=== PATIENT | female | born 1940 | race Caucasian/White ===

== ENCOUNTER 2020-05-25 09:04 | Outpatient (RCR) | payer OTHER, SELFPAY | END 2020-10-25 10:56 | disposition home or self-care (01) | LOC: HO.WCC 09:04 | PROVIDERS: PCP Internal Medicine; Visit Provider Surgery | DX: L97.825 Non-pressure chronic ulcer of other part of left lower leg with muscle involvement without evidence of necrosis (principal) | CPT/HCPCS: 10140; 11042; 11043; 11045; 11046; 97597; 99212; 99213 ==

== ENCOUNTER 2020-06-14 08:13 | Outpatient (REF) | payer OTHER, SELFPAY | END 2020-06-14 08:14 | disposition home or self-care (01) | LOC: HO.MDS 08:13 | PROVIDERS: PCP Internal Medicine; Visit Provider Psychiatry & Neurology Neurology | DX: G70.00 Myasthenia gravis without (acute) exacerbation (principal) | CPT/HCPCS: 96365; 96366; J1572 ==

== ENCOUNTER → 2020-07-04 10:02 | Outpatient (BNVA) | payer OTHER, SELFPAY | PROVIDERS: PCP Family Medicine; Referring Provider Family Medicine; Visit Provider Internal Medicine Gastroenterology | DX: Z76.89 Persons encountering health services in other specified circumstances (principal) ==

== ENCOUNTER 2020-07-12 08:04 | Outpatient (REF) | payer OTHER, SELFPAY | END 2020-07-12 08:05 | disposition home or self-care (01) | LOC: HO.MDS 08:04 | PROVIDERS: PCP Internal Medicine; Visit Provider Psychiatry & Neurology Neurology | DX: G70.00 Myasthenia gravis without (acute) exacerbation (principal) | CPT/HCPCS: 96365; 96366; J1572 ==

== ENCOUNTER 2020-08-10 08:07 | Outpatient (REF) | payer OTHER, SELFPAY | END 2020-08-10 08:08 | disposition home or self-care (01) | LOC: HO.MDS 08:07 | PROVIDERS: PCP Internal Medicine; Visit Provider Psychiatry & Neurology Neurology | DX: G70.00 Myasthenia gravis without (acute) exacerbation (principal) | CPT/HCPCS: 96365; 96366; J1572 ==

== ENCOUNTER 2020-09-06 08:53 | Outpatient (REF) | payer OTHER, SELFPAY | END 2020-09-06 08:54 | disposition home or self-care (01) | LOC: HO.MDS 08:53 | PROVIDERS: PCP Internal Medicine; Visit Provider Psychiatry & Neurology Neurology | DX: G70.00 Myasthenia gravis without (acute) exacerbation (principal) | CPT/HCPCS: 96365; 96366; J1572 ==

== ENCOUNTER 2020-10-04 08:02 | Outpatient (REF) | payer OTHER, SELFPAY | END 2020-10-04 08:03 | disposition home or self-care (01) | LOC: HO.MDS 08:02 | PROVIDERS: PCP Internal Medicine; Visit Provider Psychiatry & Neurology Neurology | DX: G70.00 Myasthenia gravis without (acute) exacerbation (principal) | CPT/HCPCS: 96365; 96366; J1572 ==

== ENCOUNTER 2020-11-01 08:03 | Outpatient (REF) | payer OTHER, SELFPAY | END 2020-11-01 08:04 | disposition home or self-care (01) | LOC: HO.MDS 08:03 | PROVIDERS: PCP Internal Medicine; Visit Provider Psychiatry & Neurology Neurology | DX: G70.00 Myasthenia gravis without (acute) exacerbation (principal) | CPT/HCPCS: 96365; 96366; J1572 ==

== ENCOUNTER 2020-11-08 11:13 | Outpatient (REF) | payer OTHER, SELFPAY ==
[2020-11-08 12:10] LABS: MANUAL DIFF FLAG NO
[2020-11-08 12:20] LABS: Basophils Percent Auto 0.3 % (0-2); Eosinophils Absolute Auto 0.1 X10*3/uL (0.0-0.4); Eosinophils Percent Auto 0.6 % (0-4); Hematocrit 43.2 % (37-47); Hemoglobin 13.7 g/dl (12.0-16.0); Imm Gran Abs Auto 0.04 X10*3/uL (0.00-0.03); Imm Gran Pct Auto 0.4 % (0.0-0.4); Lymphocytes Absolute Auto 1.3 X10*3/uL (1.2-4.9); Lymphocytes Percent Auto 12.6 % (20-40); Mean Corpuscular HGB Conc 31.7 g/dl (31.0-35.0); Mean Corpuscular Hemoglobin 31.4 pg (27.0-33.0); Mean Corpuscular Volume 99.1 fL (80-98); Mean Platelet Volume 9.2 fL (9.4-12.3); Monocytes Absolute Auto 0.6 X10*3/uL (0.1-1.2); Neutrophils Absolute Auto 8.3 X10*3/uL (2.0-8.3); Neutrophils Percent Auto 80.1 % (45-73); Platelet Count 242 X10*3/uL (160-400); Red Blood Count 4.36 X10*6/uL (4.20-5.50); Red Cell Distribution Width 14.6 % (11.0-16.0); White Blood Count 10.3 X10*3/uL (4.8-10.8)
[2020-11-08 13:38] LABS: Alanine Aminotransferase 12 U/L (0-31); Albumin Level 4.2 g/dL (3.5-5.0); Alkaline Phosphatase 55 U/L (39-117); Anion Gap 13 (12-20); Aspartate Amino Transferase 19 U/L (5-31); Bilirubin Total 1.1 mg/dL (0.0-1.0); Blood Urea Nitrogen 18 mg/dL (9-16); C Reactive Protein 0.22 mg/dL (< or = 0.50); Carbon Dioxide 26 mmol/L (22-29); Chloride 106 mmol/L (96-108); Estimated Glomerular Filt Rate > 60; Glucose Random 84 mg/dL (60-115); Magnesium 1.9 mg/dL (1.6-2.6); Potassium 3.6 mmol/L (3.3-5.1); Sodium 141 mmol/L (135-145); Total Protein 7.9 g/dL (6.5-8.0)
[2020-11-08 13:49] LABS: TSH reflex Free T4 1.63 uIU/mL (0.32-4.0); Vitamin D 25-OH Total 24.3 ng/mL (>30)
[2020-11-09 05:12] LABS: Transglutaminase IgA 1 U/mL
[2020-11-12 12:36] LABS: Vitamin B1 11 nmol/L (8-30)
== END 2020-11-08 11:14 | disposition home or self-care (01) ==
LOC: HO.LAB 11:13
PROVIDERS: PCP Family Medicine; Visit Provider Internal Medicine Gastroenterology
DX: K90.89 Other intestinal malabsorption (principal)
CPT/HCPCS: 36415; 80053; 82306; 83516; 83735; 84425; 84443; 85025; 86140

== ENCOUNTER 2020-11-12 09:53 | Outpatient (REF) | payer OTHER, SELFPAY ==
[2020-11-12 12:00] LABS: CDIFF Ag Negative (Negative); CDIFF Internal ctrl Dots and bkg OK (V); CDiff Toxin Negative (Negative)
[2020-11-12 15:08] LABS: Leukocytes Stool Qualitative NEGATIVE (NEGATIVE)
== END 2020-11-12 09:54 | disposition home or self-care (01) ==
LOC: HO.LNP 09:53
PROVIDERS: Visit Provider Internal Medicine Gastroenterology
DX: D12.6 Benign neoplasm of colon, unspecified (principal); K90.89 Other intestinal malabsorption
CPT/HCPCS: 87324; 87449; 89055

== ENCOUNTER 2020-11-16 | Outpatient (REF) | payer OTHER, SELFPAY ==
[2020-11-19 14:41] LABS: FIT Int Ctl YES; FIT1 NEGATIVE (NEGATIVE); FIT2 NEGATIVE (NEGATIVE)
== END 2020-11-16 00:01 | disposition home or self-care (01) ==
LOC: HO.LNP
PROVIDERS: Visit Provider Internal Medicine Gastroenterology
DX: Z13.89 Encounter for screening for other disorder (principal)
CPT/HCPCS: 82274

== ENCOUNTER 2020-11-29 08:02 | Outpatient (REF) | payer OTHER, SELFPAY | END 2020-11-29 08:03 | disposition home or self-care (01) | LOC: HO.MDS 08:02 | PROVIDERS: PCP Internal Medicine; Visit Provider Psychiatry & Neurology Neurology | DX: G70.00 Myasthenia gravis without (acute) exacerbation (principal) | CPT/HCPCS: 96365; 96366; J1572 ==

== ENCOUNTER 2020-12-28 07:56 | Outpatient (REF) | payer OTHER, SELFPAY | END 2020-12-28 07:57 | disposition home or self-care (01) | LOC: HO.MDS 07:56 | PROVIDERS: PCP Family Medicine; Visit Provider Psychiatry & Neurology Neurology | DX: G70.00 Myasthenia gravis without (acute) exacerbation (principal) | CPT/HCPCS: 96365; 96366; J1572 ==

== ENCOUNTER → 2021-01-01 13:18 | Outpatient (BNVA) | payer OTHER, SELFPAY | PROVIDERS: PCP Family Medicine; Referring Provider Family Medicine; Visit Provider Nurse Practitioner Family ==

== ENCOUNTER 2021-01-25 08:04 | Outpatient (REF) | payer OTHER, SELFPAY | END 2021-01-25 08:05 | disposition home or self-care (01) | LOC: HO.MDS 08:04 | PROVIDERS: PCP Family Medicine; Visit Provider Psychiatry & Neurology Neurology | DX: G70.00 Myasthenia gravis without (acute) exacerbation (principal) | CPT/HCPCS: 96365; 96366; J1572 ==

== ENCOUNTER 2021-02-21 08:03 | Outpatient (REF) | payer OTHER, SELFPAY | END 2021-02-21 08:04 | disposition home or self-care (01) | LOC: HO.MDS 08:03 | PROVIDERS: PCP Family Medicine; Visit Provider Psychiatry & Neurology Neurology | DX: G70.00 Myasthenia gravis without (acute) exacerbation (principal) | CPT/HCPCS: 96365; 96366; J1572 ==

== ENCOUNTER 2021-03-04 15:39 | Outpatient (REF) | payer OTHER, SELFPAY ==
[2021-03-04 15:48] LABS: Appearance Urine CLEAR; Color Urine YELLOW; Glucose Urine UA NEG (NEG); Leukocyte Esterase Urine NEG (NEG); Nitrite Urine NEG (NEG); Specific Gravity - Urine <= 1.005 (1.005-1.025); Urine Blood TRACE (NEG); Urine Ketones NEG (NEG); Urine Protein NEG (NEG-TRACE)
[2021-03-04 15:56] LABS: Mucus Urine TRACE /LPF; RBC Urine 0-2 /HPF (0); WBC Urine 0 /HPF (0-4)
== END 2021-03-04 15:40 | disposition home or self-care (01) ==
LOC: HO.HVNA 15:39
PROVIDERS: Visit Provider Family Medicine
DX: R35.0 Frequency of micturition (principal)
CPT/HCPCS: 81001

== ENCOUNTER 2021-03-21 07:57 | Outpatient (REF) | payer OTHER, SELFPAY | END 2021-03-21 07:58 | disposition home or self-care (01) | LOC: HO.MDS 07:57 | PROVIDERS: PCP Family Medicine; Visit Provider Psychiatry & Neurology Neurology | DX: G70.00 Myasthenia gravis without (acute) exacerbation (principal) | CPT/HCPCS: 96365; 96366; J1569 ==

== ENCOUNTER 2021-04-18 08:03 | Outpatient (REF) | payer OTHER, SELFPAY | END 2021-04-18 08:04 | disposition home or self-care (01) | LOC: HO.MDS 08:03 | PROVIDERS: PCP Family Medicine; Visit Provider Psychiatry & Neurology Neurology | DX: G70.00 Myasthenia gravis without (acute) exacerbation (principal) | CPT/HCPCS: 96365; 96366; J1569 ==

== ENCOUNTER 2021-05-23 07:52 | Outpatient (REF) | payer OTHER, SELFPAY | END 2021-05-23 07:53 | disposition home or self-care (01) | LOC: HO.MDS 07:52 | PROVIDERS: PCP Family Medicine; Visit Provider Psychiatry & Neurology Neurology | DX: G70.00 Myasthenia gravis without (acute) exacerbation (principal) | CPT/HCPCS: 96365; 96366; J1569 ==

== ENCOUNTER 2021-06-27 07:55 | Outpatient (REF) | payer OTHER, SELFPAY | END 2021-06-27 07:56 | disposition home or self-care (01) | LOC: HO.MDS 07:55 | PROVIDERS: PCP Family Medicine; Visit Provider Psychiatry & Neurology Neurology | DX: G70.00 Myasthenia gravis without (acute) exacerbation (principal) | CPT/HCPCS: 96365; 96366; J1569 ==

== ENCOUNTER 2021-08-01 08:12 | Outpatient (REF) | payer OTHER, SELFPAY | END 2021-08-01 08:13 | disposition home or self-care (01) | LOC: HO.MDS 08:12 | PROVIDERS: PCP Family Medicine; Visit Provider Psychiatry & Neurology Neurology | DX: G70.00 Myasthenia gravis without (acute) exacerbation (principal) | CPT/HCPCS: 96365; 96366; J1569 ==

== ENCOUNTER 2021-09-05 07:58 | Outpatient (REF) | payer OTHER, SELFPAY | END 2021-09-05 07:59 | disposition home or self-care (01) | LOC: HO.MDS 07:58 | PROVIDERS: PCP Family Medicine; Visit Provider Psychiatry & Neurology Neurology | DX: G70.00 Myasthenia gravis without (acute) exacerbation (principal) | CPT/HCPCS: 96365; 96366; J1569 ==

== ENCOUNTER 2021-10-10 08:02 | Outpatient (REF) | payer OTHER, SELFPAY | END 2021-10-10 08:03 | disposition home or self-care (01) | LOC: HO.MDS 08:02 | PROVIDERS: PCP Family Medicine; Visit Provider Psychiatry & Neurology Neurology | DX: G70.00 Myasthenia gravis without (acute) exacerbation (principal) | CPT/HCPCS: 96365; 96366; J1569 ==

== ENCOUNTER 2021-11-07 08:03 | Outpatient (REF) | payer OTHER, SELFPAY | END 2021-11-07 08:04 | disposition home or self-care (01) | LOC: HO.MDS 08:03 | PROVIDERS: PCP Family Medicine; Visit Provider Psychiatry & Neurology Neurology | DX: G70.00 Myasthenia gravis without (acute) exacerbation (principal) | CPT/HCPCS: 96365; 96366; J1569 ==

== ENCOUNTER 2021-12-03 08:03 | Outpatient (REF) | payer OTHER, SELFPAY | END 2021-12-03 08:04 | disposition home or self-care (01) | LOC: HO.MDS 08:03 | PROVIDERS: PCP Family Medicine; Visit Provider Psychiatry & Neurology Neurology | DX: G70.00 Myasthenia gravis without (acute) exacerbation (principal) | CPT/HCPCS: 96365; 96366; J1569 ==

== ENCOUNTER 2022-03-10 08:00 | Outpatient (REF) | payer OTHER, SELFPAY | END 2022-03-10 08:01 | disposition home or self-care (01) | LOC: HO.MDS 08:00 | PROVIDERS: Visit Provider Psychiatry & Neurology Neurology | DX: G70.00 Myasthenia gravis without (acute) exacerbation (principal) | CPT/HCPCS: 96365; 96366; J1569 ==

== ENCOUNTER 2022-05-01 08:00 | Outpatient (REF) | payer OTHER, SELFPAY | END 2022-05-01 08:01 | disposition home or self-care (01) | LOC: HO.MDS 08:00 | PROVIDERS: Visit Provider Psychiatry & Neurology Neurology | DX: G70.00 Myasthenia gravis without (acute) exacerbation (principal) | CPT/HCPCS: J1569 ==

== ENCOUNTER 2022-06-12 08:00 | Outpatient (REF) | payer OTHER, SELFPAY | END 2022-06-12 08:01 | disposition home or self-care (01) | LOC: HO.MDS 08:00 | PROVIDERS: Visit Provider Psychiatry & Neurology Neurology | DX: G70.00 Myasthenia gravis without (acute) exacerbation (principal) | CPT/HCPCS: 96365; 96366; J1569; J1572 ==

== ENCOUNTER 2022-08-15 14:00 | Outpatient (RCR) | payer OTHER, SELFPAY | END 2022-10-15 16:00 | disposition home or self-care (01) | LOC: HO.WCC 14:00 | PROVIDERS: PCP Family Medicine; Visit Provider Physician Assistant | DX: L97.812 Non-pressure chronic ulcer of other part of right lower leg with fat layer exposed (principal); I10 Essential (primary) hypertension | CPT/HCPCS: 11042; 88304; 88305; 97597; 99212; 99213 ==

== ENCOUNTER → 2022-08-21 14:02 | Outpatient (BNVA) | payer OTHER, SELFPAY | PROVIDERS: PCP Family Medicine; Visit Provider Internal Medicine Endocrinology, Diabetes & Metabolism | DX: M81.0 Age-related osteoporosis without current pathological fracture (principal) ==

== ENCOUNTER 2022-09-01 09:23 | Outpatient (REF) | payer OTHER, SELFPAY ==
[2022-09-01 11:24] LABS: Phosphorus 3.1 mg/dL (2.7-4.5)
[2022-09-01 11:32] LABS: Vitamin D 25-OH Total 68.6 ng/mL (>30)
[2022-09-04 23:42] LABS: Prot Elec - Albumin 3.7 g/dL (3.8-4.8); Prot Elec - Alpha1 0.3 g/dL (0.2-0.3); Prot Elec - Alpha2 0.9 g/dL (0.5-0.9); Prot Elec - Beta 1 0.4 g/dL (0.4-0.6); Prot Elec - Beta 2 0.3 g/dL (0.2-0.5); Prot Elec - Gamma 0.7 g/dL (0.8-1.7); Prot Elec - Total Protein 6.3 g/dL (6.1-8.1)
== END 2022-09-01 09:24 | disposition home or self-care (01) ==
LOC: HO.LAB 09:23
PROVIDERS: PCP Family Medicine; Visit Provider Internal Medicine Endocrinology, Diabetes & Metabolism
DX: M81.0 Age-related osteoporosis without current pathological fracture (principal)
CPT/HCPCS: 82306; 84100; 84165; 86335

== ENCOUNTER 2022-09-16 12:23 | Outpatient (REF) | payer OTHER, SELFPAY ==
[2022-09-16 13:21] LABS: Creatinine, mg/dL 75.25
[2022-09-16 14:56] LABS: Creatinine, 24Hr Urine 0.6 G/Day (1.0-2.0); Total Volume 24 Hour Urine 750 mL
[2022-09-17 18:08] LABS: Calcium, 24 Hr Urine 199 mg/24 h; Calcium/Creatinine Ratio 328 mg/g creat (30-275); Creatinine 24Hr Urine 0.61 g/24 h (0.50-2.15)
== END 2022-09-16 12:24 | disposition home or self-care (01) ==
LOC: HO.LNP 12:23
PROVIDERS: Visit Provider Internal Medicine Endocrinology, Diabetes & Metabolism
DX: M81.0 Age-related osteoporosis without current pathological fracture (principal)
CPT/HCPCS: 82340; 82570

== ENCOUNTER → 2022-10-24 11:28 | Outpatient (BNVA) | payer OTHER, SELFPAY | PROVIDERS: PCP Family Medicine; Visit Provider Internal Medicine Endocrinology, Diabetes & Metabolism | DX: Z13.89 Encounter for screening for other disorder (principal) ==

== ENCOUNTER 2023-01-22 08:00 | Outpatient (RCR) | payer OTHER, SELFPAY | END 2023-01-30 14:06 | disposition home or self-care (01) | LOC: HO.WCC 08:00 | PROVIDERS: PCP Family Medicine; Visit Provider Surgery | DX: S51.821A Laceration with foreign body of right forearm, initial encounter (principal); W54.0XXA Bitten by dog, initial encounter; I10 Essential (primary) hypertension; I73.9 Peripheral vascular disease, unspecified; G70.00 Myasthenia gravis without (acute) exacerbation; Z87.891 Personal history of nicotine dependence | CPT/HCPCS: 99212; 99213 ==

== ENCOUNTER 2023-03-05 14:14 | Outpatient (REF) | payer OTHER, SELFPAY | END 2023-03-05 14:15 | disposition home or self-care (01) | LOC: HO.MDS 14:14 | PROVIDERS: Visit Provider Psychiatry & Neurology Neurology | DX: G70.00 Myasthenia gravis without (acute) exacerbation (principal) | CPT/HCPCS: 96365; J2930 ==

== ENCOUNTER 2023-03-23 08:31 | Outpatient (REF) | payer OTHER, SELFPAY | END 2023-03-23 08:32 | disposition home or self-care (01) | LOC: HO.MDS 08:31 | PROVIDERS: Visit Provider Psychiatry & Neurology Neurology | DX: G70.00 Myasthenia gravis without (acute) exacerbation (principal) | CPT/HCPCS: 96365; 96366; J1569 ==

== ENCOUNTER 2023-05-28 08:20 | Outpatient (REF) | payer OTHER, SELFPAY | END 2023-05-28 08:21 | disposition home or self-care (01) | LOC: HO.MDS 08:20 | PROVIDERS: Visit Provider Psychiatry & Neurology Neurology | DX: G70.00 Myasthenia gravis without (acute) exacerbation (principal) | CPT/HCPCS: 96365; J2930 ==

== ENCOUNTER 2023-09-11 10:06 | Outpatient (REF) | payer OTHER, SELFPAY ==
[2023-09-11 10:44] LABS: Blood Urea Nitrogen 12 mg/dL (9-16); Estimated Glomerular Filt Rate > 60
== END 2023-09-11 10:07 | disposition home or self-care (01) ==
LOC: HO.LAB 10:06
PROVIDERS: Psychiatry & Neurology Neurology; PCP Family Medicine; Visit Provider Psychiatry & Neurology Neurology
DX: G70.00 Myasthenia gravis without (acute) exacerbation (principal)
CPT/HCPCS: 36415; 82565; 84520

== ENCOUNTER 2023-09-11 10:39 | Outpatient (REF) | payer OTHER, SELFPAY | END 2023-09-11 10:40 | disposition home or self-care (01) | LOC: HO.MDS 10:39 | PROVIDERS: Visit Provider Psychiatry & Neurology Neurology | DX: G70.00 Myasthenia gravis without (acute) exacerbation (principal) | CPT/HCPCS: 96365; 96366; J1569 ==

== ENCOUNTER 2023-09-14 10:00 | Outpatient (REF) | payer OTHER, SELFPAY | END 2023-09-14 10:01 | disposition home or self-care (01) | LOC: HO.MDS 10:00 | PROVIDERS: Visit Provider Psychiatry & Neurology Neurology | DX: G70.00 Myasthenia gravis without (acute) exacerbation (principal) | CPT/HCPCS: 96365; 96366; J1569 ==

== ENCOUNTER 2023-09-15 09:23 | Outpatient (REF) | payer OTHER, SELFPAY ==
[2023-09-17 01:29] LABS: Immunoglobulin G 1669 mg/dL (600-1540)
[2023-09-18 11:03] LABS: Prot Elec - Alpha1 0.2 g/dL (0.2-0.3); Prot Elec - Alpha2 0.6 g/dL (0.5-0.9); Prot Elec - Beta 1 0.3 g/dL (0.4-0.6); Prot Elec - Beta 2 0.2 g/dL (0.2-0.5); Prot Elec - Gamma 1.6 g/dL (0.8-1.7)
== END 2023-09-15 09:24 | disposition home or self-care (01) ==
LOC: HO.MDS 09:23
PROVIDERS: Visit Provider Psychiatry & Neurology Neurology
DX: G70.00 Myasthenia gravis without (acute) exacerbation (principal)
CPT/HCPCS: 36415; 82784; 84165; 96365; 96366; J1569

== ENCOUNTER 2023-09-16 12:18 | Outpatient (REF) | payer OTHER, SELFPAY | END 2023-09-16 12:19 | disposition home or self-care (01) | LOC: HO.MDS 12:18 | PROVIDERS: Visit Provider Psychiatry & Neurology Neurology | DX: G70.00 Myasthenia gravis without (acute) exacerbation (principal) | CPT/HCPCS: 96365; 96366; J1569 ==

== ENCOUNTER 2023-09-17 08:52 | Outpatient (REF) | payer OTHER, SELFPAY | END 2023-09-17 08:53 | disposition home or self-care (01) | LOC: HO.MDS 08:52 | PROVIDERS: Visit Provider Psychiatry & Neurology Neurology | DX: G70.00 Myasthenia gravis without (acute) exacerbation (principal) | CPT/HCPCS: 96365; 96366; J1569 ==

== ENCOUNTER 2023-10-25 15:05 | Inpatient (IN) | payer OTHER, SELFPAY ==
--- NOTE | ~2023-10-25 | XR_ITS ---
EXAMINATION: XR CHEST CLINICAL INFORMATION: G-tube placement. COMPARISON: 05/17/2017 TECHNIQUE: Frontal view of the chest was obtained. FINDINGS: Borderline low lung volumes with areas of bibasilar atelectasis and multifocal pleural parenchymal scarring. No airspace consolidation. No pneumothorax or pleural effusion. Cardiac and mediastinal contours are normal. Tortuous thoracic aorta with calcific atherosclerosis. Bones are osteopenic. There is multilevel degenerative spondylosis in the thoracolumbar spine with vertebral augmentation cement at multiple levels in the lower thoracic spine. ACDF plate and screw fixation construct is noted. No appreciable gastrostomy tube over the abdomen. No NG tube. XR/XR chest 1V IMPRESSION: 1. No appreciable gastrostomy tube over the abdomen. No NG tube. 2. Low lung volumes with bibasilar atelectasis and multifocal pleural parenchymal scarring. No acute pulmonary findings.
--- NOTE | ~2023-10-25 | FL_ITS ---
FLUOROSCOPIC NASOGASTRIC FEEDING TUBE PLACEMENT INDICATION: Myasthenia gravis. Patient is unable to swallow. Patient was placed upright on the fluoroscopy table. A well lubricated 10 [place] soft flexible feeding tube was inserted into the right nare and advanced into the stomach under fluoroscopic guidance. The tip of tube overlies the body/distal stomach, greater curvature. The tube was secured to the nose at the 62 cm karen. No immediate complications. Patient tolerated the procedure well. T12 compression deformity and vertebroplasty noted. Superior endplate compression deformity L1. Diffuse lumbar spondylosis and mild right convex scoliosis. Total fluoroscopy time: 2 minutes 9 seconds FL/FL fluoroscopy <1hr IMPRESSION: Successful fluoroscopic aided placement of a nasogastric feeding tube. This procedure was performed by Dilan Brasher PA-C and supervised by Dr. Hill.
[2023-10-25 15:08] VITALS: BP 140/86; PULSE 83; RESP 18; TEMP 36.8; O2SAT 96; BMI 23.0
--- NOTE | 2023-10-25 15:14 | ED_ITS ---
HPI - General Adult General Chief complaint: General Medical Stated complaint: alli thomas called ahead Time Seen by Provider: 10/25/23 16:11 History of Present Illness HPI narrative: Patient 83 years old history of myasthenia gravis affecting oropharyngeal area on Vyugart and prednisone comes here for increased weakness difficulty swallowing and impaired speech for last 3 days patient next dose of Vyugart inj is on 11/06 patient discussed the case with Dr. Thomas neurologist advised to start on IV immunoglobulin treatment no shortness of breath Related Data Home Medications Medication Instructions Recorded Confirmed azathioprine 50 mg tablet 50 mg PO Q OTHER DAY 07/04/20 10/25/23 pyridostigmine bromide 60 mg 60 mg PO TID 07/04/20 10/25/23 tablet (Mestinon) amlodipine 5 mg tablet 5 mg PO DAILY 08/21/22 10/25/23 efgartigimod isabella-fcab 20 mg/mL mg IV 10/25/23 intravenous solution (Vyvgart) gabapentin 100 mg capsule 100 mg PO BEDTIME PRN Pain 10/25/23 10/25/23 latanoprost 0.005 % eye drops 1 drp ophthalmic (eye) BEDTIME 10/25/23 10/25/23 oxybutynin chloride 15 mg 15 mg PO DAILY 10/25/23 10/25/23 tablet,extended release 24 hr prednisone 20 mg tablet 20 mg PO DAILY 10/25/23 10/25/23 timolol maleate 0.25 % eye drops 1 drp ophthalmic-Right QAM 10/25/23 10/25/23 Allergies Allergy/AdvReac Type Severity Reaction Status Date / Time NSAIDS (Non-Steroidal Allergy Intermediate RASH Verified 10/24/22 11:38 Anti-Inflamma [NSAIDS (NON-STEROIDAL ANTI-INFLAMMA] azithromycin Allergy Unknown may Verified 10/24/22 11:38 exacerbate MG Ceftin Allergy Unknown hives Verified 10/24/22 11:38 cefuroxime [From CEFTIN] Allergy Unknown PATIENT Verified 10/24/22 11:38 AWARE OF REACTION IT WAS SO LONG AGO ibuprofen [Advil] Allergy Unknown rash Verified 10/24/22 11:38 levofloxacin Allergy Unknown may Verified 10/24/22 11:38 exacerbate MG lisinopril Allergy Unknown unknown Verified 10/24/22 11:38 losartan Allergy Unknown unknown Verified 10/24/22 11:38 ciprofloxacin [CIPROFLOXACIN] AdvReac Unknown UNABLE TO Verified 10/24/22 11:38 TAKE R/T DX MYASTHENIA GRAVIS nitrofurantoin AdvReac Unknown stomatitis Verified 10/24/22 11:38 adhesive tape Allergy Unknown rash Uncoded 10/24/22 11:38 adhesives Allergy Unknown rash Uncoded 10/24/22 11:38 Advil PM Allergy Unknown rash Uncoded 10/24/22 11:38 Review of Systems 2 Review of Systems: Yes all other systems are reviewed and are negative [facility] Past Medical History Medical History Osteoporosis Myasthenia gravis in remission Tubular adenoma of colon (~2010) Bile salt-induced diarrhea Surgical History History of back surgery Status post partial hysterectomy Hx laparoscopic cholecystectomy Hx of colonoscopy Family History Family History Father HTN (hypertension) Mother Colon cancer Sister Glaucoma Other Hx of colonoscopy Social History Social History Household Members: None Housing: House Alcohol intake: current Alcohol intake frequency: holidays/special occasions only Patient Tobacco Use Status: Former Tobacco user Quit Date: 1971 Smoked in Last 30 Days: No Use of substances other than those prescribed or required for medical reasons: No Advance Directives: Yes Advance Directives Information Provided: No Advance Directives on File: No Advance Directives Date on File: 06/14/20 Nutrition Risks: No Nutritional Risk Physical Exam ED Vital Signs: Vital Signs - 24 hr 10/25/23 15:08 10/25/23 17:04 Temperature 98.3 F 97.9 F Pulse Rate 83 75 Respiratory Rate 18 14 Blood Pressure 140/86 H Pulse Oximetry 96 97 Oxygen Delivery Method Room Air Room Air BMI result Body Mass Index 23.0 Appearance: Alert. Oriented X3. No acute distress. Eyes: PERRLA, No Nystagmus ENT: Pharynx normal. Oral Mucosa moist slow speech with easy tiredness Neck: Normal inspection. Neck supple. CVS: Normal heart rate and rhythm. Pulses normal. Respiratory: No respiratory distress. Equal air entry bilateral, no wheezing/rales/rhonchi Abdomen: Soft and nontender. Bowel sounds are present, no mass palpable, no CVA tenderness Skin: Skin warm and dry. Normal skin color. Normal skin turgor. Extremities: No lower extremity edema. No calf tenderness Neuro: Oriented X 3. No motor deficit. Course Course Course Narrative: RME- 83 year old female presents for evaluation weakness, difficulty swallowing and impaired speech for the last 4 days. She has a history of myasthenia gravis and Dr Thomas would like her to be admitted for 5 days of IVIG treatment. She is due for an outpatient Vyvgart injection on 11/06. Plan for basic labs Medications Administered Generic Name Dose Route Start Last Admin Trade Name Freq PRN Reason Stop Dose Admin Heparin Sodium (Porcine) 5,000 unit 10/25/23 17:30 10/25/23 17:53 Heparin Sodium,Porcine 5,000 Unit/Ml Vial SUBCUT 5,000 unit Q12H AME Administration Sodium Chloride 1,000 mls @ 80 mls/hr 10/25/23 17:30 10/25/23 17:47 Ns IVCONT 80 mls/hr .[id number] AME Administration Sodium Chloride 3 ml 10/26/23 00:00 10/26/23 00:00 0.9 % Sodium Chloride Flush 3 Ml Syringe IVFLUSH Not Given QSHIFT AME Discontinued Medications Generic Name Dose Route Start Last Admin Trade Name Freq PRN Reason Stop Dose Admin Acetaminophen 650 mg 10/25/23 16:32 10/25/23 16:48 Acetaminophen 325 Mg Tablet PO 10/25/23 16:33 Not Given ONCE ONE Diphenhydramine HCl 25 mg 10/25/23 16:32 10/25/23 16:43 Diphenhydramine Hcl 50 Mg/Ml Vial IVPUSH 10/25/23 16:33 25 mg ONCE ONE Administration Sodium Chloride 100 mls @ 100 mls/hr 10/25/23 16:45 10/25/23 18:15 Ns IV 10/25/23 17:44 Infused .Q1H AME Infusion Immune Globulin 50 mls @ 30 mls/hr 10/25/23 16:45 10/25/23 18:35 Gammagard 10% IV 10/25/23 18:24 Infused ONCE ONE Infusion Immune Globulin 200 mls @ 30 mls/hr 10/25/23 18:30 10/25/23 18:44 Gammagard 10% IV 10/26/23 01:09 30 mls/hr ONCE ONE Administration Methylprednisolone Sodium Succinate 40 mg 10/25/23 16:32 10/25/23 16:43 Methylprednisolone Sod Succ 40 Mg/Ml Vial IVPUSH 10/25/23 16:33 40 mg ONCE ONE Administration Medical Decision Making Medical Decision Making [facility] Narrative: Patient with dysphagia with weakness the muscles secondary to myasthenia gravis will admit patient for IVIG treatment no shortness of breath Differential Diagnosis Differential Diagnoses: The differential diagnosis associated with the presentation includes Admission/Observation Consideration of admission/observation: Escalation of care including admission/observation considered Consult Healthcare Provider Management of the patient was discussed with: Hospitalist Lab Data [facility] Lab Attestation statement: I reviewed the patient's lab results. 10/25/23 15:39 10/25/23 15:39 Labs: Lab Results 10/25/23 10/25/23 10/25/23 Range/Units 15:39 15:59 16:15 WBC 9.9 (4.8-10.8) X10*3/uL RBC 4.69 (4.20-5.50) X10*6/uL Hgb 15.3 (12.0-16.0) g/dl Hct 46.2 (37.0-47.0) % MCV 98.5 H (80.0-98.0) fL MCH 32.6 (27.0-33.0) pg MCHC 33.1 (31.0-35.0) g/dl RDW 13.2 (11.0-16.0) % Plt Count 212 (160-400) X10*3/uL MPV 8.7 L (9.4-12.3) fL Immature Gran % (Auto) 0.4 (0.0-0.4) % Neut % (Auto) 92.6 H (45-73) % Lymph % (Auto) 5.5 L (20-40) % [place] % (Auto) 1.3 L (2-11) % Eos % (Auto) 0.0 (0-4) % Baso % (Auto) 0.2 (0-2) % Lymph # (Auto) 0.5 L (1.2-4.9) X10*3/uL [place] # (Auto) 0.1 (0.1-1.2) X10*3/uL Eos # (Auto) 0.0 (0.0-0.4) X10*3/uL Baso # (Auto) 0.0 (0.0-0.2) X10*3/uL Abs Immat Gran (auto) 0.04 H (0.00-0.03) X10*3/uL Absolute Neuts (auto) 9.2 H (2.0-8.3) x10*3/uL Absolute Nucleated RBC 0.000 (0.0-0.012) X10*3/uL Nucleated RBC % (auto) 0.0 (0.0-0.2) /100WBC Smear Tech's Comments VERIFIED ESR 2 (0-20) MM/HR Sodium 144 (135-145) mmol/L Potassium 4.2 (3.3-5.1) mmol/L Chloride 108 (96-108) mmol/L Carbon Dioxide 26 (22-29) mmol/L Anion Gap 14 (12-20) BUN 17 H (9-16) mg/dL Creatinine 0.66 (0.5-1.4) mg/dL Estim Creat Clear Calc 51.5 Estimated GFR > 60 Random Glucose 131 H (60-115) mg/dL Calcium 9.5 (8.4-10.2) mg/dL Total Bilirubin 1.1 H (0.0-1.0) mg/dL AST 24 (5-31) U/L ALT 20 (0-31) U/L Alkaline Phosphatase 70 (39-117) U/L C-Reactive Protein 0.12 (< or = 0.50) mg/dL Total Protein 6.9 (6.5-8.0) g/dL Albumin 4.4 (3.5-5.0) g/dL Lipase 58 (8-78) U/L Urine Color Yellow Urine Appearance Clear Urine pH 5.5 (5.0-9.0) Ur Specific [place] 1.020 (1.005-1.025) Urine Protein 30 (1+) H (Neg-Trace) mg/dL Urine Glucose (UA) Negative (Negative) mg/dL Urine Ketones 15 (Negative) mg/dL Urine Blood Trace H (Negative) Urine Nitrite Negative (Negative) Ur Leukocyte Esterase Negative (Negative) Urine RBC 3-5 H (0-2) /HPF Urine WBC 0-5 (0-5) /HPF Ur Squamous Epith Cells 0-2 (0-2) /HPF Calcium Oxalate Crystal Present Urine Bacteria None Seen (None Seen) Hyaline Casts 0-2 (0-2) /LPF Discharge Plan Discharge Clinical Impression: Myasthenia gravis with exacerbation Patient Disposition: Admitted As Inpatient
--- NOTE | 2023-10-25 15:15 | ECG_ITS ---
Test Reason : PAIN Blood Pressure : / mmHG Vent. Rate : 086 BPM Atrial Rate : 086 BPM P-R Int : 218 ms QRS Dur : 080 ms QT Int : 372 ms P-R-T Axes : 056 -50 011 degrees QTc Int : 445 ms Sinus rhythm with 1st degree A-V block Left axis deviation Moderate voltage criteria for LVH, may be normal variant ( R in aVL , Maurilio product ) Inferior infarct (cited on or before 28-JUL-2016) Anterior infarct (cited on or before 28-JUL-2016) Abnormal ECG When compared with ECG of 20-FEB-2017 10:41, [place] interval has increased Questionable change in initial forces of Inferior leads Referred By: Dilan Turner Electronically Signed By:Barrett Murry
[2023-10-25 16:14] LABS: Basophils Percent Auto 0.2 % (0-2); Hematocrit 46.2 % (37.0-47.0); Hemoglobin 15.3 g/dl (12.0-16.0); Imm Gran Abs Auto 0.04 X10*3/uL (0.00-0.03); Imm Gran Pct Auto 0.4 % (0.0-0.4); Lymphocytes Absolute Auto 0.5 X10*3/uL (1.2-4.9); Lymphocytes Percent Auto 5.5 % (20-40); MANUAL DIFF FLAG SCAN; Mean Corpuscular HGB Conc 33.1 g/dl (31.0-35.0); Mean Corpuscular Hemoglobin 32.6 pg (27.0-33.0); Mean Corpuscular Volume 98.5 fL (80.0-98.0); Mean Platelet Volume 8.7 fL (9.4-12.3); Monocytes Absolute Auto 0.1 X10*3/uL (0.1-1.2); Monocytes Percent Auto 1.3 % (2-11); Neutrophils Absolute Auto 9.2 x10*3/uL (2.0-8.3); Neutrophils Percent Auto 92.6 % (45-73); Platelet Count 212 X10*3/uL (160-400); Red Blood Count 4.69 X10*6/uL (4.20-5.50); Red Cell Distribution Width 13.2 % (11.0-16.0); SCAN SMEAR FLAG 1; White Blood Count 9.9 X10*3/uL (4.8-10.8)
[2023-10-25 16:15] LABS: Appearance Urine Clear; Color Urine Yellow; Glucose Urine UA Negative (Negative); Leukocyte Esterase Urine Negative (Negative); Nitrite Urine Negative (Negative); PH 5.5 (5.0-9.0); UMIC TRIGGER UACC YES; Urine Blood Trace (Negative); Urine Ketones 15 mg/dL (Negative); Urine Protein 30 (1+) mg/dL (Neg-Trace)
[2023-10-25 16:26] LABS: Bacteria Urine None Seen (None Seen); Calcium Oxalate Crystals Urine Present; Hyaline Casts Urine 0-2 /LPF (0-2); Squamous Epithelial Cell Urine 0-2 /HPF (0-2); WBC Urine 0-5 /HPF (0-5)
[2023-10-25 16:28] LABS: Alanine Aminotransferase 20 U/L (0-31); Albumin Level 4.4 g/dL (3.5-5.0); Alkaline Phosphatase 70 U/L (39-117); Anion Gap 14 (12-20); Aspartate Amino Transferase 24 U/L (5-31); Bilirubin Total 1.1 mg/dL (0.0-1.0); Blood Urea Nitrogen 17 mg/dL (9-16); C Reactive Protein 0.12 mg/dL (< or = 0.50); Calcium 9.5 mg/dL (8.4-10.2); Carbon Dioxide 26 mmol/L (22-29); Chloride 108 mmol/L (96-108); Creatinine Clr Calc Pharmacy 51.5; Estimated Glomerular Filt Rate > 60; Glucose Random 131 mg/dL (60-115); Lipase 58 U/L (8-78); Potassium 4.2 mmol/L (3.3-5.1); Sodium 144 mmol/L (135-145); Total Protein 6.9 g/dL (6.5-8.0)
[2023-10-25 16:38] LABS: SLIDE REVIEW VERIFIED
[2023-10-25] MEDS: methylPREDNISolone Sod Succ 40 MG/ML VIAL IVPUSH (16:43)
[2023-10-25] MEDS: diphenhydrAMINE HCL 50 MG/ML VIAL 25 MG IVPUSH (16:43)
--- NOTE | 2023-10-25 16:45 | PC.NURSE ---
a&ox4. vss and up to date. nsr on the bus driver/monitor. pt presents to the ED w/ myasthenia gravis exacerbation. pt verbalizes difficulty swallowing. pt able to speak in full/clear sentences w/o difficulty. no sob/wob noted. respirations even and unlabored. pt states that there is a change in her voice and that she normally doesn't sound the way that she does. pt refused tylenol administration d/t never taking it prior to IVIG administration. 20gIV placed in the right AC as well as in the left forearm. patent/intact. labs obtained/sent to lab. family member bedside. plan of care ongoing. call quintero placed within reach.
--- NOTE | 2023-10-25 17:00 | PC.NURSE ---
1st dose of IVIG administered at this time. pt remains nsr on the nuclear monitoring technician. vss and up to date. no sob/wob noted. respirations remain even and unlabored. plan of care ongoing.
[2023-10-25 17:04] VITALS: PULSE 75; RESP 14; TEMP 36.6; O2SAT 97
[2023-10-25 17:06] LABS: Erythrocyte Sedimentation Rate 2 MM/HR (0-20)
--- NOTE | 2023-10-25 17:23 | P.HPHOSP_ITS ---
History of Present Illness Date of Service: 10/25/23 Attending physician on admission: Andrew Anthony Chief Complaint: dysphagia, facial weakness 83 year old female with history of myasthenia gravis predominantly oropharyngeal symptoms, osteoporosis, bile salt induced diarrhea presented to the ED earlier today for evaluation of dysphagia, impaired speech, generalized weakness ongoing for about 3 days. She reports it is consistent with a myasthenia gravis flare which she is experienced in the past. On arrival, vital signs stable. Hematology studies unremarkable. Renal function and electrolyte levels normal. Urinalysis unremarkable. Call placed to patient's neurologist, Dr. Thomas, recommending admission for IVIG. Patient reports that she does not wish to stay for the infusions however given she is unable to swallow liquids or solids, she is agreeable to staying for IVIG infusions in the hospital. No shortness of breath. Review of Systems 2 Review of Systems: General: No fevers, malaise, unintentional weight loss HEENT: No blurred vision, diplopia. No sore throat, nasal congestion, rhinorrhea, sinus pain, ear pain Cardiovascular: No chest pain, palpitations, or leg edema Respiratory: No shortness of breath, wheezing, cough GI: #dyspagia. No abdominal pain, nausea, vomiting, diarrhea, constipation, melena, hematochezia : No dysuria, hematuria, increased urinary frequency, decreased urinary output MSK: No myalgia, back pain Neuro: No headaches, paresthesias. +facial weakness, +ble weakness Skin: No rashes or lesions [facility] Medical History Osteoporosis Myasthenia gravis in remission Tubular adenoma of colon (~2010) Bile salt-induced diarrhea Family History Father HTN (hypertension) Mother Colon cancer Sister Glaucoma Other Hx of colonoscopy Surgical History History of back surgery Status post partial hysterectomy Hx laparoscopic cholecystectomy Hx of colonoscopy Social History Household Members: None Housing: House Alcohol intake: current Alcohol intake frequency: holidays/special occasions only Patient Tobacco Use Status: Former Tobacco user Quit Date: 1972 Smoked in Last 30 Days: No Use of substances other than those prescribed or required for medical reasons: No Advance Directives: Yes Advance Directives Information Provided: No Advance Directives on File: No Advance Directives Date on File: 06/14/20 Nutrition Risks: No Nutritional Risk Meds Allergies Allergy/AdvReac Type Severity Reaction Status Date / Time NSAIDS (Non-Steroidal Allergy Intermediate RASH Verified 10/24/22 11:38 Anti-Inflamma [NSAIDS (NON-STEROIDAL ANTI-INFLAMMA] azithromycin Allergy Unknown may Verified 10/24/22 11:38 exacerbate MG Ceftin Allergy Unknown hives Verified 10/24/22 11:38 cefuroxime [From CEFTIN] Allergy Unknown PATIENT Verified 10/24/22 11:38 AWARE OF REACTION IT WAS SO LONG AGO ibuprofen [Advil] Allergy Unknown rash Verified 10/24/22 11:38 levofloxacin Allergy Unknown may Verified 10/24/22 11:38 exacerbate MG lisinopril Allergy Unknown unknown Verified 10/24/22 11:38 losartan Allergy Unknown unknown Verified 10/24/22 11:38 ciprofloxacin [CIPROFLOXACIN] AdvReac Unknown UNABLE TO Verified 10/24/22 11:38 TAKE R/T DX MYASTHENIA GRAVIS nitrofurantoin AdvReac Unknown stomatitis Verified 10/24/22 11:38 adhesive tape Allergy Unknown rash Uncoded 10/24/22 11:38 adhesives Allergy Unknown rash Uncoded 10/24/22 11:38 Advil PM Allergy Unknown rash Uncoded 10/24/22 11:38 Active Medications: Current Medications Heparin Sodium (Porcine) (Heparin Sodium,Porcine 5,000 Unit/Ml Vial) 5,000 unit SUBCUT Q12H [facility] Sodium Chloride (Ns) 100 mls @ 100 mls/hr IV .Q1H [facility] Stop: 10/25/23 17:44 Last Admin: 10/25/23 17:10 Dose: 100 mls/hr Immune Globulin (Gammagard 10%) 50 mls @ 30 mls/hr IV ONCE ONE Stop: 10/25/23 18:24 Last Admin: 10/25/23 16:54 Dose: 30 mls/hr Immune Globulin (Gammagard 10%) 200 mls @ 30 mls/hr IV ONCE ONE Stop: 10/26/23 01:09 Sodium Chloride (Ns) 1,000 mls @ 80 mls/hr IVCONT .[id number] AME Sodium Chloride (0.9 % Sodium Chloride Flush 3 Ml Syringe) 3 ml IVFLUSH QSHIFT [facility] Home Medications Medication Instructions Recorded Confirmed Last Taken Type azathioprine 50 mg tablet 50 mg PO Q OTHER DAY 07/04/20 10/25/23 Unknown History pyridostigmine bromide 60 mg 60 mg PO TID 07/04/20 10/25/23 Unknown History tablet (Mestinon) amlodipine 5 mg tablet 5 mg PO DAILY 08/21/22 10/25/23 Unknown History efgartigimod isabella-fcab 20 mg/mL mg IV 10/25/23 Unknown History intravenous solution (Vyvgart) gabapentin 100 mg capsule 100 mg PO BEDTIME PRN Pain 10/25/23 10/25/23 10/24/23 History latanoprost 0.005 % eye drops 1 drp ophthalmic (eye) BEDTIME 10/25/23 10/25/23 Unknown History oxybutynin chloride 15 mg 15 mg PO DAILY 10/25/23 10/25/23 Unknown History tablet,extended release 24 hr prednisone 20 mg tablet 20 mg PO DAILY 10/25/23 10/25/23 10/25/23 History timolol maleate 0.25 % eye drops 1 drp ophthalmic-Right QAM 10/25/23 10/25/23 Unknown History Physical Exam 2 Vital Signs and Narrative: Vital Signs: Last Vital Signs Temp 97.9 F 10/25/23 17:04 Pulse 75 10/25/23 17:04 Resp 14 10/25/23 17:04 BP 140/86 H 10/25/23 15:08 Pulse Ox 97 10/25/23 17:04 O2 Del Method Room Air 10/25/23 17:04 BMI result Body Mass Index 23.0 Constitutional - Awake and Alert, No apparent distress Eyes - PERRLA, EOMI Cardiovascular - S1S2, RRR, No edema Respiratory - Normal lung expansion, Normal respiratory effort, No respiratory distress, CTA bilaterally Gastrointestinal - NT / ND; +BS; No rebound or guarding Extremities - no calf tenderness bilaterally, no swelling Skin - Warm/Dry Neurological - Alert & oriented x3, unable to pucker lips otherwise CN II-XII in tact, 5/5 strength BUE, 3/5 strength LLE, 4/5 strength RLE Psychological - Appropriate affect Results Labs 10/25/23 15:39 10/25/23 15:39 Labs: Laboratory Results - last 24 hr 10/25/23 10/25/23 10/25/23 15:39 15:59 16:15 MCV 98.5 H MCH 32.6 MCHC 33.1 RDW 13.2 Plt Count 212 MPV 8.7 L Immature Gran % (Auto) 0.4 Neut % (Auto) 92.6 H Lymph % (Auto) 5.5 L [place] % (Auto) 1.3 L Eos % (Auto) 0.0 Baso % (Auto) 0.2 Lymph # (Auto) 0.5 L [place] # (Auto) 0.1 Eos # (Auto) 0.0 Baso # (Auto) 0.0 Abs Immat Gran (auto) 0.04 H Absolute Neuts (auto) 9.2 H Absolute Nucleated RBC 0.000 Nucleated RBC % (auto) 0.0 Smear Tech's Comments VERIFIED ESR 2 Anion Gap 14 Estim Creat Clear Calc 51.5 Estimated GFR > 60 Random Glucose 131 H Calcium 9.5 Total Bilirubin 1.1 H AST 24 ALT 20 Alkaline Phosphatase 70 C-Reactive Protein 0.12 Total Protein 6.9 Albumin 4.4 Lipase 58 Urine Color Yellow Urine Appearance Clear Urine pH 5.5 Ur Specific [place] 1.020 Urine Protein 30 (1+) H Urine Glucose (UA) Negative Urine Ketones 15 Urine Blood Trace H Urine Nitrite Negative Ur Leukocyte Esterase Negative Urine RBC 3-5 H Urine WBC 0-5 Ur Squamous Epith Cells 0-2 Calcium Oxalate Crystal Present Urine Bacteria None Seen Hyaline Casts 0-2 Assessment and Plan (1) Myasthenia gravis with exacerbation: Status: Acute Plan 83 year old female with history of myasthenia gravis predominantly oropharyngeal symptoms, osteoporosis, bile salt induced diarrhea admitted for myasthnia gravis flare. #Myasthenia gravis flare- primarily oropharyngeal symptoms -IVIG x 5 days per neurology -Baseline FVC/NIF ordered with poor inspiratory effort, continue bid -pureed diet -neugology consult -due for Vyugart inj 11/06, continue prednisone -continue home meds #HTN -continue amlodipine dvt prophyalxis- heparin full code pt requires inpt stay for IVIG therapy due to myasthenia gravis flare which is restricting PO intake and therefore cannot safely be administered on outpt basis at this time Quality Stroke Does the patient have a stroke diagnosis?: No VTE Prior VTE?: No VTE Risk Level:: Medical - moderate - high VTE Device Contraindication: Treatment Not Indicated VTE Drug Contraindication: N/A - Med Ordered
[2023-10-25 17:32] VITALS: BP 163/82; PULSE 73; RESP 19; TEMP 36.6; O2SAT 95
--- NOTE | 2023-10-25 17:44 | PHA.MEDREC ---
Pharmacy Consult ? Medication Reconciliation Pharmacy has completed the medication reconciliation. spoke with patient and family member to confirm medications. She reports taking oxybutynin still despite last picker and sorter load and unload in March. She just started the prednisone 20mg today. Family member reports her last cycle of the vyvgart was completed 3 weeks ago and is restarting for once weekly on 11/06.
[2023-10-25] MEDS: 0.9 % Sodium Chloride 1,000 ML 80 ML IVCONT (17:47)
--- NOTE | 2023-10-25 17:49 | PC.NURSE ---
vss and up to date aside from pt being slightly hypertensive. nsr on the cafeteria monitor. pt continues to rest in no apparent distress. no signs of complications from IVIG administration noted. no sob/wob noted. respirations remain even and unlabored. pt waiting for bed assignment at this time. plan of care ongoing. call quintero placed within reach.
[2023-10-25] MEDS: Heparin Sodium,Porcine 5,000 UNIT/ML VIAL 5000 UNIT SUBCUT (17:53)
[2023-10-25 17:56] VITALS: BP 151/93; PULSE 72; RESP 16; TEMP 36.8; O2SAT 95
[2023-10-25] MEDS: Immun Glob G(IgG)/Gly/IGA Ov50 200 ML IV (18:44)
[2023-10-25 18:47] VITALS: BP 152/80; PULSE 80; RESP 14; TEMP 36.8; O2SAT 96
--- NOTE | 2023-10-25 18:49 | PC.NURSE ---
2nd dose of IVIG administered at this time. pt continues to rest in no apparent distress. vss and up to date. nsr on the monitoring engineer. respirations remain even and unlabored. call quintero placed within reach.
--- NOTE | 2023-10-25 19:06 | PC.NURSE ---
Assumed care of pt at 19:00, pt is offering no complaints @ this time. Plan of care ongoing, awaiting bed assignment.
--- NOTE | 2023-10-25 22:35 | PC.NURSE ---
PT resting in bed IVIG continues to run as well as NS @ 80mls/hr. PT offers not complaints @ this time. Plan of care ongoing, awaiting bed assignment.
[2023-10-26] MEDS: Heparin Sodium,Porcine 5,000 UNIT/ML VIAL 5000 UNIT SUBCUT ×2 (06:17→18:31)
[2023-10-26] MEDS: 0.9 % Sodium Chloride 1,000 ML 80 ML IVCONT ×2 (07:31→18:39)
[2023-10-26 07:39] VITALS: BP 186/109; PULSE 94; RESP 22; TEMP 36.7; O2SAT 952
[2023-10-26] MEDS: diphenhydrAMINE HCL 50 MG/ML VIAL 25 MG IVPUSH (08:50)
[2023-10-26] MEDS: oxyBUTYnin chloride ER 5 MG TAB.ER.24 15 MG PO (08:51)
[2023-10-26] MEDS: Acetaminophen 325 MG TABLET 650 MG PO (08:51)
[2023-10-26] MEDS: methylPREDNISolone Sod Succ 40 MG/ML VIAL IVPUSH (08:51)
[2023-10-26] MEDS: pyRIDostigmine bromide 60 MG TABLET PO ×2 (08:52→18:32)
[2023-10-26] MEDS: amLODIPine Besylate 5 MG TABLET PO (08:52)
[2023-10-26 12:29] VITALS: BP 180/106; PULSE 86; RESP 18; TEMP 36.8; O2SAT 95
--- NOTE | 2023-10-26 12:31 | P.PNIM_ITS ---
Subjective Subjective Date of Service: 10/26/23 Interval History: Requesting for IVIG, complaining of persistent speech impairment and dysphagia, denies shortness of breath, no weakness, no numbness, no headache, no dizziness. Review of Systems All other system reviewed and negative. Physical Exam 2 Vital Signs: Vital Signs: Last Vital Signs Temp 98.3 F 10/26/23 12:29 Pulse 86 10/26/23 12:29 Resp 18 10/26/23 12:29 BP 180/106 H 10/26/23 12:29 Pulse Ox 95 10/26/23 12:29 O2 Del Method Room Air 10/26/23 12:29 BMI result Body Mass Index 23.0 Const: Other: General resting comfortably in no acute distress. Neck supple no JVD. CVS regular rate rhythm, Respiratory lungs clear to auscultation, no respiratory distress, no wheeze, no rhonchi. Gastrointestinal abdomen soft, non tender, bowel sounds audible, no guarding , no rigidity. Extremities no edema. Neuro alert oriented x3, moving all 4 extremity,dysarthria. Skin no rash Psych appropriate affect Objective Data Active Medications Acetaminophen (Acetaminophen 325 Mg Tablet) 650 mg PO DAILY [facility] Stop: 10/28/23 09:01 Last Admin: 10/26/23 10:08 Dose: Not Given Documented By: KERRI Non-Admin Reason: See Note Amlodipine Besylate (Amlodipine Besylate 5 Mg Tablet) 5 mg PO DAILY [facility]; Protocol Last Admin: 10/26/23 08:52 Dose: 5 mg Documented By: KERRI Azathioprine (Azathioprine 50 Mg Tablet) 50 mg PO Q48H [facility] Last Admin: 10/26/23 10:09 Dose: Not Given Documented By: KERRI Non-Admin Reason: See Note Diphenhydramine HCl (Diphenhydramine Hcl 50 Mg/Ml Vial) 25 mg IVPUSH DAILY [facility] Stop: 10/28/23 09:01 Last Admin: 10/26/23 10:09 Dose: Not Given Documented By: KERRI Non-Admin Reason: See Note Heparin Sodium (Porcine) (Heparin Sodium,Porcine 5,000 Unit/Ml Vial) 5,000 unit SUBCUT Q12H [facility] Last Admin: 10/26/23 06:17 Dose: 5,000 unit Documented By: ROLANDA Sodium Chloride (Ns) 1,000 mls @ 80 mls/hr IVCONT .[id number] [facility] Last Admin: 10/26/23 07:31 Dose: 80 mls/hr Documented By: KERRI Immune Globulin (Gammagard 10%) 50 mls @ 30 mls/hr IV Q24H [facility] Stop: 10/29/23 13:39 Last Admin: 10/26/23 11:38 Dose: 30 mls/hr Documented By: KERRI Immune Globulin (Gammagard 10%) 200 mls @ 30 mls/hr IV Q24H [facility] Stop: 10/29/23 20:39 Latanoprost (Latanoprost 0.005 % Ophth [place] 2.5 Ml Drops) 1 drop EYE-BOTH BEDTIME [facility] Methylprednisolone Sodium Succinate (Methylprednisolone Sod Succ 40 Mg/Ml Vial) 40 mg IVPUSH DAILY [facility] Stop: 10/28/23 09:01 Last Admin: 10/26/23 10:10 Dose: Not Given Documented By: KERRI Non-Admin Reason: See Note Non-Formulary Medication (Timolol Maleate) 1 drop EYE-RIGHT QAM [facility] Oxybutynin Chloride (Oxybutynin Chloride Er 5 Mg Tab.Er.24) 15 mg PO DAILY [facility] Last Admin: 10/26/23 08:51 Dose: 15 mg Documented By: KERRI Pyridostigmine [place] (Pyridostigmine [place] 60 Mg Tablet) 60 mg PO TID [facility] Last Admin: 10/26/23 08:52 Dose: 60 mg Documented By: KERRI Sodium Chloride (0.9 % Sodium Chloride Flush 3 Ml Syringe) 3 ml IVFLUSH QSHIFT [facility] Last Admin: 10/26/23 07:37 Dose: Not Given Documented By: KERRI Non-Admin Reason: IV Running Labs 10/25/23 15:39 10/25/23 15:39 Labs: Laboratory Results - last 24 hr 10/25/23 10/25/23 10/25/23 15:39 15:59 16:15 MCV 98.5 H MCH 32.6 MCHC 33.1 RDW 13.2 Plt Count 212 MPV 8.7 L Immature Gran % (Auto) 0.4 Neut % (Auto) 92.6 H Lymph % (Auto) 5.5 L [place] % (Auto) 1.3 L Eos % (Auto) 0.0 Baso % (Auto) 0.2 Lymph # (Auto) 0.5 L [place] # (Auto) 0.1 Eos # (Auto) 0.0 Baso # (Auto) 0.0 Abs Immat Gran (auto) 0.04 H Absolute Neuts (auto) 9.2 H Absolute Nucleated RBC 0.000 Nucleated RBC % (auto) 0.0 Smear Tech's Comments VERIFIED ESR 2 Anion Gap 14 Estim Creat Clear Calc 51.5 Estimated GFR > 60 Random Glucose 131 H Calcium 9.5 Total Bilirubin 1.1 H AST 24 ALT 20 Alkaline Phosphatase 70 C-Reactive Protein 0.12 Total Protein 6.9 Albumin 4.4 Lipase 58 Urine Color Yellow Urine Appearance Clear Urine pH 5.5 Ur Specific [place] 1.020 Urine Protein 30 (1+) H Urine Glucose (UA) Negative Urine Ketones 15 Urine Blood Trace H Urine Nitrite Negative Ur Leukocyte Esterase Negative Urine RBC 3-5 H Urine WBC 0-5 Ur Squamous Epith Cells 0-2 Calcium Oxalate Crystal Present Urine Bacteria None Seen Hyaline Casts 0-2 Assessment and Plan (1) Myasthenia gravis with exacerbation: Status: Acute Plan 83 year old female with history of myasthenia gravis predominantly oropharyngeal symptoms, osteoporosis, bile salt induced diarrhea admitted for myasthnia gravis flare. #Myasthenia gravis flare- primarily oropharyngeal symptoms -persistent symptoms -continue IVIG x 2/5 days per neurology -Baseline FVC/NIF ordered with poor inspiratory effort, continue bid -on pureed diet -follow neugology consult -due for Vyugart inj 11/06, continue iv prednisone -continue home meds Imuran, Mestinon #HTN -continue amlodipine, follow BP dvt prophyalxis- heparin full code pt requires continued inpt stay for IVIG therapy due to myasthenia gravis flare which is restricting PO intake and therefore cannot safely be administered on outpt basis at this time. Quality Stroke Does the patient have a stroke diagnosis?: No VTE Prior VTE?: No VTE Risk Level:: Medical - moderate - high VTE Device Contraindication: Treatment Not Indicated VTE Drug Contraindication: N/A - Med Ordered
--- NOTE | 2023-10-26 14:06 | P.CNNE_ITS ---
History of Present Illness Data of Consult Service Date: 10/26/23 Primary Care Provider: Aria Sherwood NP HPI Reason for consult: MG exacerbation This is a 83 year old female with history of myasthenia gravis with predominantly oropharyngeal symptoms, osteoporosis, presented to the ED for evaluation of dysphagia, currently unable to swallow, nasal speech , generalized weakness ongoing for about 5 days. She reports it is consistent with a myasthenia gravis flare which she is experienced in the past. On arrival, vital signs stable. Hematology studies unremarkable. Renal function and electrolyte levels normal. Urinalysis unremarkable. No shortness of breath. Review of Systems 2 Review of Systems: All other system reviewed and negative. Yes all other systems are reviewed and are negative [facility] Past Medical History Medical History Osteoporosis Myasthenia gravis in remission Tubular adenoma of colon (~2010) Bile salt-induced diarrhea Family History Family History Father HTN (hypertension) Mother Colon cancer Sister Glaucoma Other Hx of colonoscopy Surgical History Surgical History History of back surgery Status post partial hysterectomy Hx laparoscopic cholecystectomy Hx of colonoscopy Social History Social History Household Members: None Housing: House Alcohol intake: current Alcohol intake frequency: holidays/special occasions only Patient Tobacco Use Status: Former Tobacco user Quit Date: 1971 Smoked in Last 30 Days: No Use of substances other than those prescribed or required for medical reasons: No Advance Directives: Yes Advance Directives Information Provided: No Advance Directives on File: No Advance Directives Date on File: 06/14/20 Nutrition Risks: No Nutritional Risk Meds Allergies Allergy/AdvReac Type Severity Reaction Status Date / Time NSAIDS (Non-Steroidal Allergy Intermediate RASH Verified 10/24/22 11:38 Anti-Inflamma [NSAIDS (NON-STEROIDAL ANTI-INFLAMMA] azithromycin Allergy Unknown may Verified 10/24/22 11:38 exacerbate MG Ceftin Allergy Unknown hives Verified 10/24/22 11:38 cefuroxime [From CEFTIN] Allergy Unknown PATIENT Verified 10/24/22 11:38 AWARE OF REACTION IT WAS SO LONG AGO ibuprofen [Advil] Allergy Unknown rash Verified 10/24/22 11:38 levofloxacin Allergy Unknown may Verified 10/24/22 11:38 exacerbate MG lisinopril Allergy Unknown unknown Verified 10/24/22 11:38 losartan Allergy Unknown unknown Verified 10/24/22 11:38 ciprofloxacin [CIPROFLOXACIN] AdvReac Unknown UNABLE TO Verified 10/24/22 11:38 TAKE R/T DX MYASTHENIA GRAVIS nitrofurantoin AdvReac Unknown stomatitis Verified 10/24/22 11:38 adhesive tape Allergy Unknown rash Uncoded 10/24/22 11:38 adhesives Allergy Unknown rash Uncoded 10/24/22 11:38 Advil PM Allergy Unknown rash Uncoded 10/24/22 11:38 Active Medications: Current Medications Acetaminophen (Acetaminophen 325 Mg Tablet) 650 mg PO DAILY [facility] Stop: 10/28/23 09:01 Last Admin: 10/26/23 10:08 Dose: Not Given Amlodipine Besylate (Amlodipine Besylate 5 Mg Tablet) 5 mg PO DAILY [facility]; Protocol Last Admin: 10/26/23 08:52 Dose: 5 mg Azathioprine (Azathioprine 50 Mg Tablet) 50 mg PO Q48H [facility] Last Admin: 10/26/23 10:09 Dose: Not Given Diphenhydramine HCl (Diphenhydramine Hcl 50 Mg/Ml Vial) 25 mg IVPUSH DAILY [facility] Stop: 10/28/23 09:01 Last Admin: 10/26/23 10:09 Dose: Not Given Heparin Sodium (Porcine) (Heparin Sodium,Porcine 5,000 Unit/Ml Vial) 5,000 unit SUBCUT Q12H [facility] Last Admin: 10/26/23 06:17 Dose: 5,000 unit Sodium Chloride (Ns) 1,000 mls @ 80 mls/hr IVCONT .[id number] [facility] Last Admin: 10/26/23 07:31 Dose: 80 mls/hr Immune Globulin (Gammagard 10%) 50 mls @ 30 mls/hr IV Q24H [facility] Stop: 10/29/23 13:39 Last Infusion: 10/26/23 13:45 Dose: Infused Immune Globulin (Gammagard 10%) 200 mls @ 30 mls/hr IV Q24H [facility] Stop: 10/29/23 20:39 Latanoprost (Latanoprost 0.005 % Ophth [place] 2.5 Ml Drops) 1 drop EYE-BOTH BEDTIME [facility] Methylprednisolone Sodium Succinate (Methylprednisolone Sod Succ 40 Mg/Ml Vial) 40 mg IVPUSH DAILY [facility] Stop: 10/28/23 09:01 Last Admin: 10/26/23 10:10 Dose: Not Given Non-Formulary Medication (Timolol Maleate) 1 drop EYE-RIGHT QAM [facility] Oxybutynin Chloride (Oxybutynin Chloride Er 5 Mg Tab.Er.24) 15 mg PO DAILY [facility] Last Admin: 10/26/23 08:51 Dose: 15 mg Pyridostigmine [place] (Pyridostigmine [place] 60 Mg Tablet) 60 mg PO TID [facility] Last Admin: 10/26/23 08:52 Dose: 60 mg Sodium Chloride (0.9 % Sodium Chloride Flush 3 Ml Syringe) 3 ml IVFLUSH QSHIFT [facility] Last Admin: 10/26/23 07:37 Dose: Not Given Home Medications Medication Instructions Recorded Confirmed Last Taken Type azathioprine 50 mg tablet 50 mg PO Q OTHER DAY 07/04/20 10/25/23 Unknown History pyridostigmine bromide 60 mg 60 mg PO TID 07/04/20 10/25/23 Unknown History tablet (Mestinon) amlodipine 5 mg tablet 5 mg PO DAILY 08/21/22 10/25/23 Unknown History efgartigimod isabella-fcab 20 mg/mL mg IV 10/25/23 Unknown History intravenous solution (Vyvgart) gabapentin 100 mg capsule 100 mg PO BEDTIME PRN Pain 10/25/23 10/25/23 10/24/23 History latanoprost 0.005 % eye drops 1 drp ophthalmic (eye) BEDTIME 10/25/23 10/25/23 Unknown History oxybutynin chloride 15 mg 15 mg PO DAILY 10/25/23 10/25/23 Unknown History tablet,extended release 24 hr prednisone 20 mg tablet 20 mg PO DAILY 10/25/23 10/25/23 10/25/23 History timolol maleate 0.25 % eye drops 1 drp ophthalmic-Right QAM 10/25/23 10/25/23 Unknown History Physical Exam 2 Vital Signs: Vital Signs: Last Vital Signs Temp 98.3 F 10/26/23 12:29 Pulse 86 10/26/23 12:29 Resp 18 10/26/23 12:29 BP 180/106 H 10/26/23 12:29 Pulse Ox 95 10/26/23 12:29 O2 Del Method Room Air 10/26/23 12:29 BMI result Body Mass Index 23.0 Const: Other: General resting comfortably in no acute distress. Neck supple no JVD. CVS regular rate rhythm, Respiratory lungs clear to auscultation, no respiratory distress, no wheeze, no rhonchi. Gastrointestinal abdomen soft, non tender, bowel sounds audible, no guarding , no rigidity. Extremities no edema. Neuro alert oriented x3, moving all 4 extremity,dysarthria. Skin no rash Psych appropriate affect Neuro: Other: She is alert and oriented with normal intellectual functions. She has 2 mm left ptosis. Full extraocular movements. She has lower facial weakness. Palate moves normal. She has a very nasal speech. She is decreased and there is bilateral deltoid weakness. Lower extremity strength is symmetrical. Results Labs 10/25/23 15:39 10/25/23 15:39 Labs: Short CBC 10/25/23 Range/Units 15:39 WBC 9.9 (4.8-10.8) X10*3/uL Hgb 15.3 (12.0-16.0) g/dl Hct 46.2 (37.0-47.0) % Plt Count 212 (160-400) X10*3/uL BMP 10/25/23 15:39 Sodium 144 Potassium 4.2 Chloride 108 Carbon Dioxide 26 BUN 17 H Creatinine 0.66 Calcium 9.5 Liver Function 10/25/23 Range/Units 15:39 Total Bilirubin 1.1 H (0.0-1.0) mg/dL AST 24 (5-31) U/L ALT 20 (0-31) U/L Alkaline Phosphatase 70 (39-117) U/L Albumin 4.4 (3.5-5.0) g/dL Urine 10/25/23 Range/Units 15:59 Urine Color Yellow Urine Appearance Clear Urine pH 5.5 (5.0-9.0) Ur Specific [place] 1.020 (1.005-1.025) Urine Protein 30 (1+) H (Neg-Trace) mg/dL Urine Glucose (UA) Negative (Negative) mg/dL Assessment and Plan (1) Myasthenia gravis with exacerbation: Status: Acute She is having an exacerbation of her myasthenia gravis over the last few days without any triggering infectious or metabolic etiologies. Recommendations: Monitor vital capacity and FEV1 every 8 hours. 5 days of IVIG Gammagard. Solu-Medrol 100 mg IV daily for 3 days. By reduced it mean to milligram IV every 6 hours daily. She is able to take it orally. Can put a hold on oral as appropriate and for now.For her anxiety, to 2 to 5 mg of diazepam can be given intramuscularly every 8 hours when necessary Plan 83 year old female with history of myasthenia gravis predominantly oropharyngeal symptoms, osteoporosis, bile salt induced diarrhea admitted for myasthnia gravis flare. #Myasthenia gravis flare- primarily oropharyngeal symptoms -persistent symptoms -continue IVIG x 2/5 days per neurology -Baseline FVC/NIF ordered with poor inspiratory effort, continue bid -on pureed diet -follow neugology consult -due for Vyugart inj 11/06, continue iv prednisone -continue home meds Imuran, Mestinon #HTN -continue amlodipine, follow BP dvt prophyalxis- heparin full code pt requires continued inpt stay for IVIG therapy due to myasthenia gravis flare which is restricting PO intake and therefore cannot safely be administered on outpt basis at this time. Procedures Date of Service Date of Service: 10/26/23
[2023-10-26] MEDS: Immun Glob G(IgG)/Gly/IGA Ov50 200 ML IV (15:48)
--- NOTE | 2023-10-26 16:07 | MHC.CM.PN ---
Met with patient and sister, Amaris, in regards to discharge planning. Patient lives alone, uses a cane/walker for mobility and is not active with any services. PCP verified as Aria Sherwood. Neurologist is Dr Thomas. Copy of HCP verified to be on file. Both patient and Amaris feel patient will need VNA for halfway, physical therapy and speech at d/c. Patient has been active with [facility]. However [facility] is no longer contracted with [facility]. Referral broadcasted at this time. Amaris will transport patient home when medically stable. Continue to monitor for d/c needs.
[2023-10-26 18:33] VITALS: BP 182/119; PULSE 95; RESP 17; TEMP 36.6; O2SAT 96
[2023-10-26 19:18] VITALS: BP 175/118; PULSE 102; RESP 16; TEMP 36.4; O2SAT 95
[2023-10-26] MEDS: diazePAM 10 MG/2 ML CARTRIDGE 2.5 MG IM (20:35)
--- NOTE | 2023-10-26 21:36 | PC.NURSE ---
R arm IV infiltration where NS running. Dr. Sierra made aware. New 20g placed in L forearm, flushing well.
--- NOTE | 2023-10-26 21:38 | PC.NURSE ---
PT noted to have increased difficulty clearing secretions and wrote note to this nurse stating my throat is closing . Dr. Sierra made aware and came to see her. Will keep NPO at this time. Receiving nurse Leatha Linares made aware.
[2023-10-26 22:23] VITALS: BP 180/110
[2023-10-26] MEDS: methylPREDNISolone Sod Succ 125 MG/2 ML VIAL 60 MG IVPUSH (22:39)
[2023-10-26 22:54] LABS: ABG Base Excess -0.2 mmol/L; ABG HCO3 22 mmol/L (22-26); ABG pCO2 31 mmHg (32-45); ABG pH 7.46 (7.35-7.45); ABG pO2 86 mmHg (83-108)
[2023-10-27] VITALS (8 sets, daily range): BP systolic 128–189; BP diastolic 62–100; PULSE 73–101; RESP 12–20; TEMP 35.7–36.9; O2SAT 89–97
[2023-10-27 04:09] LABS: ABG Refer to POC result
[2023-10-27] MEDS: Heparin Sodium,Porcine 5,000 UNIT/ML VIAL 5000 UNIT SUBCUT ×2 (04:40→18:22)
[2023-10-27] MEDS: 0.9 % Sodium Chloride Flush 3 ML SYRINGE IVFLUSH ×2 (08:52→15:58)
[2023-10-27] MEDS: 0.9 % Sodium Chloride 1,000 ML 80 ML IVCONT (08:52)
--- NOTE | 2023-10-27 12:30 | P.PNIM_ITS ---
Subjective Subjective Date of Service: 10/27/23 Interval History: Events from last night noted, patient felt her throat is closing last night, treated with IV steroids, diazepam, this morning patient feels her speech is better but failed bedside swallow eval noted to be coughing. Review of Systems All other system reviewed and negative. Physical Exam 2 Vital Signs: Vital Signs: Last Vital Signs Temp 98.1 F 10/27/23 11:08 Pulse 78 10/27/23 11:08 Resp 18 10/27/23 11:08 BP 144/80 H 10/27/23 11:08 Pulse Ox 96 10/27/23 11:08 O2 Del Method Room Air 10/27/23 11:08 BMI result Body Mass Index 23.0 Const: Other: General resting comfortably in no acute distress. Neck supple no JVD. CVS regular rate rhythm, Respiratory lungs clear to auscultation, no respiratory distress, no wheeze, no rhonchi. Gastrointestinal abdomen soft, non tender, bowel sounds audible, no guarding , no rigidity. Extremities no edema. Neuro alert oriented x3, moving all 4 extremity, speech improved, chronic left ptosis Skin no rash Psych appropriate affect Objective Data Active Medications Amlodipine Besylate (Amlodipine Besylate 5 Mg Tablet) 5 mg PO DAILY [facility]; Protocol Last Admin: 10/27/23 08:57 Dose: Not Given Documented By: TREVOR Non-Admin Reason: patient difficulty swallowing Azathioprine (Azathioprine 50 Mg Tablet) 50 mg PO Q48H [facility] Last Admin: 10/26/23 10:09 Dose: Not Given Documented By: KERRI Non-Admin Reason: See Note Diazepam (Diazepam 10 Mg/2 Ml Cartridge) 2.5 mg IM Q8H PRN PRN Reason: anxiety Last Admin: 10/26/23 20:35 Dose: 2.5 mg Documented By: ROLANDA Diphenhydramine HCl (Diphenhydramine Hcl 50 Mg/Ml Vial) 25 mg IVPUSH DAILY [facility] Stop: 10/28/23 09:01 Last Admin: 10/27/23 11:28 Dose: Not Given Documented By: TREVOR Non-Admin Reason: Patient Refused Heparin Sodium (Porcine) (Heparin Sodium,Porcine 5,000 Unit/Ml Vial) 5,000 unit SUBCUT Q12H [facility] Last Admin: 10/27/23 04:40 Dose: 5,000 unit Documented By: ANABEL Sodium Chloride (Ns) 1,000 mls @ 80 mls/hr IVCONT .[id number] [facility] Last Admin: 10/27/23 08:52 Dose: 80 mls/hr Documented By: TREVOR Immune Globulin (Gammagard 10%) 50 mls @ 30 mls/hr IV Q24H [facility] Stop: 10/29/23 13:39 Last Admin: 10/27/23 11:32 Dose: 30 mls/hr Documented By: TREVOR Immune Globulin (Gammagard 10%) 200 mls @ 30 mls/hr IV Q24H [facility] Stop: 10/29/23 20:39 Last Infusion: 10/27/23 00:29 Dose: Infused Documented By: ANABEL Acetaminophen (Ofirmev) 1,000 mg in 100 mls @ 400 mls/hr IV DAILY [facility] Stop: 10/29/23 10:59 Last Admin: 10/27/23 11:27 Dose: Not Given Documented By: TREVOR Non-Admin Reason: Patient Refused Latanoprost (Latanoprost 0.005 % Ophth [place] 2.5 Ml Drops) 1 drop EYE-BOTH BEDTIME [facility] Last Admin: 10/26/23 22:40 Dose: Not Given Documented By: ANABEL Non-Admin Reason: Med Not Available Methylprednisolone Sodium Succinate (Methylprednisolone Sod Succ 125 Mg/2 Ml Vial) 100 mg IVPUSH DAILY [facility] Stop: 10/28/23 09:01 Last Admin: 10/27/23 08:57 Dose: Not Given Documented By: TREVOR Non-Admin Reason: patient difficulty swallowing Non-Formulary Medication (Timolol Maleate) 1 drop EYE-RIGHT QAM [facility] Oxybutynin Chloride (Oxybutynin Chloride Er 5 Mg Tab.Er.24) 15 mg PO DAILY [facility] Last Admin: 10/27/23 08:57 Dose: Not Given Documented By: TREVOR Non-Admin Reason: patient difficulty swallowing Pyridostigmine [place] (Pyridostigmine [place] 60 Mg Tablet) 60 mg PO TID [facility] Last Admin: 10/27/23 08:58 Dose: Not Given Documented By: TREVOR Non-Admin Reason: patient difficulty swallowing Sodium Chloride (0.9 % Sodium Chloride Flush 3 Ml Syringe) 3 ml IVFLUSH QSHIFT [facility] Last Admin: 10/27/23 08:52 Dose: 3 ml Documented By: TREVOR Labs 10/25/23 15:39 10/25/23 15:39 Labs: Laboratory Results - last 24 hr 10/26/23 22:46 O2 Saturation 97.0 ABG pH at Pt Temp 7.46 H ABG pCO2 at Pt Temp 31 L ABG pO2 at Pt Temp 86 ABG HCO3 22 ABG Base Excess (Actual) -0.2 Assessment and Plan (1) Myasthenia gravis with exacerbation: Status: Acute Plan 83 year old female with history of myasthenia gravis predominantly oropharyngeal symptoms, osteoporosis, bile salt induced diarrhea admitted for myasthnia gravis flare. #Myasthenia gravis flare- primarily oropharyngeal symptoms -events from last night noted, patient continued to have dysphagia -keep NPO, IVF, DC pyridostigmine by mouth and place on IV pyridostigmine 2 mg IV q.4 hours case discussed with Neurology -continue IVIG x 3/5 days per neurology -continue FVC /NIF -speech therapy -due for Vyugart inj 11/06, continue iv steroid 100mg daily and transition to my mouth -continue home meds Imuran #HTN -continue amlodipine, follow BP dvt prophyalxis- heparin full code pt requires continued inpt stay for IVIG therapy due to myasthenia gravis flare which is restricting PO intake and therefore cannot safely be administered on outpt basis at this time. Quality Stroke Does the patient have a stroke diagnosis?: No VTE Prior VTE?: No VTE Risk Level:: Medical - moderate - high VTE Device Contraindication: Treatment Not Indicated VTE Drug Contraindication: N/A - Med Ordered
[2023-10-27] MEDS: Immun Glob G(IgG)/Gly/IGA Ov50 200 ML IV (13:18)
[2023-10-27] MEDS: PYRIDOSTIGMINE BROMIDE 2 MG IVPUSH ×2 (13:18→22:02)
--- NOTE | 2023-10-27 14:55 | MHC.SL.SWA ---
Speech Pathologist Impression: Risk of Aspiration Due to: Lethargy Poor PO Intake Weak Cough Dysphasia Diet Status: Liquid Consistency and Strategies for Safe Swallow: Liquid Intake Recommendation: NPO Liquid Intake Strategies: No Straws Solid Food Consistency: Dietary Recommendations: NPO Additional Modifications to Solid Foods: Oral Medication Intake: NPO Please contact the pharmacy regarding appropriate crushable or liquid drug formulations that are available whenever modified delivery is recommended. Compensatory Strategies and Precautions to be Taken for Safe Swallow: Sitting Upright (90 deg) No Straw Supervision While Eating and Drinking for Safe Swallow: PO with LOGISTICS VICE PRESIDENT Foods to Avoid: PO under LOGISTICS VICE PRESIDENT supervision only. Swallowing Recommended Treatments: Compens. Strategy Educat. Recommendation for Speech: Inpatient Speech Therapy Comment: NPO strict pending LOGISTICS VICE PRESIDENT re-assessment. Prognosis for improvement is good under current medical interventions. Frequency/Duration: Daily Date Range for Service Req: Timeline to reassess: PRN Call Center Operator Clinican/Clinical Fellow: No Supervisory Statement: I have reviewed and agree with the student/clinical fellow's documentation: N/A Speech Language Pathologist: Luis Brady M.A., CCC-LOGISTICS VICE PRESIDENT
[2023-10-27] MEDS: hydrALAZINE HCl 20 MG/ML VIAL 5 MG IVPUSH (15:58)
[2023-10-27] MEDS: Dextrose 5 % and Lactated Ring 1,000 ML 80 ML IVCONT (15:58)
[2023-10-27] MEDS: diazePAM 10 MG/2 ML CARTRIDGE 2.5 MG IM (18:22)
[2023-10-28] MEDS: 0.9 % Sodium Chloride Flush 3 ML SYRINGE IVFLUSH ×3 (02:20→15:13)
[2023-10-28] MEDS: PYRIDOSTIGMINE BROMIDE 2 MG IVPUSH ×6 (02:21→21:20)
[2023-10-28] MEDS: diazePAM 10 MG/2 ML CARTRIDGE 2.5 MG IM (02:41)
[2023-10-28 03:47] VITALS: BP 172/65; PULSE 72; RESP 16; TEMP 36.9; O2SAT 95
[2023-10-28] MEDS: Heparin Sodium,Porcine 5,000 UNIT/ML VIAL 5000 UNIT SUBCUT ×2 (06:03→17:41)
[2023-10-28 07:36] VITALS: BP 160/90; PULSE 68; RESP 18; TEMP 36.3; O2SAT 92
[2023-10-28] MEDS: methylPREDNISolone Sod Succ 125 MG/2 ML VIAL 100 MG IVPUSH (09:56)
--- NOTE | 2023-10-28 10:23 | MHC.CM.PN ---
Per ROUNDS discussion, Patient us not yet medically cleared for dc (IVIG); home with VNA is the goal and CM will continue to follow.
[2023-10-28] MEDS: Dextrose 5 % and Lactated Ring 1,000 ML 80 ML IVCONT (10:24)
--- NOTE | 2023-10-28 11:13 | P.PNIM_ITS ---
Subjective Subjective Date of Service: 10/29/23 Interval History: Events from last night noted, patient was anxious and was unable to clear secretions, oxygenation was stable. Requesting for food,nasal speech this morning, denies upper or lower extremity weakness, denies shortness of breath, no chest pain, no palpitations. Review of Systems All other system reviewed and negative Physical Exam 2 Vital Signs: Vital Signs: Last Vital Signs Temp 97.3 F 10/28/23 07:36 Pulse 68 10/28/23 07:36 Resp 18 10/28/23 07:36 BP 160/90 H 10/28/23 07:36 Pulse Ox 92 10/28/23 07:36 O2 Del Method Room Air 10/28/23 07:36 BMI result Body Mass Index 23.0 Const: Other: General resting comfortably in no acute distress. Neck supple no JVD. CVS regular rate rhythm, Respiratory lungs clear to auscultation, no respiratory distress, no wheeze, no rhonchi. Gastrointestinal abdomen soft, non tender, bowel sounds audible, no guarding , no rigidity. Extremities no edema. Neuro alert oriented x3, moving all 4 extremity,nasal speech, chronic left ptosis Skin no rash Psych appropriate affect Objective Data Active Medications Amlodipine Besylate (Amlodipine Besylate 5 Mg Tablet) 5 mg PO DAILY [facility]; Protocol Last Admin: 10/28/23 10:00 Dose: Not Given Documented By: BROOKLYN Non-Admin Reason: NPO Azathioprine (Azathioprine 50 Mg Tablet) 50 mg PO Q48H [facility] Last Admin: 10/28/23 10:00 Dose: Not Given Documented By: BROOKLYN Non-Admin Reason: NPO Diazepam (Diazepam 10 Mg/2 Ml Cartridge) 2.5 mg IM Q8H PRN PRN Reason: anxiety Last Admin: 10/28/23 02:41 Dose: 2 mg Documented By: LALY Heparin Sodium (Porcine) (Heparin Sodium,Porcine 5,000 Unit/Ml Vial) 5,000 unit SUBCUT Q12H [facility] Last Admin: 10/28/23 06:03 Dose: 5,000 unit Documented By: LALY Immune Globulin (Gammagard 10%) 50 mls @ 30 mls/hr IV Q24H [facility] Stop: 10/29/23 13:39 Last Infusion: 10/27/23 13:23 Dose: Infused Documented By: TREVOR Immune Globulin (Gammagard 10%) 200 mls @ 30 mls/hr IV Q24H [facility] Stop: 10/29/23 20:39 Last Infusion: 10/27/23 20:10 Dose: Infused Documented By: LALY Acetaminophen (Ofirmev) 1,000 mg in 100 mls @ 400 mls/hr IV DAILY [facility] Stop: 10/29/23 10:59 Last Admin: 10/27/23 11:27 Dose: Not Given Documented By: TREVOR Non-Admin Reason: Patient Refused Dextrose/Lactated Ringer's (D5lr) 1,000 mls @ 80 mls/hr IVCONT .[id number] [facility] Last Admin: 10/28/23 10:24 Dose: 80 mls/hr Documented By: BROOKLYN Latanoprost (Latanoprost 0.005 % Ophth Ivy 2.5 Ml Drops) 1 drop EYE-BOTH BEDTIME [facility] Last Admin: 10/28/23 02:18 Dose: Not Given Documented By: LALY Non-Admin Reason: med not available Non-Formulary Medication (Timolol Maleate) 1 drop EYE-RIGHT QAM [facility] Oxybutynin Chloride (Oxybutynin Chloride Er 5 Mg Tab.Er.24) 15 mg PO DAILY [facility] Last Admin: 10/28/23 10:01 Dose: Not Given Documented By: BROOKLYN Non-Admin Reason: NPO Pyridostigmine [place] (Pyridostigmine [place] 10 Mg/2 Ml Ampul) 2 mg IVPUSH Q4H [facility] Last Admin: 10/28/23 09:56 Dose: 2 mg Documented By: BROOKLYN Sodium Chloride (0.9 % Sodium Chloride Flush 3 Ml Syringe) 3 ml IVFLUSH QSHIFT [facility] Last Admin: 10/28/23 09:56 Dose: 3 ml Documented By: BROOKLYN Labs 10/25/23 15:39 10/29/23 09:24 Assessment and Plan (1) Myasthenia gravis with exacerbation: Status: Acute Plan 83 year old female with history of myasthenia gravis predominantly oropharyngeal symptoms, osteoporosis, bile salt induced diarrhea admitted for myasthnia gravis flare. #Myasthenia gravis flare- primarily oropharyngeal symptoms -persistent dysphagia,and speech impairment -keep NPO, IVF, IV pyridostigmine 2 mg IV q.4 hours , IV Solu-Medrol 100 mg -continue IVIG x 4/5 days per neurology -continue FVC /NIF, noted to have poor effort today FVC 300, and negative inspiratory pressure 5 -Npo /being followed by speech therapy/remains NPO consider PPN -due for Vyugart inj 11/06 -on Imuran unable to swallow pill #HTN -on amlodipine, but unable to take by mouth medication will place on IV hydralazine as needed, follow BP dvt prophyalxis-subQ heparin full code pt requires continued inpt stay for IVIG therapy due to myasthenia gravis flare which is restricting PO intake and therefore cannot safely be administered on outpt basis at this time. Quality Stroke Does the patient have a stroke diagnosis?: No VTE Prior VTE?: No VTE Risk Level:: Medical - moderate - high VTE Device Contraindication: Treatment Not Indicated VTE Drug Contraindication: N/A - Med Ordered
[2023-10-28] MEDS: diphenhydrAMINE HCL 50 MG/ML VIAL 25 MG IVPUSH (11:23)
[2023-10-28 11:47] VITALS: BP 136/84; PULSE 91; RESP 18; TEMP 36.1; O2SAT 97
--- NOTE | 2023-10-28 11:55 | MHC.SL.DTX ---
Dysphagia Diet modifications: Last documented Solid diet consistencies: NPO Last documented Liquid consistency: NPO Changes made to current diet?: Yes Liquid Consistency and Strategies: Liquid Intake Recommendation: NPO Compensatory Strategies for Safe Swallow: No Straws Compensatory Strategies for Safe Swallow(b): Sitting Upright (90 deg) Solid Food Consistency: Dietary Recommendations: NPO Oral Medication Intake: NPO Strategies and Precautions to be Taken for Safe Swallow: Sitting Upright (90 deg) Supervision While Eating and/Drinking: PO with OUTBOUND SALES PROFESSIONAL Foods to Avoid: PO under OUTBOUND SALES PROFESSIONAL supervision only. Swallowing Recommended Treatments: Compens. Strategy Educat. Recommendation for Speech: Inpatient Speech Therapy Comment: NPO strict pending OUTBOUND SALES PROFESSIONAL re-assessment. Prognosis for improvement is good under current medical interventions. Frequency/Duration: Daily Timeline to reassess: PRN Treatment: Pt is upset on arrival. Her speech quality has regressed since her previous encounter yesterday afternoon. She is not on IVIG at this time. Per RN she is scheduled for 12pm today. She is complaining of her IV site on her left arm. RN notified and IV location changed to other arm. Pt provided small spoon amounts of [place]-Thick Liquids resulting in immediate coughing and throat clearing after the swallow. Pt is well aware of her swallowing difficulties and states, I want to swallow but I can't . She appears to have difficulty triggering the swallow reflex and/or initiating sufficient posterior movement of the tongue. OUTBOUND SALES PROFESSIONAL will return in the afternoon to re-assess swallow after IVIG dosing. Cell Tester Clinican/Clinical Fellow: No Supervisory Statement: I have reviewed and agree with the student/clinical fellow's documentation: N/A Speech Language Pathologist: Luis Brady M.A., [facility]-OUTBOUND SALES PROFESSIONAL
[2023-10-28 12:23] LABS: Thyroid Stimulating Hormone 2.66 uIU/mL (0.32-4.0)
[2023-10-28 12:26] LABS: Anion Gap 8 (12-20); Blood Urea Nitrogen 22 mg/dL (9-16); Carbon Dioxide 28 mmol/L (22-29); Chloride 106 mmol/L (96-108); Creatinine Clr Calc Pharmacy 49.3; Estimated Glomerular Filt Rate > 60; Glucose Random 130 mg/dL (60-115); Magnesium 1.9 mg/dL (1.6-2.6); Potassium 2.9 mmol/L (3.3-5.1); Sodium 139 mmol/L (135-145)
[2023-10-28] MEDS: hydrALAZINE HCl 20 MG/ML VIAL 5 MG IVPUSH (12:29)
[2023-10-28] MEDS: Immun Glob G(IgG)/Gly/IGA Ov50 200 ML IV (13:22)
[2023-10-28] MEDS: Potassium Chloride/H20 10 MEQ/100 ML PIGGYBACK 100 MEQ IV (15:13)
[2023-10-28 15:40] VITALS: BP 168/90; PULSE 86; RESP 18; TEMP 36.4; O2SAT 98
[2023-10-28] MEDS: KCl 40 mEq in 5% Dex/0.9% Sod 40 MEQ/1,000 ML IV.SOLN 80 MEQ IVCONT (15:40)
[2023-10-28 19:03] VITALS: BP 170/94; PULSE 88; RESP 18; TEMP 36.1; O2SAT 96
[2023-10-28] MEDS: diazePAM 10 MG/2 ML CARTRIDGE 2.5 MG IVPUSH (21:19)
--- NOTE | 2023-10-28 22:26 | PC.NURSE ---
unable to tolerated potassium IV 10 MEQ 100 ml bag even with the rate 25 ml /hr via 2 different IV site , pt reported severe pain to lower arm when medication was infusing
[2023-10-28 23:09] VITALS: BP 186/91; PULSE 78; RESP 18; TEMP 36.1; O2SAT 95
[2023-10-29] VITALS (7 sets, daily range): BP systolic 162–182; BP diastolic 70–102; PULSE 71–85; RESP 18–20; TEMP 36–36.8; O2SAT 94–97; BMI 23.0
[2023-10-29] MEDS: PYRIDOSTIGMINE BROMIDE 2 MG IVPUSH ×6 (00:55→19:52)
[2023-10-29] MEDS: 0.9 % Sodium Chloride Flush 3 ML SYRINGE IVFLUSH ×3 (00:56→19:53)
[2023-10-29] MEDS: KCl 40 mEq in 5% Dex/0.9% Sod 40 MEQ/1,000 ML IV.SOLN 80 MEQ IVCONT ×2 (03:29→15:35)
[2023-10-29] MEDS: Heparin Sodium,Porcine 5,000 UNIT/ML VIAL 5000 UNIT SUBCUT ×2 (05:18→17:06)
--- NOTE | 2023-10-29 05:30 | MHC.PIE ---
P.ELEVATED BP I.BP'S NOTED TO BE 182/70,180/90. NOTIFIED AND UPDATED THAT PT HAS BEEN UNABLE TO TAKE HER PO BLOOD PRESSURE MEDS SEC TO SWALLOWING ISSUES AND IS NPO.MD STATES TO RECHECK BP IN 2 HOURS SHE IS HESITANT TO GIVE MEDS THAT MAY INTERFERE WITH HER MYASTHENIA GRAVIS.NEXT SHIFT UPDATED. E.CONT TO MONITOR.
[2023-10-29] MEDS: hydrALAZINE HCl 20 MG/ML VIAL 5 MG IVPUSH (08:12)
[2023-10-29] MEDS: methylPREDNISolone Sod Succ 40 MG/ML VIAL 100 MG IVPUSH (08:12)
[2023-10-29 09:59] LABS: Anion Gap 10 (12-20); Blood Urea Nitrogen 20 mg/dL (9-16); Calcium 8.6 mg/dL (8.4-10.2); Carbon Dioxide 23 mmol/L (22-29); Chloride 111 mmol/L (96-108); Creatinine Clr Calc Pharmacy 60.7; Estimated Glomerular Filt Rate > 60; Glucose Random 109 mg/dL (60-115); Potassium 3.8 mmol/L (3.3-5.1); Sodium 140 mmol/L (135-145)
--- NOTE | 2023-10-29 11:13 | HO.PM.IMPN ---
Subjective Subjective Date of Service: 10/29/23 Interval History: No acute events over night no episodes of choking or difficulty clearing up phlegm, slept well able to bring up phlegm this morning, speech is clear , patient failed swallow eval this morning and noted to have severe oral pharyngeal dysphagia therefore recommended NPO by speech therapy. Review of Systems All other system reviewed and negative. Physical Exam Vital Signs: Vital Signs: Last Vital Signs Temp 98.3 F 10/29/23 07:21 Pulse 80 10/29/23 07:21 Resp 20 10/29/23 07:21 BP 172/102 H 10/29/23 07:21 Pulse Ox 95 10/29/23 07:21 O2 Del Method Room Air 10/29/23 07:21 BMI result Body Mass Index 23.0 Const: Other: General resting comfortably in no acute distress. Neck supple no JVD. CVS regular rate rhythm, Respiratory lungs clear to auscultation, no respiratory distress, no wheeze, no rhonchi. Gastrointestinal abdomen soft, non tender, bowel sounds audible, no guarding , no rigidity. Extremities no edema. Neuro alert oriented x3, moving all 4 extremity, speech clear today, chronic left ptosis Skin no rash Psych appropriate affect Objective Data Active Medications Amlodipine Besylate (Amlodipine Besylate 5 Mg Tablet) 5 mg PO DAILY [facility]; Protocol Last Admin: 10/29/23 08:14 Dose: Not Given Documented By: RHONA Non-Admin Reason: NPO Azathioprine (Azathioprine 50 Mg Tablet) 50 mg PO Q48H [facility] Last Admin: 10/28/23 10:00 Dose: Not Given Documented By: BROOKLYN Non-Admin Reason: NPO Diazepam (Diazepam 10 Mg/2 Ml Cartridge) 2.5 mg IVPUSH Q8H PRN PRN Reason: anxiety Last Admin: 10/28/23 21:19 Dose: 2.5 mg Documented By: NAZIA Heparin Sodium (Porcine) (Heparin Sodium,Porcine 5,000 Unit/Ml Vial) 5,000 unit SUBCUT Q12H [facility] Last Admin: 10/29/23 05:18 Dose: 5,000 unit Documented By: SHIVANI Immune Globulin (Gammagard 10%) 50 mls @ 30 mls/hr IV Q24H [facility] Stop: 10/29/23 13:39 Last Infusion: 10/28/23 14:08 Dose: Infused Documented By: BROOKLYN Immune Globulin (Gammagard 10%) 200 mls @ 30 mls/hr IV Q24H [facility] Stop: 10/29/23 20:39 Last Infusion: 10/28/23 20:05 Dose: Infused Documented By: NAZIA Potassium Chloride/Dextrose/Sod Cl (Kcl 40 Meq In 5% Dex/0.9% Sod) 40 meq in 1,000 mls @ 80 mls/hr IVCONT .[id number] [facility] Last Admin: 10/29/23 03:29 Dose: 80 mls/hr Documented By: SHIVANI Latanoprost (Latanoprost 0.005 % Ophth Ivy 2.5 Ml Drops) 1 drop EYE-BOTH BEDTIME [facility] Last Admin: 10/28/23 21:20 Dose: Not Given Documented By: NAZIA Non-Admin Reason: Med Not Available Methylprednisolone Sodium Succinate (Methylprednisolone Sod Succ 40 Mg/Ml Vial) 100 mg IVPUSH Q24H [facility] Last Admin: 10/29/23 08:12 Dose: 100 mg Documented By: RHONA Oxybutynin Chloride (Oxybutynin Chloride Er 5 Mg Tab.Er.24) 15 mg PO DAILY [facility] Last Admin: 10/29/23 08:14 Dose: Not Given Documented By: RHONA Non-Admin Reason: NPO Pyridostigmine [place] (Pyridostigmine [place] 10 Mg/2 Ml Ampul) 2 mg IVPUSH Q4H [facility] Last Admin: 10/29/23 08:12 Dose: 2 mg Documented By: RHONA Sodium Chloride (0.9 % Sodium Chloride Flush 3 Ml Syringe) 3 ml IVFLUSH QSHIFT [facility] Last Admin: 10/29/23 08:13 Dose: 3 ml Documented By: RHONA Labs 10/25/23 15:39 10/29/23 09:24 Labs: Laboratory Results - last 24 hr 10/28/23 10/29/23 11:37 09:24 Hold Purple Top SEE NOTE Anion Gap 8 L 10 L Estim Creat Clear Calc 49.3 60.7 Estimated GFR > 60 > 60 Random Glucose 130 H 109 Calcium 9.0 8.6 Magnesium 1.9 TSH 2.66 Assessment and Plan (1) Myasthenia gravis with exacerbation: Status: Acute Plan 83 year old female with history of myasthenia gravis predominantly oropharyngeal symptoms, osteoporosis, bile salt induced diarrhea admitted for myasthnia gravis flare. #Myasthenia gravis flare- primarily oropharyngeal symptoms -slept well, able to bring up phlegm, speech clear, but persistent dysphagia -continue NPO, IVF, IV pyridostigmine 2 mg IV q.4 hours , IV Solu-Medrol 100 mg -continue IVIG x 5/5 days per neurology -continue FVC /NIF, noted to have poor effort today FVC 600, and negative inspiratory pressure 18, patient noted to have good effort today oxygenation 94% -due for Vyugart inj 11/06 -on Imuran unable to swallow pill -due to persistent dysphagia will place on IV PPN and DC IV fluids once BP and started #HTN -on amlodipine, but unable to take by mouth medication will place on IV hydralazine as needed, follow BP # acute hypokalemia repleted and normalized. dvt prophyalxis-subQ heparin full code pt requires continued inpt stay for IVIG therapy due to myasthenia gravis flare which is restricting PO intake and therefore cannot safely be administered on outpt basis at this time. Quality Stroke Does the patient have a stroke diagnosis?: No VTE Prior VTE?: No VTE Risk Level:: Medical - moderate - high VTE Device Contraindication: Treatment Not Indicated VTE Drug Contraindication: N/A - Med Ordered
--- NOTE | 2023-10-29 11:24 | MHC.CLN ---
RE: CONSULT PT REQUIRING PPN R/T POOR PO INTAKE AND PROLONGED NPO STATUS LAUNDRY PRICING CLERK CONTINUES TO RECOMMEND NPO PPN TO START PER MD REVIEWED LABS DISCUSSED WITH PHARMACY RECOMMEND PPN AT 50ML/HR TO PROVIDE 612KCALS, 120G DEXTROSE, 51G PROTEIN REPLETE LYTES NEEDED; OBTAIN TRIGS SEE ALSO FULL CLINICAL NUTRITION ASSESSMENT
[2023-10-29] MEDS: diazePAM 10 MG/2 ML CARTRIDGE 2.5 MG IVPUSH ×2 (11:40→19:53)
[2023-10-29 12:13] LABS: Albumin Level 3.5 g/dL (3.5-5.0); Magnesium 1.9 mg/dL (1.6-2.6); Phosphorus 2.2 mg/dL (2.7-4.5)
[2023-10-29] MEDS: Immun Glob G(IgG)/Gly/IGA Ov50 200 ML IV (13:29)
--- NOTE | 2023-10-29 15:11 | MHC.SL.SWA ---
Speech Pathologist Impression: Risk of Aspiration Due to: Lethargy Poor PO Intake Weak Cough Dysphasia Diet Status: Continue NPO strict. Liquid Consistency and Strategies for Safe Swallow: Liquid Intake Recommendation: NPO Liquid Intake Strategies: No Straws Solid Food Consistency: Dietary Recommendations: NPO Additional Modifications to Solid Foods: Oral Medication Intake: NPO Please contact the pharmacy regarding appropriate crushable or liquid drug formulations that are available whenever modified delivery is recommended. Compensatory Strategies and Precautions to be Taken for Safe Swallow: Sitting Upright (90 deg) Supervision While Eating and Drinking for Safe Swallow: PO with MECHANICAL PROJECT ENGINEER Foods to Avoid: PO under MECHANICAL PROJECT ENGINEER supervision only. Swallowing Recommended Treatments: Compens. Strategy Educat. Recommendation for Speech: Inpatient Speech Therapy Comment: Patient was agitated though pleased to see MECHANICAL PROJECT ENGINEER this morning, as she was very anxious and demanding to be able to eat. Patient had written on personal Spreadsave board speech test for swallow! and had been expecting this all a.m. Patient was initially given an ice chip, which she held in mouth and dissolved, but then became distressed with evident gurgling sound in throat, and patient suctioning any residual from mouth. Patient was asked to do some oral motor exercises before proceeding with trials, with patient able to protrude and retract tongue X 3, but unable to produce glottal sounds /kuh/ /guh/ when prompted. Patient speech also noted to evidence absent glottal sound production. Patient was then given trial of 1/2 tsp of water, with good transit of water, but distress with liquid in pharynx, with partial laryngeal elevation and effortful attempts to swallow without fully elevating larynx, patient then trying to cough, using suction to remove residual of water. Patient evidenced high level of frustration but agreed that po not appropriate at this time. , RD notified of recommendation of continued NPO and that patient has been without nutritional source for three days due to repeatedly failing swallow assessement, with ppn ordered. MECHANICAL PROJECT ENGINEER will continue to follow. Frequency/Duration: Daily Date Range for Service Req: Timeline to reassess: PRN Burring Machine Operator Clinican/Clinical Fellow: No Supervisory Statement: I have reviewed and agree with the student/clinical fellow's documentation: N/A Speech Language Pathologist: Lea Noyola M.A., CCC-MECHANICAL PROJECT ENGINEER
[2023-10-29] MEDS: Parenteral Nutrition 1,200 ML 50 ML IV (19:47)
[2023-10-30] VITALS (8 sets, daily range): BP systolic 104–180; BP diastolic 69–101; PULSE 71–109; RESP 18–20; TEMP 36.1–36.6; O2SAT 95–98
[2023-10-30] MEDS: PYRIDOSTIGMINE BROMIDE 2 MG IVPUSH ×6 (00:46→21:20)
[2023-10-30] MEDS: hydrALAZINE HCl 20 MG/ML VIAL 5 MG IVPUSH (00:46)
[2023-10-30] MEDS: diazePAM 10 MG/2 ML CARTRIDGE 2.5 MG IVPUSH ×2 (02:36→21:20)
[2023-10-30] MEDS: Heparin Sodium,Porcine 5,000 UNIT/ML VIAL 5000 UNIT SUBCUT ×2 (05:07→16:42)
[2023-10-30 06:49] LABS: Albumin Level 3.3 g/dL (3.5-5.0); Anion Gap 8 (12-20); Blood Urea Nitrogen 23 mg/dL (9-16); Calcium 8.8 mg/dL (8.4-10.2); Carbon Dioxide 26 mmol/L (22-29); Chloride 109 mmol/L (96-108); Creatinine Clr Calc Pharmacy 54.8; Estimated Glomerular Filt Rate > 60; Glucose Random 99 mg/dL (60-115); Magnesium 2.1 mg/dL (1.6-2.6); Phosphorus 2.9 mg/dL (2.7-4.5); Potassium 3.9 mmol/L (3.3-5.1); Sodium 139 mmol/L (135-145)
[2023-10-30] MEDS: 0.9 % Sodium Chloride Flush 3 ML SYRINGE IVFLUSH ×3 (09:11→21:21)
[2023-10-30] MEDS: methylPREDNISolone Sod Succ 40 MG/ML VIAL 100 MG IVPUSH (09:15)
--- NOTE | 2023-10-30 10:35 | MHC.CLN ---
F/U PT REQUIRING PPN R/T POOR PO INTAKE AND PROLONGED NPO STATUS CLINICAL PHARMACY TECHNICIAN CONTINUES TO RECOMMEND NPO REVIEWED LABS RECOMMEND INCREASING PPN TO 70ML/HR TO PROVIDE 857KCALS, 168G DEXTROSE, 71G PROTEIN REPLETE LYTES NEEDED; OBTAIN TRIGS
--- NOTE | 2023-10-30 11:25 | MHC.CM.PN ---
EMR reviewed and per MD rounds, pt is not medically cleared for D/C due to myasthenia gravis flare requiring IV IG therapy.
[2023-10-30 12:08] LABS: Triglycerides 90 mg/dL (<150)
--- NOTE | 2023-10-30 12:13 | MHC.SL.SWA ---
Speech Pathologist Impression: Severe oropharyngeal dypshagia, risk of aspiration Risk of Aspiration Due to: Lethargy Poor PO Intake Weak Cough Dysphasia Diet Status: Continue NPO strict. Liquid Consistency and Strategies for Safe Swallow: Liquid Intake Recommendation: NPO Solid Food Consistency: Dietary Recommendations: NPO Oral Medication Intake: NPO Please contact the pharmacy regarding appropriate crushable or liquid drug formulations that are available whenever modified delivery is recommended. Supervision While Eating and Drinking for Safe Swallow: PO with FIELD CARE COORDINATOR Foods to Avoid: PO under FIELD CARE COORDINATOR supervision only. Swallowing Recommended Treatments: Compens. Strategy Educat. Recommendation for Speech: Inpatient Speech Therapy Comment: NPO strict pending FIELD CARE COORDINATOR re-assessment. Frequency/Duration: Daily Date Range for Service Req: Timeline to reassess: PRN Garageman Clinican/Clinical Fellow: No Supervisory Statement: I have reviewed and agree with the student/clinical fellow's documentation: N/A Speech Language Pathologist: Maral Hewitt M.A., CCC-FIELD CARE COORDINATOR
--- NOTE | 2023-10-30 14:46 | PM.EVENT ---
Event Note Date of Service: 10/30/23 Event Note: 10 fr soft nasogastric tube placed under fluoro for feeding. Tip in distal stomach along greater curvature. 62 cm at right. Ok for use. Dilan PUTNAM Interventional Radiology Time Spent With Patient Time: Total time managing care of this patient today ____ minutes.
--- NOTE | 2023-10-30 15:46 | PM.CNPUL ---
History of Present Illness History of Present Illness Consult date: 10/30/23 Chief complaint: MG Exacerbation Narrative: 83-year-old lady with underlying myasthenia gravis admitted with myasthenia exacerbation treated with IVIG, Solu-Medrol, pyridostigmine with slow improvement. With difficulty clearing secretions despite cough assist. Now on NGT feeds. No overt aspiration. Patient is able to suction out her oropharynx. Her FVC and negative inspiratory force measurements inconsistent with her symptoms likely secondary to poor lip seal. Review of Systems Constitutional: Constitutional: Denies daytime sleepiness, Denies excessive sweating, Denies fatigue, Denies fever(s), Denies lethargy, Denies malaise, Denies night sweats, Denies snoring, Reports weakness and Denies weight loss Eyes: Eyes: Denies blurry vision and Denies itchy eyes ENT: Denies nasal congestion, Denies post nasal drip, Denies sinus pain, Denies sinus pressure and Denies other ( Thrush) Cardiovascular: Cardiovascular: Denies chest pain, Denies pedal edema, Denies dyspnea, Denies orthopnea and Denies paroxysmal nocturnal dyspnea Respiratory: Respiratory: Denies cough, Denies hemoptysis, Denies excessive phlegm production, Denies dyspnea, Denies snoring and Denies wheezing Gastrointestinal: Gastrointestinal: Denies abdominal pain and Denies heartburn Musculoskeletal: Musculoskeletal: Denies myalgias, Denies arthralgias, Denies joint swelling and Reports muscle weakness Integumentary/Breasts: Skin/Breast: Denies rash Neurologic: Denies memory loss, Denies seizure-like activity and Reports weakness Psychiatric: Psychiatric: Denies abnormal sleep pattern, Denies anxiety and Denies memory loss Endocrine: Endocrine: Denies excessive sweating, Denies fatigue and Denies heat intolerance Hematologic/Lymphatic: Hematologic/Lymphatic: Denies easy bruising Allergic/Immunologic: Allergic/Immunologic: Denies itchy eyes, Denies seasonal rhinorrhea and Denies wheezing PMFSH Past Medical History Medical History Osteoporosis Myasthenia gravis in remission Tubular adenoma of colon (~2010) Bile salt-induced diarrhea Family History Family History Father HTN (hypertension) Mother Colon cancer Sister Glaucoma Other Hx of colonoscopy Surgical History Surgical History History of back surgery Status post partial hysterectomy Hx laparoscopic cholecystectomy Hx of colonoscopy Social History Social History Household Members: None Housing: House Do you presently have visiting nurse or other home services: No Alcohol intake: current Alcohol intake frequency: holidays/special occasions only Comment: 1-2 assist oob to commode/ chair Patient Tobacco Use Status: Former Tobacco user Quit Date: 1971 Advance Directives Date on File: 06/14/20 service: No Meds Allergies Allergy/AdvReac Type Severity Reaction Status Date / Time NSAIDS (Non-Steroidal Allergy Intermediate RASH Verified 10/24/22 11:38 Anti-Inflamma [NSAIDS (NON-STEROIDAL ANTI-INFLAMMA] azithromycin Allergy Unknown may Verified 10/24/22 11:38 exacerbate MG Ceftin Allergy Unknown hives Verified 10/24/22 11:38 cefuroxime [From CEFTIN] Allergy Unknown PATIENT Verified 10/24/22 11:38 AWARE OF REACTION IT WAS SO LONG AGO ibuprofen [Advil] Allergy Unknown rash Verified 10/24/22 11:38 levofloxacin Allergy Unknown may Verified 10/24/22 11:38 exacerbate MG lisinopril Allergy Unknown unknown Verified 10/24/22 11:38 losartan Allergy Unknown unknown Verified 10/24/22 11:38 ciprofloxacin [CIPROFLOXACIN] AdvReac Unknown UNABLE TO Verified 10/24/22 11:38 TAKE R/T DX MYASTHENIA GRAVIS nitrofurantoin AdvReac Unknown stomatitis Verified 10/24/22 11:38 adhesive tape Allergy Unknown rash Uncoded 10/24/22 11:38 adhesives Allergy Unknown rash Uncoded 10/24/22 11:38 Advil PM Allergy Unknown rash Uncoded 10/24/22 11:38 Active Medications: Current Medications Acetylcysteine (Acetylcysteine 10 % 400 Mg/4 Ml Vial) 400 mg INHALE RBID [facility] Last Admin: 10/30/23 14:23 Dose: Not Given Albuterol Sulfate (Albuterol Sulfate (0.083%) 2.5 Mg/3 Ml Vial.Neb) 2.5 mg INHALE BID [facility] Last Admin: 10/30/23 14:23 Dose: Not Given Amlodipine Besylate (Amlodipine Besylate 5 Mg Tablet) 5 mg PO DAILY [facility]; Protocol Last Admin: 10/30/23 09:11 Dose: Not Given Azathioprine (Azathioprine 50 Mg Tablet) 50 mg PO Q48H AME Last Admin: 10/30/23 09:11 Dose: Not Given Diazepam (Diazepam 10 Mg/2 Ml Cartridge) 2.5 mg IVPUSH Q8H PRN PRN Reason: anxiety Last Admin: 10/30/23 02:36 Dose: 2.5 mg Heparin Sodium (Porcine) (Heparin Sodium,Porcine 5,000 Unit/Ml Vial) 5,000 unit SUBCUT Q12H AME Last Admin: 10/30/23 05:07 Dose: 5,000 unit Hydralazine HCl (Hydralazine Hcl 20 Mg/Ml Vial) 5 mg IVPUSH Q4H PRN; Protocol PRN Reason: SBP > 160 Last Admin: 10/30/23 00:46 Dose: 5 mg Nutrition (Parenteral) (Parenteral Nutrition) 1,200 mls @ 50 mls/hr IV .Q24H AME; Protocol Stop: 10/30/23 20:59 Last Admin: 10/29/23 19:47 Dose: 50 mls/hr Nutrition (Parenteral) (Parenteral Nutrition) 1,680 mls @ 70 mls/hr IV .Q24H [facility]; Protocol Stop: 10/31/23 20:59 Latanoprost (Latanoprost 0.005 % Ophth Ivy 2.5 Ml Drops) 1 drop EYE-BOTH BEDTIME [facility] Last Admin: 10/29/23 19:53 Dose: Not Given Methylprednisolone Sodium Succinate (Methylprednisolone Sod Succ 40 Mg/Ml Vial) 100 mg IVPUSH Q24H [facility] Last Admin: 10/30/23 09:15 Dose: 100 mg Oxybutynin Chloride (Oxybutynin Chloride Er 5 Mg Tab.Er.24) 15 mg PO DAILY [facility] Last Admin: 10/29/23 08:14 Dose: Not Given Pharmacy Consult (Consult Rx Parenteral Nutrition Ordering) 1 each MISCELLANE DAILY PRN PRN Reason: Consult order Pyridostigmine [place] (Pyridostigmine [place] 10 Mg/2 Ml Ampul) 2 mg IVPUSH Q4H [facility] Last Admin: 10/30/23 12:42 Dose: 2 mg Sodium Chloride (0.9 % Sodium Chloride Flush 3 Ml Syringe) 3 ml IVFLUSH QSHIFT [facility] Last Admin: 10/30/23 09:11 Dose: 3 ml Home Medications Medication Instructions Recorded Confirmed Last Taken Type azathioprine 50 mg tablet 50 mg PO Q OTHER DAY 07/04/20 10/25/23 Unknown History pyridostigmine bromide 60 mg 60 mg PO TID 07/04/20 10/25/23 Unknown History tablet (Mestinon) amlodipine 5 mg tablet 5 mg PO DAILY 08/21/22 10/25/23 Unknown History efgartigimod isabella-fcab 20 mg/mL mg IV 10/25/23 Unknown History intravenous solution (Vyvgart) gabapentin 100 mg capsule 100 mg PO BEDTIME PRN Pain 10/25/23 10/25/23 10/24/23 History latanoprost 0.005 % eye drops 1 drp ophthalmic (eye) BEDTIME 10/25/23 10/25/23 Unknown History oxybutynin chloride 15 mg 15 mg PO DAILY 10/25/23 10/25/23 Unknown History tablet,extended release 24 hr prednisone 20 mg tablet 20 mg PO DAILY 10/25/23 10/25/23 10/25/23 History timolol maleate 0.25 % eye drops 1 drp ophthalmic-Right QAM 10/25/23 10/25/23 Unknown History Physical Exam Vital Signs: Vital Signs: Last Vital Signs Temp 97.3 F 10/30/23 15:34 Pulse 100 10/30/23 15:34 Resp 18 10/30/23 15:34 BP 147/95 H 10/30/23 15:34 Pulse Ox 95 10/30/23 15:34 O2 Del Method Room Air 10/30/23 15:34 BMI result Body Mass Index 23.0 Const: General: no acute distress and alert Nutritional Appearance: not obese Orientation/consciousness: Other orientation findings ( oriented) HEENT: Head: Yes atraumatic Eyes: General: appearance normal, both eyes and all related structures Sclerae: sclerae normal EOM: EOMs intact bilaterally Neck: Neck: Yes supple Lymphatic: no lymphadenopathy noted Resp: Effort & Inspection: normal respiratory effort and no use of accessory muscles Auscultation: clear to auscultation bilaterally Cardio: Rate: tachycardic Rhythm: regular rhythm Heart sounds: no gallops, no murmurs and no rubs Skin: General skin exam: other ( warm) Extrem: General: No clubbing, No cyanosis and No edema Results Laboratory Findings 10/25/23 15:39 10/30/23 05:46 Abnormal lab findings: Abnormal Labs 10/25/23 10/25/23 10/26/23 15:39 15:59 22:46 MCV 98.5 H MPV 8.7 L Neut % (Auto) 92.6 H Lymph % (Auto) 5.5 L Nash % (Auto) 1.3 L Lymph # (Auto) 0.5 L Abs Immat Gran (auto) 0.04 H Absolute Neuts (auto) 9.2 H ABG pH at Pt Temp 7.46 H ABG pCO2 at Pt Temp 31 L Potassium Chloride Anion Gap BUN 17 H Random Glucose 131 H Phosphorus Total Bilirubin 1.1 H Albumin Urine Protein 30 (1+) H Urine Blood Trace H Urine RBC 3-5 H 10/28/23 10/29/23 10/30/23 11:37 09:24 05:46 MCV MPV Neut % (Auto) Lymph % (Auto) Nash % (Auto) Lymph # (Auto) Abs Immat Gran (auto) Absolute Neuts (auto) ABG pH at Pt Temp ABG pCO2 at Pt Temp Potassium 2.9 L* D Chloride 111 H 109 H Anion Gap 8 L 10 L 8 L BUN 22 H 20 H 23 H Random Glucose 130 H Phosphorus 2.2 L Total Bilirubin Albumin 3.3 L Urine Protein Urine Blood Urine RBC Assessment and Plan (1) Myasthenia gravis with exacerbation: Status: Acute Plan Impression: 83-year-old lady with myasthenia crisis with difficulty clearing secretions, but able to suction her oropharynx, no aspirations. FVC/NIF measurements inaccurate secondary to poor lip seal. Recommendations: Continue with cough assist. Consider chest physiotherapy after albuterol/Mucomyst nebs b.i.d. Procedures Date of Service Date of Service: 10/30/23
--- NOTE | 2023-10-30 16:49 | HO.PM.IMPN ---
Subjective Subjective Date of Service: 10/30/23 Interval History: Complaining of persistent secretions unable to clear, feeling weak, FVC 600 negative inspiratory pressure of 14, feels depressed and anxious at night requiring iv diazepam, denies fever, no chills, no urinary symptoms, speech recommended NPO Review of Systems All other system reviewed and negative Physical Exam Vital Signs: Vital Signs: Last Vital Signs Temp 97.3 F 10/30/23 15:34 Pulse 100 10/30/23 15:34 Resp 18 10/30/23 15:34 BP 147/95 H 10/30/23 15:34 Pulse Ox 95 10/30/23 15:34 O2 Del Method Room Air 10/30/23 15:34 BMI result Body Mass Index 23.0 Const: Other: General resting comfortably in no acute distress. Neck supple no JVD. CVS regular rate rhythm, Respiratory lungs clear to auscultation, no respiratory distress, no wheeze, no rhonchi. Gastrointestinal abdomen soft, non tender, bowel sounds audible, no guarding , no rigidity. Extremities no edema. Neuro alert oriented x3, moving all 4 extremity, speech clear , chronic left ptosis Skin no rash Psych appropriate affect Objective Data Active Medications Acetylcysteine (Acetylcysteine 10 % 400 Mg/4 Ml Vial) 400 mg INHALE RBID [facility] Last Admin: 10/30/23 14:23 Dose: Not Given Documented By: RO Non-Admin Reason: Not In Room Albuterol Sulfate (Albuterol Sulfate (0.083%) 2.5 Mg/3 Ml Vial.Neb) 2.5 mg INHALE BID [facility] Last Admin: 10/30/23 14:23 Dose: Not Given Documented By: RO Non-Admin Reason: Not In Room Amlodipine Besylate (Amlodipine Besylate 5 Mg Tablet) 5 mg PO DAILY [facility]; Protocol Last Admin: 10/30/23 09:11 Dose: Not Given Documented By: TRACY Non-Admin Reason: NPO, failed swallow eval Azathioprine (Azathioprine 50 Mg Tablet) 50 mg PO Q48H [facility] Last Admin: 10/30/23 09:11 Dose: Not Given Documented By: TRACY Non-Admin Reason: NPO, failed swallow eval Diazepam (Diazepam 10 Mg/2 Ml Cartridge) 2.5 mg IVPUSH Q8H PRN PRN Reason: anxiety Last Admin: 10/30/23 02:36 Dose: 2.5 mg Documented By: MANNY Comments: Per MD Rigo solis to give early as patient increased anxiety Heparin Sodium (Porcine) (Heparin Sodium,Porcine 5,000 Unit/Ml Vial) 5,000 unit SUBCUT Q12H AME Last Admin: 10/30/23 16:42 Dose: 5,000 unit Documented By: STACEY Hydralazine HCl (Hydralazine Hcl 20 Mg/Ml Vial) 5 mg IVPUSH Q4H PRN; Protocol PRN Reason: SBP > 160 Last Admin: 10/30/23 00:46 Dose: 5 mg Documented By: MANNY Nutrition (Parenteral) (Parenteral Nutrition) 1,200 mls @ 50 mls/hr IV .Q24H AME; Protocol Stop: 10/30/23 20:59 Last Admin: 10/29/23 19:47 Dose: 50 mls/hr Documented By: MANNY Nutrition (Parenteral) (Parenteral Nutrition) 1,680 mls @ 70 mls/hr IV .Q24H AME; Protocol Stop: 10/31/23 20:59 Latanoprost (Latanoprost 0.005 % Ophth [place] 2.5 Ml Drops) 1 drop EYE-BOTH BEDTIME [facility] Last Admin: 10/29/23 19:53 Dose: Not Given Documented By: MANNY Non-Admin Reason: Med Not Available Methylprednisolone Sodium Succinate (Methylprednisolone Sod Succ 40 Mg/Ml Vial) 100 mg IVPUSH Q24H [facility] Last Admin: 10/30/23 09:15 Dose: 100 mg Documented By: TRACY Oxybutynin Chloride (Oxybutynin Chloride Er 5 Mg Tab.Er.24) 15 mg PO DAILY [facility] Last Admin: 10/29/23 08:14 Dose: Not Given Documented By: RHONA Non-Admin Reason: NPO Pharmacy Consult (Consult Rx Parenteral Nutrition Ordering) 1 each MISCELLANE DAILY PRN PRN Reason: Consult order Pyridostigmine [place] (Pyridostigmine [place] 10 Mg/2 Ml Ampul) 2 mg IVPUSH Q4H [facility] Last Admin: 10/30/23 16:42 Dose: 2 mg Documented By: STACEY Sodium Chloride (0.9 % Sodium Chloride Flush 3 Ml Syringe) 3 ml IVFLUSH QSHIFT AME Last Admin: 10/30/23 15:50 Dose: 3 ml Documented By: STACEY Labs 10/25/23 15:39 10/30/23 05:46 Labs: Laboratory Results - last 24 hr 10/30/23 10/30/23 05:46 11:42 Hold Purple Top SEE NOTE SEE NOTE Anion Gap 8 L Estim Creat Clear Calc 54.8 Estimated GFR > 60 Random Glucose 99 Calcium 8.8 Phosphorus 2.9 Magnesium 2.1 Albumin 3.3 L Triglycerides 90 Assessment and Plan (1) Myasthenia gravis with exacerbation: Status: Acute Plan 83 year old female with history of myasthenia gravis predominantly oropharyngeal symptoms, osteoporosis, bile salt induced diarrhea admitted for myasthnia gravis flare. #Myasthenia gravis flare- primarily oropharyngeal symptoms -slept well, able to bring up phlegm, speech clear, but persistent dysphagia -continue NPO, IVF, IV pyridostigmine 2 mg IV q.4 hours , IV Solu-Medrol 100 mg -finished 5 days of IVIG -continue FVC /NIF, giving her best effort, FVC 600, and negative inspiratory pressure 16, oxygenation 94% -due for Vyugart inj 11/06 -on Imuran unable to swallow pill -due to persistent dysphagia, place on IV PPN and NG-tube placed will start G-tube feedings #HTN -on amlodipine, but unable to take by mouth medication , continue IV hydralazine as needed, follow BP # acute hypokalemia repleted and normalized. dvt prophyalxis-subQ heparin full code pt requires continued inpt stay due to persistent oral pharyngeal symptoms related to myasthenia gravis flare which is restricting PO intake and therefore remains NPO on IV PPN Quality Stroke Does the patient have a stroke diagnosis?: No VTE Prior VTE?: No VTE Risk Level:: Medical - moderate - high VTE Device Contraindication: Treatment Not Indicated VTE Drug Contraindication: N/A - Med Ordered
[2023-10-30] MEDS: Acetylcysteine 10 % 400 MG/4 ML VIAL INHALE (20:41)
[2023-10-30] MEDS: Albuterol Sulfate (0.083%) 2.5 MG/3 ML VIAL.NEB INHALE (20:41)
[2023-10-30] MEDS: Parenteral Nutrition 1,680 ML 70 ML IV (21:35)
[2023-10-31] VITALS (9 sets, daily range): BP systolic 133–152; BP diastolic 81–96; PULSE 82–103; RESP 17–20; TEMP 36.2–36.8; O2SAT 95–97
[2023-10-31] MEDS: PYRIDOSTIGMINE BROMIDE 2 MG IVPUSH ×6 (04:16→20:46)
[2023-10-31] MEDS: Heparin Sodium,Porcine 5,000 UNIT/ML VIAL 5000 UNIT SUBCUT ×2 (05:47→16:57)
[2023-10-31 06:45] LABS: Albumin Level 3.2 g/dL (3.5-5.0); Anion Gap 7 (12-20); Blood Urea Nitrogen 28 mg/dL (9-16); Calcium 8.9 mg/dL (8.4-10.2); Carbon Dioxide 25 mmol/L (22-29); Chloride 110 mmol/L (96-108); Estimated Glomerular Filt Rate > 60; Glucose Random 99 mg/dL (60-115); Phosphorus 3.5 mg/dL (2.7-4.5); Sodium 138 mmol/L (135-145)
[2023-10-31] MEDS: Acetylcysteine 10 % 400 MG/4 ML VIAL INHALE ×2 (07:59→19:44)
[2023-10-31] MEDS: Albuterol Sulfate (0.083%) 2.5 MG/3 ML VIAL.NEB INHALE ×2 (08:00→19:44)
[2023-10-31] MEDS: methylPREDNISolone Sod Succ 40 MG/ML VIAL 100 MG IVPUSH (08:32)
[2023-10-31] MEDS: 0.9 % Sodium Chloride Flush 3 ML SYRINGE IVFLUSH ×2 (08:35→20:47)
--- NOTE | 2023-10-31 11:32 | HO.PM.IMPN ---
Subjective Subjective Date of Service: 10/31/23 Interval History: Feeling better this morning, feels Mucomyst and albuterol inhalers helping her able to bring up secretions more easily, remains NPO due to severe oropharyngeal dysphagia and risk of aspiration, NG tube placed yesterday and started on tube feedings. Denies fever, no chills, no headache, no dizziness, no nausea, no vomiting. Review of Systems All other system reviewed and negative. Physical Exam Vital Signs: Vital Signs: Last Vital Signs Temp 97.5 F 10/31/23 11:02 Pulse 96 10/31/23 11:02 Resp 20 10/31/23 11:02 BP 147/81 H 10/31/23 11:02 Pulse Ox 95 10/31/23 11:02 O2 Del Method Room Air 10/31/23 11:02 BMI result Body Mass Index 23.0 Const: Other: General resting comfortably in no acute distress. Neck supple no JVD. CVS regular rate rhythm, Respiratory lungs clear to auscultation, no respiratory distress, no wheeze, no rhonchi. Gastrointestinal abdomen soft, non tender, bowel sounds audible, no guarding , no rigidity. Extremities no edema. Neuro alert oriented x3, moving all 4 extremity, speech clear , chronic left ptosis Skin no rash Psych appropriate affect Objective Data Active Medications Acetylcysteine (Acetylcysteine 10 % 400 Mg/4 Ml Vial) 400 mg INHALE RBID [facility] Last Admin: 10/31/23 07:59 Dose: 400 mg Documented By: BAM Albuterol Sulfate (Albuterol Sulfate (0.083%) 2.5 Mg/3 Ml Vial.Neb) 2.5 mg INHALE BID [facility] Last Admin: 10/31/23 08:00 Dose: 2.5 mg Documented By: BAM Amlodipine Besylate (Amlodipine Besylate 5 Mg Tablet) 5 mg PO DAILY [facility]; Protocol Last Admin: 10/31/23 09:43 Dose: Not Given Documented By: JAECY Non-Admin Reason: per MD Michelle escobar to hold pt NPO Azathioprine (Azathioprine 50 Mg Tablet) 50 mg PO Q48H [facility] Last Admin: 10/30/23 09:11 Dose: Not Given Documented By: TRACY Non-Admin Reason: NPO, failed swallow eval Diazepam (Diazepam 10 Mg/2 Ml Cartridge) 2.5 mg IVPUSH Q8H PRN PRN Reason: anxiety Last Admin: 10/30/23 21:20 Dose: 2.5 mg Documented By: ARSALAN Heparin Sodium (Porcine) (Heparin Sodium,Porcine 5,000 Unit/Ml Vial) 5,000 unit SUBCUT Q12H [facility] Last Admin: 10/31/23 05:47 Dose: 5,000 unit Documented By: ARSALAN Hydralazine HCl (Hydralazine Hcl 20 Mg/Ml Vial) 5 mg IVPUSH Q4H PRN; Protocol PRN Reason: SBP > 160 Last Admin: 10/30/23 00:46 Dose: 5 mg Documented By: MANNY Nutrition (Parenteral) (Parenteral Nutrition) 1,680 mls @ 70 mls/hr IV .Q24H [facility]; Protocol Stop: 10/31/23 20:59 Last Admin: 10/30/23 21:35 Dose: 70 mls/hr Documented By: ARSALAN Latanoprost (Latanoprost 0.005 % Ophth Ivy 2.5 Ml Drops) 1 drop EYE-BOTH BEDTIME [facility] Last Admin: 10/31/23 04:16 Dose: Not Given Documented By: ARSALAN Non-Admin Reason: Patient Refused Methylprednisolone Sodium Succinate (Methylprednisolone Sod Succ 40 Mg/Ml Vial) 100 mg IVPUSH Q24H [facility] Last Admin: 10/31/23 08:32 Dose: 100 mg Documented By: JACEY Oxybutynin Chloride (Oxybutynin Chloride Er 5 Mg Tab.Er.24) 15 mg PO DAILY [facility] Last Admin: 10/29/23 08:14 Dose: Not Given Documented By: RHONA Non-Admin Reason: NPO Pharmacy Consult (Consult Rx Parenteral Nutrition Ordering) 1 each MISCELLANE DAILY PRN PRN Reason: Consult order Pyridostigmine [place] (Pyridostigmine [place] 10 Mg/2 Ml Ampul) 2 mg IVPUSH Q4H [facility] Last Admin: 10/31/23 08:29 Dose: 2 mg Documented By: JACEY Sodium Chloride (0.9 % Sodium Chloride Flush 3 Ml Syringe) 3 ml IVFLUSH QSHIFT [facility] Last Admin: 10/31/23 08:35 Dose: 3 ml Documented By: JACEY Labs 10/25/23 15:39 03/09/24 06:06 Labs: Laboratory Results - last 24 hr 10/30/23 10/31/23 11:42 06:06 Hold Purple Top SEE NOTE SEE NOTE Anion Gap 7 L Estim Creat Clear Calc 54.0 Estimated GFR > 60 Random Glucose 99 Calcium 8.9 Phosphorus 3.5 Magnesium 2.0 Albumin 3.2 L Triglycerides 90 Assessment and Plan (1) Myasthenia gravis with exacerbation: Status: Acute Plan 83 year old female with history of myasthenia gravis predominantly oropharyngeal symptoms, osteoporosis, bile salt induced diarrhea admitted for myasthnia gravis flare. #Myasthenia gravis flare- primarily oropharyngeal symptoms -able to bring up phlegm, speech clear, but persistent dysphagia -continue NPO, IV pyridostigmine 2 mg IV q.4 hours , IV Solu-Medrol 100 mg -finished 5 days of IVIG -continue FVC /NIF, giving her best effort,oxygenation 94% -due for Vyugart inj 11/06 -placed on feeding tube started on tube feeds, will DC IV PPN -started on Mucomyst and albuterol inhaler, -on Imuran , will give through G-tube #HTN -on amlodipine at home, continue IV hydralazine as needed, follow BP # acute hypokalemia repleted and normalized. dvt prophyalxis-subQ heparin full code pt requires continued inpt stay due to persistent oral pharyngeal symptoms related to myasthenia gravis flare which is restricting PO intake and therefore remains NPO on IV PPN Quality Stroke Does the patient have a stroke diagnosis?: No VTE Prior VTE?: No VTE Risk Level:: Medical - moderate - high VTE Device Contraindication: Treatment Not Indicated VTE Drug Contraindication: N/A - Med Ordered
--- NOTE | 2023-10-31 11:47 | P.PNPL_ITS ---
Subjective Subjective Date of Service: 10/31/23 Interval history: Patient states that she sees significant symptomatic benefit when using nebulized albuterol/Mucomyst in terms of ability to clear her respiratory secretions. Objective Data Labs 10/25/23 15:39 10/31/23 06:06 Labs: Laboratory Results - last 24 hr 10/30/23 10/31/23 11:42 06:06 Hold Purple Top SEE NOTE SEE NOTE Sodium 138 Potassium 4.0 Chloride 110 H Carbon Dioxide 25 Anion Gap 7 L BUN 28 H Creatinine 0.63 Estim Creat Clear Calc 54.0 Estimated GFR > 60 Random Glucose 99 Calcium 8.9 Phosphorus 3.5 Magnesium 2.0 Albumin 3.2 L Triglycerides 90 Physical Exam 2 Vital Signs: Vital Signs: Last Vital Signs Temp 97.5 F 10/31/23 11:02 Pulse 96 10/31/23 11:02 Resp 20 10/31/23 11:02 BP 147/81 H 10/31/23 11:02 Pulse Ox 95 10/31/23 11:02 O2 Del Method Room Air 10/31/23 11:02 BMI result Body Mass Index 23.0 Const: General: no acute distress, alert and awake Eyes: Sclerae: sclerae normal EOM: EOMs intact bilaterally Neck: Neck: Yes no lymphadenopathy, Yes trachea midline and Yes supple Resp: Effort & Inspection: normal respiratory effort and no respiratory distress Auscultation: clear to auscultation bilaterally Cardio: Rate: regular rate Rhythm: regular rhythm Heart sounds: no gallops, no murmurs and no rubs GI: Palpation (GI): Soft to palpation and Other GI palpation findings present ( Nontender) Auscultation: normal bowel sounds Extrem: General: Yes no pedal edema, No clubbing and No cyanosis Procedures Date of Service Date of Service: 10/31/23 Assessment and Plan Assessment and plan (1) Myasthenia gravis with exacerbation: Status: Acute Plan Impression: 83-year-old lady with myasthenia crisis with difficulty clearing secretions, but able to suction her oropharynx, no aspirations. FVC/NIF measurements inaccurate secondary to poor lip seal, though overall improving. Recommendations: Continue with cough assist and chest physiotherapy after albuterol/Mucomyst nebs b.i.d/t.i.d. Time Spent With Patient Time: Total time managing care of this patient today ____ minutes. Progress Note: Quality Stroke Does the patient have a stroke diagnosis?: No
--- NOTE | 2023-10-31 13:42 | PC.NURSE ---
Addendum entered by Leanne Cordova RN 10/31/23 17:41: Spoke with JERSEY Maravilla at 1650, made aware that NGT was not visually seen at the back of pts throat, tube appears to be sitting inside pts nare only.. Per JERSEY instructions ok to remove NGT. Pt continues to be on PPN. Original Note: At 1340 pt reported leaking from her nostrils after sneezing. This RN at bedside, cerrato liquid was dripping from patients nose, appears to be tube feeding. Tube feeding held, 5ML of residual aspirated. MD Martinez made aware. Per chest xray to be ordered to check positioning. Will hold tube feeding until further notice.
--- NOTE | 2023-10-31 19:13 | PM.EVENT ---
Event Note Date of Service: 10/31/23 Event Note: Patient began complaining of throat irritation from NGT after pt transitioned from bed to chair. Pt began sneezing and nursing noticed enteral nutrition coming from nose. X-ray was ordered for NGT placement, which show 2 no longer in stomach but instead ending in patient's nasopharynx. To subsequently pulled. Patient continues to receive last PPN bag which is a to tonight at 21:39. Will hold off on D10 for now given PPN still running. Will contact pharmacy tomorrow a.m. to place additional PPN order. Time Spent With Patient Time: Total time managing care of this patient today ____ minutes.
[2023-10-31] MEDS: diazePAM 10 MG/2 ML CARTRIDGE 2.5 MG IVPUSH (20:47)
[2023-10-31] MEDS: Latanoprost 0.005 % Ophth Sol 2.5 ML DROPS 1 DROP EYE-BOTH (23:17)
[2023-11-01] VITALS (8 sets, daily range): BP systolic 127–150; BP diastolic 73–88; PULSE 75–98; RESP 16–20; TEMP 36.3–37; O2SAT 9–98
--- NOTE | 2023-11-01 00:34 | P.EN_ITS ---
Event Note Date of Service: 11/01/23 Event Note: Patient's POA/sister was requesting to speak with me regarding patient's nutrition. According to chart review patient's NG tube was found to be out of place and was pulled out. She was started on PPN that at 9:39 PM. I contacted the remote pharmacist and he told me that unfortunately, he is unable to find any premade mixed bags anywhere (using the computer system) and that in- house pharmacist will be here at 6 AM and will able to prepare PPN for the p atient (or maybe, to find premade mixed bags in the pharmacy itself). Sister was also informed that NGT need to be inserted by IR due to patient's dysphagia. IR service is not available during the weekends. Sister expressed her concerns about Joanne not being able to get appropriate nutrition and would like to know if patient will receive appropriate nutrition tomorrow, if not, she would like Joanne to be transferred to [facility]. Time Spent With Patient Time: Total time managing care of this patient today ____ minutes.
[2023-11-01] MEDS: Dextrose 5 % and 0.9 % NaCl 1,000 ML 80 ML IVCONT ×2 (01:53→14:55)
[2023-11-01] MEDS: PYRIDOSTIGMINE BROMIDE 2 MG IVPUSH ×6 (03:21→21:34)
[2023-11-01] MEDS: Heparin Sodium,Porcine 5,000 UNIT/ML VIAL 5000 UNIT SUBCUT ×2 (05:52→17:15)
[2023-11-01] MEDS: Albuterol Sulfate (0.083%) 2.5 MG/3 ML VIAL.NEB INHALE ×2 (07:39→19:50)
[2023-11-01] MEDS: Acetylcysteine 10 % 400 MG/4 ML VIAL INHALE ×2 (07:39→19:50)
[2023-11-01 09:05] LABS: Albumin Level 3.1 g/dL (3.5-5.0); Anion Gap 11 (12-20); Blood Urea Nitrogen 25 mg/dL (9-16); Calcium 8.2 mg/dL (8.4-10.2); Carbon Dioxide 23 mmol/L (22-29); Chloride 108 mmol/L (96-108); Creatinine Clr Calc Pharmacy 61.8; Estimated Glomerular Filt Rate > 60; Glucose Random 94 mg/dL (60-115); Magnesium 2.2 mg/dL (1.6-2.6); Phosphorus 3.3 mg/dL (2.7-4.5); Potassium 4.2 mmol/L (3.3-5.1); Sodium 138 mmol/L (135-145)
[2023-11-01] MEDS: 0.9 % Sodium Chloride Flush 3 ML SYRINGE IVFLUSH ×3 (09:36→21:14)
[2023-11-01] MEDS: methylPREDNISolone Sod Succ 40 MG/ML VIAL 100 MG IVPUSH (09:36)
--- NOTE | 2023-11-01 13:20 | HO.PM.IMPN ---
Subjective Subjective Date of Service: 11/01/23 Interval History: Feeling better speech is more clear, able to clear her secretions, events from last night noted NG tube was pulled out since it was noted to be in nasopharynx, after an episode of sneezing. Patient received iv PPN yesterday and it will be restarted again tonight, no other acute issues overnight. Review of Systems All other system reviewed and negative Physical Exam Vital Signs: Vital Signs: Last Vital Signs Temp 98.6 F 11/01/23 10:57 Pulse 76 11/01/23 10:57 Resp 18 11/01/23 10:57 BP 131/73 11/01/23 10:57 Pulse Ox 94 11/01/23 10:57 O2 Del Method Room Air 11/01/23 10:57 BMI result Body Mass Index 23.0 Const: Other: General resting comfortably in no acute distress. Neck supple no JVD. CVS regular rate rhythm, Respiratory lungs clear to auscultation, no respiratory distress, no wheeze, no rhonchi. Gastrointestinal abdomen soft, non tender, bowel sounds audible, no guarding , no rigidity. Extremities no edema. Neuro alert oriented x3, moving all 4 extremity, speech clear , chronic left ptosis stable Skin no rash Psych appropriate affect Objective Data Active Medications Acetylcysteine (Acetylcysteine 10 % 400 Mg/4 Ml Vial) 400 mg INHALE RBID [facility] Last Admin: 11/01/23 07:39 Dose: 400 mg Documented By: JULIUS Albuterol Sulfate (Albuterol Sulfate (0.083%) 2.5 Mg/3 Ml Vial.Neb) 2.5 mg INHALE BID [facility] Last Admin: 11/01/23 07:39 Dose: 2.5 mg Documented By: JULIUS Amlodipine Besylate (Amlodipine Besylate 5 Mg Tablet) 5 mg PO DAILY [facility]; Protocol Last Admin: 11/01/23 09:37 Dose: Not Given Documented By: MARGE Non-Admin Reason: NPO Azathioprine (Azathioprine 50 Mg Tablet) 50 mg PO Q48H [facility] Last Admin: 11/01/23 09:37 Dose: Not Given Documented By: MARGE Non-Admin Reason: NPO Diazepam (Diazepam 10 Mg/2 Ml Cartridge) 2.5 mg IVPUSH Q8H PRN PRN Reason: anxiety Last Admin: 10/31/23 20:47 Dose: 2.5 mg Documented By: LUIZA Heparin Sodium (Porcine) (Heparin Sodium,Porcine 5,000 Unit/Ml Vial) 5,000 unit SUBCUT Q12H [facility] Last Admin: 11/01/23 05:52 Dose: 5,000 unit Documented By: LUIZA Hydralazine HCl (Hydralazine Hcl 20 Mg/Ml Vial) 5 mg IVPUSH Q4H PRN; Protocol PRN Reason: SBP > 160 Last Admin: 10/30/23 00:46 Dose: 5 mg Documented By: MANNY Dextrose/Sodium Chloride (D5ns) 1,000 mls @ 80 mls/hr IVCONT .[id number] [facility] Last Admin: 11/01/23 01:53 Dose: 80 mls/hr Documented By: LUIZA Nutrition (Parenteral) (Parenteral Nutrition) 1,680 mls @ 70 mls/hr IV .Q24H [facility]; Protocol Stop: 11/02/23 20:59 Latanoprost (Latanoprost 0.005 % Ophth [place] 2.5 Ml Drops) 1 drop EYE-BOTH BEDTIME [facility] Last Admin: 10/31/23 23:17 Dose: 1 drop Documented By: LUIZA Methylprednisolone Sodium Succinate (Methylprednisolone Sod Succ 40 Mg/Ml Vial) 100 mg IVPUSH Q24H [facility] Last Admin: 11/01/23 09:36 Dose: 100 mg Documented By: MARGE Oxybutynin Chloride (Oxybutynin Chloride Er 5 Mg Tab.Er.24) 15 mg PO DAILY [facility] Last Admin: 10/29/23 08:14 Dose: Not Given Documented By: RHONA Non-Admin Reason: NPO Pyridostigmine [place] (Pyridostigmine [place] 10 Mg/2 Ml Ampul) 2 mg IVPUSH Q4H [facility] Last Admin: 11/01/23 09:42 Dose: 2 mg Documented By: MARGE Sodium Chloride (0.9 % Sodium Chloride Flush 3 Ml Syringe) 3 ml IVFLUSH QSHIFT [facility] Last Admin: 11/01/23 09:36 Dose: 3 ml Documented By: MARGE Labs 10/25/23 15:39 11/01/23 06:42 Labs: Laboratory Results - last 24 hr 11/01/23 06:42 Anion Gap 11 L Estim Creat Clear Calc 61.8 Estimated GFR > 60 Random Glucose 94 Calcium 8.2 L D Phosphorus 3.3 Magnesium 2.2 Albumin 3.1 L Assessment and Plan (1) Myasthenia gravis with exacerbation: Status: Acute Plan 83 year old female with history of myasthenia gravis predominantly oropharyngeal symptoms, osteoporosis, bile salt induced diarrhea admitted for myasthnia gravis flare. #Myasthenia gravis flare- primarily oropharyngeal symptoms -able to bring up phlegm, speech clear, but persistent dysphagia -continue NPO, IV pyridostigmine 2 mg IV q.4 hours , IV Solu-Medrol 100 mg -finished 5 days of IVIG -continue FVC /NIF, giving her best effort,oxygenation 94% -due for Vyugart inj 11/06 -placed on feeding tube on 10/30 , however it was dislodged and removed same day Will resume IV PPN -continue Mucomyst and albuterol inhaler, -on Imuran currently on hold #HTN -on amlodipine at home, currently on hold, continue IV hydralazine as needed, stable BP # acute hypokalemia repleted and normalized. dvt prophyalxis-subQ heparin full code pt requires continued inpt stay due to persistent oral pharyngeal symptoms related to myasthenia gravis flare which is restricting PO intake and therefore remains NPO on IV PPN. Quality Stroke Does the patient have a stroke diagnosis?: No VTE Prior VTE?: No VTE Risk Level:: Medical - moderate - high VTE Device Contraindication: Treatment Not Indicated VTE Drug Contraindication: N/A - Med Ordered
--- NOTE | 2023-11-01 13:34 | P.PNPL_ITS ---
Subjective Subjective Date of Service: 11/01/23 Interval history: Titrate off supplemental oxygen. FVC/NIF improving. Objective Data Labs 10/25/23 15:39 11/01/23 06:42 Labs: Laboratory Results - last 24 hr 11/01/23 06:42 Sodium 138 Potassium 4.2 Chloride 108 Carbon Dioxide 23 Anion Gap 11 L BUN 25 H Creatinine 0.55 Estim Creat Clear Calc 61.8 Estimated GFR > 60 Random Glucose 94 Calcium 8.2 L D Phosphorus 3.3 Magnesium 2.2 Albumin 3.1 L Physical Exam 2 Vital Signs: Vital Signs: Last Vital Signs Temp 98.6 F 11/01/23 10:57 Pulse 76 11/01/23 10:57 Resp 18 11/01/23 10:57 BP 131/73 11/01/23 10:57 Pulse Ox 94 11/01/23 10:57 O2 Del Method Room Air 11/01/23 10:57 BMI result Body Mass Index 23.0 Const: General: no acute distress, alert and awake Eyes: Sclerae: sclerae normal EOM: EOMs intact bilaterally Neck: Neck: Yes no lymphadenopathy, Yes trachea midline and Yes supple Resp: Effort & Inspection: normal respiratory effort and no respiratory distress Auscultation: clear to auscultation bilaterally Cardio: Rate: regular rate Rhythm: regular rhythm Heart sounds: no gallops, no murmurs and no rubs GI: Palpation (GI): Soft to palpation and Other GI palpation findings present ( Nontender) Auscultation: normal bowel sounds Extrem: General: Yes no pedal edema, No clubbing and No cyanosis Procedures Date of Service Date of Service: 11/01/23 Assessment and Plan Assessment and plan (1) Myasthenia gravis with exacerbation: Status: Acute Plan Impression: 83-year-old lady with myasthenia crisis with difficulty clearing secretions, but able to suction her oropharynx, no aspirations. FVC/NIF measurements inaccurate secondary to poor lip seal, though continue to improve. Recommendations: Continue with cough assist and chest physiotherapy after albuterol/Mucomyst nebs b.i.d/t.i.d. Time Spent With Patient Time: Total time managing care of this patient today ____ minutes. Progress Note: Quality Stroke Does the patient have a stroke diagnosis?: No
[2023-11-01] MEDS: diazePAM 10 MG/2 ML CARTRIDGE 2.5 MG IVPUSH (21:13)
[2023-11-01] MEDS: Parenteral Nutrition 1,680 ML 70 ML IV (21:14)
[2023-11-01] MEDS: Latanoprost 0.005 % Ophth Sol 2.5 ML DROPS 1 DROP EYE-BOTH (21:14)
[2023-11-02] VITALS (7 sets, daily range): BP systolic 128–178; BP diastolic 72–95; PULSE 72–95; RESP 16–20; TEMP 36.1–37; O2SAT 95–98
[2023-11-02] MEDS: PYRIDOSTIGMINE BROMIDE 2 MG IVPUSH ×6 (01:22→22:30)
[2023-11-02] MEDS: Dextrose 5 % and 0.9 % NaCl 1,000 ML 80 ML IVCONT (02:40)
[2023-11-02] MEDS: Heparin Sodium,Porcine 5,000 UNIT/ML VIAL 5000 UNIT SUBCUT ×2 (05:20→16:03)
[2023-11-02] MEDS: diazePAM 10 MG/2 ML CARTRIDGE 2.5 MG IVPUSH ×2 (05:29→23:13)
[2023-11-02 07:16] LABS: Albumin Level 2.8 g/dL (3.5-5.0); Anion Gap 8 (12-20); Blood Urea Nitrogen 17 mg/dL (9-16); Carbon Dioxide 24 mmol/L (22-29); Chloride 110 mmol/L (96-108); Estimated Glomerular Filt Rate > 60; Glucose Random 103 mg/dL (60-115); Magnesium 1.9 mg/dL (1.6-2.6); Phosphorus 3.2 mg/dL (2.7-4.5); Potassium 3.8 mmol/L (3.3-5.1); Sodium 138 mmol/L (135-145)
[2023-11-02] MEDS: Albuterol Sulfate (0.083%) 2.5 MG/3 ML VIAL.NEB INHALE (07:22)
[2023-11-02] MEDS: Acetylcysteine 10 % 400 MG/4 ML VIAL INHALE (07:23)
[2023-11-02] MEDS: methylPREDNISolone Sod Succ 40 MG/ML VIAL 100 MG IVPUSH (09:07)
[2023-11-02] MEDS: 0.9 % Sodium Chloride Flush 3 ML SYRINGE IVFLUSH ×3 (09:08→22:31)
--- NOTE | 2023-11-02 10:40 | MHC.CLN ---
F/U 10/29 PT RECEIVED NGT IN EVENING MD CONSULTED THIS DIE SETTER FOR TUBE FEEDING ORDERS PT TO RECEIVE JEVITY 1.0 AT 70ML/HR TO PROVIDE 1780KCALS, 74G PROTEIN HOWEVER ON 10/30 PT'S NGT PULLED R/T PLACEMENT PT REQUIRING PPN R/T POOR PO INTAKE AND PROLONGED NPO STATUS LENS AND FRAMES PRESCRIPTION CLERK CONTINUES TO RECOMMEND NPO REVIEWED LABS DISCUSSED WITH PHARMACY RECOMMEND CONTINUING PPN AT 70ML/HR WITH 91G LIPIDS TO PROVIDE 1767 TOTAL KCALS (30KCALS/KG), 168G DEXTROSE, 71G PROTEIN (1.2G/KG) REPLETE LYTES NEEDED
--- NOTE | 2023-11-02 12:25 | MHC.CM.PN ---
Pt has not yet been medically cleared for DC. CM has met with her to discuss home care services. She requested [facility], and said she has used their services in the past, 3 times. Referral in, they declined, do not take her ins., [facility]. Referral into other VNA's. CM to follow and continue to assist with DC plan.
--- NOTE | 2023-11-02 13:18 | MHC.SL.SWA ---
Speech Pathologist Impression: Risk of aspiration, oropharyngeal dysphagia Risk of Aspiration Due to: Lethargy Poor PO Intake Weak Cough Dysphasia Diet Status: UPGRADE start on NDD1 Liquid Consistency and Strategies for Safe Swallow: Liquid Intake Recommendation: Thin Liquid Intake Strategies: Small Sips No Straws Liquids by Teaspoon Only Solid Food Consistency: Dietary Recommendations: Pureed (NDD1) Additional Modifications to Solid Foods: Recommend start on PUREED (NDD1) diet and thin liquids by teaspoon only. Pt reports this is her baseline prior to this hospitalization. Precautions include: upright position when eating (ideally OOB), small bites, liquid by teaspoon only, alternate solids/liquids, dry swallow between bites/sips. Pt to be directly supervised during PO intake. Oral Medication Intake: Crushed with Puree Please contact the pharmacy regarding appropriate crushable or liquid drug formulations that are available whenever modified delivery is recommended. Compensatory Strategies and Precautions to be Taken for Safe Swallow: Sitting Upright (90 deg) Double Swallow No Straw Liquids from Spoon Small Bites and Sips Alternate Liquids/Solids Rate of Ingestion Change Avoid Specific Foods Supervision While Eating and Drinking for Safe Swallow: Total Supervision (1:1) Foods to Avoid: Mixed textures Swallowing Recommended Treatments: Compens. Strategy Educat. Recommendation for Speech: Inpatient Speech Therapy Patient'S Librarian Clinican/Clinical Fellow: No Supervisory Statement: I have reviewed and agree with the student/clinical fellow's documentation: N/A Speech Language Pathologist: Maral Hewitt M.A., CCC-DISTRICT RANGER
--- NOTE | 2023-11-02 13:32 | P.PNIM_ITS ---
Subjective Subjective Date of Service: 11/02/23 Interval History: Feeling significantly better speech has improved, seen by speech therapy and recommended pureed diet with thin liquids, patient complaining of nasal dryness, no cough, no shortness of breath, no headache, no dizziness, no other acute issues overnight. Review of Systems All other system reviewed and negative Physical Exam 2 Vital Signs: Vital Signs: Last Vital Signs Temp 98.6 F 11/02/23 11:23 Pulse 74 11/02/23 11:23 Resp 16 11/02/23 11:23 BP 134/72 11/02/23 11:23 Pulse Ox 95 11/02/23 11:23 O2 Del Method Room Air 11/02/23 11:23 BMI result Body Mass Index 23.0 Const: Other: General resting comfortably in no acute distress. Neck supple no JVD. CVS regular rate rhythm, Respiratory lungs clear to auscultation, no respiratory distress, no wheeze, no rhonchi. Gastrointestinal abdomen soft, non tender, bowel sounds audible, no guarding , no rigidity. Extremities no edema. Neuro alert oriented x3, moving all 4 extremity, speech clear , chronic left ptosis stable Skin no rash Psych appropriate affect Objective Data Active Medications Acetylcysteine (Acetylcysteine 10 % 400 Mg/4 Ml Vial) 400 mg INHALE RBID [facility] Last Admin: 11/02/23 07:23 Dose: 400 mg Documented By: RO Albuterol Sulfate (Albuterol Sulfate (0.083%) 2.5 Mg/3 Ml Vial.Neb) 2.5 mg INHALE BID [facility] Last Admin: 11/02/23 07:22 Dose: 2.5 mg Documented By: RO Amlodipine Besylate (Amlodipine Besylate 5 Mg Tablet) 5 mg PO DAILY [facility]; Protocol Last Admin: 11/02/23 07:34 Dose: Not Given Documented By: MARGE Non-Admin Reason: NPO Azathioprine (Azathioprine 50 Mg Tablet) 50 mg PO Q48H [facility] Last Admin: 11/01/23 09:37 Dose: Not Given Documented By: MARGE Non-Admin Reason: NPO Diazepam (Diazepam 10 Mg/2 Ml Cartridge) 2.5 mg IVPUSH Q8H PRN PRN Reason: anxiety Last Admin: 11/02/23 05:29 Dose: 2.5 mg Documented By: YOEL Heparin Sodium (Porcine) (Heparin Sodium,Porcine 5,000 Unit/Ml Vial) 5,000 unit SUBCUT Q12H [facility] Last Admin: 11/02/23 05:20 Dose: 5,000 unit Documented By: YOEL Hydralazine HCl (Hydralazine Hcl 20 Mg/Ml Vial) 5 mg IVPUSH Q4H PRN; Protocol PRN Reason: SBP > 160 Last Admin: 10/30/23 00:46 Dose: 5 mg Documented By: MANNY Nutrition (Parenteral) (Parenteral Nutrition) 1,680 mls @ 70 mls/hr IV .Q24H [facility]; Protocol Stop: 11/02/23 20:59 Last Admin: 11/01/23 21:14 Dose: 70 mls/hr Documented By: YOEL Nutrition (Parenteral) (Parenteral Nutrition) 1,680 mls @ 70 mls/hr IV .Q24H [facility]; Protocol Stop: 11/03/23 20:59 Latanoprost (Latanoprost 0.005 % Ophth Ivy 2.5 Ml Drops) 1 drop EYE-BOTH BEDTIME [facility] Last Admin: 11/01/23 21:14 Dose: 1 drop Documented By: YOEL Methylprednisolone Sodium Succinate (Methylprednisolone Sod Succ 40 Mg/Ml Vial) 100 mg IVPUSH Q24H [facility] Last Admin: 11/02/23 09:07 Dose: 100 mg Documented By: MARGE Oxybutynin Chloride (Oxybutynin Chloride Er 5 Mg Tab.Er.24) 15 mg PO DAILY [facility] Last Admin: 10/29/23 08:14 Dose: Not Given Documented By: RHONA Non-Admin Reason: NPO Pharmacy Consult (Consult Rx Parenteral Nutrition Ordering) 1 each MISCELLANE DAILY PRN PRN Reason: Consult order Pyridostigmine [place] (Pyridostigmine [place] 10 Mg/2 Ml Ampul) 2 mg IVPUSH Q4H [facility] Last Admin: 11/02/23 12:53 Dose: 2 mg Documented By: MARGE Sodium Chloride (0.9 % Sodium Chloride Flush 3 Ml Syringe) 3 ml IVFLUSH QSHIFT [facility] Last Admin: 11/02/23 09:08 Dose: 3 ml Documented By: MARGE Sodium Chloride (Sodium Chloride 0.65 % Nasal 44 Ml Sprbtl) 1 spray NOSTRIL-B Q1H PRN PRN Reason: Dry Nasal Passages Labs 10/25/23 15:39 11/02/23 06:08 Labs: Laboratory Results - last 24 hr 11/02/23 06:08 Hold Purple Top SEE NOTE Anion Gap 8 L Estim Creat Clear Calc 63.0 Estimated GFR > 60 Random Glucose 103 Calcium 8.0 L Phosphorus 3.2 Magnesium 1.9 Albumin 2.8 L Assessment and Plan (1) Myasthenia gravis with exacerbation: Status: Acute Plan 83 year old female with history of myasthenia gravis predominantly oropharyngeal symptoms, osteoporosis, bile salt induced diarrhea admitted for myasthnia gravis flare. #Myasthenia gravis flare- primarily oropharyngeal symptoms -significant improvement in speech , passed swallow eval -continue IV pyridostigmine 2 mg IV q.4 hours , IV Solu-Medrol 100 mg today and transition to by mouth tomorrow -finished 5 days of IVIG -continue FVC /NIF, giving her best effort,oxygenation 94% -due for Vyugart inj 11/06 -on IV PPN -placed on pureed and thin liquids -dc Mucomyst and albuterol inhaler, -on Imuran will resume -add nasal saline spray for dryness #HTN -on amlodipine at home, currently on hold, continue IV hydralazine as needed, stable BP, will resume amlodipine if tolerates diet today # acute hypokalemia repleted and normalized. dvt prophyalxis-subQ heparin full code pt requires continued inpt stay due to persistent oral pharyngeal symptoms related to myasthenia gravis flare which is restricting PO intake and therefore remains NPO on IV PPN. Quality Stroke Does the patient have a stroke diagnosis?: No VTE Prior VTE?: No VTE Risk Level:: Medical - moderate - high VTE Device Contraindication: Treatment Not Indicated VTE Drug Contraindication: N/A - Med Ordered
[2023-11-02] MEDS: Sodium Chloride 0.65 % Nasal 44 ML SPRBTL 1 SPRAY NOSTRIL-B ×2 (19:16→22:30)
[2023-11-02] MEDS: Latanoprost 0.005 % Ophth Sol 2.5 ML DROPS 1 DROP EYE-BOTH (22:30)
[2023-11-02] MEDS: Parenteral Nutrition 1,680 ML 70 ML IV (22:30)
[2023-11-03] MEDS: PYRIDOSTIGMINE BROMIDE 2 MG IVPUSH ×3 (02:52→08:43)
[2023-11-03 03:43] VITALS: BP 145/81; PULSE 74; RESP 20; TEMP 36.1; O2SAT 98
[2023-11-03] MEDS: Heparin Sodium,Porcine 5,000 UNIT/ML VIAL 5000 UNIT SUBCUT ×2 (04:52→18:27)
[2023-11-03 07:25] VITALS: BP 148/78; PULSE 77; RESP 16; TEMP 36.3; O2SAT 95
[2023-11-03 07:29] LABS: Albumin Level 3.2 g/dL (3.5-5.0); Anion Gap 8 (12-20); Blood Urea Nitrogen 19 mg/dL (9-16); Calcium 8.9 mg/dL (8.4-10.2); Carbon Dioxide 25 mmol/L (22-29); Chloride 107 mmol/L (96-108); Creatinine Clr Calc Pharmacy 60.7; Estimated Glomerular Filt Rate > 60; Glucose Random 94 mg/dL (60-115); Magnesium 2.1 mg/dL (1.6-2.6); Phosphorus 3.6 mg/dL (2.7-4.5); Potassium 4.1 mmol/L (3.3-5.1); Sodium 136 mmol/L (135-145)
[2023-11-03] MEDS: amLODIPine Besylate 5 MG TABLET PO (08:43)
[2023-11-03] MEDS: azaTHIOprine 50 MG TABLET PO (08:44)
[2023-11-03] MEDS: methylPREDNISolone Sod Succ 40 MG/ML VIAL 100 MG IVPUSH (08:44)
[2023-11-03] MEDS: 0.9 % Sodium Chloride Flush 3 ML SYRINGE IVFLUSH ×3 (08:44→21:45)
--- NOTE | 2023-11-03 10:37 | HO.PM.IMPN ---
Subjective Subjective Date of Service: 11/03/23 Interval History: Doing good tolerating pureed diet and thin liquids, speech has improved and clear, no acute overnight issues with shortness of breath or clearing of secretions, no fevers, no chills. Review of Systems All other system reviewed and negative. Physical Exam Vital Signs: Vital Signs: Last Vital Signs Temp 97.4 F 11/03/23 07:25 Pulse 77 11/03/23 07:25 Resp 16 11/03/23 07:25 BP 148/78 H 11/03/23 07:25 Pulse Ox 95 11/03/23 07:25 O2 Del Method Room Air 11/03/23 07:25 BMI result Body Mass Index 23.0 Const: Other: General resting comfortably in no acute distress. Neck supple no JVD. CVS regular rate rhythm, Respiratory lungs clear to auscultation, no respiratory distress, no wheeze, no rhonchi. Gastrointestinal abdomen soft, non tender, bowel sounds audible, no guarding , no rigidity. Extremities no edema. Neuro alert oriented x3, moving all 4 extremity, speech clear , chronic left ptosis stable Skin no rash Psych appropriate affect Objective Data Active Medications Amlodipine Besylate (Amlodipine Besylate 5 Mg Tablet) 5 mg PO DAILY [facility]; Protocol Last Admin: 11/03/23 08:43 Dose: 5 mg Documented By: BROOKLYN Azathioprine (Azathioprine 50 Mg Tablet) 50 mg PO Q48H [facility] Last Admin: 11/03/23 08:44 Dose: 50 mg Documented By: BROOKLYN Diazepam (Diazepam 2 Mg Tablet) 2 mg PO TID PRN PRN Reason: muscle spasm Heparin Sodium (Porcine) (Heparin Sodium,Porcine 5,000 Unit/Ml Vial) 5,000 unit SUBCUT Q12H [facility] Last Admin: 11/03/23 04:52 Dose: 5,000 unit Documented By: MANAS Nutrition (Parenteral) (Parenteral Nutrition) 1,680 mls @ 70 mls/hr IV .Q24H [facility]; Protocol Stop: 11/03/23 20:59 Last Admin: 11/02/23 22:30 Dose: 70 mls/hr Documented By: MANAS Nutrition (Parenteral) (Parenteral Nutrition) 1,680 mls @ 70 mls/hr IV .Q24H [facility]; Protocol Stop: 11/04/23 20:59 Latanoprost (Latanoprost 0.005 % Ophth [place] 2.5 Ml Drops) 1 drop EYE-BOTH BEDTIME [facility] Last Admin: 11/02/23 22:30 Dose: 1 drop Documented By: MANAS Methylprednisolone Sodium Succinate (Methylprednisolone Sod Succ 40 Mg/Ml Vial) 100 mg IVPUSH Q24H [facility] Last Admin: 11/03/23 08:44 Dose: 100 mg Documented By: BROOKLYN Oxybutynin Chloride (Oxybutynin Chloride Er 5 Mg Tab.Er.24) 15 mg PO DAILY [facility] Last Admin: 10/29/23 08:14 Dose: Not Given Documented By: RHONA Non-Admin Reason: NPO Pharmacy Consult (Consult Rx Parenteral Nutrition Ordering) 1 each MISCELLANE DAILY PRN PRN Reason: Consult order Pyridostigmine [place] (Pyridostigmine [place] 60 Mg Tablet) 60 mg PO TID [facility] Sodium Chloride (0.9 % Sodium Chloride Flush 3 Ml Syringe) 3 ml IVFLUSH QSHIFT [facility] Last Admin: 11/03/23 08:44 Dose: 3 ml Documented By: BROOKLYN Sodium Chloride (Sodium Chloride 0.65 % Nasal 44 Ml Sprbtl) 1 spray NOSTRIL-B Q1H PRN PRN Reason: Dry Nasal Passages Last Admin: 11/02/23 22:30 Dose: 1 spray Documented By: MANAS Labs 10/25/23 15:39 11/03/23 06:39 Labs: Laboratory Results - last 24 hr 11/03/23 06:39 Hold Purple Top SEE NOTE Anion Gap 8 L Estim Creat Clear Calc 60.7 Estimated GFR > 60 Random Glucose 94 Calcium 8.9 D Phosphorus 3.6 Magnesium 2.1 Albumin 3.2 L Assessment and Plan (1) Myasthenia gravis with exacerbation: Status: Acute Plan 83 year old female with history of myasthenia gravis predominantly oropharyngeal symptoms, osteoporosis, bile salt induced diarrhea admitted for myasthnia gravis flare. #Myasthenia gravis flare- primarily oropharyngeal symptoms -significant improvement in speech , tolerating pureed and clear liquids her baseline diet -DC IV PPN -will DC IV pyridostigmine and IV Solu-Medrol 100 mg today and transition to by mouth -finished 5 days of IVIG -continue FVC /NIF, giving her best effort,oxygenation 94% -due for Vyugart inj 11/06 at [facility] -continue Imuran -nasal saline spray for dryness -lives at home alone able to ambulate with cane and walker, will obtain PT eval. #HTN -resume amlodipine and dc IV hydralazine # acute hypokalemia repleted and normalized. dvt prophyalxis-subQ heparin full code pt requires continued inpt stay due to myasthenia gravis flare and close follow-up need PT eval for safe disposition. Quality Stroke Does the patient have a stroke diagnosis?: No VTE Prior VTE?: No VTE Risk Level:: Medical - moderate - high VTE Device Contraindication: Treatment Not Indicated VTE Drug Contraindication: N/A - Med Ordered
--- NOTE | 2023-11-03 10:39 | MHC.CLN ---
F/U PT STARTED ON PUREED DIET PER ELOCUTION TEACHER RECOMMENDATIONS PO INTAKE 50 & 75% X 2 MEALS PT REQUIRING PPN R/T POOR PO INTAKE AND PROLONGED NPO STATUS REVIEWED LABS CONTINUE PPN AT 70ML/HR WITH 91G LIPIDS PROVIDES 1767 TOTAL KCALS (30KCALS/KG), 168G DEXTROSE, 71G PROTEIN (1.2G/KG) REPLETE LYTES NEEDED MONITOR PO INTAKE CLOSELY IF PO INTAKE >50% X3DAYS; D/C PPN
[2023-11-03 11:21] VITALS: BP 132/74; PULSE 79; RESP 18; TEMP 36.5; O2SAT 95
[2023-11-03] MEDS: pyRIDostigmine bromide 60 MG TABLET PO ×2 (15:20→21:44)
[2023-11-03 15:26] VITALS: BP 103/66; PULSE 95; RESP 18; TEMP 37.1; O2SAT 97
[2023-11-03 19:57] VITALS: BP 139/81; PULSE 95; RESP 20; TEMP 36.7; O2SAT 96
[2023-11-03] MEDS: Latanoprost 0.005 % Ophth Sol 2.5 ML DROPS 1 DROP EYE-BOTH (21:43)
[2023-11-03] MEDS: diazePAM 2 MG TABLET PO (21:44)
[2023-11-03] MEDS: Parenteral Nutrition 1,680 ML 70 ML IV (21:44)
[2023-11-04] VITALS (7 sets, daily range): BP systolic 105–154; BP diastolic 63–85; PULSE 67–82; RESP 18–20; TEMP 36.1–36.6; O2SAT 95–97
[2023-11-04] MEDS: Heparin Sodium,Porcine 5,000 UNIT/ML VIAL 5000 UNIT SUBCUT ×2 (05:07→16:43)
[2023-11-04 06:53] LABS: Albumin Level 3.1 g/dL (3.5-5.0); Anion Gap 9 (12-20); Blood Urea Nitrogen 21 mg/dL (9-16); Calcium 8.8 mg/dL (8.4-10.2); Carbon Dioxide 26 mmol/L (22-29); Chloride 106 mmol/L (96-108); Creatinine Clr Calc Pharmacy 65.4; Estimated Glomerular Filt Rate > 60; Glucose Random 90 mg/dL (60-115); Phosphorus 3.9 mg/dL (2.7-4.5); Potassium 4.1 mmol/L (3.3-5.1); Sodium 137 mmol/L (135-145)
[2023-11-04] MEDS: 0.9 % Sodium Chloride Flush 3 ML SYRINGE IVFLUSH ×3 (08:43→21:49)
[2023-11-04] MEDS: pyRIDostigmine bromide 60 MG TABLET PO ×3 (08:43→21:43)
[2023-11-04] MEDS: predniSONE 10 MG TABLET 30 MG PO (08:43)
[2023-11-04] MEDS: amLODIPine Besylate 5 MG TABLET PO (08:43)
--- NOTE | 2023-11-04 11:28 | MHC.CLN ---
F/U PO INTAKE 50-100% PT STARTED ON PUREED DIET PER VOICE DATA COMMUNICATIONS ENGINEER RECOMMENDATIONS PPN D/C PER MD PT PREVIOUSLY RECEIVED PPN AT 70ML/HR WITH 91G LIPIDS PROVIDED 1767 TOTAL KCALS (30KCALS/KG), 168G DEXTROSE, 71G PROTEIN (1.2G/KG) MONITOR PO INTAKE CLOSELY
--- NOTE | 2023-11-04 13:39 | P.F2F_ITS ---
Service Date Service Date: 11/04/23 Encounter Date of encounter: 11/04/23 Reasons for Services Signs and symptoms assessed: Gross Deconditioning, Impaired Bed Mobility, Impaired Gait Pattern, Impaired GMC, Impaired Safety ,Impaired Standing Balance, Impaired Transfer Ability, Impaired Trunk Control,Muscle Weakness Reason for physical therapy: home safety and mobility, therapeutic exercises, gait/transfer training, assess need for DME, ADL training and energy conservation Reason for occupational therapy: home safety and mobility, therapeutic exerci ses, gait/transfer training, assess need for DME, ADL training and energy conservation Reason for speech therapy: swallowing impairment Overseeing Care: Aria Sherwood Homebound: Leaving the home is medically contraindicated at this time without the asist of a device and/or another person due th the listed conditions above and below. Reason homebound: immunosuppression / infection risk and weakness related to hospital stay Homebound supporting statement: Bed Mobility, Transfer Training,Gait Training, Therapeutic Activities, Therapeutic Exercise,Neuro Re-education, Patient Education, Safety,Balance Certification: Based on the above findings, I certify that this patient is confined to the home and needs intermittent senior living care, physical therapy and/or speech therapy, or continues to need occupational therapy. The patient is under my care, and I have initiated the establishment of the plan of care. The patient will be followed by a physician who will periodically review the plan of care. Time Spent With Patient Time: Total time managing care of this patient today ____ minutes.
--- NOTE | 2023-11-04 14:39 | MHC.CM.PN ---
Addendum entered by Krystal Figueroa 11/04/23 15:36: Pt has been medically cleared for DC, she will go home via private transport this afternoon. Original Note: Second IMM 11/04/23, VNA services obtained from [facility]. pt to be transported home by her sister at DC. CM to continue to follow and assist with DC plan.
--- NOTE | 2023-11-04 15:32 | P.DS_ITS ---
DS: Providers Provider Date of Service: 11/04/23 Date of admission: 10/25/23 17:18 Date of discharge: 11/04/23 Primary care physician: Aria Sherwood NP Consults: 10/25/23 17:23 Consult to Neurology Routine Consulting Provider: [facility] Reason for consultation: MG flare 10/30/23 13:22 Consult to Pulmonology Routine Consulting Provider: Rohan Alvarez Reason for consultation: secretions Has provider been notified: No DS: Diagnosis Discharge Diagnosis (1) Myasthenia gravis with exacerbation: Status: Acute DS: Summary Hospital Course Hospital Course: From the history and physical by the admitting hospitalist, JERSEY Craft, 10/25/23: 83 year old female with history of myasthenia gravis predominantly oropharyngeal symptoms, osteoporosis, bile salt induced diarrhea presented to the ED earlier today for evaluation of dysphagia, impaired speech, generalized weakness ongoing for about 3 days. She reports it is consistent with a myasthenia gravis flare which she is experienced in the past. On arrival, vital signs stable. Hematology studies unremarkable. Renal function and electrolyte levels normal. Urinalysis unremarkable. Call placed to patient's neurologist, Dr. Thomas, recommending admission for IVIG. Patient reports that she does not wish to stay for the infusions however given she is unable to swallow liquids or solids, she is agreeable to staying for IVIG infusions in the hospital. No shortness of breath. She was [facility] with cardiac and respiratory [FVC/NIF] monitoring. NG tube was placed for feeding but it dislodged. She was placed on PPN. She was given 5 days of IVIG along with IV pyridostigmine and IV Solu-medrol. Her speech and swallowing abilities improved to the point where she was taking her baseline diet of pureed solids and thin liquids and PPN was discontinued. She was discharged on prednisone 30 mg daily and will return to her prior dose of 20 mg daily on 11/09/23. She will go to [facility] for her Vyvgart infusion on 11/07/23. She will continue PO pyridostigmine and azathioprine. She should follow up with Dr Thomas, her neurologist, the week of 11/09/23. Home VNA services were a rranged per PT evaluation. Time Attestation Discharge Coordination Time (in mins): 40 Quality: Safe Use of Opioids Does Pt have an Active Cancer Diagnosis on the Problem List?: No Quality: Stroke Does the patient have a stroke diagnosis?: No Physical Exam Vital Signs: Vital Signs: Last Vital Signs Temp 97.8 F 11/04/23 11:10 Pulse 76 11/04/23 11:10 Resp 18 11/04/23 11:10 BP 122/70 11/04/23 11:10 Pulse Ox 95 11/04/23 11:10 O2 Del Method Room Air 11/04/23 11:10 BMI result Body Mass Index 23.0 Gen: in no acute distress HEENT: sclera anicteric, moist mucus membranes, stable chronic L ptosis Neck: supple Lungs: clear to auscultation bilaterally Heart: regular rate and rhythm, no murmurs Abd: soft, non-tender, non-distended Ext: no edema Skin: warm/well-perfused Neuro: alert and oriented x3, moving all extremities Psych: appropriate affect DS: Data Data Completed and Pending Completed studies during hospitalization [Text1]: Laboratory Results WBC 9.9 X10*3/uL (4.8-10.8) 10/25/23 15:39 RBC 4.69 X10*6/uL (4.20-5.50) 10/25/23 15:39 Hgb 15.3 g/dl (12.0-16.0) 10/25/23 15:39 Hct 46.2 % (37.0-47.0) 10/25/23 15:39 MCV 98.5 fL (80.0-98.0) H 10/25/23 15:39 MCH 32.6 pg (27.0-33.0) 10/25/23 15:39 MCHC 33.1 g/dl (31.0-35.0) 10/25/23 15:39 RDW 13.2 % (11.0-16.0) 10/25/23 15:39 Plt Count 212 X10*3/uL (160-400) 10/25/23 15:39 MPV 8.7 fL (9.4-12.3) L 10/25/23 15:39 Immature Gran % (Auto) 0.4 % (0.0-0.4) 10/25/23 15:39 Neut % (Auto) 92.6 % (45-73) H 10/25/23 15:39 Lymph % (Auto) 5.5 % (20-40) L 10/25/23 15:39 [place] % (Auto) 1.3 % (2-11) L 10/25/23 15:39 Eos % (Auto) 0.0 % (0-4) 10/25/23 15:39 Baso % (Auto) 0.2 % (0-2) 10/25/23 15:39 Lymph # (Auto) 0.5 X10*3/uL (1.2-4.9) L 10/25/23 15:39 [place] # (Auto) 0.1 X10*3/uL (0.1-1.2) 10/25/23 15:39 Eos # (Auto) 0.0 X10*3/uL (0.0-0.4) 10/25/23 15:39 Baso # (Auto) 0.0 X10*3/uL (0.0-0.2) 10/25/23 15:39 Abs Immat Gran (auto) 0.04 X10*3/uL (0.00-0.03) H 10/25/23 15:39 Absolute Neuts (auto) 9.2 x10*3/uL (2.0-8.3) H 10/25/23 15:39 Absolute Nucleated RBC 0.000 X10*3/uL (0.0-0.012) 10/25/23 15:39 Nucleated RBC % (auto) 0.0 /100WBC (0.0-0.2) 10/25/23 15:39 Smear Tech's Comments VERIFIED 10/25/23 15:39 ESR 2 MM/HR (0-20) 10/25/23 16:15 Hold Purple Top SEE NOTE 11/04/23 05:50 O2 Saturation 97.0 % 10/26/23 22:46 ABG pH at Pt Temp 7.46 (7.35-7.45) H 10/26/23 22:46 ABG pCO2 at Pt Temp 31 mmHg (32-45) L 10/26/23 22:46 ABG pO2 at Pt Temp 86 mmHg (83-108) 10/26/23 22:46 ABG HCO3 22 mmol/L (22-26) 10/26/23 22:46 ABG Base Excess (Actual) -0.2 mmol/L 10/26/23 22:46 Sodium 137 mmol/L (135-145) 11/04/23 05:50 Potassium 4.1 mmol/L (3.3-5.1) 11/04/23 05:50 Chloride 106 mmol/L (96-108) 11/04/23 05:50 Carbon Dioxide 26 mmol/L (22-29) 11/04/23 05:50 Anion Gap 9 (12-20) L 11/04/23 05:50 BUN 21 mg/dL (9-16) H 11/04/23 05:50 Creatinine 0.52 mg/dL (0.5-1.4) 11/04/23 05:50 Estim Creat Clear Calc 65.4 11/04/23 05:50 Estimated GFR > 60 11/04/23 05:50 Random Glucose 90 mg/dL (60-115) 11/04/23 05:50 Calcium 8.8 mg/dL (8.4-10.2) 11/04/23 05:50 Phosphorus 3.9 mg/dL (2.7-4.5) 11/04/23 05:50 Magnesium 2.0 mg/dL (1.6-2.6) 11/04/23 05:50 Total Bilirubin 1.1 mg/dL (0.0-1.0) H 10/25/23 15:39 AST 24 U/L (5-31) 10/25/23 15:39 ALT 20 U/L (0-31) 10/25/23 15:39 Alkaline Phosphatase 70 U/L (39-117) 10/25/23 15:39 C-Reactive Protein 0.12 mg/dL (< or = 0.50) 10/25/23 15:39 Total Protein 6.9 g/dL (6.5-8.0) 10/25/23 15:39 Albumin 3.1 g/dL (3.5-5.0) L 11/04/23 05:50 Triglycerides 90 mg/dL (<150) 10/30/23 11:42 Lipase 58 U/L (8-78) 10/25/23 15:39 TSH 2.66 uIU/mL (0.32-4.0) 10/28/23 11:37 Urine Color Yellow 10/25/23 15:59 Urine Appearance Clear 10/25/23 15:59 Urine pH 5.5 (5.0-9.0) 10/25/23 15:59 Ur Specific [place] 1.020 (1.005-1.025) 10/25/23 15:59 Urine Protein 30 (1+) mg/dL (Neg-Trace) H 10/25/23 15:59 Urine Glucose (UA) Negative mg/dL (Negative) 10/25/23 15:59 Urine Ketones 15 mg/dL (Negative) 10/25/23 15:59 Urine Blood Trace (Negative) H 10/25/23 15:59 Urine Nitrite Negative (Negative) 10/25/23 15:59 Ur Leukocyte Esterase Negative (Negative) 10/25/23 15:59 Urine RBC 3-5 /HPF (0-2) H 10/25/23 15:59 Urine WBC 0-5 /HPF (0-5) 10/25/23 15:59 Ur Squamous Epith Cells 0-2 /HPF (0-2) 10/25/23 15:59 Calcium Oxalate Crystal Present 10/25/23 15:59 Urine Bacteria None Seen (None Seen) 10/25/23 15:59 Hyaline Casts 0-2 /LPF (0-2) 10/25/23 15:59 Impressions Fluoroscopy 10/30/23 14:59 IMPRESSION: Successful fluoroscopic aided placement of a nasogastric feeding tube. This procedure was performed by Dilan Brasher PA-C and supervised by Dr. Hill. Chest X-Ray 10/31/23 14:25 IMPRESSION: 1. No appreciable gastrostomy tube over the abdomen. No NG tube. 2. Low lung volumes with bibasilar atelectasis and multifocal pleural parenchymal scarring. No acute pulmonary findings. Discharge Plan Discharge Anticipated Discharge Date/Time: 11/04/23 15:04 Patient Disposition: Home Health Service Discharge Diagnosis: acute exacerbation of myasthenia gravis Referrals: Christine [Outside] - 1 Week Niall Thomas MD [Physician] - 1 Week Aria Sherwood NP [Primary Care Provider] - 1 Week Discharge Medications: New prednisone 10 mg Tablet 30 mg PO DAILY 4 Days Qty: 12 0RF Continued latanoprost 0.005 % drops 1 drp ophthalmic (eye) BEDTIME Rx Instructions: both eyes oxybutynin chloride 15 mg tablet extended release 24hr 15 mg PO DAILY timolol maleate 0.25 % drops 1 drp ophthalmic-Right QAM gabapentin 100 mg capsule 100 mg PO BEDTIME PRN (Reason: Pain) Vyvgart 20 mg/mL solution IV pyridostigmine bromide [Mestinon] 60 mg tablet 60 mg PO TID azathioprine 50 mg tablet 50 mg PO Q OTHER DAY amlodipine 5 mg tablet 5 mg PO DAILY Held prednisone 20 mg tablet 20 mg PO DAILY Hold Instructions: Resume on 11/09/23. Discharge Orders: Discharge Order (Routine); Ordered 11/04/23 Ordered By: Temo Segal Diet: Advance to usual diet Activity on Discharge: As tolerated Stand Alone Forms: Patient Portal Discharge page Care Plan Goals: control of MG Health Concerns: acute exacerbation of myasthenia gravis Plan of Treatment: take prednisone 30 mg for 4 days, then return to 20 mg daily continue azathioprine 50 mg daily continue pyridostigmine 60 mg 3x a day Vyvgart infusion on 11/07/23 as previously scheduled follow up with Dr William canales of 11/09/23 Assessment: See Discharge Summary.
[2023-11-04] MEDS: diazePAM 2 MG TABLET PO (21:43)
[2023-11-04] MEDS: Latanoprost 0.005 % Ophth Sol 2.5 ML DROPS 1 DROP EYE-BOTH (21:48)
[2023-11-05 03:29] VITALS: BP 125/67; PULSE 71; RESP 18; TEMP 36.4; O2SAT 97
[2023-11-05] MEDS: Heparin Sodium,Porcine 5,000 UNIT/ML VIAL 5000 UNIT SUBCUT (06:14)
[2023-11-05 07:13] VITALS: BP 113/70; PULSE 76; RESP 18; TEMP 36.2; O2SAT 97
[2023-11-05] MEDS: amLODIPine Besylate 5 MG TABLET PO (07:30)
[2023-11-05] MEDS: predniSONE 10 MG TABLET 30 MG PO (07:30)
[2023-11-05] MEDS: azaTHIOprine 50 MG TABLET PO (07:31)
[2023-11-05] MEDS: pyRIDostigmine bromide 60 MG TABLET PO (07:31)
[2023-11-05] MEDS: 0.9 % Sodium Chloride Flush 3 ML SYRINGE IVFLUSH (07:38)
[2023-11-05 08:24] LABS: Albumin Level 3.1 g/dL (3.5-5.0); Anion Gap 9 (12-20); Blood Urea Nitrogen 23 mg/dL (9-16); Calcium 8.5 mg/dL (8.4-10.2); Carbon Dioxide 28 mmol/L (22-29); Chloride 104 mmol/L (96-108); Creatinine Clr Calc Pharmacy 59.7; Estimated Glomerular Filt Rate > 60; Glucose Random 76 mg/dL (60-115); Magnesium 1.8 mg/dL (1.6-2.6); Phosphorus 3.4 mg/dL (2.7-4.5); Potassium 3.9 mmol/L (3.3-5.1); Sodium 137 mmol/L (135-145)
--- NOTE | 2023-11-05 10:25 | P.PNIM_ITS ---
Subjective Subjective Date of Service: 11/04/23 Interval History: swallowing at baseline ambulated with walker Review of Systems Review of Systems: Yes all other systems are reviewed and are negative Physical Exam 2 Vital Signs: Vital Signs: Last Vital Signs Temp 97.8 F 11/04/23 11:10 Pulse 76 11/04/23 11:10 Resp 18 11/04/23 11:10 BP 122/70 11/04/23 11:10 Pulse Ox 95 11/04/23 11:10 O2 Del Method Room Air 11/04/23 11:10 BMI result Body Mass Index 23.0 Gen: in no acute distress HEENT: sclera anicteric, moist mucus membranes, stable chronic L ptosis Neck: supple Lungs: clear to auscultation bilaterally Heart: regular rate and rhythm, no murmurs Abd: soft, non-tender, non-distended Ext: no edema Skin: warm/well-perfused Neuro: alert and oriented x3, moving all extremities Psych: appropriate affect Objective Data Active Medications Amlodipine Besylate (Amlodipine Besylate 5 Mg Tablet) 5 mg PO DAILY [facility]; Protocol Last Admin: 11/05/23 07:30 Dose: 5 mg Documented By: MATY Azathioprine (Azathioprine 50 Mg Tablet) 50 mg PO Q48H [facility] Last Admin: 11/05/23 07:31 Dose: 50 mg Documented By: MATY Diazepam (Diazepam 2 Mg Tablet) 2 mg PO TID PRN PRN Reason: muscle spasm Last Admin: 11/04/23 21:43 Dose: 2 mg Documented By: CHRISTIN Heparin Sodium (Porcine) (Heparin Sodium,Porcine 5,000 Unit/Ml Vial) 5,000 unit SUBCUT Q12H [facility] Last Admin: 11/05/23 06:14 Dose: 5,000 unit Documented By: BRODerek Latanoprost (Latanoprost 0.005 % Ophth [place] 2.5 Ml Drops) 1 drop EYE-BOTH BEDTIME [facility] Last Admin: 11/04/23 21:48 Dose: 1 drop Documented By: CHRISTIN Oxybutynin Chloride (Oxybutynin Chloride Er 5 Mg Tab.Er.24) 15 mg PO DAILY [facility] Last Admin: 10/29/23 08:14 Dose: Not Given Documented By: RHONA Non-Admin Reason: NPO Prednisone (Prednisone 10 Mg Tablet) 30 mg PO DAILY [facility] Last Admin: 11/05/23 07:30 Dose: 30 mg Documented By: MATY Pyridostigmine [place] (Pyridostigmine [place] 60 Mg Tablet) 60 mg PO TID [facility] Last Admin: 11/05/23 07:31 Dose: 60 mg Documented By: MATY Sodium Chloride (0.9 % Sodium Chloride Flush 3 Ml Syringe) 3 ml IVFLUSH QSHIFT [facility] Last Admin: 11/05/23 07:38 Dose: 3 ml Documented By: MATY Sodium Chloride (Sodium Chloride 0.65 % Nasal 44 Ml Sprbtl) 1 spray NOSTRIL-B Q1H PRN PRN Reason: Dry Nasal Passages Last Admin: 11/02/23 22:30 Dose: 1 spray Documented By: MANAS Labs 10/25/23 15:39 11/05/23 06:46 Labs: Laboratory Results - last 24 hr 11/05/23 06:46 Hold Purple Top SEE NOTE Anion Gap 9 L Estim Creat Clear Calc 59.7 Estimated GFR > 60 Random Glucose 76 Calcium 8.5 Phosphorus 3.4 Magnesium 1.8 Albumin 3.1 L Assessment and Plan (1) Myasthenia gravis with exacerbation: Status: Acute Plan d11 83yo F with MG with predominantly oropharyngeal symptoms admitted for flare MG flare - d/c'ed IV PPN, now on baseline diet of pureed solids and thin liquids - changed IV Solu-medrol to PO prednisone 30 mg x5d then 20 mg [prior dose] - changed IV to PO pyridostigmine - completed 5d of IVIg - Vyvgart injection 11/07/23 - continue azathioprine - PT evaluation done, home with VNA recommended HTN - amlodipine hypoK - repleted VTE ppx - UFH dispo - anticipate home with VNA In my clinical judgment, the patient requires continued inpatient hospitalization for the following reasons: ready for discharge Total time managing care of this patient today: 35 minutes. Quality Stroke Does the patient have a stroke diagnosis?: No VTE Prior VTE?: No VTE Risk Level:: Medical - moderate - high VTE Device Contraindication: Treatment Not Indicated VTE Drug Contraindication: N/A - Med Ordered
[2023-11-05 11:05] VITALS: BP 102/56; PULSE 84; RESP 18; TEMP 37.3; O2SAT 95
== END 2023-11-05 13:10 | disposition home health service (06) | DRG 42 ==
LOC: HO.ED 16:11 → HO.EDOVER 17:26 → HO.IMC 10-26 20:33
PROVIDERS: Hospitalist; Internal Medicine; Physician Assistant; Student in an Organized Health Care Education/Training Program; Admitting Provider Physician Assistant; Emergency Provider Internal Medicine; PCP Nurse Practitioner Family; Visit Provider Family Medicine
DX: G70.01 Myasthenia gravis with (acute) exacerbation (principal); E87.6 Hypokalemia; I10 Essential (primary) hypertension; R13.12 Dysphagia, oropharyngeal phase; M81.0 Age-related osteoporosis without current pathological fracture; Z79.52 Long term (current) use of systemic steroids; Z87.891 Personal history of nicotine dependence; Z79.899 Other long term (current) drug therapy
CPT/HCPCS: 36415; 71045; 76000; 80048; 80053; 81001; 82040; 82803; 83690; 83735; 84100; 84443; 84478; 85025; 85652; 86140; 92526; 92610; 93005; 94010; 94640; 97116; 97162; 97530; 99285; J0131; J0360; J1200; J1569; J1644; J2920; J2930; J3360; J3480

== ENCOUNTER → 2023-10-25 15:15 | Outpatient (BNV) | payer OTHER, SELFPAY | PROVIDERS: Admitting Provider Physician Assistant; Emergency Provider Internal Medicine; PCP Nurse Practitioner Family; Visit Provider Internal Medicine Cardiovascular Disease | DX: I44.0 Atrioventricular block, first degree (principal); R94.31 Abnormal electrocardiogram [ECG] [EKG] | CPT/HCPCS: 93010 ==

== ENCOUNTER 2023-10-25 17:18 | Outpatient (BNV) | payer OTHER, SELFPAY | END 2023-10-30 14:15 | PROVIDERS: Admitting Provider Physician Assistant; Emergency Provider Internal Medicine; PCP Nurse Practitioner Family; Visit Provider Physician Assistant Surgical | DX: G70.01 Myasthenia gravis with (acute) exacerbation (principal) | CPT/HCPCS: 43752 ==

== ENCOUNTER → 2023-10-25 17:18 | Outpatient (BNV) | payer OTHER, SELFPAY | PROVIDERS: Admitting Provider Physician Assistant; Emergency Provider Internal Medicine; PCP Internal Medicine; Visit Provider Physician Assistant | DX: G70.01 Myasthenia gravis with (acute) exacerbation (principal) | CPT/HCPCS: 99223; 99232; 99233; 99239; 99499; G0180 ==

== ENCOUNTER → 2023-10-25 17:18 | Outpatient (BNV) | payer OTHER, SELFPAY | PROVIDERS: Admitting Provider Physician Assistant; Emergency Provider Internal Medicine; PCP Nurse Practitioner Family; Visit Provider Internal Medicine Pulmonary Disease | DX: G70.01 Myasthenia gravis with (acute) exacerbation (principal) | CPT/HCPCS: 99222; 99232 ==

== ENCOUNTER → 2023-10-25 17:18 | Outpatient (BNV) | payer OTHER, SELFPAY | PROVIDERS: Admitting Provider Physician Assistant; Emergency Provider Internal Medicine; PCP Nurse Practitioner Family; Visit Provider Psychiatry & Neurology Neurology | DX: G70.01 Myasthenia gravis with (acute) exacerbation (principal) | CPT/HCPCS: 99222 ==

== ENCOUNTER 2023-12-15 09:09 | Inpatient (IN) | payer OTHER, SELFPAY ==
--- NOTE | ~2023-12-15 | FL_ITS ---
EXAMINATION: Modified Barium Swallows CLINICAL INFORMATION: Dysphagia. Myasthenia gravis COMPARISON: Barium swallow 01/18/2015. TECHNIQUE: Modified barium swallow was performed under lateral fluoroscopy with patient in standing position. Barium mixed with solids and liquids of varying consistencies was administered by the speech pathologist. The examination was recorded in the fluoroscopy suite. FINDINGS: There was aspiration observed with honey thick barium. Laryngeal penetration was seen with puree or thick barium. FLUOROSCOPY TIME: 4 minutes 41 seconds Number of Spot Images: 1 DOSE AREA PRODUCT: 2216 uGy-m2 (microgray-meter squared) FL/FL barium swallow modified IMPRESSION: There was aspiration observed with honey thick barium. Laryngeal penetration was seen with puree or thick barium. Refer to the full speech therapy report for further clarification. This procedure was performed by Dilan Brasher PA-C, and supervised by Dr. Hill
[2023-12-15 09:12] VITALS: BP 151/96; PULSE 88; RESP 20; TEMP 36.4; O2SAT 97; BMI 21.2
--- NOTE | 2023-12-15 09:54 | ED_ITS ---
HPI - General Adult General Chief complaint: General Medical Stated complaint: Trouble swallowing-needs infusion Time Seen by Provider: 12/15/23 09:22 Source: patient Mode of arrival: ambulatory History of Present Illness HPI narrative: 83 years old history of myasthenia gravis affecting oropharyngeal area on Vyugart and prednisone 5 mg t.i.d. comes here for increased weakness and difficulty swallowing x 6 days. Patient called her neurologist today, Dr. Thomas, she was advised to come to the emergency department for treatment. Patient's last exacerbation of her myasthenia gravis was October of this year. Patient denies recent illness, no fevers. Related Data Home Medications ?Medication ?Instructions ?Recorded ?Confirmed azathioprine 50 mg tablet 50 mg PO Q OTHER DAY 07/04/20 12/15/23 pyridostigmine bromide 60 mg 60 mg PO TID 07/04/20 12/15/23 tablet (Mestinon) amlodipine 5 mg tablet 5 mg PO DAILY 08/21/22 12/15/23 efgartigimod isabella-fcab 20 mg/mL 480 mg IV Q7D 10/25/23 12/15/23 intravenous solution (Vyvgart) oxybutynin chloride 15 mg 15 mg PO DAILY 10/25/23 12/15/23 tablet,extended release 24 hr timolol maleate 0.25 % eye drops 1 drp ophthalmic-Right DAILY 10/25/23 12/15/23 artifi.tears(hypromellose)(PF) 0.3 2 drp ophthalmic-Right Q4-6H PRN 12/15/23 12/15/23 % eye drops Dry Eyes prednisone 10 mg tablet 10 mg PO BID 12/15/23 12/15/23 Allergies Allergy/AdvReac Type Severity Reaction Status Date / Time NSAIDS (Non-Steroidal Allergy Intermediate RASH Verified 12/15/23 09:16 Anti-Inflamma [NSAIDS (NON-STEROIDAL ANTI-INFLAMMA] azithromycin Allergy Unknown may Verified 12/15/23 09:16 exacerbate MG Ceftin Allergy Unknown hives Verified 12/15/23 09:16 cefuroxime [From CEFTIN] Allergy Unknown PATIENT Verified 12/15/23 09:16 AWARE OF REACTION IT WAS SO LONG AGO ibuprofen [Advil] Allergy Unknown rash Verified 12/15/23 09:16 levofloxacin Allergy Unknown may Verified 12/15/23 09:16 exacerbate MG lisinopril Allergy Unknown unknown Verified 12/15/23 09:16 losartan Allergy Unknown unknown Verified 12/15/23 09:16 ciprofloxacin [CIPROFLOXACIN] AdvReac Unknown UNABLE TO Verified 12/15/23 09:16 TAKE R/T DX MYASTHENIA GRAVIS nitrofurantoin AdvReac Unknown stomatitis Verified 12/15/23 09:16 adhesive tape Allergy Unknown rash Uncoded 12/15/23 09:16 adhesives Allergy Unknown rash Uncoded 12/15/23 09:16 Advil PM Allergy Unknown rash Uncoded 12/15/23 09:16 Review of Systems 2 Review of Systems: Yes all other systems are reviewed and are negative [facility] Past Medical History Medical History Osteoporosis Myasthenia gravis in remission Tubular adenoma of colon (~2010) Bile salt-induced diarrhea Surgical History History of back surgery Status post partial hysterectomy Hx laparoscopic cholecystectomy Hx of colonoscopy Family History Family History Father HTN (hypertension) Mother Colon cancer Sister Glaucoma Other Hx of colonoscopy Social History Social History Household Members: None Housing: House Do you presently have visiting nurse or other home services: No Alcohol intake: current Alcohol intake frequency: holidays/special occasions only Comment: 1-2 assist oob to commode/ chair Patient Tobacco Use Status: Former Tobacco user Quit Date: 1971 Advance Directives: Yes Advance Directives on File: Yes Advance Directives Date on File: 06/14/20 Do you have a plan to hurt others: No Plan service: No Physical Exam ED Vital Signs: Vital Signs - 24 hr 12/15/23 09:12 12/15/23 10:00 Temperature 97.5 F 98.3 F Pulse Rate 88 68 Respiratory Rate 20 18 Blood Pressure 151/96 H 173/118 H Pulse Oximetry 97 99 Oxygen Delivery Method Room Air Room Air BMI result Body Mass Index 21.2 Const Other: Alert well in appearance Orientation/consciousness: patient oriented x3 Eyes Pupils: Equal, round and reactive pupils present Resp Other: Nonlabored respiration Cardio Other: Normal peripheral perfusion Neuro Other: Globally weak General: patient oriented x3, moves all extremities, no focal motor deficits and CN's II-XI intact bilaterally Cranial nerves: Yes Equal, round and reactive pupils present Medications Administered Generic Name Dose Route Start Last Admin Trade Name Dea PRN Reason Stop Dose Admin Diphenhydramine HCl 25 mg 12/15/23 15:00 12/15/23 15:44 Diphenhydramine Hcl 50 Mg/Ml Vial IVPUSH 12/19/23 15:01 25 mg DAILY@1500 AME Administration Enoxaparin Sodium 40 mg 12/15/23 14:00 12/15/23 15:25 Enoxaparin Sodium 40 Mg/0.4 Ml Syringe SUBCUT 40 mg Q24H AME Administration Sodium Chloride 100 mls @ 100 mls/hr 12/15/23 15:00 12/15/23 15:43 Ns IV 12/19/23 15:59 100 mls/hr DAILY@1500 AME Administration Pyridostigmine [place] 2 mg 12/15/23 15:00 12/15/23 15:43 Pyridostigmine [place] 10 Mg/2 Ml Ampul IVPUSH 2 mg Q4H AME Administration Sodium Chloride 3 ml 12/15/23 16:00 12/15/23 15:28 0.9 % Sodium Chloride Flush 3 Ml Syringe IVFLUSH 3 ml QSHIFT AME Administration Discontinued Medications Generic Name Dose Route Start Last Admin Trade Name Dea PRN Reason Stop Dose Admin Sodium Chloride 500 mls @ 500 mls/hr 12/15/23 09:26 12/15/23 11:26 Ns IV 12/15/23 10:25 Infused .Q1H ONE Infusion Lactated Ringer's 500 mls @ 125 mls/hr 12/15/23 11:00 12/15/23 11:39 Lr IV 12/15/23 14:59 125 mls/hr .Q4H AME Administration Methylprednisolone Sodium Succinate 125 mg 12/15/23 11:43 12/15/23 12:17 Methylprednisolone Sod Succ 125 Mg/2 Ml Vial IVPUSH 12/15/23 11:44 125 mg ONCE ONE Administration Medical Decision Making Medical Decision Making [facility] Narrative: 83 years old history of myasthenia gravis affecting oropharyngeal area on Vyugart and prednisone 5 mg t.i.d. comes here for increased weakness and difficulty swallowing x 6 days. Patient called her neurologist today, Dr. Thomas, she was advised to come to the emergency department for treatment. Patient's last exacerbation of her myasthenia gravis was October of this year. Patient denies recent illness, no fevers. Problem: Myasthenia gravis History: Per patient I have considered the following differential diagnoses: Exacerbation of myasthenia gravis, electrolyte abnormality, failure to thrive, Plan: Patient had recent exacerbation October of this year, she is presenting in the same manner. She has been advised by her neurologist to seek treatment in the ER. Will be screening basic labs to be sure she has no underlying electrolyte abnormality given her inability to tolerate oral intake over the past 6 days. Starting empiric fluid bolus normal saline 500 mL. Given her steroid has been tapered to some degree, I am ordering a 1 time dose of 125 mg Solu-Medrol, and her IgG. The patient certainly will be admitted to the hospital. I have independently reviewed the following tests: Labs: Leukocytosis noted, not anemic, no electrolyte abnormality, urine not infected Differential Diagnosis Exacerbation of myasthenia gravis, electrolyte abnormality, failure to thrive, Admission/Observation Patient will be admitted to the hospital for management of her myasthenia gravis exacerbation, she will be receiving IgG Lab Data 12/15/23 09:51 12/15/23 09:51 Labs: Lab Results 12/15/23 12/15/23 Range/Units 09:51 10:10 WBC 16.0 H (4.8-10.8) X10*3/uL RBC 4.40 (4.20-5.50) X10*6/uL Hgb 14.8 (12.0-16.0) g/dl Hct 44.2 (37.0-47.0) % MCV 100.5 H (80.0-98.0) fL MCH 33.6 H (27.0-33.0) pg MCHC 33.5 (31.0-35.0) g/dl RDW 13.2 (11.0-16.0) % Plt Count 227 (160-400) X10*3/uL MPV 8.5 L (9.4-12.3) fL Immature Gran % (Auto) 0.7 H (0.0-0.4) % Neut % (Auto) 86.2 H (45-73) % Lymph % (Auto) 8.8 L (20-40) % [place] % (Auto) 3.8 (2-11) % Eos % (Auto) 0.2 (0-4) % Baso % (Auto) 0.3 (0-2) % Lymph # (Auto) 1.4 (1.2-4.9) X10*3/uL [place] # (Auto) 0.6 (0.1-1.2) X10*3/uL Eos # (Auto) 0.0 (0.0-0.4) X10*3/uL Baso # (Auto) 0.0 (0.0-0.2) X10*3/uL Abs Immat Gran (auto) 0.11 H (0.00-0.03) X10*3/uL Absolute Neuts (auto) 13.8 H (2.0-8.3) x10*3/uL Absolute Nucleated RBC 0.000 (0.0-0.012) X10*3/uL Nucleated RBC % (auto) 0.0 (0.0-0.2) /100WBC Sodium 144 (135-145) mmol/L Potassium 3.6 (3.3-5.1) mmol/L Chloride 108 (96-108) mmol/L Carbon Dioxide 29 (22-29) mmol/L Anion Gap 11 L (12-20) BUN 16 (9-16) mg/dL Creatinine 0.70 (0.5-1.4) mg/dL Estim Creat Clear Calc 40.0 Estimated GFR > 60 Random Glucose 99 (60-115) mg/dL Calcium 9.1 D (8.4-10.2) mg/dL Magnesium 2.1 (1.6-2.6) mg/dL Total Bilirubin 0.8 (0.0-1.0) mg/dL AST 15 (5-31) U/L ALT 12 (0-31) U/L Alkaline Phosphatase 48 (39-117) U/L Total Protein 6.3 L (6.5-8.0) g/dL Albumin 4.2 (3.5-5.0) g/dL Urine Color Yellow Urine Appearance Clear Urine pH 7.5 (5.0-9.0) Ur Specific [place] 1.015 (1.005-1.025) Urine Protein Negative (Neg-Trace) mg/dL Urine Glucose (UA) Negative (Negative) mg/dL Urine Ketones Negative (Negative) mg/dL Urine Blood Negative (Negative) Urine Nitrite Negative (Negative) Ur Leukocyte Esterase Trace H (Negative) Urine RBC 0-2 (0-2) /HPF Urine WBC 0-5 (0-5) /HPF Ur Squamous Epith Cells 0-2 (0-2) /HPF Urine Bacteria None Seen (None Seen) Hyaline Casts 0-2 (0-2) /LPF Discharge Plan Discharge Clinical Impression: Myasthenia gravis with exacerbation Patient Disposition: Admitted As Inpatient
[2023-12-15 09:58] LABS: MANUAL DIFF FLAG NO
[2023-12-15 10:00] VITALS: BP 173/118; PULSE 68; RESP 18; TEMP 36.8; O2SAT 99
[2023-12-15 10:06] LABS: Basophils Percent Auto 0.3 % (0-2); Eosinophils Percent Auto 0.2 % (0-4); Hematocrit 44.2 % (37.0-47.0); Hemoglobin 14.8 g/dl (12.0-16.0); Imm Gran Abs Auto 0.11 X10*3/uL (0.00-0.03); Imm Gran Pct Auto 0.7 % (0.0-0.4); Lymphocytes Absolute Auto 1.4 X10*3/uL (1.2-4.9); Lymphocytes Percent Auto 8.8 % (20-40); Mean Corpuscular HGB Conc 33.5 g/dl (31.0-35.0); Mean Corpuscular Hemoglobin 33.6 pg (27.0-33.0); Mean Corpuscular Volume 100.5 fL (80.0-98.0); Mean Platelet Volume 8.5 fL (9.4-12.3); Monocytes Absolute Auto 0.6 X10*3/uL (0.1-1.2); Monocytes Percent Auto 3.8 % (2-11); Neutrophils Absolute Auto 13.8 x10*3/uL (2.0-8.3); Neutrophils Percent Auto 86.2 % (45-73); Platelet Count 227 X10*3/uL (160-400); Red Cell Distribution Width 13.2 % (11.0-16.0)
[2023-12-15] MEDS: 0.9 % Sodium Chloride 500 ML IV (10:08)
--- NOTE | 2023-12-15 10:15 | PC.NURSE ---
IV established, labs obtained and sent. fluids infusing. ambulated to the bathroom w/ own cane and one assist to provide urine sample. call quintero within reach
[2023-12-15 10:17] LABS: Appearance Urine Clear; Color Urine Yellow; Glucose Urine UA Negative (Negative); Leukocyte Esterase Urine Trace (Negative); Nitrite Urine Negative (Negative); PH 7.5 (5.0-9.0); Specific Gravity - Urine 1.015 (1.005-1.025); UMIC TRIGGER UACC YES; Urine Blood Negative (Negative); Urine Ketones Negative (Negative); Urine Protein Negative (Neg-Trace)
[2023-12-15 10:22] LABS: Magnesium 2.1 mg/dL (1.6-2.6)
[2023-12-15 10:23] LABS: Alanine Aminotransferase 12 U/L (0-31); Albumin Level 4.2 g/dL (3.5-5.0); Alkaline Phosphatase 48 U/L (39-117); Anion Gap 11 (12-20); Aspartate Amino Transferase 15 U/L (5-31); Bilirubin Total 0.8 mg/dL (0.0-1.0); Blood Urea Nitrogen 16 mg/dL (9-16); Calcium 9.1 mg/dL (8.4-10.2); Carbon Dioxide 29 mmol/L (22-29); Chloride 108 mmol/L (96-108); Estimated Glomerular Filt Rate > 60; Glucose Random 99 mg/dL (60-115); Potassium 3.6 mmol/L (3.3-5.1); Sodium 144 mmol/L (135-145); Total Protein 6.3 g/dL (6.5-8.0)
[2023-12-15 10:23] LABS: Bacteria Urine None Seen (None Seen); Hyaline Casts Urine 0-2 /LPF (0-2); RBC Urine 0-2 /HPF (0-2); Squamous Epithelial Cell Urine 0-2 /HPF (0-2); WBC Urine 0-5 /HPF (0-5)
[2023-12-15] MEDS: Lactated Ringers 500 ML 125 ML IV (11:39)
--- NOTE | 2023-12-15 12:09 | PC.NURSE ---
IV fluids infusing, continues to ambulate with walker to bathroom. plan for admission, patient aware of plan
[2023-12-15] MEDS: methylPREDNISolone Sod Succ 125 MG/2 ML VIAL IVPUSH (12:17)
--- NOTE | 2023-12-15 12:35 | PHA.MEDREC ---
Pharmacy Consult ? Medication Reconciliation Pharmacy has completed the medication reconciliation. Confirmed medication list with patient. She is confident she takes oxybutynin daily even though her fill history shows last fill in March 2023. Current prednisone dose is 10 mg bid. Vyvgart is administered in [facility]. She is uncertain of dose but last dose was last month with next cycle starting on 12/25/23.
--- NOTE | 2023-12-15 13:11 | P.HPHOSP_ITS ---
History of Present Illness Date of Service: 12/15/23 Attending physician on admission: Martina Martinez Chief Complaint: dysphagia 83 year old female with history of myasthenia gravis predominantly oropharyngeal symptoms, osteoporosis, bile salt induced diarrhea presented to the ED earlier today for evaluation of dysphagia, impaired speech, generalized weakness ongoing for about 6 days. She reports it is consistent with a myasthenia gravis flare which she is experienced in the past. Was admitted 10/24- for MG flare requiring iVIG and also required PPN due to persistent dysphagia though diet was eventually advanced to NDD1 with thin liquids, was followed by MANAGER ADOBE. She did not require ICU admission for airway protection. Review of Systems 2 Review of Systems: General: No fevers, malaise, unintentional weight loss. +general weakness HEENT: No blurred vision, diplopia. No sore throat, nasal congestion, rhinorrhea, sinus pain, ear pain Cardiovascular: No chest pain, palpitations, or leg edema Respiratory: No shortness of breath, wheezing, cough GI: +dysphagia. No abdominal pain, nausea, vomiting, diarrhea, constipation, melena, hematochezia : No dysuria, hematuria, increased urinary frequency, decreased urinary output MSK: No myalgia, back pain Neuro: No headaches, weakness, paresthesias Skin: No rashes or lesions [facility] Medical History Osteoporosis Myasthenia gravis in remission Tubular adenoma of colon (~2010) Bile salt-induced diarrhea Family History Father HTN (hypertension) Mother Colon cancer Sister Glaucoma Other Hx of colonoscopy Surgical History History of back surgery Status post partial hysterectomy Hx laparoscopic cholecystectomy Hx of colonoscopy Social History Household Members: None Housing: House Do you presently have visiting nurse or other home services: No Alcohol intake: current Alcohol intake frequency: holidays/special occasions only Comment: 1-2 assist oob to commode/ chair Patient Tobacco Use Status: Former Tobacco user Quit Date: 1971 Advance Directives: Yes Advance Directives on File: Yes Advance Directives Date on File: 06/14/20 Do you have a plan to hurt others: No Plan service: No Meds Allergies Allergy/AdvReac Type Severity Reaction Status Date / Time NSAIDS (Non-Steroidal Allergy Intermediate RASH Verified 12/15/23 09:16 Anti-Inflamma [NSAIDS (NON-STEROIDAL ANTI-INFLAMMA] azithromycin Allergy Unknown may Verified 12/15/23 09:16 exacerbate MG Ceftin Allergy Unknown hives Verified 12/15/23 09:16 cefuroxime [From CEFTIN] Allergy Unknown PATIENT Verified 12/15/23 09:16 AWARE OF REACTION IT WAS SO LONG AGO ibuprofen [Advil] Allergy Unknown rash Verified 12/15/23 09:16 levofloxacin Allergy Unknown may Verified 12/15/23 09:16 exacerbate MG lisinopril Allergy Unknown unknown Verified 12/15/23 09:16 losartan Allergy Unknown unknown Verified 12/15/23 09:16 ciprofloxacin [CIPROFLOXACIN] AdvReac Unknown UNABLE TO Verified 12/15/23 09:16 TAKE R/T DX MYASTHENIA GRAVIS nitrofurantoin AdvReac Unknown stomatitis Verified 12/15/23 09:16 adhesive tape Allergy Unknown rash Uncoded 12/15/23 09:16 adhesives Allergy Unknown rash Uncoded 12/15/23 09:16 Advil PM Allergy Unknown rash Uncoded 12/15/23 09:16 Active Medications: Current Medications Lactated Ringer's (Lr) 500 mls @ 125 mls/hr IV .Q4H AME Stop: 12/15/23 14:59 Last Admin: 12/15/23 11:39 Dose: 125 mls/hr Home Medications ?Medication ?Instructions ?Recorded ?Confirmed ?Last Taken ?Type azathioprine 50 mg tablet 50 mg PO Q OTHER DAY 07/04/20 12/15/23 12/14/23 History pyridostigmine bromide 60 mg 60 mg PO TID 07/04/20 12/15/23 12/15/23 History tablet (Mestinon) amlodipine 5 mg tablet 5 mg PO DAILY 08/21/22 12/15/23 12/15/23 History efgartigimod isabella-fcab 20 mg/mL 480 mg IV Q7D 10/25/23 12/15/23 11/20/23 History intravenous solution (Vyvgart) oxybutynin chloride 15 mg 15 mg PO DAILY 10/25/23 12/15/23 12/15/23 History tablet,extended release 24 hr timolol maleate 0.25 % eye drops 1 drp ophthalmic-Right DAILY 10/25/23 12/15/23 Unknown History artifi.tears(hypromellose)(PF) 0.3 2 drp ophthalmic-Right Q4-6H PRN 12/15/23 12/15/23 Unknown History % eye drops Dry Eyes prednisone 10 mg tablet 10 mg PO BID 12/15/23 12/15/23 12/15/23 History Physical Exam 2 Vital Signs and Narrative: Vital Signs: Last Vital Signs Temp 98.3 F 12/15/23 10:00 Pulse 68 12/15/23 10:00 Resp 18 12/15/23 10:00 BP 173/118 H 12/15/23 10:00 Pulse Ox 99 12/15/23 10:00 O2 Del Method Room Air 12/15/23 10:00 BMI result Body Mass Index 21.2 Constitutional - Awake and Alert, No apparent distress Eyes - PERRLA, EOMI Cardiovascular - S1S2, RRR, No edema Respiratory - Normal lung expansion, Normal respiratory effort, No respiratory distress, CTA bilaterally Gastrointestinal - NT / ND; +BS; No rebound or guarding Extremities - no calf tenderness bilaterally, no swelling Skin - Warm/Dry Neurological - Alert & oriented x3, CN II-XII intact, no ptosis, 5/5 strength bue and ble Psychological - Appropriate affect Results Labs 12/15/23 09:51 12/15/23 09:51 Labs: Laboratory Results - last 24 hr 12/15/23 12/15/23 09:51 10:10 MCV 100.5 H MCH 33.6 H MCHC 33.5 RDW 13.2 Plt Count 227 MPV 8.5 L Immature Gran % (Auto) 0.7 H Neut % (Auto) 86.2 H Lymph % (Auto) 8.8 L [place] % (Auto) 3.8 Eos % (Auto) 0.2 Baso % (Auto) 0.3 Lymph # (Auto) 1.4 [place] # (Auto) 0.6 Eos # (Auto) 0.0 Baso # (Auto) 0.0 Abs Immat Gran (auto) 0.11 H Absolute Neuts (auto) 13.8 H Absolute Nucleated RBC 0.000 Nucleated RBC % (auto) 0.0 Anion Gap 11 L Estim Creat Clear Calc 40.0 Estimated GFR > 60 Random Glucose 99 Calcium 9.1 D Magnesium 2.1 Total Bilirubin 0.8 AST 15 ALT 12 Alkaline Phosphatase 48 Total Protein 6.3 L Albumin 4.2 Urine Color Yellow Urine Appearance Clear Urine pH 7.5 Ur Specific [place] 1.015 Urine Protein Negative Urine Glucose (UA) Negative Urine Ketones Negative Urine Blood Negative Urine Nitrite Negative Ur Leukocyte Esterase Trace H Urine RBC 0-2 Urine WBC 0-5 Ur Squamous Epith Cells 0-2 Urine Bacteria None Seen Hyaline Casts 0-2 Assessment and Plan (1) Myasthenia gravis with exacerbation: Status: Acute Plan 83 year old female with history of myasthenia gravis predominantly oropharyngeal symptoms, osteoporosis, bile salt induced diarrhea admitted for myasthnia gravis flare. #Myasthenia gravis flare- primarily oropharyngeal symptoms -IVIG (400mg/kg) x 5 days per neurology -100mg IV solumedrol daily x 3 days, then prednisone -Baseline FVC/NIF ordered with poor inspiratory effort, continue tid -NPO, MANAGER ADOBE consult. Initiate PPN -neurology consult -hold po meds #HTN -IV hydralazine 5mg prn sbp >180. Hold po meds dvt prophyalxis- lovenox full code pt requires inpt stay for IVIG therapy and IV steroids and PPN due to myasthenia gravis flare which is restricting PO intake and therefore cannot safely be administered on outpt basis at this time Quality Stroke Does the patient have a stroke diagnosis?: No VTE Prior VTE?: No VTE Risk Level:: Medical - moderate - high VTE Device Contraindication: Treatment Not Indicated VTE Drug Contraindication: N/A - Med Ordered
[2023-12-15] MEDS: Enoxaparin Sodium 40 MG/0.4 ML SYRINGE SUBCUT (15:25)
[2023-12-15] MEDS: 0.9 % Sodium Chloride Flush 3 ML SYRINGE IVFLUSH (15:28)
[2023-12-15] MEDS: PYRIDOSTIGMINE BROMIDE 2 MG IVPUSH ×3 (15:43→23:53)
[2023-12-15] MEDS: diphenhydrAMINE HCL 50 MG/ML VIAL 25 MG IVPUSH (15:44)
[2023-12-15] MEDS: Immun Glob G(IgG)/Gly/IGA Ov50 200 ML IV (16:29)
--- NOTE | 2023-12-15 16:31 | PC.RT ---
NIF -74poH2K VC 1.52L
[2023-12-15 17:23] VITALS: BP 140/87; PULSE 79; RESP 20; TEMP 36.8; O2SAT 97
--- NOTE | 2023-12-15 17:24 | PC.NURSE ---
IVIG infusing at this time. commode placed in patients room at patients request. resting quietly in room with no other complaints. call quintero within reach. suction set up for patient's convenience for her mouth.
[2023-12-15] MEDS: Dextrose 5 % and Lactated Ring 1,000 ML 100 ML IVCONT (17:34)
--- NOTE | 2023-12-15 17:44 | PC.NURSE ---
second IV established - d5lr infusing at this time
--- NOTE | 2023-12-15 18:03 | PM.NEUROCN ---
History of Present Illness Data of Consult Service Date: 12/15/23 Primary Care Provider: Aria Sherwood NP HPI Reason for consult: Dysphagia from worsening of myasthenia gravis This 83-year-old woman was being treated for sero-positive myasthenia gravis for the last 10 years and has been on Vyvgart monthly infusions for the last one year. She was recently hospitalized with severe dysphagia and required IVIG. She was discharged on prednisone and was doing reasonably well. Recently prednisone was cut back by 5 mg from 20-15 and she is gotten worse again with inability to swallow for a couple of days with no by mouth intake. She feels generally weak. Review of Systems Review of Systems: General: No fevers, malaise, unintentional weight loss. +general weakness HEENT: No blurred vision, diplopia. No sore throat, nasal congestion, rhinorrhea, sinus pain, ear pain Cardiovascular: No chest pain, palpitations, or leg edema Respiratory: No shortness of breath, wheezing, cough GI: +dysphagia. No abdominal pain, nausea, vomiting, diarrhea, constipation, melena, hematochezia : No dysuria, hematuria, increased urinary frequency, decreased urinary output MSK: No myalgia, back pain Neuro: No headaches, weakness, paresthesias Skin: No rashes or lesions Yes all other systems are reviewed and are negative [facility] Past Medical History Medical History Osteoporosis Myasthenia gravis in remission Tubular adenoma of colon (~2010) Bile salt-induced diarrhea Family History Family History Father HTN (hypertension) Mother Colon cancer Sister Glaucoma Other Hx of colonoscopy Surgical History Surgical History History of back surgery Status post partial hysterectomy Hx laparoscopic cholecystectomy Hx of colonoscopy Social History Social History Household Members: None Housing: House Do you presently have visiting nurse or other home services: No Alcohol intake: current Alcohol intake frequency: holidays/special occasions only Comment: 1-2 assist oob to commode/ chair Patient Tobacco Use Status: Former Tobacco user Quit Date: 1971 Advance Directives: Yes Advance Directives on File: Yes Advance Directives Date on File: 06/14/20 Do you have a plan to hurt others: No Plan service: No Meds Allergies Allergy/AdvReac Type Severity Reaction Status Date / Time NSAIDS (Non-Steroidal Allergy Intermediate RASH Verified 12/15/23 09:16 Anti-Inflamma [NSAIDS (NON-STEROIDAL ANTI-INFLAMMA] azithromycin Allergy Unknown may Verified 12/15/23 09:16 exacerbate MG Ceftin Allergy Unknown hives Verified 12/15/23 09:16 cefuroxime [From CEFTIN] Allergy Unknown PATIENT Verified 12/15/23 09:16 AWARE OF REACTION IT WAS SO LONG AGO ibuprofen [Advil] Allergy Unknown rash Verified 12/15/23 09:16 levofloxacin Allergy Unknown may Verified 12/15/23 09:16 exacerbate MG lisinopril Allergy Unknown unknown Verified 12/15/23 09:16 losartan Allergy Unknown unknown Verified 12/15/23 09:16 ciprofloxacin [CIPROFLOXACIN] AdvReac Unknown UNABLE TO Verified 12/15/23 09:16 TAKE R/T DX MYASTHENIA GRAVIS nitrofurantoin AdvReac Unknown stomatitis Verified 12/15/23 09:16 adhesive tape Allergy Unknown rash Uncoded 12/15/23 09:16 adhesives Allergy Unknown rash Uncoded 12/15/23 09:16 Advil PM Allergy Unknown rash Uncoded 12/15/23 09:16 Active Medications: Current Medications Acetaminophen (Acetaminophen 325 Mg Tablet) 650 mg PO Q6H PRN PRN Reason: Pain, Mild (Pain Scale 1-3) Acetaminophen (Acetaminophen 325 Mg Tablet) 650 mg PO DAILY@1500 [facility] Stop: 12/19/23 15:01 Last Admin: 12/15/23 16:53 Dose: Not Given Artificial Tears (Artificial Tears 15 Ml Drops) 2 drop EYE-RIGHT Q4H PRN PRN Reason: Dry Eyes Diazepam (Diazepam 10 Mg/2 Ml Cartridge) 2.5 mg IM Q8H PRN PRN Reason: Anxiety Diphenhydramine HCl (Diphenhydramine Hcl 50 Mg/Ml Vial) 25 mg IVPUSH DAILY@1500 [facility] Stop: 12/19/23 15:01 Last Admin: 12/15/23 15:44 Dose: 25 mg Enoxaparin Sodium (Enoxaparin Sodium 40 Mg/0.4 Ml Syringe) 40 mg SUBCUT Q24H [facility] Last Admin: 12/15/23 15:25 Dose: 40 mg Hydralazine HCl (Hydralazine Hcl 20 Mg/Ml Vial) 5 mg IVPUSH Q6H PRN; Protocol PRN Reason: SBP > 180 Dextrose/Lactated Ringer's (D5lr) 1,000 mls @ 100 mls/hr IVCONT .Q10H [facility] Last Admin: 12/15/23 17:34 Dose: 100 mls/hr Sodium Chloride (Ns) 100 mls @ 100 mls/hr IV DAILY@1500 [facility] Stop: 12/19/23 15:59 Last Infusion: 12/15/23 16:53 Dose: Infused Immune Globulin (Gammagard 10%) 200 mls @ 25 mls/hr IV DAILY@1600 [facility] Stop: 12/19/23 23:59 Last Admin: 12/15/23 16:29 Dose: 25 mls/hr Methylprednisolone Sodium Succinate (Methylprednisolone Sod Succ 125 Mg/2 Ml Vial) 100 mg IVPUSH DAILY [facility] Stop: 12/18/23 09:01 Non-Formulary Medication (Timolol Maleate) 1 drop EYE-RIGHT DAILY [facility] Ondansetron HCl (Ondansetron Hcl 4 Mg/2 Ml Vial) 4 mg IVPUSH Q8H PRN PRN Reason: Nausea and Vomiting Pharmacy Consult (Consult Rx Parenteral Nutrition Ordering) 1 each MISCELLANE DAILY PRN PRN Reason: Consult order Pyridostigmine Keno (Pyridostigmine Keno 10 Mg/2 Ml Ampul) 2 mg IVPUSH Q4H [facility] Last Admin: 12/15/23 15:43 Dose: 2 mg Senna (Sennosides 8.6 Mg Tablet) 17.2 mg PO BEDTIME PRN PRN Reason: Constipation Sodium Chloride (0.9 % Sodium Chloride Flush 3 Ml Syringe) 3 ml IVFLUSH QSHIFT [facility] Last Admin: 12/15/23 15:28 Dose: 3 ml Home Medications ?Medication ?Instructions ?Recorded ?Confirmed ?Last Taken ?Type azathioprine 50 mg tablet 50 mg PO Q OTHER DAY 07/04/20 12/15/23 12/14/23 History pyridostigmine bromide 60 mg 60 mg PO TID 07/04/20 12/15/23 12/15/23 History tablet (Mestinon) amlodipine 5 mg tablet 5 mg PO DAILY 1212/15/23 12/15/23 History efgartigimod isabella-fcab 20 mg/mL 480 mg IV Q7D 10/25/23 12/15/23 11/20/23 History intravenous solution (Vyvgart) oxybutynin chloride 15 mg 15 mg PO DAILY 10/25/23 12/15/23 12/15/23 History tablet,extended release 24 hr timolol maleate 0.25 % eye drops 1 drp ophthalmic-Right DAILY 10/25/23 12/15/23 Unknown History artifi.tears(hypromellose)(PF) 0.3 2 drp ophthalmic-Right Q4-6H PRN 12/15/23 12/15/23 Unknown History % eye drops Dry Eyes prednisone 10 mg tablet 10 mg PO BID 12/15/23 12/15/23 12/15/23 History Physical Exam Vital Signs: Vital Signs: Last Vital Signs Temp 98.2 F 12/15/23 17:23 Pulse 79 12/15/23 17:23 Resp 20 12/15/23 17:23 BP 140/87 H 12/15/23 17:23 Pulse Ox 97 12/15/23 17:23 O2 Del Method Room Air 12/15/23 17:23 BMI result Body Mass Index 21.2 Const: Other: Alert well in appearance Orientation/consciousness: patient oriented x3 Eyes: Pupils: Equal, round and reactive pupils present Resp: Other: Nonlabored respiration Cardio: Other: Normal peripheral perfusion Neuro: Other: She is alert and oriented. Her speech is fairly clear. She has dysphagia. Mild weakness of the face with difficulty holding hair in her mouth. Eye closure is pretty good. Says and extensors are reasonable minimally weak. She has proximal weakness in all 4 extremities. General: patient oriented x3, moves all extremities, no focal motor deficits and CN's II-XI intact bilaterally Cranial nerves: Yes Equal, round and reactive pupils present Results Labs 12/15/23 09:51 12/15/23 09:51 Labs: Short CBC 12/15/23 Range/Units 09:51 WBC 16.0 H (4.8-10.8) X10*3/uL Hgb 14.8 (12.0-16.0) g/dl Hct 44.2 (37.0-47.0) % Plt Count 227 (160-400) X10*3/uL BMP 12/15/23 09:51 Sodium 144 Potassium 3.6 Chloride 108 Carbon Dioxide 29 BUN 16 Creatinine 0.70 Calcium 9.1 D Liver Function 12/15/23 Range/Units 09:51 Total Bilirubin 0.8 (0.0-1.0) mg/dL AST 15 (5-31) U/L ALT 12 (0-31) U/L Alkaline Phosphatase 48 (39-117) U/L Albumin 4.2 (3.5-5.0) g/dL Urine 12/15/23 Range/Units 10:10 Urine Color Yellow Urine Appearance Clear Urine pH 7.5 (5.0-9.0) Ur Specific [place] 1.015 (1.005-1.025) Urine Protein Negative (Neg-Trace) mg/dL Urine Glucose (UA) Negative (Negative) mg/dL Assessment and Plan (1) Myasthenia gravis with exacerbation: Status: Acute Her rule out any infectious causes for worsening of myasthenia gravis check metabolic abnormalities. Start IVIG 400 mg/kg body weight daily for 5 days. Increase prednisone back to 20 mg a day. Continue azathioprine and pyridostigmine 60 mg orally 4 times a day. If unable to swallow, and then rivastigmine intravenously 2 mg IV or intramuscularly every 4 hours.. Plan 83 year old female with history of myasthenia gravis predominantly oropharyngeal symptoms, osteoporosis, bile salt induced diarrhea admitted for myasthnia gravis flare. #Myasthenia gravis flare- primarily oropharyngeal symptoms -IVIG (400mg/kg) x 5 days per neurology -100mg IV solumedrol daily x 3 days, then prednisone -Baseline FVC/NIF ordered with poor inspiratory effort, continue tid -NPO, REJOGGER consult. Initiate PPN -neurology consult -hold po meds #HTN -IV hydralazine 5mg prn sbp >180. Hold po meds dvt prophyalxis- lovenox full code pt requires inpt stay for IVIG therapy and IV steroids and PPN due to myasthenia gravis flare which is restricting PO intake and therefore cannot safely be administered on outpt basis at this time Procedures Date of Service Date of Service: 12/15/23
--- NOTE | 2023-12-15 20:31 | PC.NURSE ---
late entry- assumed care at 1900, pt resting in stretcher, no acute distress noted, pt assisted to bedside commode, 1 assist. pt medicated per oct. pt normal sinus on tele 84-90bpm.
--- NOTE | 2023-12-15 20:54 | PC.RT ---
Vital capacity: 1.34 NIF: -18 Pt demonstrated good effort
[2023-12-16] VITALS (9 sets, daily range): BP systolic 144–194; BP diastolic 89–105; PULSE 65–84; RESP 12–24; TEMP 36–36.6; O2SAT 96–100; BMI 21.2
[2023-12-16] MEDS: PYRIDOSTIGMINE BROMIDE 2 MG IVPUSH ×5 (04:13→21:43)
[2023-12-16 05:30] LABS: Basophils Percent Auto 0.2 % (0-2); Hematocrit 42.2 % (37.0-47.0); Hemoglobin 14.1 g/dl (12.0-16.0); Imm Gran Abs Auto 0.04 X10*3/uL (0.00-0.03); Imm Gran Pct Auto 0.4 % (0.0-0.4); Lymphocytes Percent Auto 10.2 % (20-40); MANUAL DIFF FLAG NO; Mean Corpuscular HGB Conc 33.4 g/dl (31.0-35.0); Mean Corpuscular Hemoglobin 33.4 pg (27.0-33.0); Mean Platelet Volume 8.5 fL (9.4-12.3); Monocytes Absolute Auto 0.7 X10*3/uL (0.1-1.2); Monocytes Percent Auto 7.4 % (2-11); Neutrophils Absolute Auto 8.2 x10*3/uL (2.0-8.3); Neutrophils Percent Auto 81.8 % (45-73); Platelet Count 217 X10*3/uL (160-400); Red Blood Count 4.22 X10*6/uL (4.20-5.50); Red Cell Distribution Width 13.1 % (11.0-16.0)
[2023-12-16 05:48] LABS: Anion Gap 11 (12-20); Blood Urea Nitrogen 12 mg/dL (9-16); Calcium 8.8 mg/dL (8.4-10.2); Carbon Dioxide 25 mmol/L (22-29); Chloride 110 mmol/L (96-108); Creatinine Clr Calc Pharmacy 45.2; Estimated Glomerular Filt Rate > 60; Glucose Random 114 mg/dL (60-115); Potassium 3.7 mmol/L (3.3-5.1); Sodium 142 mmol/L (135-145)
--- NOTE | 2023-12-16 06:51 | PC.NURSE ---
pt placed in hospital bed for comfort at this time, purewick in place.
[2023-12-16] MEDS: Dextrose 5 % and Lactated Ring 1,000 ML 100 ML IVCONT ×2 (08:15→18:40)
[2023-12-16] MEDS: 0.9 % Sodium Chloride Flush 3 ML SYRINGE IVFLUSH ×3 (08:16→23:42)
[2023-12-16 09:19] LABS: Albumin Level 3.8 g/dL (3.5-5.0); Magnesium 2.1 mg/dL (1.6-2.6); Phosphorus 3.1 mg/dL (2.7-4.5)
[2023-12-16] MEDS: methylPREDNISolone Sod Succ 125 MG/2 ML VIAL 100 MG IVPUSH (09:28)
--- NOTE | 2023-12-16 11:19 | MHC.SLORD ---
Speech Language Pathology Order Status: Patient seen by DIRECT CHILL CASTER this morning. Recommending continue strict NPO d/t no elicited swallow response and s/s aspiration on trace amount of water. Recommend oral moisturizer for comfort. Patient reporting refusal of further swallow evaluation until she has had her IV meds and PPN. DIRECT CHILL CASTER to follow and re-evaluate tomorrow. MD and RN notified.
--- NOTE | 2023-12-16 11:37 | MHC.CLN ---
RE: CONSULT PT REQUIRES PPN FOR NUTRITION SUPPORT R/T DYSPHAGIA SECONDARY TO MG FLARE DISCUSSED WITH MD-FAMILIAR WITH PT FROM PREVIOUS ADMISSION LAST MONTH PT TRIGGERS FOR 21% SIGNIFICANT WT LOSS X 1 YEAR WILL OBTAIN RE-WEIGHT TO CONFIRM WT LOSS REVIEWED LABS DISCUSSED WITH PHARMACY RECOMMEND PPN AT 55ML/HR TO PROVIDE 673KCALS, 132G DEXTROSE, 56G PROTEIN (1.17G/KG) REPLETE LYTES NEEDED CHECK TRIGS FOR LIPID ADD ON TOMORROW SEE ALSO FULL CLINICAL NUTRITION ASSESSMENT
--- NOTE | 2023-12-16 12:52 | MHC.SL.SWA ---
Risk of Aspiration Due to: Neurological Condition Poor PO Intake Weak Cough Dysphasia Diet Status: NPO Liquid Consistency and Strategies for Safe Swallow: Liquid Intake Recommendation: NPO Solid Food Consistency: Dietary Recommendations: NPO Oral Medication Intake: NPO Recommendation for Speech: Further Testing Needed Inpatient Speech Therapy Modified Barium Swallow Study - Inpatient Modified Barium Swallow Study - Outpatient Comment: Recommend continue NPO. Patient does not appear to be eliciting a swallow response and presents w/ s/s aspiration with trace amount of water via teaspoon and toothette. Patient refusing to do further testing for swallow until her meds arrive (IV IG?) NEUROLOGY STROKE PHYSICIAN to visit for re-eval tomorrow. Patient may benefit from MBS to further evaluate swallow inpatient vs. outpatient. Nuclear Waste Process Operator Clinican/Clinical Fellow: No Supervisory Statement: I have reviewed and agree with the student/clinical fellow's documentation: N/A Speech Language Pathologist: Luann Barragan M.A., CCC-NEUROLOGY STROKE PHYSICIAN
[2023-12-16] MEDS: Enoxaparin Sodium 40 MG/0.4 ML SYRINGE SUBCUT (14:29)
--- NOTE | 2023-12-16 15:12 | P.PNIM_ITS ---
Subjective Subjective Date of Service: 12/16/23 Interval History: Continued to have difficulty with swallowing, and speech impairment, denies weakness, numbness, no shortness of breath no fevers no chills, no nausea, no vomiting, no acute issues since admission, remains NPO on IV fluids, Requesting for IV IG to be administered early. Daughter at bedside concern that mother has not eaten in last several days. Review of Systems All other systems reviewed and negative Physical Exam 2 Vital Signs: Vital Signs: Last Vital Signs Temp 97.0 F 12/16/23 14:42 Pulse 81 12/16/23 14:42 Resp 24 H 12/16/23 14:42 BP 184/99 H 12/16/23 14:42 Pulse Ox 97 12/16/23 14:42 O2 Del Method Room Air 12/16/23 14:42 BMI result Body Mass Index 21.2 Const: Other: General sitting comfortably in no acute distress. Neck supple no JVD. CVS regular rate rhythm, Respiratory lungs clear to auscultation, no respiratory distress, no wheeze, no rhonchi. Gastrointestinal abdomen soft, non tender, bowel sounds audible, no guarding , no rigidity. Extremities no edema. Neuro alert oriented x3, moving all 4 extremity, nasal speech Skin no rash Psych appropriate affect Objective Data Active Medications Acetaminophen (Acetaminophen 325 Mg Tablet) 650 mg PO Q6H PRN PRN Reason: Pain, Mild (Pain Scale 1-3) Acetaminophen (Acetaminophen 325 Mg Tablet) 650 mg PO DAILY@1500 [facility] Stop: 12/19/23 15:01 Last Admin: 12/15/23 16:53 Dose: Not Given Documented By: MICHAEL Non-Admin Reason: NPO Artificial Tears (Artificial Tears 15 Ml Drops) 2 drop EYE-RIGHT Q4H PRN PRN Reason: Dry Eyes Diazepam (Diazepam 10 Mg/2 Ml Cartridge) 2.5 mg IM Q8H PRN PRN Reason: Anxiety Diphenhydramine HCl (Diphenhydramine Hcl 50 Mg/Ml Vial) 25 mg IVPUSH DAILY@1500 [facility] Stop: 12/19/23 15:01 Last Admin: 12/15/23 15:44 Dose: 25 mg Documented By: MICHAEL Enoxaparin Sodium (Enoxaparin Sodium 40 Mg/0.4 Ml Syringe) 40 mg SUBCUT Q24H [facility] Last Admin: 12/16/23 14:29 Dose: 40 mg Documented By: PONCE Hydralazine HCl (Hydralazine Hcl 20 Mg/Ml Vial) 5 mg IVPUSH Q6H PRN; Protocol PRN Reason: SBP > 180 Dextrose/Lactated Ringer's (D5lr) 1,000 mls @ 100 mls/hr IVCONT .Q10H [facility] Last Admin: 12/16/23 08:15 Dose: 100 mls/hr Documented By: THOMAS Sodium Chloride (Ns) 100 mls @ 100 mls/hr IV DAILY@1500 [facility] Stop: 12/19/23 15:59 Last Infusion: 12/15/23 16:53 Dose: Infused Documented By: MATEUSMA Immune Globulin (Gammagard 10%) 200 mls @ 25 mls/hr IV DAILY@1600 [facility] Stop: 12/19/23 23:59 Last Infusion: 12/16/23 01:21 Dose: Infused Documented By: AVIS Nutrition (Parenteral) (Parenteral Nutrition) 1,320 mls @ 55 mls/hr IV .Q24H [facility]; Protocol Stop: 12/17/23 20:59 Methylprednisolone Sodium Succinate (Methylprednisolone Sod Succ 125 Mg/2 Ml Vial) 100 mg IVPUSH DAILY [facility] Stop: 12/18/23 09:01 Last Admin: 12/16/23 09:28 Dose: 100 mg Documented By: THOMAS Non-Formulary Medication (Timolol Maleate) 1 drop EYE-RIGHT DAILY [facility] Ondansetron HCl (Ondansetron Hcl 4 Mg/2 Ml Vial) 4 mg IVPUSH Q8H PRN PRN Reason: Nausea and Vomiting Pharmacy Consult (Consult Rx Parenteral Nutrition Ordering) 1 each MISCELLANE DAILY PRN PRN Reason: Consult order Pyridostigmine [place] (Pyridostigmine [place] 10 Mg/2 Ml Ampul) 2 mg IVPUSH Q4H [facility] Last Admin: 12/16/23 12:09 Dose: 2 mg Documented By: THOMAS Senna (Sennosides 8.6 Mg Tablet) 17.2 mg PO BEDTIME PRN PRN Reason: Constipation Sodium Chloride (0.9 % Sodium Chloride Flush 3 Ml Syringe) 3 ml IVFLUSH QSHIFT [facility] Last Admin: 12/16/23 08:16 Dose: 3 ml Documented By: THOMAS Labs 12/16/23 04:55 12/16/23 04:55 Labs: Laboratory Results - last 24 hr 12/16/23 04:55 MCV 100.0 H MCH 33.4 H MCHC 33.4 RDW 13.1 Plt Count 217 MPV 8.5 L Immature Gran % (Auto) 0.4 Neut % (Auto) 81.8 H Lymph % (Auto) 10.2 L [place] % (Auto) 7.4 Eos % (Auto) 0.0 Baso % (Auto) 0.2 Lymph # (Auto) 1.0 L [place] # (Auto) 0.7 Eos # (Auto) 0.0 Baso # (Auto) 0.0 Abs Immat Gran (auto) 0.04 H Absolute Neuts (auto) 8.2 Absolute Nucleated RBC 0.000 Nucleated RBC % (auto) 0.0 Anion Gap 11 L Estim Creat Clear Calc 45.2 Estimated GFR > 60 Random Glucose 114 Calcium 8.8 Phosphorus 3.1 Magnesium 2.1 Albumin 3.8 Assessment and Plan (1) Myasthenia gravis with exacerbation: Status: Acute Plan 83 year old female with history of myasthenia gravis predominantly oropharyngeal symptoms, osteoporosis, bile salt induced diarrhea admitted for myasthnia gravis flare. #Myasthenia gravis flare- primarily oropharyngeal symptoms -no change since admission -IVIG (400mg/kg) x 5 days per neurology -100mg IV solumedrol daily x 3 days, then prednisone -continue IV pyridoxin ,IV Valium -FVC/NIF ordered with poor inspiratory effort, continue tid -seen by speech therapy they recommend NPO, patient noted to have signs symptoms of aspiration with trace water, initiate PPN starting tonight -seen by Neurology they agreed with above treatment plan -hold po meds azathioprine 50 mg Q other day/oxybutynin 15 mg daily/ -recommend to continue outpatient iv Vyvgart 480mg Q weekly #HTN -IV hydralazine 2.5mg prn sbp >180. Hold home medications dvt prophyalxis- lovenox full code pt requires continued inpatient hospitalization for IVIG therapy and IV steroids and PPN due to myasthenia gravis flare which is restricting PO intake and therefore cannot safely be administered on outpt basis at this time Quality Stroke Does the patient have a stroke diagnosis?: No VTE Prior VTE?: No VTE Risk Level:: Medical - moderate - high VTE Device Contraindication: Treatment Not Indicated VTE Drug Contraindication: N/A - Med Ordered
[2023-12-16] MEDS: hydrALAZINE HCl 20 MG/ML VIAL 2.5 MG IVPUSH (15:31)
[2023-12-16] MEDS: diazePAM 10 MG/2 ML CARTRIDGE 2.5 MG IVPUSH (15:40)
[2023-12-16] MEDS: diphenhydrAMINE HCL 50 MG/ML VIAL 25 MG IVPUSH (15:46)
[2023-12-16 16:19] LABS: Immunoglobulin G 446 mg/dL (600-1540)
[2023-12-16] MEDS: Immun Glob G(IgG)/Gly/IGA Ov50 200 ML IV (16:30)
--- NOTE | 2023-12-16 17:04 | PC.NURSE ---
disconnected pt from periwick this AM to improve strength, pt rings appropriately to get up to commode with standby assist. pts weakness increased at the day progressed. placed back on periwick at approx 1600 d/t increased weakness and pts increased risk for falls d/t MARINA IV lines infusing. plan to go up to MS room, pt aware. daughter at bedside. pt and daughter aware of plan to start PPN at 2100 this evening. IVIG currently infusing, pt requires reminders to keep her arm straight. her speech is difficult to understand due to Myasthenia gravis exacerbation but she is alert and oriented.
--- NOTE | 2023-12-16 18:35 | PC.NURSE ---
Patient upset requesting a lolipop,Dr. Martinez notified,ok for patient to try a lolipop if she has one
[2023-12-16] MEDS: Parenteral Nutrition 1,320 ML 55 ML IV (21:28)
[2023-12-17] VITALS (8 sets, daily range): BP systolic 156–187; BP diastolic 79–90; PULSE 66–85; RESP 12–18; TEMP 36–37.1; O2SAT 96–98
[2023-12-17] MEDS: PYRIDOSTIGMINE BROMIDE 2 MG IVPUSH ×6 (00:27→23:58)
[2023-12-17] MEDS: Albuterol Sulfate (0.083%) 2.5 MG/3 ML VIAL.NEB INHALE (01:47)
[2023-12-17] MEDS: hydrALAZINE HCl 20 MG/ML VIAL 2.5 MG IVPUSH (04:10)
[2023-12-17 06:37] LABS: Triglycerides 107 mg/dL (<150)
[2023-12-17 07:20] LABS: Alanine Aminotransferase 27 U/L (0-31); Albumin Level 4.1 g/dL (3.5-5.0); Alkaline Phosphatase 50 U/L (39-117); Anion Gap 11 (12-20); Aspartate Amino Transferase 21 U/L (5-31); Bilirubin Total 1.2 mg/dL (0.0-1.0); Blood Urea Nitrogen 15 mg/dL (9-16); Calcium 9.4 mg/dL (8.4-10.2); Carbon Dioxide 27 mmol/L (22-29); Chloride 106 mmol/L (96-108); Creatinine Clr Calc Pharmacy 43.1; Estimated Glomerular Filt Rate > 60; Glucose Random 111 mg/dL (60-115); Magnesium 2.1 mg/dL (1.6-2.6); Phosphorus 2.8 mg/dL (2.7-4.5); Potassium 3.2 mmol/L (3.3-5.1); Sodium 141 mmol/L (135-145); Total Protein 8.1 g/dL (6.5-8.0)
--- NOTE | 2023-12-17 09:43 | HO.PM.IMPN ---
Subjective Subjective Date of Service: 12/17/23 Interval History: Being followed for acute myasthenia gravis flare, speech improved, having difficulty clearing of throat, receiving IV PPN, IV steroids, lost IV access. Denies fever, no chills, no shortness of breath. Review of Systems All other system reviewed and are negative Physical Exam Vital Signs: Vital Signs: Last Vital Signs Temp 98.7 F 12/17/23 07:47 Pulse 72 12/17/23 07:47 Resp 18 12/17/23 07:47 BP 156/90 H 12/17/23 07:47 Pulse Ox 96 12/17/23 07:47 O2 Del Method Room Air 12/17/23 07:47 BMI result Body Mass Index 21.2 Const: Other: General sitting comfortably in no acute distress. Neck supple no JVD. CVS regular rate rhythm, Respiratory lungs clear to auscultation, no respiratory distress, no wheeze, no rhonchi. Gastrointestinal abdomen soft, non tender, bowel sounds audible, no guarding , no rigidity. Extremities no edema. Neuro alert oriented x3, moving all 4 extremity, nasal speech improving Skin no rash Psych appropriate affect Objective Data Active Medications Acetaminophen (Acetaminophen 325 Mg Tablet) 650 mg PO Q6H PRN PRN Reason: Pain, Mild (Pain Scale 1-3) Acetaminophen (Acetaminophen 325 Mg Tablet) 650 mg PO DAILY@1500 [facility] Stop: 12/19/23 15:01 Last Admin: 12/16/23 15:15 Dose: Not Given Documented By: THOMAS Non-Admin Reason: NPO Artificial Tears (Artificial Tears 15 Ml Drops) 2 drop EYE-RIGHT Q4H PRN PRN Reason: Dry Eyes Diazepam (Diazepam 10 Mg/2 Ml Cartridge) 2.5 mg IVPUSH Q8H PRN PRN Reason: Anxiety Last Admin: 12/16/23 15:40 Dose: 2.5 mg Documented By: THOMAS Diphenhydramine HCl (Diphenhydramine Hcl 50 Mg/Ml Vial) 25 mg IVPUSH DAILY@1500 [facility] Stop: 12/19/23 15:01 Last Admin: 12/16/23 15:46 Dose: 25 mg Documented By: THOMAS Enoxaparin Sodium (Enoxaparin Sodium 40 Mg/0.4 Ml Syringe) 40 mg SUBCUT Q24H [facility] Last Admin: 12/16/23 14:29 Dose: 40 mg Documented By: PONCE Hydralazine HCl (Hydralazine Hcl 20 Mg/Ml Vial) 2.5 mg IVPUSH Q6H PRN; Protocol PRN Reason: SBP > 180 Last Admin: 12/17/23 04:10 Dose: 2.5 mg Documented By: CARSON Immune Globulin (Gammagard 10%) 200 mls @ 25 mls/hr IV DAILY@1600 [facility] Stop: 12/19/23 23:59 Last Infusion: 12/17/23 01:16 Dose: Infused Documented By: CARSON Nutrition (Parenteral) (Parenteral Nutrition) 1,320 mls @ 55 mls/hr IV .Q24H [facility]; Protocol Stop: 12/17/23 20:59 Last Admin: 12/16/23 21:28 Dose: 55 mls/hr Documented By: SIMONA Sodium Chloride (Ns) 100 mls @ 100 mls/hr IV .Q1H [facility] Stop: 12/20/23 14:59 Sodium Chloride (Ns) 100 mls @ 200 mls/hr IV DAILY@1500 [facility] Stop: 12/19/23 15:29 Potassium Chloride (Potassium Chloride/H20) 10 meq in 100 mls @ 100 mls/hr IV Q1H [facility] Stop: 12/17/23 09:44 Methylprednisolone Sodium Succinate (Methylprednisolone Sod Succ 125 Mg/2 Ml Vial) 100 mg IVPUSH DAILY [facility] Stop: 12/18/23 09:01 Last Admin: 12/16/23 09:28 Dose: 100 mg Documented By: THOMAS Non-Formulary Medication (Timolol Maleate) 1 drop EYE-RIGHT DAILY [facility] Ondansetron HCl (Ondansetron Hcl 4 Mg/2 Ml Vial) 4 mg IVPUSH Q8H PRN PRN Reason: Nausea and Vomiting Pharmacy Consult (Consult Rx Parenteral Nutrition Ordering) 1 each MISCELLANE DAILY PRN PRN Reason: Consult order Pyridostigmine [place] (Pyridostigmine [place] 10 Mg/2 Ml Ampul) 2 mg IVPUSH Q4H [facility] Last Admin: 12/17/23 03:49 Dose: 2 mg Documented By: CARSON Senna (Sennosides 8.6 Mg Tablet) 17.2 mg PO BEDTIME PRN PRN Reason: Constipation Sodium Chloride (0.9 % Sodium Chloride Flush 3 Ml Syringe) 3 ml IVFLUSH QSHIFT [facility] Last Admin: 12/16/23 23:42 Dose: 3 ml Documented By: CARSON Labs 12/16/23 04:55 12/17/23 06:44 Labs: Laboratory Results - last 24 hr 12/15/23 12/17/23 12/17/23 10:43 05:42 06:44 Hold Purple Top SEE NOTE Anion Gap 11 L Estim Creat Clear Calc 43.1 Estimated GFR > 60 Random Glucose 111 Calcium 9.4 D Phosphorus 2.8 Magnesium 2.1 Total Bilirubin 1.2 H AST 21 ALT 27 Alkaline Phosphatase 50 Total Protein 8.1 H Albumin 4.1 Triglycerides 107 IgG 446 L Assessment and Plan (1) Myasthenia gravis with exacerbation: Status: Acute Plan 83 year old female with history of myasthenia gravis predominantly oropharyngeal symptoms, osteoporosis, bile salt induced diarrhea admitted for myasthnia gravis flare. #Myasthenia gravis flare- primarily oropharyngeal symptoms -speech clear today, unable to clear secretions -IVIG (400mg/kg) x D3/5 days per neurology -100mg IV solumedrol daily x 3/3 days, then prednisone 20 mg daily -continue IV pyridoxin ,IV Valium, -FVC/NIF ordered with poor inspiratory effort, continue tid -seen by speech therapy they recommend NPO, patient noted to have signs symptoms of aspiration with trace water, on PPN D2 -seen by Neurology they agreed with above treatment plan -hold po meds azathioprine 50 mg Q other day/oxybutynin 15 mg daily/ -recommend to continue outpatient iv Vyvgart 480mg Q weekly -picc line for medication administration -add as needed nebulizer/as needed suctioning #HTN -IV hydralazine 2.5mg prn sbp >180. Hold home medication amlodipine. # acute hypokalemia potassium 3.2 will replete and follow labs dvt prophyalxis- lovenox full code pt requires continued inpatient hospitalization for IVIG therapy and IV steroids and PPN due to myasthenia gravis flare which is restricting PO intake and therefore cannot safely be administered on outpt basis at this time Quality Stroke Does the patient have a stroke diagnosis?: No VTE Prior VTE?: No VTE Risk Level:: Medical - moderate - high VTE Device Contraindication: Treatment Not Indicated VTE Drug Contraindication: N/A - Med Ordered
[2023-12-17] MEDS: Albuterol/Iprat 2.5/0.5MG 3 ML AMPUL.NEB INHALE (10:13)
--- NOTE | 2023-12-17 11:48 | MHC.CLN ---
F/U REVIEWED LABS BUSINESS [employer] PROFESSOR RECOMMENDED PT TO REMAIN NPO DISCUSSED WITH PHARMACY RECOMMEND PPN INCREASE TO 70ML/HR WITH 57G LIPIDS TO PROVIDE 1427 TOTAL KCALS (FROM FORMULA AND LIPIDS), 168G DEXTROSE, 71G PROTEIN (1.5G/KG) REPLETE LYTES NEEDED PPN AT MAX GAOL RATE TO MEET PT ESTIMATED NUTRITION NEEDS
--- NOTE | 2023-12-17 12:24 | MHC.SLORD ---
Speech Language Pathology Order Status: Attempted to see patient this a.m. for repeat swallow assessment. Patient refused study, stating I am not ready yet! Patient's self advocacy/self awareness was reinforced. OFFICE LEAD will continue to follow, assess when patient feels ready. Recommend continue NPO.
--- NOTE | 2023-12-17 13:09 | HO.PICC ---
PICC Line Insertion NPICC Diagnosis: [] Indication: [] Pertinent Labs: [] Technique: Following informed consent including risks, benefits and alternatives and using sterile technique including cap and mask, sterile gown, glove and drape, the [] arm was prepped and draped in the usual sterile fashion of full barrier technique with G. Following completion of [place] Protocol the skin and soft tissues were anesthetized with 1% Lidocaine plain. Using ultrasound guidance, [] vein access was obtained. Over an 0.018 wire through peel-away sheath, a [] PICC line was positioned. Catheter length is [] internal length, [] external length, for a total trimmed length of []. The procedure was performed in []. Tip verification was performed by Katarzyna Fonseca with Miguel 3CG. Tip located in SVC. Ultrasound was used to document vein patency and for needle entry. A formal ultrasound picture and cardiac rhythm strip was recorded. [employer]ascular [employer] Consultant has released the line for use and it is currently dressed with a StatLock, Tegaderm, and CHG disc. Verification has been performed for blood return and line patency. Arm Circumference: [] Equipment: [] Catheter Type: [] Lot #: []
--- NOTE | 2023-12-17 13:18 | P.PICC_ITS ---
PICC Line Insertion [facility] INSERTION Diagnosis: Myasthenia Gravis Indication: PPN and IV Steroids Pertinent Labs: Reviewed Technique: Following informed consent including risks, benefits and alternatives and using sterile technique including cap and mask, sterile gown, glove and drape, the RIGHT arm was prepped and draped in the usual sterile fashion of full barrier technique with [facility]. Following completion of [place] Protocol the skin and soft tissues were anesthetized with 1% Lidocaine plain. Using ultrasound guidance, Right Basilic vein was accessed but was unable to wire. Right Brachial was accessed by Anabell Rojas RN vein access was obtained. Over an 0.018 wire through peel-away sheath, a 5fr TRIPLE PASV POWER PICC line was positioned. Catheter length is 42cm internal length, 0cm external length, for a total trimmed length of 42cm. The procedure was performed in rm. 272. Tip verification was performed by Katarzyna Fonseca with [place] 3CG. Tip located in SVC. Ultrasound was used to document vein patency and for needle entry. A formal ultrasound picture and cardiac rhythm strip was recorded. Vascular [place] [place] Maker has released the line for use and it is currently dressed with a StatLock, Tegaderm, and CHG disc. Verification has been performed for blood return and line patency. Arm Circumference: 21cm Equipment:makerist POWERPICC SOLO CATHETER Catheter Type: 5FR TRIPLE PASV POWER PICC Lot #: [id number]
[2023-12-17] MEDS: methylPREDNISolone Sod Succ 125 MG/2 ML VIAL 100 MG IVPUSH (13:40)
[2023-12-17] MEDS: 0.9 % Sodium Chloride Flush 3 ML SYRINGE IVFLUSH ×2 (13:41→15:46)
[2023-12-17] MEDS: Potassium Chloride/H20 10 MEQ/100 ML PIGGYBACK 100 MEQ IV ×2 (13:41→14:39)
[2023-12-17] MEDS: Enoxaparin Sodium 40 MG/0.4 ML SYRINGE SUBCUT (13:42)
--- NOTE | 2023-12-17 14:15 | MHC.CM.PN ---
CM MET WITH PT AT BEDSIDE. PT USES WHITE BOARD FOR SOME COMMUNICATION. USES WALKER/CANE FOR MOBILITY. PT IS ACTIVE WITH P.T./O.T. AND BATTER MIXER WITH [facility], RETURN REFERRAL SENT. PT HAS [employer] 5X /WK. + HCP ON FILE PCP [facility]: HOME WITH RESUMPTION OF SERVICES . PT HAS OWN RIDE HOME. CM WILL CONTINUE TO FOLLOW FOR ANY CHANGE IN DC PLAN/NEEDS.
--- NOTE | 2023-12-17 15:23 | PC.RT ---
Pt refused NIF and FVC. She wants to wait until after her next dose of IV IGA
[2023-12-17] MEDS: diphenhydrAMINE HCL 50 MG/ML VIAL 25 MG IVPUSH (15:45)
[2023-12-17] MEDS: Immun Glob G(IgG)/Gly/IGA Ov50 200 ML IV (16:43)
[2023-12-17] MEDS: Heparin Sodium,Porcine Flush 50 UNITS/5 ML SYRINGE IVFLUSH (16:44)
[2023-12-17] MEDS: Parenteral Nutrition 1,680 ML 70 ML IV (21:26)
[2023-12-18 03:13] VITALS: BP 178/94; PULSE 77; RESP 16; TEMP 36.4; O2SAT 96
[2023-12-18] MEDS: PYRIDOSTIGMINE BROMIDE 2 MG IVPUSH ×5 (04:08→18:49)
[2023-12-18 06:30] LABS: Alanine Aminotransferase 46 U/L (0-31); Albumin Level 3.5 g/dL (3.5-5.0); Alkaline Phosphatase 45 U/L (39-117); Anion Gap 11 (12-20); Aspartate Amino Transferase 31 U/L (5-31); Bilirubin Total 1.1 mg/dL (0.0-1.0); Blood Urea Nitrogen 26 mg/dL (9-16); Calcium 8.9 mg/dL (8.4-10.2); Carbon Dioxide 22 mmol/L (22-29); Chloride 110 mmol/L (96-108); Creatinine Clr Calc Pharmacy 49.1; Estimated Glomerular Filt Rate > 60; Glucose Random 111 mg/dL (60-115); Magnesium 2.2 mg/dL (1.6-2.6); Phosphorus 3.8 mg/dL (2.7-4.5); Potassium 4.6 mmol/L (3.3-5.1); Sodium 138 mmol/L (135-145); Total Protein 7.7 g/dL (6.5-8.0)
[2023-12-18 07:48] VITALS: BP 169/96; PULSE 76; RESP 17; TEMP 36.1; O2SAT 97
--- NOTE | 2023-12-18 08:06 | HO.PM.IMPN ---
Subjective Subjective Date of Service: 12/18/23 Interval History: Being followed for acute myasthenia gravis flare, speech improved and increased strength bue, still having difficulty clearing of throat, receiving IV PPN, IV steroids, lost IV access. Denies fever, no chills, no shortness of breath. Review of Systems All other system reviewed and are negative Physical Exam Vital Signs: Vital Signs: Last Vital Signs Temp 97.0 F 12/18/23 07:48 Pulse 76 12/18/23 07:48 Resp 17 12/18/23 07:48 BP 169/96 H 12/18/23 07:48 Pulse Ox 97 12/18/23 07:48 O2 Del Method Room Air 12/18/23 07:48 BMI result Body Mass Index 21.2 Const: Other: General sitting comfortably in no acute distress. Neck supple no JVD. CVS regular rate rhythm, Respiratory lungs clear to auscultation, no respiratory distress, no wheeze, no rhonchi. Gastrointestinal abdomen soft, non tender, bowel sounds audible, no guarding , no rigidity. Extremities no edema. Neuro alert oriented x3, moving all 4 extremity, nasal speech improving Skin no rash. dry mucosa Psych appropriate affect Objective Data Active Medications Acetaminophen (Acetaminophen 325 Mg Tablet) 650 mg PO Q6H PRN PRN Reason: Pain, Mild (Pain Scale 1-3) Acetaminophen (Acetaminophen 325 Mg Tablet) 650 mg PO DAILY@1500 [facility] Stop: 12/19/23 15:01 Last Admin: 12/17/23 15:46 Dose: Not Given Documented By: MC Non-Admin Reason: NPO Albuterol/Ipratropium (Albuterol/Iprat 2.5/0.5mg 3 Ml Ampul.Neb) 3 ml INHALE Q4H PRN PRN Reason: sob Last Admin: 12/17/23 10:13 Dose: 3 ml Documented By: BREN Artificial Tears (Artificial Tears 15 Ml Drops) 2 drop EYE-RIGHT Q4H PRN PRN Reason: Dry Eyes Diazepam (Diazepam 10 Mg/2 Ml Cartridge) 2.5 mg IVPUSH Q8H PRN PRN Reason: Anxiety Last Admin: 12/16/23 15:40 Dose: 2.5 mg Documented By: THOMAS Diphenhydramine HCl (Diphenhydramine Hcl 50 Mg/Ml Vial) 25 mg IVPUSH DAILY@1500 [facility] Stop: 12/19/23 15:01 Last Admin: 12/17/23 15:45 Dose: 25 mg Documented By: MC Enoxaparin Sodium (Enoxaparin Sodium 40 Mg/0.4 Ml Syringe) 40 mg SUBCUT Q24H [facility] Last Admin: 12/17/23 13:42 Dose: 40 mg Documented By: MC Heparin Sodium (Porcine) (Heparin Sodium,Porcine Flush 50 Units/5 Ml Syringe) 50 units IVFLUSH QSHIFT [facility] Last Admin: 12/18/23 00:00 Dose: 50 units Documented By: BARBIE Hydralazine HCl (Hydralazine Hcl 20 Mg/Ml Vial) 2.5 mg IVPUSH Q6H PRN; Protocol PRN Reason: SBP > 180 Last Admin: 12/17/23 04:10 Dose: 2.5 mg Documented By: ANTOIC Immune Globulin (Gammagard 10%) 200 mls @ 25 mls/hr IV DAILY@1600 [facility] Stop: 12/19/23 23:59 Last Infusion: 12/18/23 00:49 Dose: Infused Documented By: BARBIE Sodium Chloride (Ns) 100 mls @ 200 mls/hr IV DAILY@1500 [facility] Stop: 12/19/23 15:29 Last Infusion: 12/17/23 16:35 Dose: Infused Documented By: MC Nutrition (Parenteral) (Parenteral Nutrition) 1,680 mls @ 70 mls/hr IV .Q24H [facility]; Protocol Stop: 12/18/23 20:59 Last Admin: 12/17/23 21:26 Dose: 70 mls/hr Documented By: BARBIE Methylprednisolone Sodium Succinate (Methylprednisolone Sod Succ 125 Mg/2 Ml Vial) 100 mg IVPUSH DAILY [facility] Stop: 12/18/23 09:01 Last Admin: 12/17/23 13:40 Dose: 100 mg Documented By: MC Comments: NO IV ACCESS Non-Formulary Medication (Timolol Maleate) 1 drop EYE-RIGHT DAILY [facility] Ondansetron HCl (Ondansetron Hcl 4 Mg/2 Ml Vial) 4 mg IVPUSH Q8H PRN PRN Reason: Nausea and Vomiting Pharmacy Consult (Consult Rx Parenteral Nutrition Ordering) 1 each MISCELLANE DAILY PRN PRN Reason: Consult order Prednisone (Prednisone 20 Mg Tablet) 20 mg PO DAILY [facility] Pyridostigmine [place] (Pyridostigmine [place] 10 Mg/2 Ml Ampul) 2 mg IVPUSH Q4H [facility] Last Admin: 12/18/23 04:08 Dose: 2 mg Documented By: BRAD Senna (Sennosides 8.6 Mg Tablet) 17.2 mg PO BEDTIME PRN PRN Reason: Constipation Sodium Chloride (0.9 % Sodium Chloride Flush 3 Ml Syringe) 3 ml IVFLUSH QSHIFT [facility] Last Admin: 12/18/23 00:00 Dose: 3 ml Documented By: BARBIE Labs 12/16/23 04:55 12/18/23 05:57 Labs: Laboratory Results - last 24 hr 12/18/23 05:57 Anion Gap 11 L Estim Creat Clear Calc 49.1 Estimated GFR > 60 Random Glucose 111 Calcium 8.9 Phosphorus 3.8 Magnesium 2.2 Total Bilirubin 1.1 H AST 31 ALT 46 H Alkaline Phosphatase 45 Total Protein 7.7 Albumin 3.5 Assessment and Plan (1) Myasthenia gravis with exacerbation: Status: Acute Plan 83 year old female with history of myasthenia gravis predominantly oropharyngeal symptoms, osteoporosis, bile salt induced diarrhea admitted for myasthnia gravis flare. #Myasthenia gravis flare- primarily oropharyngeal symptoms -speech clear today, unable to clear secretions- suction prn -IVIG (400mg/kg) x D4/5 days per neurology -100mg IV solumedrol daily x 3/3 days, then prednisone 20 mg daily if tolerating PO (otherwise change to IV) -continue IV pyridoxin ,IV Valium, -FVC/NIF ordered with poor inspiratory effort, continue tid -seen by speech therapy they recommend NPO, patient noted to have signs symptoms of aspiration with trace water, on PPN D3 -seen by Neurology they agreed with above treatment plan -hold po meds azathioprine 50 mg Q other day/oxybutynin 15 mg daily/ -recommend to continue outpatient iv Vyvgart 480mg Q weekly -picc line for medication administration -add as needed nebulizer/as needed suctioning #HTN -IV hydralazine 2.5mg prn sbp >160. Hold home medication amlodipine due to npo # acute hypokalemia potassium -resolved with iv repletion. Follow lytes dvt prophyalxis- lovenox full code pt requires continued inpatient hospitalization for IVIG therapy and IV steroids and PPN due to myasthenia gravis flare which is restricting PO intake and therefore cannot safely be administered on outpt basis at this time Quality Stroke Does the patient have a stroke diagnosis?: No VTE Prior VTE?: No VTE Risk Level:: Medical - moderate - high VTE Device Contraindication: Treatment Not Indicated VTE Drug Contraindication: N/A - Med Ordered
[2023-12-18] MEDS: methylPREDNISolone Sod Succ 125 MG/2 ML VIAL 100 MG IVPUSH (08:26)
[2023-12-18] MEDS: 0.9 % Sodium Chloride Flush 3 ML SYRINGE IVFLUSH ×3 (08:27→15:59)
[2023-12-18] MEDS: Heparin Sodium,Porcine Flush 50 UNITS/5 ML SYRINGE IVFLUSH ×3 (08:27→17:05)
[2023-12-18] MEDS: Albuterol/Iprat 2.5/0.5MG 3 ML AMPUL.NEB INHALE (11:29)
--- NOTE | 2023-12-18 11:47 | MHC.CLN ---
F/U PICC LINE INSERTED 12/16. CONTINUES NPO. LABS REVIEWED. COMMUNICATED WITH PROVIDER AND PHARMACY. RECOMMEND TPN AT MAX GOAL RATE 60 ML PER HOUR, 41 G LIPIDS, 72 G PROTEIN (1.5 G/KG), 216 G DEXTROSE, 1432 TOTAL KCALS (30 KCALS/KG). REPLETE LYTES NEEDED. FOLLOW FOR TPN TOLERANCE AND DIET ADVANCEMENT.
--- NOTE | 2023-12-18 13:58 | MHC.SL.SWA ---
Speech Pathologist Impression: Risk of aspiration, severe oropharyngeal dysphagia Risk of Aspiration Due to: Neurological Condition Poor PO Intake Weak Cough Dysphasia Diet Status: No change at this time Liquid Consistency and Strategies for Safe Swallow: Liquid Intake Recommendation: NPO Solid Food Consistency: Dietary Recommendations: NPO Additional Modifications to Solid Foods: Patient was seen this morning for dysphagia treatment. Note improvement in oral motor strength. Patient was able to elicit swallow, with reduced laryngeal elevation, multiple swallow attempts, gurgling and throat clearing. Recommend continue NPO at this time as patient continues to present overt s/s of aspiration and exhibits difficulty managing her own secretions. CESSPOOL CLEANER can be called in Sat or Sun through Switchboard 9am-11am should a repeat-assessment be indicated before Thursday. Notified RN, RD, and PA. CESSPOOL CLEANER will continue to follow. Oral Medication Intake: NPO Please contact the pharmacy regarding appropriate crushable or liquid drug formulations that are available whenever modified delivery is recommended. Supervision While Eating and Drinking for Safe Swallow: PO with CESSPOOL CLEANER Swallowing Recommended Treatments: Thermal Stimulation Gustatory Stimulation Compens. Strategy Educat. Recommendation for Speech: Further Testing Needed Inpatient Speech Therapy Modified Barium Swallow Study - Inpatient Modified Barium Swallow Study - Outpatient Refractory Mixer Clinican/Clinical Fellow: No Supervisory Statement: I have reviewed and agree with the student/clinical fellow's documentation: N/A Speech Language Pathologist: Maral Hewitt M.A., [facility]-CESSPOOL CLEANER
--- NOTE | 2023-12-18 14:02 | HO.WOUND ---
Wound Consult: Initial 83yr old?F admitted to [facility] [place] on 12/14 - See progress notes and H&P for detailed history.? Wound consult placed for Buttock, Back and elbows.? Patient agreeable to assessment and photo documentation.? Patient reports she treats regularly at the outpatient wound clinic and reports seeing Dr. Woods. Sacrum Etiology: ?Unstageable Pressure Injury ?Present on Admission Measurements: 0.2cm x 0.2cm x 0.1cm Wound Bed: adhernt yellow slough Drainage / Odor: small amount of yellow drainage on foam dressing Edges: ? well defined Shari wound: ?red pink blanchable dry tissue - thin and fragile tissue baseline No Induration, Fluctuance or Warmth noted Pain: denies Goals of Treatment: ? Foam dressing with triad to allow for autolytic debridement and moist wound healing and to protect from moisture and friction Left Elbow - Intact red maroon purple nonblanchable tissue - foam dressing - this may be a bruised area however no other areas observed of similar pigmentation and remains over a very bony prominence - recommend foam application and monitor for healing Right elbow - intact pink blanchable tissue - patient reports tenderness - foam dressing in place to remain for comfort and protection/ prevention. Midback / spine - intact pink blanchable tissue - patient reports tenderness - foam dressing in place to remain for comfort and protection/ prevention. Recommendations: 1. Turn and Reposition every 2 hours and as needed for patient comfort.? Use pillows or wedges to support off loading positions. 2. Off Load all bony prominences with use of pillows and heel boots if needed.? Apply Preventative foams where needed. ? 3. Monitor for incontinence and moisture control, use barrier creams when needed for prevention and treatment. 4. Provide adequate and supplemental nutrition.? 5. Order low air loss mattress. 6. When applicable maintain blood glucose levels per Providers order. 7. Bilateral Elbows, Mid Back / Spine - Routine cleansing. Apply foam dressing peel back and assess Q shift and change every 3 days and PRN. 8. Sacrum - Off Load Pressure - Cleanse with PH balance spray or wipes, pat dry. ?Apply thin layer of Triad to wound bed. Do not remove all of paste between applications as this may cause further skin damage.? Cover with foam dressing to aid in off loading and protection from friction. Change ever other day and PRN. Re-consult wound care Nurse for wound deterioration or wound changes.
--- NOTE | 2023-12-18 14:04 | MHC.CM.PN ---
EMR REVIEWED AND PER MD ROUNDS, PT IS NOT MEDICALLY CLEARED FOR DC HOME. PT CONTINUES WITH IVIG RX. CM WILL CONTINUE TO FOLLOW FOR ANY CHANGE IN DC NEEDS/PLAN.
[2023-12-18 15:45] VITALS: PULSE 85; RESP 14; TEMP 36.6; O2SAT 96
[2023-12-18] MEDS: Enoxaparin Sodium 40 MG/0.4 ML SYRINGE SUBCUT (15:50)
[2023-12-18] MEDS: diphenhydrAMINE HCL 50 MG/ML VIAL 25 MG IVPUSH (15:51)
[2023-12-18] MEDS: Immun Glob G(IgG)/Gly/IGA Ov50 200 ML IV (16:45)
[2023-12-18 18:43] VITALS: BP 147/84; PULSE 78; O2SAT 96
[2023-12-18] MEDS: diazePAM 10 MG/2 ML CARTRIDGE 2.5 MG IVPUSH (18:45)
[2023-12-18 19:53] VITALS: BP 148/84; PULSE 98; RESP 17; TEMP 36.7; O2SAT 97
[2023-12-18] MEDS: Parenteral Nutrition 1,440 ML 60 ML IV (21:43)
[2023-12-19] VITALS (7 sets, daily range): BP systolic 126–158; BP diastolic 70–77; PULSE 72–86; RESP 16–18; TEMP 36–36.6; O2SAT 96–98
[2023-12-19] MEDS: Heparin Sodium,Porcine Flush 50 UNITS/5 ML SYRINGE IVFLUSH (00:24)
[2023-12-19] MEDS: PYRIDOSTIGMINE BROMIDE 2 MG IVPUSH ×6 (00:25→18:31)
[2023-12-19] MEDS: Albuterol/Iprat 2.5/0.5MG 3 ML AMPUL.NEB INHALE ×2 (06:31→22:32)
[2023-12-19 06:40] LABS: Alanine Aminotransferase 41 U/L (0-31); Albumin Level 3.4 g/dL (3.5-5.0); Alkaline Phosphatase 44 U/L (39-117); Anion Gap 8 (12-20); Aspartate Amino Transferase 20 U/L (5-31); Bilirubin Total 1.2 mg/dL (0.0-1.0); Blood Urea Nitrogen 23 mg/dL (9-16); Calcium 8.6 mg/dL (8.4-10.2); Carbon Dioxide 25 mmol/L (22-29); Chloride 109 mmol/L (96-108); Creatinine Clr Calc Pharmacy 46.8; Estimated Glomerular Filt Rate > 60; Glucose Random 73 mg/dL (60-115); Magnesium 2.1 mg/dL (1.6-2.6); Phosphorus 3.4 mg/dL (2.7-4.5); Potassium 4.2 mmol/L (3.3-5.1); Sodium 138 mmol/L (135-145)
--- NOTE | 2023-12-19 08:58 | PC.RT ---
VC 1.28L NIF -[id number]
--- NOTE | 2023-12-19 12:27 | P.PNIM_ITS ---
Subjective Subjective Date of Service: 12/19/23 Interval History: seen and evaluated this morning feels little stronger overall but remains weak and having difficulties clearing her throat NPO finishing 5th day of IVIG Review of Systems Review of Systems: Yes all other systems are reviewed and are negative Physical Exam 2 Vital Signs: Vital Signs: Last Vital Signs Temp 96.8 F 12/19/23 07:44 Pulse 72 12/19/23 07:44 Resp 18 12/19/23 07:44 BP 158/77 H 12/19/23 07:44 Pulse Ox 97 12/19/23 07:44 O2 Del Method Room Air 12/19/23 07:44 BMI result Body Mass Index 21.2 Const: Other: General sitting comfortably in no acute distress. Neck supple no JVD. CVS regular rate rhythm, Respiratory lungs clear to auscultation, no respiratory distress, no wheeze, no rhonchi. Gastrointestinal abdomen soft, non tender, bowel sounds audible, no guarding , no rigidity. Extremities no edema. Neuro alert oriented x3, moving all 4 extremity, nasal speech improved Skin no rash. dry mucosa Objective Data Active Medications Acetaminophen (Acetaminophen 325 Mg Tablet) 650 mg PO Q6H PRN PRN Reason: Pain, Mild (Pain Scale 1-3) Acetaminophen (Acetaminophen 325 Mg Tablet) 650 mg PO DAILY@1500 AME Stop: 12/19/23 15:01 Last Admin: 12/18/23 15:58 Dose: Not Given Documented By: JAVY Non-Admin Reason: unable to swallow Albuterol/Ipratropium (Albuterol/Iprat 2.5/0.5mg 3 Ml Ampul.Neb) 3 ml INHALE Q4H PRN PRN Reason: sob Last Admin: 12/19/23 06:31 Dose: 3 ml Documented By: LEYLA Artificial Tears (Artificial Tears 15 Ml Drops) 2 drop EYE-RIGHT Q4H PRN PRN Reason: Dry Eyes Diazepam (Diazepam 10 Mg/2 Ml Cartridge) 2.5 mg IVPUSH Q8H PRN PRN Reason: Anxiety Last Admin: 12/18/23 18:45 Dose: 2.5 mg Documented By: JAVY Diphenhydramine HCl (Diphenhydramine Hcl 50 Mg/Ml Vial) 25 mg IVPUSH DAILY@1500 AME Stop: 12/19/23 15:01 Last Admin: 12/18/23 15:51 Dose: 25 mg Documented By: JAVY Enoxaparin Sodium (Enoxaparin Sodium 40 Mg/0.4 Ml Syringe) 40 mg SUBCUT Q24H [facility] Last Admin: 12/18/23 15:50 Dose: 40 mg Documented By: JAVY Heparin Sodium (Porcine) (Heparin Sodium,Porcine Flush 50 Units/5 Ml Syringe) 50 units IVFLUSH QSHIFT [facility] Last Admin: 12/19/23 10:17 Dose: Not Given Documented By: PETER Non-Admin Reason: IV Running Hydralazine HCl (Hydralazine Hcl 20 Mg/Ml Vial) 2.5 mg IVPUSH Q6H PRN; Protocol PRN Reason: SBP > 160 Immune Globulin (Gammagard 10%) 200 mls @ 25 mls/hr IV DAILY@1600 [facility] Stop: 12/19/23 23:59 Last Infusion: 12/19/23 00:14 Dose: Infused Documented By: ANTOIC Sodium Chloride (Ns) 100 mls @ 200 mls/hr IV DAILY@1500 [facility] Stop: 12/19/23 15:29 Last Infusion: 12/18/23 16:33 Dose: Infused Documented By: JAVY Nutrition (Parenteral) (Parenteral Nutrition) 1,440 mls @ 60 mls/hr IV .Q24H [facility]; Protocol Stop: 12/19/23 20:59 Last Admin: 12/18/23 21:43 Dose: 60 mls/hr Documented By: MARIELA Nutrition (Parenteral) (Parenteral Nutrition) 1,440 mls @ 60 mls/hr IV .Q24H [facility]; Protocol Stop: 12/20/23 20:59 Non-Formulary Medication (Timolol Maleate) 1 drop EYE-RIGHT DAILY [facility] Ondansetron HCl (Ondansetron Hcl 4 Mg/2 Ml Vial) 4 mg IVPUSH Q8H PRN PRN Reason: Nausea and Vomiting Pharmacy Consult (Consult Rx Parenteral Nutrition Ordering) 1 each MISCELLANE DAILY PRN PRN Reason: Consult order Prednisone (Prednisone 20 Mg Tablet) 20 mg PO DAILY [facility] Last Admin: 12/19/23 08:49 Dose: Not Given Documented By: PETROS Non-Admin Reason: NPO Pyridostigmine [place] (Pyridostigmine [place] 10 Mg/2 Ml Ampul) 2 mg IVPUSH Q4H [facility] Last Admin: 12/19/23 11:26 Dose: 2 mg Documented By: PETER Senna (Sennosides 8.6 Mg Tablet) 17.2 mg PO BEDTIME PRN PRN Reason: Constipation Sodium Chloride (0.9 % Sodium Chloride Flush 3 Ml Syringe) 3 ml IVFLUSH QSHIFT [facility] Last Admin: 12/19/23 10:17 Dose: Not Given Documented By: PETER Non-Admin Reason: IV Running Labs 12/16/23 04:55 12/19/23 05:59 Labs: Laboratory Results - last 24 hr 12/19/23 05:59 Hold Purple Top SEE NOTE Anion Gap 8 L Estim Creat Clear Calc 46.8 Estimated GFR > 60 Random Glucose 73 Calcium 8.6 Phosphorus 3.4 Magnesium 2.1 Total Bilirubin 1.2 H AST 20 ALT 41 H Alkaline Phosphatase 44 Total Protein 8.0 Albumin 3.4 L Assessment and Plan (1) Myasthenia gravis with exacerbation: Status: Acute Plan 83 year old female with history of myasthenia gravis predominantly oropharyngeal symptoms, osteoporosis, bile salt induced diarrhea admitted for myasthnia gravis flare. #Myasthenia gravis flare- primarily oropharyngeal symptoms speech clear today, unable to clear secretions- suction prn IVIG (400mg/kg) x D5/5 days per neurology hold po meds 100mg IV solumedrol daily x 3/3 days, continue IV 40 mg daily , change to PO 20 mg once tolerated continue IV pyridoxtigmin ,IV Valium, FVC/NIF tid PATIENT AMBASSADOR recommend NPO, on PPN D4 Neurology they agreed with above treatment plan continue outpatient iv Vyvgart 480mg Q weekly picc line for medication administration as needed nebulizer/as needed suctioning #HTN IV hydralazine 2.5mg prn sbp >160. Hold home medication amlodipine due to npo # acute hypokalemia potassium resolved with iv repletion. Follow lytes dvt prophyalxis- lovenox full code pt requires continued inpatient hospitalization for IVIG therapy and IV steroids and PPN due to myasthenia gravis flare which is restricting PO intake and therefore cannot safely be administered on outpt basis at this time Quality Stroke Does the patient have a stroke diagnosis?: No VTE Prior VTE?: No VTE Risk Level:: Medical - moderate - high VTE Device Contraindication: Treatment Not Indicated VTE Drug Contraindication: N/A - Med Ordered
[2023-12-19] MEDS: Enoxaparin Sodium 40 MG/0.4 ML SYRINGE SUBCUT (14:23)
[2023-12-19] MEDS: methylPREDNISolone Sod Succ 40 MG/ML VIAL IVPUSH (14:23)
[2023-12-19] MEDS: diphenhydrAMINE HCL 50 MG/ML VIAL 25 MG IVPUSH (16:06)
[2023-12-19] MEDS: Immun Glob G(IgG)/Gly/IGA Ov50 200 ML IV (16:46)
[2023-12-19] MEDS: diazePAM 10 MG/2 ML CARTRIDGE 2.5 MG IVPUSH (17:11)
[2023-12-19] MEDS: Parenteral Nutrition 1,440 ML 60 ML IV (20:20)
[2023-12-20] MEDS: Heparin Sodium,Porcine Flush 50 UNITS/5 ML SYRINGE IVFLUSH ×3 (00:03→17:03)
[2023-12-20] MEDS: PYRIDOSTIGMINE BROMIDE 2 MG IVPUSH ×7 (00:03→23:10)
[2023-12-20] MEDS: diazePAM 10 MG/2 ML CARTRIDGE 2.5 MG IVPUSH ×3 (00:04→20:48)
--- NOTE | 2023-12-20 00:04 | PC.NURSE ---
pt was extremely anxious and agitated. Gave her an early dose so that she could settle down and attempt to go to sleep.
[2023-12-20] MEDS: 0.9 % Sodium Chloride Flush 3 ML SYRINGE IVFLUSH (00:24)
[2023-12-20 03:21] VITALS: BP 126/82; PULSE 85; RESP 18; TEMP 36.3; O2SAT 96
[2023-12-20 06:19] LABS: Hematocrit 43.4 % (37.0-47.0); Hemoglobin 14.5 g/dl (12.0-16.0); Mean Corpuscular HGB Conc 33.4 g/dl (31.0-35.0); Mean Corpuscular Hemoglobin 32.3 pg (27.0-33.0); Mean Corpuscular Volume 96.7 fL (80.0-98.0); Mean Platelet Volume 8.8 fL (9.4-12.3); Platelet Count 148 X10*3/uL (160-400); Red Blood Count 4.49 X10*6/uL (4.20-5.50); Red Cell Distribution Width 13.4 % (11.0-16.0); White Blood Count 10.3 X10*3/uL (4.8-10.8)
[2023-12-20] MEDS: Albuterol/Iprat 2.5/0.5MG 3 ML AMPUL.NEB INHALE (06:22)
[2023-12-20 06:23] VITALS: PULSE 85; RESP 18; O2SAT 97
[2023-12-20 06:50] LABS: Alanine Aminotransferase 39 U/L (0-31); Albumin Level 3.2 g/dL (3.5-5.0); Alkaline Phosphatase 44 U/L (39-117); Anion Gap 11 (12-20); Aspartate Amino Transferase 22 U/L (5-31); Bilirubin Total 1.2 mg/dL (0.0-1.0); Blood Urea Nitrogen 25 mg/dL (9-16); Calcium 8.4 mg/dL (8.4-10.2); Carbon Dioxide 23 mmol/L (22-29); Chloride 107 mmol/L (96-108); Creatinine Clr Calc Pharmacy 45.2; Estimated Glomerular Filt Rate > 60; Glucose Random 104 mg/dL (60-115); Magnesium 2.1 mg/dL (1.6-2.6); Phosphorus 3.9 mg/dL (2.7-4.5); Potassium 4.6 mmol/L (3.3-5.1); Sodium 136 mmol/L (135-145)
[2023-12-20 06:55] LABS: Anion Gap 9 (12-20); Blood Urea Nitrogen 25 mg/dL (9-16); Calcium 8.4 mg/dL (8.4-10.2); Carbon Dioxide 23 mmol/L (22-29); Chloride 109 mmol/L (96-108); Creatinine Clr Calc Pharmacy 45.9; Estimated Glomerular Filt Rate > 60; Glucose Random 102 mg/dL (60-115); Potassium 4.5 mmol/L (3.3-5.1); Sodium 136 mmol/L (135-145); Triglycerides 108 mg/dL (<150)
[2023-12-20 08:00] VITALS: BP 139/80; PULSE 94; RESP 16; TEMP 36.2; O2SAT 98
--- NOTE | 2023-12-20 10:28 | P.PNIM_ITS ---
Subjective Subjective Date of Service: 12/20/23 Interval History: seen and evaluated this morning feels stronger overall and her voice and speech louder and stronger still reporting concerns swallowing but her throat is clearer NPO still finished 5th day of IVIG Review of Systems Review of Systems: Yes all other systems are reviewed and are negative Physical Exam 2 Vital Signs: Vital Signs: Last Vital Signs Temp 97.2 F 12/20/23 08:00 Pulse 94 12/20/23 08:00 Resp 16 12/20/23 08:00 BP 139/80 12/20/23 08:00 Pulse Ox 98 12/20/23 08:00 O2 Del Method Room Air 12/20/23 08:00 BMI result Body Mass Index 21.2 Const: Other: General sitting comfortably in no acute distress. Neck supple no JVD. CVS regular rate rhythm, Respiratory lungs clear to auscultation, no respiratory distress, no wheeze, no rhonchi. Gastrointestinal abdomen soft, non tender, bowel sounds audible, no guarding , no rigidity. Extremities no edema. Neuro alert oriented x3, moving all 4 extremity, nasal speech improved Skin no rash. dry mucosa Objective Data Active Medications Acetaminophen (Acetaminophen 325 Mg Tablet) 650 mg PO Q6H PRN PRN Reason: Pain, Mild (Pain Scale 1-3) Albuterol/Ipratropium (Albuterol/Iprat 2.5/0.5mg 3 Ml Ampul.Neb) 3 ml INHALE Q4H PRN PRN Reason: sob Last Admin: 12/20/23 06:22 Dose: 3 ml Documented By: LEYLA Artificial Tears (Artificial Tears 15 Ml Drops) 2 drop EYE-RIGHT Q4H PRN PRN Reason: Dry Eyes Diazepam (Diazepam 10 Mg/2 Ml Cartridge) 2.5 mg IVPUSH Q8H PRN PRN Reason: Anxiety Last Admin: 12/20/23 00:04 Dose: 2.5 mg Documented By: ZAIDA Comments: pt extremely anxious Enoxaparin Sodium (Enoxaparin Sodium 40 Mg/0.4 Ml Syringe) 40 mg SUBCUT Q24H [facility] Last Admin: 12/19/23 14:23 Dose: 40 mg Documented By: BRODerek Heparin Sodium (Porcine) (Heparin Sodium,Porcine Flush 50 Units/5 Ml Syringe) 50 units IVFLUSH QSHIFT [facility] Last Admin: 12/20/23 07:59 Dose: 50 units Documented By: PETER Hydralazine HCl (Hydralazine Hcl 20 Mg/Ml Vial) 2.5 mg IVPUSH Q6H PRN; Protocol PRN Reason: SBP > 160 Nutrition (Parenteral) (Parenteral Nutrition) 1,440 mls @ 60 mls/hr IV .Q24H [facility]; Protocol Stop: 12/20/23 20:59 Last Admin: 12/19/23 20:20 Dose: 60 mls/hr Documented By: ZAIDA Methylprednisolone Sodium Succinate (Methylprednisolone Sod Succ 40 Mg/Ml Vial) 40 mg IVPUSH Q24H [facility] Last Admin: 12/19/23 14:23 Dose: 40 mg Documented By: PETER Non-Formulary Medication (Timolol Maleate) 1 drop EYE-RIGHT DAILY [facility] Ondansetron HCl (Ondansetron Hcl 4 Mg/2 Ml Vial) 4 mg IVPUSH Q8H PRN PRN Reason: Nausea and Vomiting Pharmacy Consult (Consult Rx Parenteral Nutrition Ordering) 1 each MISCELLANE DAILY PRN PRN Reason: Consult order Pyridostigmine [place] (Pyridostigmine [place] 10 Mg/2 Ml Ampul) 2 mg IVPUSH Q4H [facility] Last Admin: 12/20/23 07:58 Dose: 2 mg Documented By: PETER Senna (Sennosides 8.6 Mg Tablet) 17.2 mg PO BEDTIME PRN PRN Reason: Constipation Sodium Chloride (0.9 % Sodium Chloride Flush 3 Ml Syringe) 3 ml IVFLUSH [facility] Last Admin: 12/20/23 08:00 Dose: Not Given Documented By: PETER Non-Admin Reason: IV Running Labs 12/20/23 06:00 12/20/23 06:00 Labs: Laboratory Results - last 24 hr 12/20/23 12/20/23 12/20/23 06:00 06:00 06:00 MCV 96.7 MCH 32.3 MCHC 33.4 RDW 13.4 Plt Count 148 L D MPV 8.8 L Absolute Nucleated RBC 0.000 Nucleated RBC % (auto) 0.0 Anion Gap 11 L 9 L Estim Creat Clear Calc 45.2 45.9 Estimated GFR > 60 Random Glucose Calcium Phosphorus Magnesium Total Bilirubin AST ALT Alkaline Phosphatase Total Protein Albumin Triglycerides 12/20/23 12/20/23 12/20/23 06:00 06:00 06:00 MCV MCH MCHC RDW Plt Count MPV Absolute Nucleated RBC Nucleated RBC % (auto) Anion Gap Estim Creat Clear Calc Estimated GFR > 60 Random Glucose 104 102 Calcium 8.4 8.4 Phosphorus 3.9 Magnesium 2.1 Total Bilirubin 1.2 H AST 22 ALT 39 H Alkaline Phosphatase 44 Total Protein 8.0 Albumin 3.2 L Triglycerides 108 Assessment and Plan (1) Myasthenia gravis with exacerbation: Status: Acute (2) Swallowing problem: Status: Acute Plan 83 year old female with history of myasthenia gravis predominantly oropharyngeal symptoms, osteoporosis, bile salt induced diarrhea admitted for myasthnia gravis flare. #Myasthenia gravis flare- primarily oropharyngeal symptoms speech clear today, unable to clear secretions- suction prn picc line placed for medication administration Finished IVIG (400mg/kg) x D5/5 days per neurology hold po meds DC 100mg IV solumedrol daily x 3/3 days, Now on IV 40 mg daily , change to PO 20 mg once tolerated continue IV pyridoxtigmin ,IV Valium, FVC/NIF tid CONTROL SYSTEMS SPECIALIST recommend NPO, onPPN D5 Neurology should be contacted for follow for further recommendations if needed continue outpatient iv Vyvgart 480mg Q weekly as needed nebulizer/as needed suctioning CONTROL SYSTEMS SPECIALIST to follow #HTN IV hydralazine 2.5mg prn sbp >160. Hold home medication amlodipine due to npo # acute hypokalemia potassium resolved with iv repletion. Follow lytes dvt prophyalxis- lovenox full code pt requires continued inpatient hospitalization for IVIG therapy and IV steroids and PPN due to myasthenia gravis flare which is restricting PO intake and therefore cannot safely be administered on outpt basis at this time Quality Stroke Does the patient have a stroke diagnosis?: No VTE Prior VTE?: No VTE Risk Level:: Medical - moderate - high VTE Device Contraindication: Treatment Not Indicated VTE Drug Contraindication: N/A - Med Ordered
[2023-12-20] MEDS: methylPREDNISolone Sod Succ 40 MG/ML VIAL IVPUSH (12:29)
[2023-12-20] MEDS: Enoxaparin Sodium 40 MG/0.4 ML SYRINGE SUBCUT (15:00)
[2023-12-20 15:04] VITALS: BP 111/80; PULSE 100; RESP 16; TEMP 36.4; O2SAT 97
[2023-12-20 19:31] VITALS: BP 113/75; PULSE 82; RESP 17; TEMP 36.5; O2SAT 96
[2023-12-20] MEDS: Parenteral Nutrition 1,440 ML 60 ML IV (20:36)
[2023-12-21] MEDS: Heparin Sodium,Porcine Flush 50 UNITS/5 ML SYRINGE IVFLUSH ×4 (01:16→22:55)
[2023-12-21] MEDS: 0.9 % Sodium Chloride Flush 3 ML SYRINGE IVFLUSH ×4 (01:16→22:55)
[2023-12-21] MEDS: PYRIDOSTIGMINE BROMIDE 2 MG IVPUSH ×6 (01:16→22:54)
[2023-12-21 03:12] VITALS: BP 123/74; PULSE 71; RESP 18; TEMP 36.2; O2SAT 97
[2023-12-21 05:50] VITALS: PULSE 75; RESP 18; O2SAT 98
[2023-12-21 07:24] LABS: Alanine Aminotransferase 74 U/L (0-31); Albumin Level 3.2 g/dL (3.5-5.0); Alkaline Phosphatase 47 U/L (39-117); Anion Gap 11 (12-20); Aspartate Amino Transferase 42 U/L (5-31); Bilirubin Total 1.3 mg/dL (0.0-1.0); Blood Urea Nitrogen 27 mg/dL (9-16); Calcium 8.5 mg/dL (8.4-10.2); Carbon Dioxide 23 mmol/L (22-29); Chloride 107 mmol/L (96-108); Creatinine Clr Calc Pharmacy 48.3; Estimated Glomerular Filt Rate > 60; Glucose Random 124 mg/dL (60-115); Magnesium 2.2 mg/dL (1.6-2.6); Phosphorus 3.8 mg/dL (2.7-4.5); Potassium 4.8 mmol/L (3.3-5.1); Sodium 136 mmol/L (135-145); Total Protein 7.7 g/dL (6.5-8.0)
[2023-12-21 07:27] VITALS: BP 117/74; PULSE 110; RESP 18; TEMP 36.4; O2SAT 98
--- NOTE | 2023-12-21 10:39 | MHC.CLN ---
F/U CONTINUES NPO WITH TPN FOR NUTRITION/HYDRATION. LABS REVIEWED. COMMUNICATED WITH PHARMACY. RECOMMEND CONTINUE TPN AT MAX GOAL RATE: 60 ML PER HOUR, 41 G LIPIDS, 72 G PROTEIN (1.5 G/KG), 216 G DEXTROSE, 1432 TOTAL KCALS (30 KCALS/KG). REPLETE LYTES NEEDED. SKIN WITH UNSTAGEABLE AREA TO SACRUM. TPN PROVIDING ADEQUATE PROTEIN TO PROMOTE WOUND HEALING. FOLLOW FOR TPN TOLERANCE, SKIN INTEGRITY, AND DIET ADVANCEMENT.
--- NOTE | 2023-12-21 11:05 | MHC.CM.PN ---
EMR reviewed. Per MD rounds patient not medically cleared for dc. PT eval is pending. CM will continue to follow for dc needs.
[2023-12-21] MEDS: methylPREDNISolone Sod Succ 40 MG/ML VIAL IVPUSH (11:49)
[2023-12-21] MEDS: diazePAM 10 MG/2 ML CARTRIDGE 2.5 MG IVPUSH ×2 (12:06→20:52)
--- NOTE | 2023-12-21 14:02 | P.PNIM_ITS ---
Subjective Subjective Date of Service: 12/21/23 Interval History: Being followed for myasthenia gravis flare. Feeling better this morning with clear speech, failed swallow eval this morning, eager to ambulate, denies shortness of breath, still having difficulty clearing throat, no overnight acute events, no fevers, no chills, no nausea, no vomiting.. Review of Systems All other system reviewed and negative.. Physical Exam 2 Vital Signs: Vital Signs: Last Vital Signs Temp 97.6 F 12/21/23 07:27 Pulse 110 H 12/21/23 07:27 Resp 18 12/21/23 07:27 BP 117/74 12/21/23 07:27 Pulse Ox 98 12/21/23 07:27 O2 Del Method Room Air 12/21/23 07:27 BMI result Body Mass Index 21.2 Const: Other: General sitting comfortably in no acute distress. Neck supple no JVD. CVS regular rate rhythm, Respiratory lungs clear to auscultation, no respiratory distress, no wheeze, no rhonchi. Gastrointestinal abdomen soft, non tender, bowel sounds audible, no guarding , no rigidity. Extremities no edema. Neuro alert oriented x3, moving all 4 extremity, clear speech Skin no rash Psych appropriate affect Objective Data Active Medications Acetaminophen (Acetaminophen 325 Mg Tablet) 650 mg PO Q6H PRN PRN Reason: Pain, Mild (Pain Scale 1-3) Albuterol/Ipratropium (Albuterol/Iprat 2.5/0.5mg 3 Ml Ampul.Neb) 3 ml INHALE Q4H PRN PRN Reason: sob Last Admin: 12/20/23 06:22 Dose: 3 ml Documented By: LEYLA Artificial Tears (Artificial Tears 15 Ml Drops) 2 drop EYE-RIGHT Q4H PRN PRN Reason: Dry Eyes Diazepam (Diazepam 10 Mg/2 Ml Cartridge) 2.5 mg IVPUSH Q8H PRN PRN Reason: Anxiety Last Admin: 12/21/23 12:06 Dose: 2.5 mg Documented By: JACEY Enoxaparin Sodium (Enoxaparin Sodium 40 Mg/0.4 Ml Syringe) 40 mg SUBCUT Q24H [facility] Last Admin: 12/20/23 15:00 Dose: 40 mg Documented By: BRODerek Heparin Sodium (Porcine) (Heparin Sodium,Porcine Flush 50 Units/5 Ml Syringe) 50 units IVFLUSH QSHIFT [facility] Last Admin: 12/21/23 08:04 Dose: 50 units Documented By: JACEY Hydralazine HCl (Hydralazine Hcl 20 Mg/Ml Vial) 2.5 mg IVPUSH Q6H PRN; Protocol PRN Reason: SBP > 160 Nutrition (Parenteral) (Parenteral Nutrition) 1,440 mls @ 60 mls/hr IV .Q24H [facility]; Protocol Stop: 12/21/23 20:59 Last Admin: 12/20/23 20:36 Dose: 60 mls/hr Documented By: DOBROB Nutrition (Parenteral) (Parenteral Nutrition) 1,440 mls @ 60 mls/hr IV .Q24H [facility]; Protocol Stop: 12/22/23 20:59 Methylprednisolone Sodium Succinate (Methylprednisolone Sod Succ 40 Mg/Ml Vial) 40 mg IVPUSH Q24H [facility] Last Admin: 12/21/23 11:49 Dose: 40 mg Documented By: JACEY Non-Formulary Medication (Timolol Maleate) 1 drop EYE-RIGHT DAILY [facility] Ondansetron HCl (Ondansetron Hcl 4 Mg/2 Ml Vial) 4 mg IVPUSH Q8H PRN PRN Reason: Nausea and Vomiting Pharmacy Consult (Consult Rx Parenteral Nutrition Ordering) 1 each MISCELLANE DAILY PRN PRN Reason: Consult order Pyridostigmine [place] (Pyridostigmine [place] 10 Mg/2 Ml Ampul) 2 mg IVPUSH Q4H [facility] Last Admin: 12/21/23 11:49 Dose: 2 mg Documented By: JACEY Senna (Sennosides 8.6 Mg Tablet) 17.2 mg PO BEDTIME PRN PRN Reason: Constipation Sodium Chloride (0.9 % Sodium Chloride Flush 3 Ml Syringe) 3 ml IVFLUSH QSOHFT [facility] Last Admin: 12/21/23 08:07 Dose: 3 ml Documented By: JACEY Labs 12/20/23 06:00 12/21/23 05:53 Labs: Laboratory Results - last 24 hr 12/21/23 05:53 Hold Purple Top SEE NOTE Anion Gap 11 L Estim Creat Clear Calc 48.3 Estimated GFR > 60 Random Glucose 124 H Calcium 8.5 Phosphorus 3.8 Magnesium 2.2 Total Bilirubin 1.3 H AST 42 H ALT 74 H Alkaline Phosphatase 47 Total Protein 7.7 Albumin 3.2 L Assessment and Plan (1) Myasthenia gravis with exacerbation: Status: Acute (2) Swallowing problem: Status: Acute Plan 83 year old female with history of myasthenia gravis predominantly oropharyngeal symptoms, osteoporosis, bile salt induced diarrhea admitted for myasthnia gravis flare. #Myasthenia gravis flare- primarily oropharyngeal symptoms speech clear today, unable to clear secretions, continue as needed suctioning picc line placed for medication administration Finished IVIG (400mg/kg) x 5 days s/p 100mg IV solumedrol daily x 3 days, now on IV prednisone 40 mg daily, will transition to prednisone 20 mg by mouth daily once able to tolerate by mouth continue IV pyridoxtigmin ,IV Valium, FVC/NIF tid PREMIUM CANCELLATION CLERK recommend NPO, continue IV PPN continue outpatient iv Vyvgart 480mg Q weekly PREMIUM CANCELLATION CLERK to follow Recommend to ambulate with walker as tolerated #HTN Stable BP on IV hydralazine 2.5mg prn sbp >160. Hold home medication amlodipine due to npo # acute hypokalemia resolved with iv repletion. Follow lytes dvt prophyalxis- lovenox full code pt requires continued inpatient hospitalization for IV steroids and PPN due to myasthenia gravis flare which is restricting PO intake and therefore cannot be discharged home since unable to take by mouth medications and diet. Quality Stroke Does the patient have a stroke diagnosis?: No VTE Prior VTE?: No VTE Risk Level:: Medical - moderate - high VTE Device Contraindication: Treatment Not Indicated VTE Drug Contraindication: N/A - Med Ordered
[2023-12-21] MEDS: Enoxaparin Sodium 40 MG/0.4 ML SYRINGE SUBCUT (15:05)
[2023-12-21 15:39] VITALS: BP 106/71; PULSE 80; RESP 14; TEMP 36.6; O2SAT 95
--- NOTE | 2023-12-21 17:16 | MHC.SL.SWA ---
Speech Pathologist Impression: Risk of aspiration, oropharyngeal dysphagia Risk of Aspiration Due to: Neurological Condition Poor PO Intake Weak Cough Dysphasia Diet Status: No change at this time Liquid Consistency and Strategies for Safe Swallow: Liquid Intake Recommendation: NPO Solid Food Consistency: Dietary Recommendations: NPO Additional Modifications to Solid Foods: Patient was seen this morning for dysphagia treatment. Note improvement in oral motor strength. Patient was able to elicit swallow, with reduced laryngeal elevation, multiple swallow attempts, gurgling and throat clearing. Recommend continue NPO at this time as patient continues to present overt s/s of aspiration and exhibits difficulty managing her own secretions. Oral Medication Intake: NPO Please contact the pharmacy regarding appropriate crushable or liquid drug formulations that are available whenever modified delivery is recommended. Supervision While Eating and Drinking for Safe Swallow: PO with MATERIAL HANDLER FLOORPERSON Swallowing Recommended Treatments: Thermal Stimulation, Gustatory Stimulation, Compens. Strategy Educat. Recommendation for Speech: Further Testing Needed Inpatient Speech Therapy Modified Barium Swallow Study - Inpatient Modified Barium Swallow Study - Outpatient Velvet Steamer Clinican/Clinical Fellow: No Supervisory Statement: I have reviewed and agree with the student/clinical fellow's documentation: N/A Speech Language Pathologist: Maral Hewitt M.A., [facility]-MATERIAL HANDLER FLOORPERSON
[2023-12-21 19:33] VITALS: BP 139/93; PULSE 94; RESP 16; TEMP 36.2; O2SAT 97
[2023-12-21] MEDS: Parenteral Nutrition 1,440 ML 60 ML IV (20:54)
[2023-12-22 02:31] VITALS: BP 129/81; PULSE 78; RESP 16; TEMP 36.8; O2SAT 97
[2023-12-22] MEDS: PYRIDOSTIGMINE BROMIDE 2 MG IVPUSH ×6 (03:00→23:28)
[2023-12-22 06:00] VITALS: PULSE 74; RESP 16; O2SAT 97
[2023-12-22] MEDS: Albuterol/Iprat 2.5/0.5MG 3 ML AMPUL.NEB INHALE (06:00)
[2023-12-22 07:27] VITALS: BP 114/67; PULSE 76; RESP 16; TEMP 36; O2SAT 97
[2023-12-22] MEDS: Heparin Sodium,Porcine Flush 50 UNITS/5 ML SYRINGE IVFLUSH ×2 (07:41→15:27)
[2023-12-22] MEDS: 0.9 % Sodium Chloride Flush 3 ML SYRINGE IVFLUSH ×2 (07:41→15:27)
[2023-12-22 09:18] VITALS: BP 114/67; PULSE 76; O2SAT 97
[2023-12-22 09:36] LABS: Alanine Aminotransferase 98 U/L (0-31); Albumin Level 3.2 g/dL (3.5-5.0); Alkaline Phosphatase 49 U/L (39-117); Anion Gap 12 (12-20); Aspartate Amino Transferase 44 U/L (5-31); Bilirubin Total 1.2 mg/dL (0.0-1.0); Blood Urea Nitrogen 27 mg/dL (9-16); Calcium 8.7 mg/dL (8.4-10.2); Carbon Dioxide 22 mmol/L (22-29); Chloride 108 mmol/L (96-108); Creatinine Clr Calc Pharmacy 51.9; Estimated Glomerular Filt Rate > 60; Glucose Random 94 mg/dL (60-115); Phosphorus 3.4 mg/dL (2.7-4.5); Potassium 4.2 mmol/L (3.3-5.1); Sodium 138 mmol/L (135-145); Total Protein 7.3 g/dL (6.5-8.0)
[2023-12-22] MEDS: diazePAM 10 MG/2 ML CARTRIDGE 2.5 MG IVPUSH ×2 (12:36→20:36)
[2023-12-22] MEDS: methylPREDNISolone Sod Succ 40 MG/ML VIAL IVPUSH (12:37)
--- NOTE | 2023-12-22 14:03 | MHC.SL.DTX ---
Dysphagia Diet modifications: Last documented Solid diet consistencies: NPO Last documented Liquid consistency: NPO Changes made to current diet?: No Liquid Consistency and Strategies: Liquid Intake Recommendation: NPO Solid Food Consistency: Dietary Recommendations: NPO Additional Modifications to Solids: Patient was seen this morning for dysphagia treatment. Note improvement in oral motor strength. Patient was able to elicit swallow, with reduced laryngeal elevation, multiple swallow attempts, gurgling and throat clearing. Recommend continue NPO at this time as patient continues to present overt s/s of aspiration and exhibits difficulty managing her own secretions. Oral Medication Intake: NPO Supervision While Eating and/Drinking: PO with CONCRETE PANEL INSTALLER Foods to Avoid: Swallowing Recommended Treatments: Thermal Stimulation Gustatory Stimulation Compens. Strategy Educat. Recommendation for Speech: Further Testing Needed Inpatient Speech Therapy Modified Barium Swallow Study - Inpatient Modified Barium Swallow Study - Outpatient Comment: Recommend continue NPO. Patient does not appear to be eliciting a swallow response and presents w/ s/s aspiration with trace amount of water via teaspoon and toothette. Patient refusing to do further testing for swallow until her meds arrive (IV IG?). CONCRETE PANEL INSTALLER to visit for re-eval tomorrow. Patient may benefit from MBS to further evaluate swallow inpatient vs. outpatient. Patient's report of baseline diet and hx of swallow eval/tx are inconsistent. Additional Comments: Patient is admitted for exacerbation of MG with primarily oropharyngeal symptoms including difficulty swallowing and impaired speech. Per MD, patient has been unable to clear secretions. She was recommended by CONCRETE PANEL INSTALLER to remain NPO on 12/15 after she was unable to elicit a swallow. Treatment: Pt is reclined in her chair on arrival in good spirits. She states that she feels better today, that her voice and speech are stronger. She is supportive of trialing PO. She tolerated 10/10 ice chips, one at a time with no overt s/s of aspiration. She tolerated 1 of 2 spoon sips of Thin Liquids, but coughed after her second trial. Pt was provided Puree Solids and was able to swallow, however she developed wet gurgly vocal quality suspicious for pharyngeal retention. She states that she takes her Puree Solids with water at home. She is given another bite of Puree and a cup of water which she self administers, however resulting in an immediate cough. No further trials attempted today. CONCRETE PANEL INSTALLER discussed signs of progress, increased tolerance of Ice Chips and ability to initiate swallow with Puree Solids, along with progress in Speech/Articulation. Pt is in agreement to trial Ice Chips only for the remainder of today. CONCRETE PANEL INSTALLER will continue to follow Protozoology Teacher Clinican/Clinical Fellow: No Supervisory Statement: I have reviewed and agree with the student/clinical fellow's documentation: N/A Speech Language Pathologist: Luis Brady M.A., [facility]-CONCRETE PANEL INSTALLER
--- NOTE | 2023-12-22 14:31 | HO.PM.IMPN ---
Subjective Subjective Date of Service: 12/22/23 Interval History: Being followed for flare-up of myasthenia gravis, patient feels speech has improved but still unable to clear her secretions, has been ambulating in hallway with PT, denies lightheadedness, no dizziness, had multiple loose stools yesterday now resolved, no fevers, no chills, no shortness of breath. Review of Systems All other system reviewed and negative. Physical Exam Vital Signs: Vital Signs: Last Vital Signs Temp 96.8 F 12/22/23 07:27 Pulse 76 12/22/23 09:18 Resp 16 12/22/23 07:27 BP 114/67 12/22/23 09:18 Pulse Ox 97 12/22/23 09:18 O2 Del Method Room Air 12/22/23 07:27 BMI result Body Mass Index 21.2 Const: Other: General sitting comfortably in no acute distress. Neck supple no JVD. CVS regular rate rhythm, Respiratory lungs clear to auscultation, no respiratory distress, no wheeze, no rhonchi. Gastrointestinal abdomen soft, non tender, bowel sounds audible, no guarding , no rigidity. Extremities no edema. Neuro alert oriented x3, moving all 4 extremity, clear speech Skin no rash Psych appropriate affect Objective Data Active Medications Acetaminophen (Acetaminophen 325 Mg Tablet) 650 mg PO Q6H PRN PRN Reason: Pain, Mild (Pain Scale 1-3) Albuterol/Ipratropium (Albuterol/Iprat 2.5/0.5mg 3 Ml Ampul.Neb) 3 ml INHALE Q4H PRN PRN Reason: sob Last Admin: 12/22/23 06:00 Dose: 3 ml Documented By: LEYLA Artificial Tears (Artificial Tears 15 Ml Drops) 2 drop EYE-RIGHT Q4H PRN PRN Reason: Dry Eyes Diazepam (Diazepam 10 Mg/2 Ml Cartridge) 2.5 mg IVPUSH Q8H PRN PRN Reason: Anxiety Last Admin: 12/22/23 12:36 Dose: 2.5 mg Documented By: JACEY Enoxaparin Sodium (Enoxaparin Sodium 40 Mg/0.4 Ml Syringe) 40 mg SUBCUT Q24H [facility] Last Admin: 12/21/23 15:05 Dose: 40 mg Documented By: JACEY Heparin Sodium (Porcine) (Heparin Sodium,Porcine Flush 50 Units/5 Ml Syringe) 50 units IVFLUSH [facility] Last Admin: 12/22/23 07:41 Dose: 50 units Documented By: JACEY Hydralazine HCl (Hydralazine Hcl 20 Mg/Ml Vial) 2.5 mg IVPUSH Q6H PRN; Protocol PRN Reason: SBP > 160 Nutrition (Parenteral) (Parenteral Nutrition) 1,440 mls @ 60 mls/hr IV .Q24H [facility]; Protocol Stop: 12/22/23 20:59 Last Admin: 12/21/23 20:54 Dose: 60 mls/hr Documented By: ZAIDA Nutrition (Parenteral) (Parenteral Nutrition) 1,440 mls @ 60 mls/hr IV .Q24H [facility]; Protocol Stop: 12/23/23 20:59 Methylprednisolone Sodium Succinate (Methylprednisolone Sod Succ 40 Mg/Ml Vial) 40 mg IVPUSH Q24H [facility] Last Admin: 12/22/23 12:37 Dose: 40 mg Documented By: JACEY Ondansetron HCl (Ondansetron Hcl 4 Mg/2 Ml Vial) 4 mg IVPUSH Q8H PRN PRN Reason: Nausea and Vomiting Pharmacy Consult (Consult Rx Parenteral Nutrition Ordering) 1 each MISCELLANE DAILY PRN PRN Reason: Consult order Pyridostigmine [place] (Pyridostigmine [place] 10 Mg/2 Ml Ampul) 2 mg IVPUSH Q4H [facility] Last Admin: 12/22/23 11:22 Dose: 2 mg Documented By: JAVIER Senna (Sennosides 8.6 Mg Tablet) 17.2 mg PO BEDTIME PRN PRN Reason: Constipation Sodium Chloride (0.9 % Sodium Chloride Flush 3 Ml Syringe) 3 ml IVFLUSH [facility] Last Admin: 12/22/23 07:41 Dose: 3 ml Documented By: JACEY Labs 12/20/23 06:00 12/22/23 08:40 Labs: Laboratory Results - last 24 hr 12/22/23 08:40 Hold Purple Top Cancelled Anion Gap 12 Estim Creat Clear Calc 51.9 Estimated GFR > 60 Random Glucose 94 Calcium 8.7 Phosphorus 3.4 Magnesium 2.0 Total Bilirubin 1.2 H AST 44 H ALT 98 H Alkaline Phosphatase 49 Total Protein 7.3 Albumin 3.2 L Assessment and Plan (1) Myasthenia gravis with exacerbation: Status: Acute (2) Swallowing problem: Status: Acute Plan 83 year old female with history of myasthenia gravis predominantly oropharyngeal symptoms, osteoporosis, bile salt induced diarrhea admitted for myasthnia gravis flare. #Myasthenia gravis flare- primarily oropharyngeal symptoms speech clear today, unable to clear secretions, continue as needed suctioning picc line placed for medication administration Finished IVIG (400mg/kg) x 5 days s/p 100mg IV solumedrol daily x 3 days, now on IV prednisone 40 mg daily, will transition to prednisone 20 mg by mouth daily once able to tolerate by mouth continue IV pyridoxtigmin ,IV Valium, FVC/NIF tid GEOPHYSICAL MANAGER recommend NPO, continue IV PPN continue outpatient iv Vyvgart 480mg Q weekly GEOPHYSICAL MANAGER to follow Recommend to ambulate with walker as tolerated #HTN Stable BP on IV hydralazine 2.5mg prn sbp >160. Hold home medication amlodipine due to npo # acute hypokalemia resolved with iv repletion. Follow lytes dvt prophyalxis- lovenox full code pt requires continued inpatient hospitalization for IV steroids and PPN due to myasthenia gravis flare which is restricting PO intake and therefore cannot be discharged home since unable to take by mouth medications and diet. Quality Stroke Does the patient have a stroke diagnosis?: No VTE Prior VTE?: No VTE Risk Level:: Medical - moderate - high VTE Device Contraindication: Treatment Not Indicated VTE Drug Contraindication: N/A - Med Ordered
[2023-12-22] MEDS: Enoxaparin Sodium 40 MG/0.4 ML SYRINGE SUBCUT (15:27)
[2023-12-22 15:46] VITALS: BP 130/70; PULSE 80; RESP 14; TEMP 35.8; O2SAT 97
[2023-12-22 19:28] VITALS: BP 135/76; PULSE 85; RESP 16; TEMP 36.4; O2SAT 95
[2023-12-22] MEDS: Parenteral Nutrition 1,440 ML 60 ML IV (20:47)
[2023-12-23] MEDS: Heparin Sodium,Porcine Flush 50 UNITS/5 ML SYRINGE IVFLUSH ×4 (00:23→23:13)
[2023-12-23] MEDS: PYRIDOSTIGMINE BROMIDE 2 MG IVPUSH ×6 (02:52→23:12)
[2023-12-23 03:02] VITALS: BP 141/75; PULSE 64; RESP 16; TEMP 36.6; O2SAT 97
[2023-12-23 07:18] LABS: Alanine Aminotransferase 113 U/L (0-31); Albumin Level 2.9 g/dL (3.5-5.0); Alkaline Phosphatase 47 U/L (39-117); Anion Gap 10 (12-20); Aspartate Amino Transferase 49 U/L (5-31); Bilirubin Total 1.2 mg/dL (0.0-1.0); Blood Urea Nitrogen 22 mg/dL (9-16); Calcium 7.9 mg/dL (8.4-10.2); Carbon Dioxide 23 mmol/L (22-29); Chloride 110 mmol/L (96-108); Creatinine Clr Calc Pharmacy 53.9; Estimated Glomerular Filt Rate > 60; Glucose Random 72 mg/dL (60-115); Magnesium 1.9 mg/dL (1.6-2.6); Phosphorus 3.2 mg/dL (2.7-4.5); Potassium 3.9 mmol/L (3.3-5.1); Sodium 139 mmol/L (135-145); Total Protein 6.5 g/dL (6.5-8.0)
[2023-12-23 07:33] VITALS: BP 132/69; PULSE 74; RESP 18; TEMP 36; O2SAT 95
[2023-12-23] MEDS: Albuterol/Iprat 2.5/0.5MG 3 ML AMPUL.NEB INHALE (07:54)
[2023-12-23 07:57] VITALS: PULSE 90; RESP 16; O2SAT 98
[2023-12-23] MEDS: 0.9 % Sodium Chloride Flush 3 ML SYRINGE IVFLUSH ×3 (08:30→23:13)
--- NOTE | 2023-12-23 12:08 | PC.RT ---
VC 1.68L NIF -[id number]
[2023-12-23] MEDS: methylPREDNISolone Sod Succ 40 MG/ML VIAL IVPUSH (12:22)
[2023-12-23] MEDS: diazePAM 10 MG/2 ML CARTRIDGE 2.5 MG IVPUSH ×2 (12:25→21:07)
--- NOTE | 2023-12-23 12:31 | P.PNIM_ITS ---
Subjective Subjective Date of Service: 12/23/23 Interval History: Being followed for myasthenia gravis flare. Feeling better this morning voice is clear, denies secretions, able to tolerate ice chips, no shortness of breath, no weakness, has been ambulating in hallway with walker, no further bouts of diarrhea. Review of Systems All other system reviewed and negative Physical Exam 2 Vital Signs: Vital Signs: Last Vital Signs Temp 96.8 F 12/23/23 07:33 Pulse 90 12/23/23 07:57 Resp 16 12/23/23 07:57 BP 132/69 12/23/23 07:33 Pulse Ox 95 12/23/23 07:33 O2 Del Method Room Air 12/23/23 07:33 BMI result Body Mass Index 21.2 Const: Other: General sitting comfortably in no acute distress. Neck supple no JVD. CVS regular rate rhythm, Respiratory lungs clear to auscultation, no respiratory distress, no wheeze, no rhonchi. Gastrointestinal abdomen soft, non tender, bowel sounds audible, no guarding , no rigidity. Extremities no edema. Neuro alert oriented x3, moving all 4 extremity, clear speech Skin no rash Psych appropriate affect Objective Data Active Medications Acetaminophen (Acetaminophen 325 Mg Tablet) 650 mg PO Q6H PRN PRN Reason: Pain, Mild (Pain Scale 1-3) Albuterol/Ipratropium (Albuterol/Iprat 2.5/0.5mg 3 Ml Ampul.Neb) 3 ml INHALE Q4H PRN PRN Reason: sob Last Admin: 12/23/23 07:54 Dose: 3 ml Documented By: BAM Artificial Tears (Artificial Tears 15 Ml Drops) 2 drop EYE-RIGHT Q4H PRN PRN Reason: Dry Eyes Diazepam (Diazepam 10 Mg/2 Ml Cartridge) 2.5 mg IVPUSH Q8H PRN PRN Reason: Anxiety Last Admin: 12/23/23 12:25 Dose: 2.5 mg Documented By: NEAL Enoxaparin Sodium (Enoxaparin Sodium 40 Mg/0.4 Ml Syringe) 40 mg SUBCUT Q24H [facility] Last Admin: 12/22/23 15:27 Dose: 40 mg Documented By: JACEY Heparin Sodium (Porcine) (Heparin Sodium,Porcine Flush 50 Units/5 Ml Syringe) 50 units IVFLUSH QSHIFT [facility] Last Admin: 12/23/23 08:30 Dose: 50 units Documented By: NEAL Hydralazine HCl (Hydralazine Hcl 20 Mg/Ml Vial) 2.5 mg IVPUSH Q6H PRN; Protocol PRN Reason: SBP > 160 Nutrition (Parenteral) (Parenteral Nutrition) 1,440 mls @ 60 mls/hr IV .Q24H [facility]; Protocol Stop: 12/23/23 20:59 Last Admin: 12/22/23 20:47 Dose: 60 mls/hr Documented By: ODRISM Nutrition (Parenteral) (Parenteral Nutrition) 1,440 mls @ 60 mls/hr IV .Q24H [facility]; Protocol Stop: 12/24/23 20:59 Methylprednisolone Sodium Succinate (Methylprednisolone Sod Succ 40 Mg/Ml Vial) 40 mg IVPUSH Q24H [facility] Last Admin: 12/23/23 12:22 Dose: 40 mg Documented By: NEAL Ondansetron HCl (Ondansetron Hcl 4 Mg/2 Ml Vial) 4 mg IVPUSH Q8H PRN PRN Reason: Nausea and Vomiting Pharmacy Consult (Consult Rx Parenteral Nutrition Ordering) 1 each MISCELLANE DAILY PRN PRN Reason: Consult order Pyridostigmine [place] (Pyridostigmine [place] 10 Mg/2 Ml Ampul) 2 mg IVPUSH Q4H [facility] Last Admin: 12/23/23 10:52 Dose: 2 mg Documented By: NEAL Senna (Sennosides 8.6 Mg Tablet) 17.2 mg PO BEDTIME PRN PRN Reason: Constipation Sodium Chloride (0.9 % Sodium Chloride Flush 3 Ml Syringe) 3 ml IVFLUSH [facility] Last Admin: 12/23/23 08:30 Dose: 3 ml Documented By: NEAL Labs 12/20/23 06:00 12/23/23 05:59 Labs: Laboratory Results - last 24 hr 12/22/23 12/23/23 08:40 05:59 Hold Purple Top Cancelled SEE NOTE Anion Gap 10 L Estim Creat Clear Calc 53.9 Estimated GFR > 60 Random Glucose 72 Calcium 7.9 L D Phosphorus 3.2 Magnesium 1.9 Total Bilirubin 1.2 H AST 49 H ALT 113 H Alkaline Phosphatase 47 Total Protein 6.5 Albumin 2.9 L Assessment and Plan (1) Myasthenia gravis with exacerbation: Status: Acute (2) Swallowing problem: Status: Acute Plan 83 year old female with history of myasthenia gravis predominantly oropharyngeal symptoms, osteoporosis, bile salt induced diarrhea admitted for myasthnia gravis flare. #Myasthenia gravis flare- primarily oropharyngeal symptoms speech clear today, able to clear secretions picc line placed for medication administration Finished IVIG (400mg/kg) x 5 days s/p 100mg IV solumedrol daily x 3 days, now on IV prednisone 40 mg daily, will transition to prednisone 20 mg by mouth daily once able to tolerate by mouth Continue as needed DuoNeb continue IV pyridoxtigmin ,IV Valium, FVC/NIF tid Seen by speech therapy they recommend modified barium swallow, continue IV PPN continue outpatient iv Vyvgart 480mg Q weekly Recommend to ambulate with walker as tolerated #HTN Stable BP on IV hydralazine 2.5mg prn sbp >160. Hold home medication amlodipine due to npo # acute hypokalemia resolved with iv repletion. Follow lytes dvt prophyalxis- lovenox full code pt requires continued inpatient hospitalization for IV steroids and PPN due to myasthenia gravis flare which is restricting PO intake and therefore cannot be discharged home since unable to take by mouth medications and diet. Quality Stroke Does the patient have a stroke diagnosis?: No VTE Prior VTE?: No VTE Risk Level:: Medical - moderate - high VTE Device Contraindication: Treatment Not Indicated VTE Drug Contraindication: N/A - Med Ordered
--- NOTE | 2023-12-23 12:58 | MHC.CM.PN ---
EMR reviewed. Per MD rounds patient is not medically cleared for dc. PT recommending home w/ services. Patient is active w/ [facility]. Updates were sent. CM will continue to follow.
--- NOTE | 2023-12-23 14:01 | MHC.SLORD ---
Speech Language Pathology Order Status: MBSS scheduled with Radiology for tomorrow at 2:30pm. Dr. Martinez notified. Radiology to arrange for Transport.
--- NOTE | 2023-12-23 14:50 | MHC.SL.SWA ---
Speech Pathologist Impression: Risk of aspiration, dysphagia secondary to MG Risk of Aspiration Due to: Neurological Condition Poor PO Intake Weak Cough Dysphasia Diet Status: Recommend patient continue NPO pending MBSS scheduled for 12/23. Ice chips OK in meantime w/ supervision. Liquid Consistency and Strategies for Safe Swallow: Liquid Intake Recommendation: NPO Solid Food Consistency: Dietary Recommendations: NPO Oral Medication Intake: NPO Please contact the pharmacy regarding appropriate crushable or liquid drug formulations that are available whenever modified delivery is recommended. Compensatory Strategies and Precautions to be Taken for Safe Swallow: Supervision While Eating and Drinking for Safe Swallow: PO with OUTREACH REPRESENTATIVE Swallowing Recommended Treatments: Thermal Stimulation Gustatory Stimulation Compens. Strategy Educat. Recommendation for Speech: Further Testing Needed Inpatient Speech Therapy Modified Barium Swallow Study - Inpatient Modified Barium Swallow Study - Outpatient Substation Operator Chief Clinican/Clinical Fellow: No Supervisory Statement: I have reviewed and agree with the student/clinical fellow's documentation: N/A Speech Language Pathologist: Luann Barragan M.A., CCC-OUTREACH REPRESENTATIVE
[2023-12-23] MEDS: Enoxaparin Sodium 40 MG/0.4 ML SYRINGE SUBCUT (15:19)
[2023-12-23 15:54] VITALS: BP 124/81; PULSE 94; RESP 20; TEMP 36.3; O2SAT 96
--- NOTE | 2023-12-23 16:14 | PC.RT ---
VC 1.66L NIF -[id number]
[2023-12-23 20:00] VITALS: BP 129/81; PULSE 83; RESP 16; TEMP 36.1; O2SAT 97
[2023-12-23] MEDS: Parenteral Nutrition 1,440 ML 60 ML IV (21:26)
[2023-12-24] MEDS: PYRIDOSTIGMINE BROMIDE 2 MG IVPUSH ×6 (03:05→22:04)
[2023-12-24 03:54] VITALS: BP 131/73; PULSE 70; RESP 16; TEMP 36.1; O2SAT 97
[2023-12-24 07:10] LABS: Alanine Aminotransferase 129 U/L (0-31); Alkaline Phosphatase 53 U/L (39-117); Anion Gap 11 (12-20); Aspartate Amino Transferase 52 U/L (5-31); Blood Urea Nitrogen 22 mg/dL (9-16); Calcium 8.5 mg/dL (8.4-10.2); Carbon Dioxide 22 mmol/L (22-29); Chloride 107 mmol/L (96-108); Creatinine Clr Calc Pharmacy 51.9; Estimated Glomerular Filt Rate > 60; Glucose Random 93 mg/dL (60-115); Phosphorus 3.6 mg/dL (2.7-4.5); Potassium 4.3 mmol/L (3.3-5.1); Sodium 136 mmol/L (135-145); Total Protein 6.7 g/dL (6.5-8.0)
[2023-12-24] MEDS: Albuterol/Iprat 2.5/0.5MG 3 ML AMPUL.NEB INHALE (07:13)
[2023-12-24 07:14] VITALS: PULSE 62; RESP 20; O2SAT 98
[2023-12-24] MEDS: Heparin Sodium,Porcine Flush 50 UNITS/5 ML SYRINGE IVFLUSH ×3 (07:22→22:16)
[2023-12-24] MEDS: 0.9 % Sodium Chloride Flush 3 ML SYRINGE IVFLUSH ×3 (07:22→22:05)
--- NOTE | 2023-12-24 07:23 | PC.RT ---
VC 1.58L NIF -[id number]
[2023-12-24 07:56] VITALS: BP 137/75; PULSE 64; RESP 18; TEMP 36.3; O2SAT 98
[2023-12-24] MEDS: methylPREDNISolone Sod Succ 40 MG/ML VIAL IVPUSH (13:22)
[2023-12-24] MEDS: diazePAM 10 MG/2 ML CARTRIDGE 2.5 MG IVPUSH ×2 (13:36→22:04)
--- NOTE | 2023-12-24 13:50 | HO.PM.IMPN ---
Subjective Subjective Date of Service: 12/24/23 Interval History: Being followed for myasthenia gravis, offers no acute complaints, is NPO receiving IV PPN is scheduled for modified barium swallow today. Review of Systems All other system reviewed and negative. Physical Exam Vital Signs: Vital Signs: Last Vital Signs Temp 97.4 F 12/24/23 07:56 Pulse 64 12/24/23 07:56 Resp 18 12/24/23 07:56 BP 137/75 12/24/23 07:56 Pulse Ox 98 12/24/23 07:56 O2 Del Method Room Air 12/24/23 07:56 BMI result Body Mass Index 21.2 Const: Other: General sitting comfortably in no acute distress. Neck supple no JVD. CVS regular rate rhythm, Respiratory lungs clear to auscultation, no respiratory distress, no wheeze, no rhonchi. Gastrointestinal abdomen soft, non tender, bowel sounds audible, no guarding , no rigidity. Extremities no edema. Neuro alert oriented x3, moving all 4 extremity, clear speech Skin no rash Psych appropriate affect Objective Data Active Medications Acetaminophen (Acetaminophen 325 Mg Tablet) 650 mg PO Q6H PRN PRN Reason: Pain, Mild (Pain Scale 1-3) Albuterol/Ipratropium (Albuterol/Iprat 2.5/0.5mg 3 Ml Ampul.Neb) 3 ml INHALE Q4H PRN PRN Reason: sob Last Admin: 12/24/23 07:13 Dose: 3 ml Documented By: WANDA Artificial Tears (Artificial Tears 15 Ml Drops) 2 drop EYE-RIGHT Q4H PRN PRN Reason: Dry Eyes Diazepam (Diazepam 10 Mg/2 Ml Cartridge) 2.5 mg IVPUSH Q8H PRN PRN Reason: Anxiety Last Admin: 12/24/23 13:36 Dose: 2.5 mg Documented By: ROBBY Enoxaparin Sodium (Enoxaparin Sodium 40 Mg/0.4 Ml Syringe) 40 mg SUBCUT Q24H [facility] Last Admin: 12/23/23 15:19 Dose: 40 mg Documented By: NEAL Heparin Sodium (Porcine) (Heparin Sodium,Porcine Flush 50 Units/5 Ml Syringe) 50 units IVFLUSH QSHIFT [facility] Last Admin: 12/24/23 07:22 Dose: 50 units Documented By: ROBBY Hydralazine HCl (Hydralazine Hcl 20 Mg/Ml Vial) 2.5 mg IVPUSH Q6H PRN; Protocol PRN Reason: SBP > 160 Nutrition (Parenteral) (Parenteral Nutrition) 1,440 mls @ 60 mls/hr IV .Q24H [facility]; Protocol Stop: 12/24/23 20:59 Last Admin: 12/23/23 21:26 Dose: 60 mls/hr Documented By: SAHRA Nutrition (Parenteral) (Parenteral Nutrition) 1,440 mls @ 60 mls/hr IV .Q24H [facility]; Protocol Stop: 12/25/23 20:59 Methylprednisolone Sodium Succinate (Methylprednisolone Sod Succ 40 Mg/Ml Vial) 40 mg IVPUSH Q24H [facility] Last Admin: 12/24/23 13:22 Dose: 40 mg Documented By: ROBBY Ondansetron HCl (Ondansetron Hcl 4 Mg/2 Ml Vial) 4 mg IVPUSH Q8H PRN PRN Reason: Nausea and Vomiting Pharmacy Consult (Consult Rx Parenteral Nutrition Ordering) 1 each MISCELLANE DAILY PRN PRN Reason: Consult order Pyridostigmine [place] (Pyridostigmine [place] 10 Mg/2 Ml Ampul) 2 mg IVPUSH Q4H [facility] Last Admin: 12/24/23 10:41 Dose: 2 mg Documented By: ROBBY Senna (Sennosides 8.6 Mg Tablet) 17.2 mg PO BEDTIME PRN PRN Reason: Constipation Sodium Chloride (0.9 % Sodium Chloride Flush 3 Ml Syringe) 3 ml IVFLUSH QSHIFT [facility] Last Admin: 12/24/23 07:22 Dose: 3 ml Documented By: ROBBY Labs 12/20/23 06:00 12/24/23 06:08 Labs: Laboratory Results - last 24 hr 12/24/23 06:08 Anion Gap 11 L Estim Creat Clear Calc 51.9 Estimated GFR > 60 Random Glucose 93 Calcium 8.5 D Phosphorus 3.6 Magnesium 2.0 Total Bilirubin 1.0 AST 52 H ALT 129 H Alkaline Phosphatase 53 Total Protein 6.7 Albumin 3.0 L Assessment and Plan (1) Myasthenia gravis with exacerbation: Status: Acute (2) Swallowing problem: Status: Acute Plan 83 year old female with history of myasthenia gravis predominantly oropharyngeal symptoms, osteoporosis, bile salt induced diarrhea admitted for myasthnia gravis flare. #Myasthenia gravis flare- primarily oropharyngeal symptoms speech clear today, able to clear secretions, not requiring suctioning picc line placed for medication administration Finished IVIG (400mg/kg) x 5 days s/p 100mg IV solumedrol daily x 3 days, now on IV prednisone 40 mg daily, will transition to prednisone 20 mg by mouth daily once able to tolerate by mouth Continue as needed DuoNeb continue IV pyridoxtigmin ,IV Valium, FVC/NIF tid Seen by speech therapy is scheduled for modified barium swallow, continue IV PPN continue outpatient iv Vyvgart 480mg Q weekly next dose December 25 at [facility] Recommend to ambulate with walker as tolerated #HTN Stable BP on IV hydralazine 2.5mg prn sbp >160. Hold home medication amlodipine due to npo # acute hypokalemia resolved with iv repletion. Follow lytes dvt prophyalxis- lovenox full code pt requires continued inpatient hospitalization for IV steroids and PPN due to myasthenia gravis flare which is restricting PO intake and therefore cannot be discharged home since unable to take by mouth medications and diet. Quality Stroke Does the patient have a stroke diagnosis?: No VTE Prior VTE?: No VTE Risk Level:: Medical - moderate - high VTE Device Contraindication: Treatment Not Indicated VTE Drug Contraindication: N/A - Med Ordered
[2023-12-24 15:06] VITALS: BP 130/71; PULSE 92; RESP 18; TEMP 36.2; O2SAT 96
[2023-12-24] MEDS: Enoxaparin Sodium 40 MG/0.4 ML SYRINGE SUBCUT (15:23)
--- NOTE | 2023-12-24 15:43 | PC.RT ---
VC 1.68L NIF -[id number]
--- NOTE | 2023-12-24 16:20 | MHC.CM.PN ---
CM spoke w/ patient and HCP/sister. Expressing concern re: appt scheduled for 12/25 at [facility] for Vyvgart infusion. Sister reports patient cannot miss a dose of this weekly infusion. CM called inpatient pharmacy, who states we do not have this med on formulary. Can call back tomorrow to speak w/ assistant project engineer Jeana to see if med can be ordered (if MD agreeable). Patient/sister stating that if unable to receive med at this hospital, will leave AMA for appointment and return through ED. MD aware.
--- NOTE | 2023-12-24 17:29 | MHC.SL.IMP ---
Date of Plan of Treatment: 12/16/23 Onset of Symptoms/Illness: 08/24/14 Date Treatment Started: 11/26/23 Admitting Diagnosis: MG Primary Speech & Language Diagnosis: R13.12 Oropharyngeal Phase Dysphagia Reason for Today's Visit: 86940 Modified Barium Swallow Study Pre-evaluation Dietary Consistencies: NPO Pre-evaluation Liquid Consistency: NPO Pre-evaluation Medication Administration: NPO Medical History: Modified Barium Swallow Study Fluoroscopic Evaluation of Swallowing Function CPT Code 68402 Evaluation Year: 2023 Reason for Study: Difficulty swallowing Referring Physician: Martina Martinez MD Evaluating Clinician: Maral Hewitt MA, CCC-JUNIOR RECRUITER Study Number: 1 Patient Name: Joanne Gomez Status: Inpatient, Wheelchair Age: 83 Gender: Female Medical History MG Current (pre-evaluation) Intake/Diet: Route: NPO Pre-Study Functional Oral Intake Scale (FOIS): 1- No oral intake Pain: None reported at time of study SUBJECTIVE: Patient is admitted for exacerbation of MG with primarily oropharyngeal symptoms including difficulty swallowing and impaired speech. Patient is better managing secretions and, per MD, has been tolerating ice chips. Patient was recommended by JUNIOR RECRUITER to remain NPO on 12/15 after she was unable to elicit a swallow. She is now able to swallow, noted partial laryngeal elevation, but with gurgly voice/ throat clearing and multiple swallow attempts. She is seen for an MBSS to further evaluate the extent of her dysphagia and to identify feeding recommendations. Food and Liquid Trials: Oral Impairment: Lip Closure: Did not test Oral Impairment: Tongue Control During Bolus Hold: Did not test Oral Impairment: Bolus Preparation/Mastication: Did not test Oral Impairment: Bolus Transport/Lingual Motion: 3=Repetitive/disorganized tongue motion Oral Impairment: Oral Residue: 2=Residue collection on oral structures Oral Impairment:Initiation of Pharyngeal Swallow: 3=Bolus head in pyriforms Pharyngeal Impairment: Soft Palate Elevation: 1=Trace column of contrast or air between SP and PW Pharyngeal Impairment: Laryngeal Elevation: 1=Partial thyroid cartilage/arytenoids to epiglottic petiole movement Pharyngeal Impairment: Anterior Hyoid Excursion: 1=Partial anterior movement Pharyngeal Impairment: Epiglottic Movement: 2=No inversion Pharyngeal Impairment: Laryngeal Vestibular Closure:: 2=None: No inversion Pharyngeal Impairment: Pharyngeal Stripping Wave: 2=Absent Pharyngeal Impairment: Pharyngeal Contraction: Did not test Pharyngeal Impairment: Pharyngoesophageal Segment Openin=Partial distention/partial duration: partial obstruction of flow Pharyngeal Impairment: Tongue Base (TB) Retraction: 3=Wide column of contrast/air between TB and posterior PW Pharyngeal Impairment: Pharyngeal Residue: 2=Collection of residue within or on pharyngeal structures Pharyngeal Impairment: Esophageal Clearance Upright Position: Did not test Impressions and Recommendations Clinical Observations: OBJECTIVE: Time-out: performed at 15:00 Evaluation Start: 14:30; Stop: 14:45 Patient Positioning: Seated 70-90 degrees Viewing Planes: LATERAL ONLY Contrast: MBSImP? Standardized Protocol using commercially prepared, standardized Barium viscosities, including: Varibar? THIN LIQUID (40% w/v, <15 cps) , Varibar? NECTAR (40% w/v, <150-450 cps) , Varibar? THIN HONEY (40% w/v, <800-1800 cps) MBSImP ID: [id number] MBSImp Results: Lip closure for intraoral bolus containment could not be assessed due to logistical reasons not related to physiologic impairment. Tongue control during bolus hold could not be assessed due to logistical reasons not related to physiologic impairment. Bolus preparation and mastication received the highest impairment score; solid not given due to patient safety concerns related to oral impairment. Bolus transport/lingual motion was with repetitive/disorganized motion of the tongue. Oral residue was a collection on oral structures. Initiation of the pharyngeal swallow occurred when the bolus head was in the pyriform sinuses. Soft palate elevation allowed a trace column of contrast or air between the soft palate and the pharyngeal wall. Laryngeal elevation was decreased, with partial superior movement of the thyroid cartilage/partial approximation of the arytenoids to the epiglottic petiole. Anterior hyoid excursion demonstrated partial anterior movement. Epiglottic movement resulted in no inversion. Laryngeal vestibular closure was absent, resulting in a wide column of air/contrast within the laryngeal vestibule at the height of the swallow. Pharyngeal stripping wave was absent. Pharyngeal contraction could not be determined due to logistical reasons not related to physiologic impairment. Pharyngoesophageal segment opening demonstrated partial distension/partial duration, with partial obstruction of bolus flow. Tongue base retraction allowed a wide column of contrast or air between the retracted tongue base and the posterior pharyngeal wall. Pharyngeal residue was a collection of residue within or on pharyngeal structures. Esophageal clearance in the upright position could not be assessed due to logistical reasons not related to physiologic impairment. Oral Impairment Score: 11 (absence of score, component 1component 2) Pharyngeal Impairment Score: 15 (absence of score, component 13) Esophageal Impairment Score: --- (absence of score, component 17) Laryngeal Penetration and Aspiration: Both Penetration and Aspiration were observed in today's study. Puree, [place]-thick, Thin Contrast entered the airway, contacted the vocal folds, and were ejected from the airway. Honey-thick Contrast entered the airway, passed below the vocal folds, and was not ejected from the trachea despite effort. ASSESSMENT: Clinician Assessment: Exam was performed by the radiologist and the speech pathologist. Patient was seated upright in a wheelchair for lateral view and trialed thin, nectar thick, honey thick, and puree consistencies. Patient was observed to take very small sips via teaspoon (1/3 to 1/2 teaspoon amounts). Patient expressed she was nervous to drink from a cup. Lingual motion for the transport of bolus was disorganized with repetitive tongue rocking motion, resulting in premature posterior escape of contrast, which collected in the valleculae before a pharyngeal swallow was initiated. There was mild residue on the tongue, which mostly cleared with subsequent swallows. Pharyngeal swallow trigger was significantly delayed and initiated at the level of the pyriform sinuses. Reduced tongue base retraction and incomplete laryngeal elevation. No epiglottic inversion and minimal to no laryngeal vestibular closure with wide open airway. Noted cervical hardware as well, which could have contributed to pharyngeal retention. There was significant pooling in the valleculae and pyriform sinuses, with coating of contrast on the tongue base and posterior pharyngeal wall. Patient was able to reduce residuals with multiple dry swallows. With very small sips by teaspoon, there was consistent penetration above and to the level of the vocal folds on trials of puree, nectar thick, and thin consistencies. A trace amount of contrast entered the airway during the swallow and after the swallow on contrast spilling from the pyriform sinuses. Patient exhibited a sensitive response, often clearing her throat and spontaneously ejecting contrast from her airway. At times, patient did require cues to clear her throat again followed with a dry swallow. This cleared contrast from the airway and reduced pharyngeal retention. Increase in amount of liquid penetrated when patient drink from a cup. There was bandar aspiration on honey thick liquid. Patient immediately coughed, but was unable to clear contrast from the airway. The following compensatory strategies appear to have had a negative impact on swallowing function: Honey-thick Liquid increased Penetration, Aspiration Bolus Volume Change increased Penetration, Aspiration Rate of Ingestion Change increased Penetration, Aspiration Liquid Intake Recommendation: NPO Dietary Recommendations: NPO Medication Administration: NPO Please contact the pharmacy regarding appropriate crushable or liquid drug formulations that are available whenever modified delivery is recommended. Supervision during eating and or drinking: PO with JUNIOR RECRUITER Recommended Treatments: Pharyngeal Resistive Exer, Compens. Strategy Educat. Recommendation for Speech Therapy: Inpatient Speech Therapy Speech Therapy through [facility] Speech Therapy through Rehab Facility Text Comment: PLAN: Patient presents with severe oropharyngeal dysphagia. Patient demonstrated compromised airway protection with absent epiglottic inversion and minimal to no laryngeal vestibular closure with wide open airway. When patient took very small sips/bites (1/3 to 1/2 tspn) by teaspoon of thin, nectar thick, and puree consistencies, there was consistent penetration above and to the level of the vocal folds. When patient attempted to drink from a cup, there was an increase in the amount of penetrated contrast. Patient was able to clear contrast from the airway by clearing her throat, at times needing cues to do so. There was bandar aspiration on honey thick liquid. Significant pharyngeal retention with all consistencies, reduced with multiple dry swallows. Based on observations made during this exam, patient continues to be at heighted risk of aspiration and does not yet appear ready for advancement to a PO diet. This exam revealed penetration and aspiration, even with slower intake and a smaller bolus size, which did increase with larger quantities. Patient demonstrates spontaneous protective reflexes, such as coughing and clearing of the throat, which was effective in clearing contrast from the airway with most trials, though she did require cues at times to utilize other strategies (i.e. multiple dry swallows, clearing throat again, etc). Concern lies in patient?s ability to tolerate meals for safety reasons and ability to maintain adequate nutrition and hydration. Intake Recommendations: Recommend continue NPO status at this time due to the severity of patient?s dysphagia and risk of aspiration. With concerns also in patient?s ability to maintain adequate nutrition and hydration with the small amounts of PO she is able to take at one time, recommend consultation with Nutrition Services to assess candidacy for temporary vs. long-term alternate means of nutrition. Patient to be seen for dysphagia treatment with JUNIOR RECRUITER for PO trials of puree/thin by teaspoon, training of behavioral strategies, and to trial pharyngeal strengthening exercises. Recommend repeat-MBSS when appropriate to determine if a PO diet vs. partial PO is appropriate. Recommend precautions to reduce risk of microaspiration- Ensuring rigid daily oral care routine (at least 4x daily) and elevating head of bed at least 30 degrees. Suggested Referrals: The patient might benefit from a referral to: Gastroenterology Nutrition Services Therapy Recommendations: Therapy will be continued for pharyngeal strengthening, training of behavioral strategies, and PO trials. The following compensatory strategies and/or therapeutic exercises will be part of the upcoming therapy/management plan: Additional Swallow(s) per Bolus Throat Clear/ Cough Volitional Liquids by Teaspoon Only Usp Goals: ? The patient will demonstrate improved swallowing function via repeat clinical evaluation, videoendoscopy/videofluoroscopy and/or patient self-rating scores. ? The patient and/or family will participate in further education for swallowing goals. Short Term Goals: ? Diet - The patient will participate in therapeutic PO trials with the JUNIOR RECRUITER (pureed solids and thin liquids by teaspoon). ? Guidelines - The patient will comply with/recall the following guidelines/strategies 100% of the time with moderate cuing: Additional Swallow(s) per Bolus, Effortful Swallow (used during PO intake), Throat Clear/Cough Volitional, No Straws, Liquid by teaspoon only. ? Structured Therapy - The patient will demonstrate 100% accuracy and require moderate cuing in structured swallowing therapy with the JUNIOR RECRUITER using the following exercises/therapy approaches and therapy assisted devices: Effortful Swallow, Deshawn Maneuver, Praveena Maneuver, . ? Education - The patient, family, caregiver will verbalize/demonstrate understanding of the results of this evaluation, the above recommendations, and the swallowing guidelines. Frequency/Duration: M-F PRN Date Range for Service Requested: Timeline to reassess: PRN Clinician - Supplemental, Miscellaneous Communication: It is important to note MBSS objective studies are snapshots in time and Patient function might vary with factors such as time of day or concomitant medical conditions. For this reason, the final treatment plan for this patient should rest with their medical care team. Additional recommendations should be considered with the totality of the Patient in mind. Thank for the opportunity to participate in the care of this patient. If you have any questions about the content of this report, please contact the [facility]. Education: Education regarding findings from today's study and plans for therapy were provided to Patient only through Verbal Instruction. Understanding was expressed by the Patient only. Auction Clerk Clinician/Clinical Fellow: No Supervisory Statement: N/A Speech Language Pathologist: Maral Hewitt M.A., [facility]-JUNIOR RECRUITER
[2023-12-24 20:00] VITALS: BP 139/88; PULSE 86; RESP 16; TEMP 36; O2SAT 96
[2023-12-24] MEDS: Parenteral Nutrition 1,440 ML 60 ML IV (22:04)
[2023-12-25 03:46] VITALS: BP 137/75; PULSE 64; RESP 16; TEMP 35.5; O2SAT 98
[2023-12-25] MEDS: PYRIDOSTIGMINE BROMIDE 2 MG IVPUSH ×3 (03:48→11:03)
[2023-12-25 06:01] LABS: Alanine Aminotransferase 118 U/L (0-31); Albumin Level 3.1 g/dL (3.5-5.0); Alkaline Phosphatase 58 U/L (39-117); Anion Gap 11 (12-20); Aspartate Amino Transferase 42 U/L (5-31); Blood Urea Nitrogen 21 mg/dL (9-16); Calcium 8.5 mg/dL (8.4-10.2); Carbon Dioxide 23 mmol/L (22-29); Chloride 108 mmol/L (96-108); Creatinine Clr Calc Pharmacy 53.9; Estimated Glomerular Filt Rate > 60; Glucose Random 87 mg/dL (60-115); Phosphorus 3.6 mg/dL (2.7-4.5); Potassium 4.1 mmol/L (3.3-5.1); Sodium 138 mmol/L (135-145); Total Protein 6.7 g/dL (6.5-8.0)
[2023-12-25 06:47] VITALS: BP 129/65; PULSE 68; RESP 16; TEMP 36.6; O2SAT 97
[2023-12-25] MEDS: Albuterol/Iprat 2.5/0.5MG 3 ML AMPUL.NEB INHALE (08:41)
[2023-12-25 08:44] VITALS: PULSE 74; RESP 16; O2SAT 97
[2023-12-25] MEDS: 0.9 % Sodium Chloride Flush 3 ML SYRINGE IVFLUSH (09:13)
[2023-12-25] MEDS: Heparin Sodium,Porcine Flush 50 UNITS/5 ML SYRINGE IVFLUSH (09:14)
[2023-12-25 09:43] VITALS: PULSE 74
--- NOTE | 2023-12-25 11:21 | MHC.CLN ---
F/U SWALLOW STUDY DONE 12/23, CONTINUES NPO WITH TPN FOR NUTRITION/HYDRATION. LABS REVIEWED. COMMUNICATED WITH PHARMACY. RECOMMEND CONTINUE TPN AT MAX GOAL RATE: 60 ML PER HOUR, 41 G LIPIDS, 72 G PROTEIN (1.5 G/KG), 216 G DEXTROSE, 1432 TOTAL KCALS (30 KCALS/KG). REPLETE LYTES NEEDED. SKIN WITH UNSTAGEABLE AREA TO SACRUM. TPN PROVIDING ADEQUATE PROTEIN TO PROMOTE WOUND HEALING. FOLLOW FOR TPN TOLERANCE, SKIN INTEGRITY, AND DIET ADVANCEMENT.
--- NOTE | 2023-12-25 12:01 | P.F2F_ITS ---
Service Date Service Date: 12/25/23 Encounter Date of encounter: 12/25/23 Reasons for Services Signs and symptoms assessed: Dysphagia/generalized weakness Reason for physical therapy: home safety and mobility Reason for occupational therapy: home safety and mobility Reason for speech therapy: swallowing impairment Homebound: Leaving the home is medically contraindicated at this time without the asist of a device and/or another person due th the listed conditions above and below. Reason homebound: weakness related to hospital stay Certification: Based on the above findings, I certify that this patient is confined to the home and needs intermittent intermediate care, physical therapy and/or speech therapy, or continues to need occupational therapy. The patient is under my care, and I have initiated the establishment of the plan of care. The patient will be followed by a physician who will periodically review the plan of care. Time Spent With Patient Time: Total time managing care of this patient today ____ minutes.
--- NOTE | 2023-12-25 12:02 | PM.DS ---
DS: Providers Provider Date of Service: 12/25/23 Date of admission: 12/15/23 13:44 Primary care physician: Aria Sherwood NP Consults: 12/15/23 13:58 Consult to Neurology Routine Consulting Provider: [facility] Reason for consultation: myasthenia gravis 12/16/23 22:43 Consult to Wound Care Routine Reason for consultation: bilateral buttocks redness,bilateral elbow redness,mid back bony area DS: Diagnosis Discharge Diagnosis (1) Myasthenia gravis with exacerbation: Status: Acute (2) Swallowing problem: Status: Acute DS: Summary Hospital Course Hospital Course: History of presenting illness: Date of Service: 12/15/23 Attending physician on admission: Martina Martinez Chief Complaint: dysphagia 83 year old female with history of myasthenia gravis predominantly oropharyngeal symptoms, osteoporosis, bile salt induced diarrhea presented to the ED earlier today for evaluation of dysphagia, impaired speech, generalized weakness ongoing for about 6 days. She reports it is consistent with a myasthenia gravis flare which she is experienced in the past. Was admitted for MG flare requiring iVIG and also required PPN due to persistent dysphagia though diet was eventually advanced to NDD1 with thin liquids, was followed by LEATHER WHITENER. She did not require ICU admission for airway protection. Hospital course: 83 year old female with history of myasthenia gravis predominantly oropharyngeal symptoms, osteoporosis, bile salt induced diarrhea admitted for myasthnia gravis flare, she was treated with cardiac and respiratory [FVC/NIF] monitoring, patient was treated with 5 days of IVIG, and 3 days of IV Solu Medrol, and was continued on IV pyridostigmine, IV antihypertensive medications and received IV PPN, she was followed closely by speech therapist and underwent modified barium swallow study and was noted to have significant pharyngeal retention, speech recommended pureed and thin liquid diet and recommend outpatient dysphagia treatment with LEATHER WHITENER for teachings of behavioral strategies and to trial pharyngeal exercises, repeat MBS is recommended as outpatient,she is recommended to resume prednisone 20 mg daily, and to follow up at [facility] for her Vyvgart infusion on 12/26/2023 , she is recommended to continue by mouth pyridostigmine and azathioprine and follow-up with neurologist Dr. Thomas in 1-2 weeks, she is being discharged home with PT/OT and speech therapy #HTN recommend to continue amlodipine home dose. #Acute hypokalemia resolved with iv repletion. Follow lytes Time Attestation Discharge Coordination Time (in mins): 40 Quality: Safe Use of Opioids Does Pt have an Active Cancer Diagnosis on the Problem List?: No Quality: Stroke Does the patient have a stroke diagnosis?: No Physical Exam Vital Signs: Vital Signs: Last Vital Signs Temp 98 F 12/25/23 06:47 Pulse 74 12/25/23 09:43 Resp 16 12/25/23 08:44 BP 129/65 12/25/23 06:47 Pulse Ox 97 12/25/23 06:47 O2 Del Method Room Air 12/25/23 06:47 BMI result Body Mass Index 21.2 Const: Other: General sitting comfortably in no acute distress. Neck supple no JVD. CVS regular rate rhythm, Respiratory lungs clear to auscultation, no respiratory distress, no wheeze, no rhonchi. Gastrointestinal abdomen soft, non tender, bowel sounds audible, no guarding , no rigidity. Extremities no edema. Neuro alert oriented x3, moving all 4 extremity, clear speech Skin no rash Psych appropriate affect DS: Data Data Completed and Pending Completed studies during hospitalization [Text1]: Procedures Insertion of Feeding Device into Stomach, Via Natural or Artificial Opening (10/25/23) Transfusion of Nonautologous Globulin into Peripheral Vein, Percutaneous Approach (10/25/23) Labs on day of discharge: Laboratory Results - last 24 hr 12/25/23 05:02 Hold Purple Top SEE NOTE Sodium 138 Potassium 4.1 Chloride 108 Carbon Dioxide 23 Anion Gap 11 L BUN 21 H Creatinine 0.52 Estim Creat Clear Calc 53.9 Estimated GFR > 60 Random Glucose 87 Calcium 8.5 Phosphorus 3.6 Magnesium 2.0 Total Bilirubin 1.0 AST 42 H ALT 118 H Alkaline Phosphatase 58 Total Protein 6.7 Albumin 3.1 L Discharge Plan Discharge Anticipated Discharge Date/Time: 12/25/23 11:56 Patient Disposition: Home Health Service Discharge Diagnosis: Acute flare of myasthenia gravis Referrals: Aria Sherwood NP [Primary Care Provider] - 1 Week Discharge Medications: Continued oxybutynin chloride 15 mg tablet extended release 24hr 15 mg PO DAILY timolol maleate 0.25 % drops 1 drp ophthalmic-Right DAILY Vyvgart 20 mg/mL solution 480 mg IV Q7D Rx Instructions: 10 mg/kg weekly for 4 weeks next cycle due on 12/25/23 prednisone 10 mg tablet 10 mg PO BID artifi.tears(hypromellose)(PF) 0.3 % Drops 2 drp OPHTHALMIC-RIGHT Q4-6H PRN (Reason: Dry Eyes) pyridostigmine bromide [Mestinon] 60 mg tablet 60 mg PO TID azathioprine 50 mg tablet 50 mg PO Q OTHER DAY amlodipine 5 mg tablet 5 mg PO DAILY Discharge Orders: Discharge Order (Routine); Ordered 12/25/23 Ordered By: Martina Martinez Diet: Pureed diet Activity on Discharge: As tolerated Stand Alone Forms: Patient Portal Discharge page Print Language: Occitan Care Plan Goals: Myasthenia gravis resume all home medications as before including prednisone 20 mg by mouth daily with food Being discharged home with PT/OT and continued speech therapy for aspiration. Vyvgart infusion scheduled at [facility] for 5 for Health Concerns: Hypertension continue home medication Plan of Treatment: Outpatient follow-up with primary care physician and Neurology call for appointment Assessment: As above
[2023-12-25] MEDS: methylPREDNISolone Sod Succ 40 MG/ML VIAL IVPUSH (12:06)
[2023-12-25] MEDS: diazePAM 10 MG/2 ML CARTRIDGE 2.5 MG IVPUSH (12:07)
--- NOTE | 2023-12-25 12:14 | MHC.CM.PN ---
DP: PT HAS BEEN MEDICALLY CLEARED FOR DC HOME WITH RESUMPTION OF [facility]. [facility] NOTIFIED OF TODAY'S DC. RN AWARE. PT'S SISTER WILL TRANSPORT
--- NOTE | 2023-12-25 12:20 | MHC.SL.DTX ---
Dysphagia Diet modifications: Changes made to current diet?: No Liquid Consistency and Strategies: Liquid Intake Recommendation: Thin Compensatory Strategies for Safe Swallow: Compensatory Strategies for Safe Swallow(b): Sitting Upright (90 deg) Liquids from Cup Liquids from Wide Cup Small Bites and Sips Alternate Liquids/Solids Oral Check Solid Food Consistency: Dietary Recommendations: Pureed (NDD1) Additional Modifications to Solids: Oral Medication Intake: Crushed with Puree Strategies and Precautions to be Taken for Safe Swallow: Sitting Upright (90 deg) Liquids from Cup Liquids from Wide Cup Small Bites and Sips Alternate Liquids/Solids Oral Check Supervision While Eating and/Drinking: PO with SENIOR MECHANICAL DESIGNER Foods to Avoid: Swallowing Recommended Treatments: Pharyngeal Resistive Exer Compens. Strategy Educat. Level of Impact on: Daily activities: Interpersonal interactions: Education: Employment: Community: Prognosis for Improvement: Recommendation for Speech: Inpatient Speech Therapy Speech Therapy through [facility] Speech Therapy through Rehab Facility Comment: From MBSS on 12/25/23: Patient presents with severe oropharyngeal dysphagia. Patient demonstrated compromised airway protection with absent epiglottic inversion and minimal to no laryngeal vestibular closure with wide open airway. When patient took very small sips/bites (1/3 to 1/2 tspn) by teaspoon of thin, nectar thick, and puree consistencies, there was consistent penetration above and to the level of the vocal folds. When patient attempted to drink from a cup, there was an increase in the amount of penetrated contrast. Patient was able to clear contrast from the airway by clearing her throat, at times needing cues to do so. There was bandar aspiration on honey thick liquid. Significant pharyngeal retention with all consistencies, reduced with multiple dry swallows. Based on observations made during this exam, patient continues to be at heighted risk of aspiration and does not yet appear ready for advancement to a PO diet. This exam revealed penetration and aspiration, even with slower intake and a smaller bolus size, which did increase with larger quantities. Patient demonstrates spontaneous protective reflexes, such as coughing and clearing of the throat, which was effective in clearing contrast from the airway with most trials, though she did require cues at times to utilize other strategies (i.e. multiple dry swallows, clearing throat again, etc). Concern lies in patient?s ability to tolerate meals for safety reasons and ability to maintain adequate nutrition and hydration. Intake Recommendations: Recommend continue NPO status at this time due to the severity of patient?s dysphagia and risk of aspiration. With concerns also in patient?s ability to maintain adequate nutrition and hydration with the small amounts of PO she is able to take at one time, recommend consultation with Nutrition Services to assess candidacy for temporary vs. long-term alternate means of nutrition. Patient to be seen for dysphagia treatment with SENIOR MECHANICAL DESIGNER for PO trials of puree/thin by teaspoon, training of behavioral strategies, and to trial pharyngeal strengthening exercises. Recommend repeat-MBSS when appropriate to determine if a PO diet vs. partial PO is appropriate. Recommend precautions to reduce risk of microaspiration- Ensuring rigid daily oral care routine (at least 4x daily) and elevating head of bed at least 30 degrees. Suggested Referrals: The patient might benefit from a referral to: Gastroenterology Nutrition Services Therapy Recommendations: Therapy will be continued for pharyngeal strengthening, training of behavioral strategies, and PO trials. The following compensatory strategies and/or therapeutic exercises will be part of the upcoming therapy/management plan: Additional Swallow(s) per Bolus Throat Clear/ Cough Volitional Liquids by Teaspoon Only Supervisor [employer] Goals: ? The patient will demonstrate improved swallowing function via repeat clinical evaluation, videoendoscopy/videofluoroscopy and/or patient self-rating scores. ? The patient and/or family will participate in further education for swallowing goals. Short Term Goals: ? Diet - The patient will participate in therapeutic PO trials with the SENIOR MECHANICAL DESIGNER (pureed solids and thin liquids by teaspoon). ? Guidelines - The patient will comply with/recall the following guidelines/strategies 100% of the time with moderate cuing: Additional Swallow(s) per Bolus, Effortful Swallow (used during PO intake), Throat Clear/Cough Volitional, No Straws, Liquid by teaspoon only. ? Structured Therapy - The patient will demonstrate 100% accuracy and require moderate cuing in structured swallowing therapy with the SENIOR MECHANICAL DESIGNER using the following exercises/therapy approaches and therapy assisted devices: Effortful Swallow, Deshawn Maneuver, Praveena Maneuver, . ? Education - The patient, family, caregiver will verbalize/demonstrate understanding of the results of this evaluation, the above recommendations, and the swallowing guidelines. Frequency/Duration: M-F PRN Date Range for Service Req: Timeline to reassess: PRN Additional Comments: Patient is admitted for exacerbation of MG with primarily oropharyngeal symptoms including difficulty swallowing and impaired speech. She has improved over the course of admission and is now seeking discharge. Treatment: Pt seen in her recliner. She is adamantly asking to leave to go to her scheduled treatment tomorrow at [facility]. She was made NPO yesterday after an MBS confirmed aspiration. Her aspiration was positive for cough reflex, consistent with her behaviors at bedside. SENIOR MECHANICAL DESIGNER requested a tray of Puree Solids from the kitchen to re-assess this morning. Pt ate bites of Puree Solids with improved oral preparation and no overt s/s of aspiration. She tolerated small sips of Thin Liquids with no overt s/s of aspiration. Pt informs that she has SENIOR MECHANICAL DESIGNER services already available to her. SENIOR MECHANICAL DESIGNER spoke with Pt and HCP about pursuing PEG placement on an outpatient basis to provide adequate nutrition and access for essential medications in the case of a repeat MG flare-up to which they verbalized they would consider. Sheet Metal Helper Clinican/Clinical Fellow: No Supervisory Statement: I have reviewed and agree with the student/clinical fellow's documentation: N/A Speech Language Pathologist: Luis Brady M.A., CCC-SENIOR MECHANICAL DESIGNER
--- NOTE | 2023-12-25 12:59 | HO.REMOVAL ---
Removal of PICC/Midline Removal of PICC/Midline: Removal of PICC: 1. Date: 12/25/2023 2. Reason removed: MD order no longer needed 3. Inserted length: 42 cm 4. Removed length: 42 cm 5. A dressing was placed over the site upon removal. No edema or bleeding at the site.
== END 2023-12-25 14:00 | disposition home health service (06) | DRG 42 ==
LOC: HO.ED 10:04 → HO.EDOVER 14:24 → HO.S3 12-16 15:48
PROVIDERS: Physician Assistant Medical; Student in an Organized Health Care Education/Training Program; Admitting Provider Physician Assistant; Emergency Provider Emergency Medicine; PCP Nurse Practitioner Family; Visit Provider Hospitalist
DX: G70.01 Myasthenia gravis with (acute) exacerbation (principal); E87.6 Hypokalemia; I10 Essential (primary) hypertension; Z87.891 Personal history of nicotine dependence; Z79.52 Long term (current) use of systemic steroids; Z79.899 Other long term (current) drug therapy
CPT/HCPCS: 36415; 36573; 74230; 80048; 80053; 81001; 82040; 82784; 83735; 84100; 84478; 85025; 85027; 92526; 92610; 92611; 94010; 94640; 97110; 97116; 97162; 99285; C1751; J0360; J1200; J1569; J1642; J1650; J2919; J3360; J3480; J7120

== ENCOUNTER 2023-12-15 13:44 | Outpatient (BNV) | payer OTHER, SELFPAY | END 2023-12-24 14:30 | PROVIDERS: Admitting Provider Physician Assistant; Emergency Provider Emergency Medicine; PCP Nurse Practitioner Family; Visit Provider Physician Assistant Surgical | DX: G70.01 Myasthenia gravis with (acute) exacerbation (principal); R13.10 Dysphagia, unspecified | CPT/HCPCS: 74230 ==

== ENCOUNTER → 2023-12-15 13:44 | Outpatient (BNV) | payer OTHER, SELFPAY | PROVIDERS: Admitting Provider Physician Assistant; Emergency Provider Emergency Medicine; PCP Nurse Practitioner Family; Visit Provider Psychiatry & Neurology Neurology | DX: G70.01 Myasthenia gravis with (acute) exacerbation (principal) | CPT/HCPCS: 99222 ==

== ENCOUNTER → 2023-12-15 13:44 | Outpatient (BNV) | payer OTHER, SELFPAY | PROVIDERS: Admitting Provider Physician Assistant; Emergency Provider Emergency Medicine; PCP Nurse Practitioner Family; Visit Provider Hospitalist | DX: G70.01 Myasthenia gravis with (acute) exacerbation (principal); R13.10 Dysphagia, unspecified | CPT/HCPCS: 99223; 99232; 99233; 99239; G0180 ==

== ENCOUNTER 2024-01-31 10:18 | Inpatient (IN) | payer OTHER, SELFPAY ==
--- NOTE | ~2024-01-31 | XR_ITS ---
EXAMINATION: XR ANKLE, LEFT CLINICAL INFORMATION: Pain status-post fall. COMPARISON: None available. TECHNIQUE: AP, lateral, and mortise views of the left ankle. FINDINGS: There is bony demineralization. The ankle mortise is intact. There is a small round, well-corticated accessory ossification center seen adjacent to the medial malleolus. Adjacent to the lateral malleolus, there is a 2 mm ossific density, which may represent a further accessory ossification center or a tiny avulsion fragment, possibly chronic given the absence of significant soft tissue swelling. No dislocation or joint effusion is seen. Boehler's angle is normal. There is a large plantar calcaneal spur. No focal focal soft tissue gas or foreign body is seen. There are atherosclerotic calcifications. XR/XR ankle LT min 3V IMPRESSION: 1. Adjacent to the lateral malleolus, there is a tiny ossific density, which may represent an avulsion fragment or small accessory ossification center. There is no significant adjacent soft tissue swelling to suggest this is acute. Clinical correlation is recommended. 2. No dislocation or joint effusion is seen. 2. There is a large plantar calcaneal spur.
--- NOTE | ~2024-01-31 | CT_ITS ---
EXAMINATION: CT HEAD WITHOUT CONTRAST CLINICAL INFORMATION: Headache status-post fall. COMPARISON: None available. TECHNIQUE: Contiguous axial imaging was performed from the skull base to vertex without intravenous administration of contrast. This CT examination was performed using dose optimization techniques as appropriate, variously including the following: *Automated exposure control *Adjustment of mA and/or kV according to patient size (this includes techniques or standardized protocols for targeted exams where dose is matched to indication/reason for exam; i.e. extremities or head) *Use of iterative reconstruction technique DLP: 576 mGy-cm FINDINGS: There is no acute intracranial hemorrhage or evidence of territorial infarction. No abnormal mass effect or midline shift is seen. [place] to white matter differentiation is well preserved. There is no abnormal attenuation within the brain parenchyma. The ventricles are normal in size. No extra-axial fluid collections are identified. The calvarium and scalp soft tissues are normal. There is bony demineralization. The middle ear cavity and mastoid air cells are clear. The visualized paranasal sinuses are clear. CT/CT head/brain wo IV con IMPRESSION: No acute intracranial pathology.
--- NOTE | ~2024-01-31 | CT_ITS ---
EXAMINATION: CT ABDOMEN AND PELVIS WITHOUT CONTRAST CLINICAL INFORMATION: Preoperative evaluation, gastrostomy tube COMPARISON: None available. TECHNIQUE: Multidetector volumetric imaging was performed from the superior aspect of the liver through the pubic symphysis. Sagittal and coronal reformatted images were obtained on the technologist's workstation. This CT examination was performed using dose optimization techniques as appropriate, variously including the following: *Automated exposure control *Adjustment of mA and/or kV according to patient size (this includes techniques or standardized protocols for targeted exams where dose is matched to indication/reason for exam; i.e. extremities or head) *Use of iterative reconstruction technique DLP: 262 mGy-cm FINDINGS: LUNG BASES: The visualized lung bases are unremarkable. LIVER, GALLBLADDER, AND BILIARY TREE: The liver is normal in size, shape, and attenuation. No focal hepatic lesion or biliary ductal dilatation is present. Not visualized. PANCREAS: Unremarkable. SPLEEN: Unremarkable. ADRENAL GLANDS: Unremarkable. KIDNEYS AND URETERS: The kidneys are normal in size, shape, and attenuation. No hydronephrosis, hydroureter, or calculi seen. No perinephric stranding. BLADDER: Decompressed. GASTROINTESTINAL TRACT: The small and large bowel are unremarkable. Colonic diverticulosis is noted. Gastric anatomy appears favorable for gastrostomy tube. ABDOMINAL WALL: No significant hernia is appreciated. LYMPH NODES: Normal. VASCULAR: The abdominal aorta is normal in caliber. Mild atherosclerotic disease. PELVIC VISCERA: Prior hysterectomy. OSSEOUS STRUCTURES: Osteopenia. Degenerative disease of the lumbar spine. CT/CT abdomen pelvis wo IV con IMPRESSION: Gastric anatomy appears favorable for gastrostomy tube. Fleischner guidelines were followed.
[2024-01-31 10:23] VITALS: BP 146/75; PULSE 67; RESP 16; TEMP 36.6; O2SAT 96; BMI 21.2
[2024-01-31 10:55] LABS: MANUAL DIFF FLAG NO
[2024-01-31 10:56] LABS: Basophils Percent Auto 0.3 % (0-2); Eosinophils Percent Auto 0.3 % (0-4); Hematocrit 43.9 % (37.0-47.0); Hemoglobin 14.8 g/dl (12.0-16.0); Imm Gran Abs Auto 0.07 X10*3/uL (0.00-0.03); Imm Gran Pct Auto 0.6 % (0.0-0.4); Lymphocytes Percent Auto 25.9 % (20-40); Mean Corpuscular HGB Conc 33.7 g/dl (31.0-35.0); Mean Corpuscular Hemoglobin 33.2 pg (27.0-33.0); Mean Corpuscular Volume 98.4 fL (80.0-98.0); Mean Platelet Volume 8.1 fL (9.4-12.3); Monocytes Absolute Auto 0.9 X10*3/uL (0.1-1.2); Monocytes Percent Auto 7.5 % (2-11); Neutrophils Absolute Auto 7.7 x10*3/uL (2.0-8.3); Neutrophils Percent Auto 65.4 % (45-73); Platelet Count 252 X10*3/uL (160-400); Red Blood Count 4.46 X10*6/uL (4.20-5.50); Red Cell Distribution Width 13.3 % (11.0-16.0); White Blood Count 11.7 X10*3/uL (4.8-10.8)
[2024-01-31 11:16] LABS: Alanine Aminotransferase 14 U/L (0-31); Albumin Level 4.3 g/dL (3.5-5.0); Alkaline Phosphatase 48 U/L (39-117); Anion Gap 11 (12-20); Aspartate Amino Transferase 18 U/L (5-31); Blood Urea Nitrogen 15 mg/dL (9-16); Calcium 9.3 mg/dL (8.4-10.2); Carbon Dioxide 27 mmol/L (22-29); Chloride 107 mmol/L (96-108); Estimated Glomerular Filt Rate > 60; Glucose Random 93 mg/dL (60-115); Potassium 3.5 mmol/L (3.3-5.1); Sodium 141 mmol/L (135-145); Total Protein 6.6 g/dL (6.5-8.0)
[2024-01-31 15:57] VITALS: BP 146/87; PULSE 61; RESP 16; TEMP 36.4; O2SAT 99
--- NOTE | 2024-01-31 16:05 | PC.NURSE ---
a&ox4. vss and up to date. pt presents to the ED d/t difficulty swallowing since . pt has a hx of myasthenia gravis and has multiple admissions to receive IVIG infusions. pt called neurologist who then sent her to ED to be evaluated. upon ED arrival - pt's has dysarthria. no sob/wob noted. respirations even/unlabored. pt sitting upright to promote patent airway. pt denies pain. pt waiting to be seen by ED provider. plan of care ongoing. call quintero placed within reach.
--- NOTE | 2024-01-31 16:06 | PC.NURSE ---
pt also verbalizing she was walking around last week and hit her left foot/ankle on the side of the post on the wall. swelling/redness/bruising noted on outer ankle all the way up to toes. cms intact. peripheral pulses palpable. tender to the touch. provider notified/aware.
--- NOTE | 2024-01-31 16:14 | ED.GENADULT ---
HPI - General Adult General Chief complaint: General Medical Stated complaint: Unable to swallow Time Seen by Provider: 01/31/24 16:03 Source: patient, RN notes reviewed and old records reviewed Mode of arrival: ambulatory Limitations: no limitations History of Present Illness ED Provider: Johnny HOLM narrative: 83-year-old female with past medical history significant for myasthenia gravis, hypertension, osteoporosis presents for evaluation of difficulty swallowing. States she had a recent fall injuring her left ankle. She denies hitting her head or losing consciousness. Since she has had difficulty swallowing. She attributes this to her myasthenia gravis She also complains of left ankle pain from this fall She has been able to walk using her cane She denies any shortness of breath or difficulty breathing Patient believes that her voice is surrounding muffled. Patient called her neurologist, Dr. Thomas who recommend she go to the ER The patient was last admitted for this similar episode in November of this year Related Data Home Medications ?Medication ?Instructions ?Recorded ?Confirmed azathioprine 50 mg tablet 50 mg PO Q OTHER DAY 07/04/20 12/15/23 pyridostigmine bromide 60 mg 60 mg PO TID 07/04/20 12/15/23 tablet (Mestinon) amlodipine 5 mg tablet 5 mg PO DAILY 08/21/22 12/15/23 efgartigimod isabella-fcab 20 mg/mL 480 mg IV Q7D 10/25/23 12/15/23 intravenous solution (Vyvgart) oxybutynin chloride 15 mg 15 mg PO DAILY 10/25/23 12/15/23 tablet,extended release 24 hr timolol maleate 0.25 % eye drops 1 drp ophthalmic-Right DAILY 10/25/23 12/15/23 artifi.tears(hypromellose)(PF) 0.3 2 drp ophthalmic-Right Q4-6H PRN 12/15/23 12/15/23 % eye drops Dry Eyes prednisone 10 mg tablet 10 mg PO BID 12/15/23 12/15/23 Allergies Allergy/AdvReac Type Severity Reaction Status Date / Time NSAIDS (Non-Steroidal Allergy Intermediate RASH Verified 01/31/24 10:24 Anti-Inflamma [NSAIDS (NON-STEROIDAL ANTI-INFLAMMA] azithromycin Allergy Unknown may Verified 01/31/24 10:24 exacerbate MG Ceftin Allergy Unknown hives Verified 01/31/24 10:24 cefuroxime [From CEFTIN] Allergy Unknown PATIENT Verified 01/31/24 10:24 AWARE OF REACTION IT WAS SO LONG AGO ibuprofen [Advil] Allergy Unknown rash Verified 01/31/24 10:24 levofloxacin Allergy Unknown may Verified 01/31/24 10:24 exacerbate MG lisinopril Allergy Unknown unknown Verified 01/31/24 10:24 losartan Allergy Unknown unknown Verified 01/31/24 10:24 ciprofloxacin [CIPROFLOXACIN] AdvReac Unknown UNABLE TO Verified 01/31/24 10:24 TAKE R/T DX MYASTHENIA GRAVIS nitrofurantoin AdvReac Unknown stomatitis Verified 01/31/24 10:24 adhesive tape Allergy Unknown rash Uncoded 12/15/23 09:16 adhesives Allergy Unknown rash Uncoded 12/15/23 09:16 Advil PM Allergy Unknown rash Uncoded 12/15/23 09:16 Review of Systems Constitutional: Constitutional: Denies body ache(s), Denies chills and Denies headache(s) Eyes: Eyes: Denies blurry vision ENT: Denies headache(s) Comments: Reports difficulty swallowing Neurologic: Reports Abnormal speech present and Denies headache(s) [facility] Past Medical History Medical History Osteoporosis Myasthenia gravis in remission Tubular adenoma of colon (~2010) Bile salt-induced diarrhea Surgical History History of back surgery Status post partial hysterectomy Hx laparoscopic cholecystectomy Hx of colonoscopy Family History Family History Father HTN (hypertension) Mother Colon cancer Sister Glaucoma Other Hx of colonoscopy Social History Social History Household Members: None Housing: House Do you presently have visiting nurse or other home services: Yes Alcohol intake: current Alcohol intake frequency: holidays/special occasions only Comment: 1-2 assist oob to commode/ chair Patient Tobacco Use Status: Former Tobacco user Smoked in Last 30 Days: No Use of substances other than those prescribed or required for medical reasons: No Advance Directives: Yes Advance Directives on File: Yes Advance Directives Date on File: 06/14/20 Do you have a plan to hurt others: No Plan service: No Physical Exam ED Vital Signs: Vital Signs - 24 hr 01/31/24 10:23 01/31/24 15:57 01/31/24 18:31 Temperature 97.8 F 97.6 F 98.9 F Pulse Rate 67 61 77 Respiratory Rate 16 16 17 Blood Pressure 146/75 H 146/87 H 132/85 Pulse Oximetry 96 99 96 Oxygen Delivery Method Room Air Room Air Room Air BMI result Body Mass Index 21.2 Const General: healthy appearing, comfortable, no acute distress, alert and awake Nutritional Appearance: well nourished Orientation/consciousness: patient oriented x3 HENMT Head: Yes normocephalic and Yes atraumatic Eyes Eyelids: Yes eyelids normal Conjunctivae: conjunctivae normal Sclerae: sclerae normal Corneas: corneas normal Pupils: Equal, round and reactive pupils present EOM: EOMs intact bilaterally Neck Neck: Yes full ROM Resp Effort & Inspection: normal respiratory effort, able to speak in complete sentences and not labored Skin General skin exam: elasticity normal Neuro General: patient oriented x3 Cranial nerves: Yes CN's II-XII intact bilaterally, Yes Equal, round and reactive pupils present and Yes Bilaterally intact EOM present Cognition (Neuro): normal cognition Speech: Abnormal speech present Gait exam (Neuro): Normal gait present Motor exam (neuro): 5/5 motor strength present throughout, Pronator motor function not present and no tremor noted Extrem Other: Patient has tenderness to the left lateral ankle with ecchymosis and edema to the area. There is ecchymosis extending down to the web spaces of the toes in the left foot. No tenderness to this area. Medications Administered Generic Name Dose Route Start Last Admin Trade Name Freq PRN Reason Stop Dose Admin Diphenhydramine HCl 25 mg 01/31/24 17:30 01/31/24 17:57 Diphenhydramine Hcl 50 Mg/Ml Vial IVPUSH 02/04/24 17:31 25 mg Q24H AME Administration Enoxaparin Sodium 40 mg 01/31/24 19:30 01/31/24 19:53 Enoxaparin Sodium 40 Mg/0.4 Ml Syringe SUBCUT 40 mg Q24H AME Administration Immune Globulin 200 mls @ 24 mls/hr 01/31/24 18:00 01/31/24 17:49 Gammagard 10% IV 02/05/24 02:19 24 mls/hr Q24H AME Administration As Directed Methylprednisolone Sodium Succinate 40 mg 01/31/24 17:30 01/31/24 17:57 Methylprednisolone Sod Succ 40 Mg/Ml Vial IVPUSH 02/04/24 17:31 40 mg Q24H AME Administration Discontinued Medications Generic Name Dose Route Start Last Admin Trade Name Dea PRN Reason Stop Dose Admin Acetaminophen 650 mg 01/31/24 17:30 01/31/24 19:03 Acetaminophen 325 Mg Tablet PO 01/31/24 19:29 Not Given Q24H AME Medical Decision Making Medical Decision Making [facility] Narrative: 83-year-old female with past medical history as documented above presents for evaluation of difficulty swallowing. Patient states her symptoms started 3 days ago, she called Dr. Thomas this morning and was referred to the ER for ?IV IG. I called Dr. Cardona myself did discuss the patient, he recommends starting IVIG 20 g daily x5 days. I discussed the pharmacy to get this ordered. Mild leukocytosis to 11.7. No significant anemia. Patient's electrolytes are without concerning abnormalities. Renal function within normal limits. Given the patient's reported fall prior to her nausea symptoms starting I did order a CT scan of the brain. Will x-ray the left ankle Differential Diagnosis Differential Diagnoses: The differential diagnosis associated with the presentation includes Myasthenia gravis CVA Intracranial hemorrhage Ankle fracture Lab Data [facility] Lab Attestation statement: I reviewed the patient's lab results. Please see medical decision making above 01/31/24 10:51 01/31/24 10:51 Labs: Lab Results 01/31/24 Range/Units 10:51 WBC 11.7 H (4.8-10.8) X10*3/uL RBC 4.46 (4.20-5.50) X10*6/uL Hgb 14.8 (12.0-16.0) g/dl Hct 43.9 (37.0-47.0) % MCV 98.4 H (80.0-98.0) fL MCH 33.2 H (27.0-33.0) pg MCHC 33.7 (31.0-35.0) g/dl RDW 13.3 (11.0-16.0) % Plt Count 252 D (160-400) X10*3/uL MPV 8.1 L (9.4-12.3) fL Immature Gran % (Auto) 0.6 H (0.0-0.4) % Neut % (Auto) 65.4 (45-73) % Lymph % (Auto) 25.9 (20-40) % [place] % (Auto) 7.5 (2-11) % Eos % (Auto) 0.3 (0-4) % Baso % (Auto) 0.3 (0-2) % Lymph # (Auto) 3.0 (1.2-4.9) X10*3/uL [place] # (Auto) 0.9 (0.1-1.2) X10*3/uL Eos # (Auto) 0.0 (0.0-0.4) X10*3/uL Baso # (Auto) 0.0 (0.0-0.2) X10*3/uL Abs Immat Gran (auto) 0.07 H (0.00-0.03) X10*3/uL Absolute Neuts (auto) 7.7 (2.0-8.3) x10*3/uL Absolute Nucleated RBC 0.000 (0.0-0.012) X10*3/uL Nucleated RBC % (auto) 0.0 (0.0-0.2) /100WBC Sodium 141 (135-145) mmol/L Potassium 3.5 (3.3-5.1) mmol/L Chloride 107 (96-108) mmol/L Carbon Dioxide 27 (22-29) mmol/L Anion Gap 11 L (12-20) BUN 15 (9-16) mg/dL Creatinine 0.70 (0.5-1.4) mg/dL Estim Creat Clear Calc 40.0 Estimated GFR > 60 Random Glucose 93 (60-115) mg/dL Calcium 9.3 D (8.4-10.2) mg/dL Total Bilirubin 1.0 (0.0-1.0) mg/dL AST 18 (5-31) U/L ALT 14 (0-31) U/L Alkaline Phosphatase 48 (39-117) U/L Total Protein 6.6 (6.5-8.0) g/dL Albumin 4.3 (3.5-5.0) g/dL Discharge Plan Discharge Clinical Impression: Myasthenia gravis Patient Disposition: Admitted As Inpatient Prescriptions: No Action oxybutynin chloride 15 mg tablet extended release 24hr 15 mg PO DAILY timolol maleate 0.25 % drops 1 drp ophthalmic-Right DAILY Vyvgart 20 mg/mL solution 480 mg IV Q7D Rx Instructions: 10 mg/kg weekly for 4 weeks next cycle due on 12/25/23 prednisone 10 mg tablet 10 mg PO BID artifi.tears(hypromellose)(PF) 0.3 % Drops 2 drp OPHTHALMIC-RIGHT Q4-6H PRN (Reason: Dry Eyes) pyridostigmine bromide [Mestinon] 60 mg tablet 60 mg PO TID azathioprine 50 mg tablet 50 mg PO Q OTHER DAY amlodipine 5 mg tablet 5 mg PO DAILY Print Language: [place]
--- NOTE | 2024-01-31 16:40 | PM.IMHP ---
History of Present Illness Date of Service: 01/31/24 Attending physician on admission: Steven Overton Chief Complaint: dysphagia 83 year old female with history of myasthenia gravis predominantly oropharyngeal symptoms, osteoporosis, bile salt induced diarrhea presented to the ED earlier today for evaluation of dysphagia, impaired speech, generalized weakness ongoing for about 3 days. She reports it is consistent with a myasthenia gravis flare which she is experienced in the past. Was admitted 10/24- and again 12/14-12/24 for MG flare requiring iVIG and also required PPN due to persistent dysphagia though diet was eventually advanced to NDD1 with thin liquids, was followed by MEDICAL DATA ANALYST. She did not require ICU admission for airway protection. She did have modified barium swallow performed last admission with aspiration observed with honey thick barium and laryngeal penetration seen with puree or thick barium. She does report recent fall several days ago without head strike. States she tripped and hit the left ankle on the door frame. She has been able to ambulate. X-ray of the left ankle shows a tiny ossific density adjacent to the lateral malleolus possibly representing an avulsion fragment or small accessory ossification center however there is no significant soft tissue swelling to suggest this is acute. Head CT negative for any acute intracranial abnormality. In the ED, vital signs stable. She has a mild leukocytosis of 11.7. Renal function electrolyte levels are normal. In the ED, has been started on IV IG, 40 mg IV methylprednisolone, and Benadryl. Review of Systems Review of Systems: General: No fevers, malaise, unintentional weight loss. +general weakness HEENT: No blurred vision, diplopia. No sore throat, nasal congestion, rhinorrhea, sinus pain, ear pain Cardiovascular: No chest pain, palpitations, or leg edema Respiratory: No shortness of breath, wheezing, cough GI: +dysphagia. No abdominal pain, nausea, vomiting, diarrhea, constipation, melena, hematochezia : No dysuria, hematuria, increased urinary frequency, decreased urinary output MSK: No myalgia, back pain Neuro: No headaches, weakness, paresthesias Skin: No rashes or lesions COUNTS INCLUDE 234 BEDS AT THE [facility] Medical History Osteoporosis Myasthenia gravis in remission Tubular adenoma of colon (~2010) Bile salt-induced diarrhea Family History Father HTN (hypertension) Mother Colon cancer Sister Glaucoma Other Hx of colonoscopy Surgical History History of back surgery Status post partial hysterectomy Hx laparoscopic cholecystectomy Hx of colonoscopy Social History Household Members: None Housing: House Do you presently have visiting nurse or other home services: Yes Alcohol intake: current Alcohol intake frequency: holidays/special occasions only Comment: 1-2 assist oob to commode/ chair Patient Tobacco Use Status: Former Tobacco user Smoked in Last 30 Days: No Use of substances other than those prescribed or required for medical reasons: No Advance Directives: Yes Advance Directives on File: Yes Advance Directives Date on File: 06/14/20 Do you have a plan to hurt others: No Plan service: No Meds Allergies Allergy/AdvReac Type Severity Reaction Status Date / Time NSAIDS (Non-Steroidal Allergy Intermediate RASH Verified 01/31/24 10:24 Anti-Inflamma [NSAIDS (NON-STEROIDAL ANTI-INFLAMMA] azithromycin Allergy Unknown may Verified 01/31/24 10:24 exacerbate MG Ceftin Allergy Unknown hives Verified 01/31/24 10:24 cefuroxime [From CEFTIN] Allergy Unknown PATIENT Verified 01/31/24 10:24 AWARE OF REACTION IT WAS SO LONG AGO ibuprofen [Advil] Allergy Unknown rash Verified 01/31/24 10:24 levofloxacin Allergy Unknown may Verified 01/31/24 10:24 exacerbate MG lisinopril Allergy Unknown unknown Verified 01/31/24 10:24 losartan Allergy Unknown unknown Verified 01/31/24 10:24 ciprofloxacin [CIPROFLOXACIN] AdvReac Unknown UNABLE TO Verified 01/31/24 10:24 TAKE R/T DX MYASTHENIA GRAVIS nitrofurantoin AdvReac Unknown stomatitis Verified 01/31/24 10:24 adhesive tape Allergy Unknown rash Uncoded 12/15/23 09:16 adhesives Allergy Unknown rash Uncoded 12/15/23 09:16 Advil PM Allergy Unknown rash Uncoded 12/15/23 09:16 Home Medications ?Medication ?Instructions ?Recorded ?Confirmed ?Last Taken ?Type azathioprine 50 mg tablet 50 mg PO Q OTHER DAY 07/04/20 12/15/2324 History pyridostigmine bromide 60 mg 60 mg PO TID 07/04/20 12/15/23 12/15/23 History tablet (Mestinon) amlodipine 5 mg tablet 5 mg PO DAILY 08/21/22 12/15/23 12/15/23 History efgartigimod isabella-fcab 20 mg/mL 480 mg IV Q7D 10/25/23 12/15/23 11/20/23 History intravenous solution (Vyvgart) oxybutynin chloride 15 mg 15 mg PO DAILY 10/25/23 12/15/23 12/15/23 History tablet,extended release 24 hr timolol maleate 0.25 % eye drops 1 drp ophthalmic-Right DAILY 10/25/23 12/15/23 Unknown History artifi.tears(hypromellose)(PF) 0.3 2 drp ophthalmic-Right Q4-6H PRN 12/15/23 12/15/23 Unknown History % eye drops Dry Eyes prednisone 10 mg tablet 10 mg PO BID 12/15/23 12/15/23 12/15/23 History Physical Exam Vital Signs and Narrative: Vital Signs: Last Vital Signs Temp 97.6 F 01/31/24 15:57 Pulse 61 01/31/24 15:57 Resp 16 01/31/24 15:57 BP 146/87 H 01/31/24 15:57 Pulse Ox 99 01/31/24 15:57 O2 Del Method Room Air 01/31/24 15:57 BMI result Body Mass Index 21.2 Constitutional - Awake and Alert, No apparent distress Eyes - PERRLA, EOMI Cardiovascular - S1S2, RRR, No edema Respiratory - Normal lung expansion, Normal respiratory effort, No respiratory distress, CTA bilaterally Gastrointestinal - NT / ND; +BS; No rebound or guarding Extremities - no calf tenderness bilaterally, no swelling Skin - Warm/Dry Neurological - Alert & oriented x3, CN II-XII intact, no ptosis, 5/5 strength bue and ble Psychological - Appropriate affect Results Labs 01/31/24 10:51 01/31/24 10:51 Labs: Laboratory Results - last 24 hr 01/31/24 10:51 MCV 98.4 H MCH 33.2 H MCHC 33.7 RDW 13.3 Plt Count 252 D MPV 8.1 L Immature Gran % (Auto) 0.6 H Neut % (Auto) 65.4 Lymph % (Auto) 25.9 [place] % (Auto) 7.5 Eos % (Auto) 0.3 Baso % (Auto) 0.3 Lymph # (Auto) 3.0 [place] # (Auto) 0.9 Eos # (Auto) 0.0 Baso # (Auto) 0.0 Abs Immat Gran (auto) 0.07 H Absolute Neuts (auto) 7.7 Absolute Nucleated RBC 0.000 Nucleated RBC % (auto) 0.0 Anion Gap 11 L Estim Creat Clear Calc 40.0 Estimated GFR > 60 Random Glucose 93 Calcium 9.3 D Total Bilirubin 1.0 AST 18 ALT 14 Alkaline Phosphatase 48 Total Protein 6.6 Albumin 4.3 Assessment and Plan (1) Myasthenia gravis: Status: Acute (2) Swallowing problem: Status: Acute Plan 83 year old female with history of myasthenia gravis predominantly oropharyngeal symptoms, osteoporosis, bile salt induced diarrhea admitted for myasthnia gravis flare. #Myasthenia gravis flare- primarily oropharyngeal symptoms -IVIG (400mg/kg) x 5 days per neurology -40mg IV solumedrol daily x 3 days, then prednisone -Baseline FVC/NIF ordered with poor inspiratory effort, continue BID -NPO, MEDICAL DATA ANALYST consult. Initiate PPN -neurology consult -hold po meds #Acute ankle pain -xr shows possible avulsion adjacent to lateral malleolus, but age is indeterminate. There is no associated swelling -recommend RICE therapy, ketorolac prn #HTN -IV hydralazine 5mg prn sbp >180. Hold po meds dvt prophyalxis- lovenox full code pt requires inpt stay for IVIG therapy and IV steroids and PPN due to myasthenia gravis flare which is restricting PO intake and therefore cannot safely be administered on outpt basis at this time Quality Stroke Does the patient have a stroke diagnosis?: No VTE Prior VTE?: No VTE Risk Level:: Medical - moderate - high VTE Device Contraindication: Treatment Not Indicated VTE Drug Contraindication: N/A - Med Ordered
--- NOTE | 2024-01-31 17:05 | PC.NURSE ---
pt ambulates to the restroom independently w/ a s subhash steady gait while using a cane for assistance.
[2024-01-31] MEDS: Immun Glob G(IgG)/Gly/IGA Ov50 200 ML IV (17:49)
[2024-01-31] MEDS: methylPREDNISolone Sod Succ 40 MG/ML VIAL IVPUSH (17:57)
[2024-01-31] MEDS: diphenhydrAMINE HCL 50 MG/ML VIAL 25 MG IVPUSH (17:57)
--- NOTE | 2024-01-31 17:57 | PC.RT ---
FVC performed ~ 1.50 NIF performed ~ -5
--- NOTE | 2024-01-31 18:09 | PC.NURSE ---
two 20gIVs placed in the AC's bilaterally. patent/intact. IVIG infusion started at this time. other medications order by provider administered as well. attempted to administer tylneol PO crushed in applesauce. unsuccessful. pt failed swallow screen. extreme difficulty noted while attempting to swallow. moderate amount of drooling noted while trying to swallow. [place] Fam notified/aware. no sob/wob noted. respirations even/unlabored. pt positioned upright to promote patent airway. plan of care ongoing. call quintero placed within reach.
[2024-01-31 18:31] VITALS: BP 132/85; PULSE 77; RESP 17; TEMP 37.2; O2SAT 96
[2024-01-31] MEDS: Enoxaparin Sodium 40 MG/0.4 ML SYRINGE SUBCUT (19:53)
--- NOTE | 2024-01-31 20:45 | MHC.EDTECH ---
This tech took over care of this patient at this time,hourly rounds and vitals completed,patient ambulated with a cane and 1 assist to the bathroom with a steady gait.,patient urinated. belongings list completed and copy placed in chart
[2024-01-31 20:50] VITALS: BP 147/81; PULSE 62; RESP 18; TEMP 36.8; O2SAT 96
--- NOTE | 2024-01-31 20:53 | MHC.EDTECH ---
Attempted to take the patients bottle of water due to patient being NPO,patient is refusing and grabbed bottle ,CC Sue at bedside.
[2024-01-31] MEDS: 0.9 % Sodium Chloride 1,000 ML 80 ML IVCONT (21:14)
[2024-01-31] MEDS: diazePAM 10 MG/2 ML CARTRIDGE 2.5 MG IVPUSH (21:30)
--- NOTE | 2024-01-31 21:33 | PC.NURSE ---
this rn assumed care of pt, pt requesting dose of PRN valium for anxiety at this time, pt tolerated well. pt reports increased anxiety due to the feeling of being unable to swallow.
--- NOTE | 2024-01-31 22:22 | MHC.EDTECH ---
Patient ambulated to the bathroom with cane and a steady gait,
[2024-01-31 23:49] VITALS: BP 137/84; PULSE 82; RESP 16; TEMP 36.6; O2SAT 97
--- NOTE | 2024-01-31 23:54 | MHC.EDTECH ---
Hourly rounds and vitals completed,patient ambulated with 1 assist to the bathroom,patient urinated,call quintero in reach
[2024-02-01 02:05] VITALS: BP 148/80; PULSE 68; RESP 18; TEMP 36.7; O2SAT 97
--- NOTE | 2024-02-01 02:06 | MHC.EDTECH ---
Patient ambulated to the bathroom,hourly rounds and vitals completed,call quintero in reach
[2024-02-01 03:05] VITALS: BP 150/96; PULSE 88; RESP 17; TEMP 36.2; O2SAT 95
[2024-02-01 06:09] LABS: MANUAL DIFF FLAG NO
[2024-02-01 06:14] LABS: Basophils Percent Auto 0.1 % (0-2); Hematocrit 42.2 % (37.0-47.0); Hemoglobin 14.1 g/dl (12.0-16.0); Imm Gran Abs Auto 0.04 X10*3/uL (0.00-0.03); Imm Gran Pct Auto 0.5 % (0.0-0.4); Lymphocytes Absolute Auto 0.6 X10*3/uL (1.2-4.9); Lymphocytes Percent Auto 7.2 % (20-40); Mean Corpuscular HGB Conc 33.4 g/dl (31.0-35.0); Mean Corpuscular Hemoglobin 32.8 pg (27.0-33.0); Mean Corpuscular Volume 98.1 fL (80.0-98.0); Mean Platelet Volume 8.4 fL (9.4-12.3); Monocytes Absolute Auto 0.3 X10*3/uL (0.1-1.2); Monocytes Percent Auto 3.2 % (2-11); Neutrophils Absolute Auto 6.9 x10*3/uL (2.0-8.3); Platelet Count 238 X10*3/uL (160-400); Red Cell Distribution Width 13.4 % (11.0-16.0); White Blood Count 7.8 X10*3/uL (4.8-10.8)
[2024-02-01 06:27] LABS: Albumin Level 3.8 g/dL (3.5-5.0); Anion Gap 11 (12-20); Blood Urea Nitrogen 11 mg/dL (9-16); Calcium 8.6 mg/dL (8.4-10.2); Carbon Dioxide 25 mmol/L (22-29); Chloride 108 mmol/L (96-108); Creatinine Clr Calc Pharmacy 45.9; Estimated Glomerular Filt Rate > 60; Glucose Random 120 mg/dL (60-115); Phosphorus 3.6 mg/dL (2.7-4.5); Potassium 3.6 mmol/L (3.3-5.1); Sodium 140 mmol/L (135-145)
[2024-02-01 07:23] VITALS: BP 140/90; PULSE 99; RESP 14; TEMP 37; O2SAT 97
--- NOTE | 2024-02-01 08:12 | PHA.MEDREC ---
Addendum entered by Milagros Downs 02/01/24 08:41: In claims most recent dose of prednisone is 5mg 3 times daily but patient confirmed she is taking 10mg twice a day. Original Note: Pharmacy Consult ? Medication Reconciliation Pharmacy has completed the medication reconciliation. Confirmed medications with PT. She confirmed she does her eyedrops for glaucoma 1 drop in the right eye in the morning and 1 drop in each eye at night. She stated also she recently started sertaline for anxiety but she did not like how she was feeling on it so she stopped it herself.
[2024-02-01] MEDS: 0.9 % Sodium Chloride 1,000 ML 80 ML IVCONT (08:17)
[2024-02-01] MEDS: 0.9 % Sodium Chloride Flush 3 ML SYRINGE IVFLUSH ×2 (08:22→22:09)
[2024-02-01 08:37] LABS: Venous Blood Gas Refer to POC result
[2024-02-01 08:39] LABS: VBG Base Excess 1.7 mmol/L; VBG HCO3 25 mmol/L (22-26); VBG pCO2 35 mmHg; VBG pH 7.46 (7.32-7.43); VBG pO2 63 mmHg
--- NOTE | 2024-02-01 10:32 | MHC.CM.PN ---
pt lives alone ,has her own ride home receives services thru [facility],pt,ot and homemaker dc plan home
[2024-02-01 11:01] VITALS: BMI 21.2
[2024-02-01 11:28] VITALS: BP 140/90
--- NOTE | 2024-02-01 11:28 | MHC.CLN ---
Addendum entered by Anahi Mathur RD 02/01/24 11:31: IF CENTRAL LINE NOT IN PLACE, RECOMMEND START PPN TODAY. PPN AT 30 ML PER HOUR, 31 G PROTEIN, 72 G DEXTROSE, 367 KCALS. Original Note: NUTRITION PATIENT IS NPO DUE TO DYSPHAGIA. ORDER FOR PICC LINE TODAY TO START TPN. RECOMMEND START TODAY, DAY 1: TPN AT 30 ML PER HOUR, 36 G PROTEIN, 108 G DEXTROSE, 511 KCALS. REPLETE LYTES NEEDED, CHECK TRIGLYCERIDES. DAY 2 ADVANCE TO MAX GOAL RATE: TPN AT 50 ML PER HOUR, 57 G LIPIDS, 60 G PROTEIN (1.26 G/KG), 180 G DEXTROSE, 1422 TOTAL KCALS (29. KCALS/KG). REPLETE LYTES NEEDED. SHOWS WEIGHT LOSS X 3 MONTHS -19.1%. QUESTION ACCURACY OF WEIGHT SINCE SAME WEIGHT ON 12/15/23 PRIOR ADM. DOES NOT APPEAR TO BE MALNOURISHED. MONITOR LABS, WEIGHT AND TPN TOLERANCE. SEE CLINICAL NUTRITION ASSESSMENT 02/01/24.
--- NOTE | 2024-02-01 11:30 | MHC.CM.PN ---
Addendum entered by Kriss Milligan 02/01/24 11:33: Patient has a ride home at discharge. Original Note: A Hospice informational meeting has been requested. [facility] has been contacted. Per MD Patient can discharge home with resumption of Home services. Patient may transition to Hospice at home.
--- NOTE | 2024-02-01 12:02 | MHC.SLORD ---
Speech Language Pathology Order Status: HARDENING MACHINE OPERATOR HELPER received order for bedside dysphagia evaluation. Patient is familiar to HARDENING MACHINE OPERATOR HELPER team, was seen by HARDENING MACHINE OPERATOR HELPER during prior admissions 10/24-11/04 and 12/14-12/24, for MG flare requiring IV treatment as well as PPN due to persistent dysphagia. Patient did have an MBSS during her last inpatient stay which showed significant pharyngeal retention with penetration and aspiration. Her diet was eventually upgraded to puree/thin liquids with the recommendation to continue speech therapy through [facility]. Patient is now admitted, again for MG flare with predominantly oropharyngeal symptoms. Patient reports she has started [facility] services, including RN, PT, OT, and HARDENING MACHINE OPERATOR HELPER, but has not yet seen the visiting HARDENING MACHINE OPERATOR HELPER due to scheduling conflicts and her hospitalizations. Per RN, patient failed her nursing swallow screening yesterday and was unable to take crushed pills yesterday due to extreme difficulty attempting to swallow with drooling on attempts. Patient refused PO trials this morning, stating that she absolutely cannot swallow. Patient was encouraged to attempt to swallow her saliva, patient leaned her head forward in an attempt to swallow and was unable to complete a volitional swallow. With palpation note absent laryngeal elevation. Patient using oral swab to moisten the oral cavity. Oral mech exam revealed moderate lingual weakness and limited lingual ROM. Notified MD patient was unable to participate in a bedside swallow evaluation at this time and is recommended to continue NPO status. Patient may benefit from consult with Nutrition Services given recurrent MG flare ups causing significant dysphagia and restricting PO intake. HARDENING MACHINE OPERATOR HELPER will continue to follow.
--- NOTE | 2024-02-01 12:52 | HO.PM.IMPN ---
Subjective Subjective Date of Service: 02/01/24 Interval History: swallowing difficulty no breathing problems Review of Systems Review of Systems: Yes all other systems are reviewed and are negative Physical Exam Vital Signs: Vital Signs: Last Vital Signs Temp 98.6 F 02/01/24 07:23 Pulse 99 02/01/24 07:23 Resp 14 02/01/24 07:23 BP 140/90 H 02/01/24 11:28 Pulse Ox 97 02/01/24 07:23 O2 Del Method Room Air 02/01/24 07:23 BMI result Body Mass Index 21.2 Gen: in no acute distress HEENT: sclera anicteric, moist mucus membranes, stable chronic L ptosis Neck: supple Lungs: clear to auscultation bilaterally Heart: regular rate and rhythm, no murmurs Abd: soft, non-tender, non-distended Ext: no edema Skin: warm/well-perfused Neuro: alert and oriented x3, moving all extremities Psych: appropriate affect Objective Data Active Medications Amlodipine Besylate (Amlodipine Besylate 5 Mg Tablet) 5 mg PO DAILY AME; Protocol Last Admin: 02/01/24 11:28 Dose: Not Given Documented By: JAVY Non-Admin Reason: NPO Azathioprine (Azathioprine 50 Mg Tablet) 50 mg PO Q48H [facility] Last Admin: 02/01/24 11:29 Dose: Not Given Documented By: JAVY Non-Admin Reason: NPO Diazepam (Diazepam 10 Mg/2 Ml Cartridge) 2.5 mg IVPUSH Q8H PRN PRN Reason: anxiety/restlessness Last Admin: 01/31/24 21:30 Dose: 2.5 mg Documented By: AVIS Diphenhydramine HCl (Diphenhydramine Hcl 50 Mg/Ml Vial) 25 mg IVPUSH Q24H AME Stop: 02/04/24 17:31 Last Admin: 01/31/24 17:57 Dose: 25 mg Documented By: RAVI Enoxaparin Sodium (Enoxaparin Sodium 40 Mg/0.4 Ml Syringe) 40 mg SUBCUT Q24H [facility] Last Admin: 01/31/24 19:53 Dose: 40 mg Documented By: RAVI Hydralazine HCl (Hydralazine Hcl 20 Mg/Ml Vial) 5 mg IVPUSH Q6H PRN; Protocol PRN Reason: SBP > 180 Immune Globulin (Gammagard 10%) 200 mls @ 24 mls/hr IV Q24H AME Stop: 02/05/24 02:19 Last Infusion: 02/01/24 02:28 Dose: Infused Documented By: AVIS Sodium Chloride (Ns) 1,000 mls @ 80 mls/hr IVCONT .[id number] AME Last Infusion: 02/01/24 08:22 Dose: 0 mls/hr Documented By: JAVY Nutrition (Parenteral) (Parenteral Nutrition) 720 mls @ 30 mls/hr IV .Q24H AME; Protocol Stop: 02/02/24 20:59 Methylprednisolone Sodium Succinate (Methylprednisolone Sod Succ 40 Mg/Ml Vial) 40 mg IVPUSH Q24H AME Stop: 02/04/24 17:31 Last Admin: 01/31/24 17:57 Dose: 40 mg Documented By: RAVI Non-Formulary Medication (Timolol Maleate) 1 drop EYE-BOTH BEDTIME AME Non-Formulary Medication (Timolol Maleate) 1 drop EYE-RIGHT DAILY [facility] Oxybutynin Chloride (Oxybutynin Chloride Er 5 Mg Tab.Er.24) 15 mg PO DAILY [facility] Last Admin: 02/01/24 11:29 Dose: Not Given Documented By: JAVY Non-Admin Reason: NPO Pharmacy Consult (Consult Rx Parenteral Nutrition Ordering) 1 each MISCELLANE DAILY PRN PRN Reason: Consult order Pyridostigmine [place] (Pyridostigmine [place] 60 Mg Tablet) 60 mg PO TID [facility] Last Admin: 02/01/24 11:30 Dose: Not Given Documented By: JAVY Non-Admin Reason: NPO Sodium Chloride (0.9 % Sodium Chloride Flush 3 Ml Syringe) 3 ml IVFLUSH QSHIFT [facility] Last Admin: 02/01/24 08:22 Dose: 3 ml Documented By: JAVY Labs 02/01/24 05:53 02/01/24 05:53 Labs: Laboratory Results - last 24 hr 02/01/24 02/01/24 05:53 08:30 MCV 98.1 H MCH 32.8 MCHC 33.4 RDW 13.4 Plt Count 238 MPV 8.4 L Immature Gran % (Auto) 0.5 H Neut % (Auto) 89.0 H Lymph % (Auto) 7.2 L [place] % (Auto) 3.2 Eos % (Auto) 0.0 Baso % (Auto) 0.1 Lymph # (Auto) 0.6 L [place] # (Auto) 0.3 Eos # (Auto) 0.0 Baso # (Auto) 0.0 Abs Immat Gran (auto) 0.04 H Absolute Neuts (auto) 6.9 Absolute Nucleated RBC 0.000 Nucleated RBC % (auto) 0.0 VBG pH 7.46 H VBG pCO2 35 VBG pO2 63 VBG HCO3 25 VBG O2 Saturation 94.0 VBG Base Excess 1.7 Anion Gap 11 L Estim Creat Clear Calc 45.9 Estimated GFR > 60 Random Glucose 120 H Calcium 8.6 D Phosphorus 3.6 Magnesium 2.0 Albumin 3.8 Assessment and Plan (1) Myasthenia gravis: Status: Acute Plan 83yo F with MG with predominantly oropharyngeal symptoms admitted for flare MG flare - IVIg + methylprednisolone 01/30-02/03 - pyridostigmine- cannot take PO, will give IV - PICC placement for TPN. Pt declines PEG tube. - hold azathioprine while NPO - [employer] following: NPO for now - Neurology consult; recommend hospice evaluation - continue NIF q6h HTN - holding amlodipine VTE ppx - LMWH dispo - TBD In my clinical judgment, the patient requires continued inpatient hospitalization for the following reasons: IVIg, NPO, TPN Total time managing care of this patient today: 40 minutes. Quality Stroke Does the patient have a stroke diagnosis?: No VTE Prior VTE?: No VTE Risk Level:: Medical - moderate - high VTE Device Contraindication: Treatment Not Indicated VTE Drug Contraindication: N/A - Med Ordered
--- NOTE | 2024-02-01 13:18 | P.PICC_ITS ---
PICC Line Insertion NPICC Diagnosis: aphagia Indication: TPN Pertinent Labs: Reviewed Technique: Following informed consent including risks, benefits and alternatives and using sterile technique including cap and mask, sterile gown, glove and drape, the right arm was prepped and draped in the usual sterile fashion of full barrier technique with CHG. Following completion of [place] Protocol the skin and soft tissues were anesthetized with 1% Lidocaine plain. Using ultrasound guidance, right brachial vein access was obtained. Over an 0.018 wire through peel-away sheath, a 5FR double lumen PASV PICC line was positioned. Catheter length is 36cm internal length, 0cm external length, for a total trimmed length of 36cm. The procedure was performed in room 272. Tip verification was performed by Katarzyna Fonseca with Sherlock 3CG. Tip located in SVC. Ultrasound was used to document vein patency and for needle entry. A formal ultrasound picture and cardiac rhythm strip was recorded. [facility] [employer] has released the line for use and it is currently dressed with a StatLock, Tegaderm, and CHG disc. Verification has been performed for blood return and line patency. Arm Circumference: 21.5cm Equipment: LYYN PowerPICC SOLO with Sherlock 3CG Catheter Type: 5FR double lumen PASV PICC Lot #: [id number]
[2024-02-01] MEDS: diazePAM 10 MG/2 ML CARTRIDGE 2.5 MG IVPUSH ×2 (13:23→21:08)
--- NOTE | 2024-02-01 15:02 | PM.NEUROCN ---
History of Present Illness Data of Consult Service Date: 02/01/24 Primary Care Provider: Aria Sherwood NP HPI Reason for consult: Myasthenia gravis exacerbation 83 years old woman known to service for severe intractable generalize myasthenia gravis treated with multiple immunomodulating agents including a biological drug. Her situation has been progressively getting worse with lack of full control of dysphagia and dysarthria. She called me over the weekend stated that she was very bad an her swallowing and speech was significantly affected. She was asked to come to emergency room from where she was admitted for IVIG treatment. This morning she was feeling slightly better. She denied any recent infection or any other problem. Review of Systems Review of Systems: No recent cold or flu-like illness PMFSH Past Medical History Medical History Osteoporosis Myasthenia gravis in remission Tubular adenoma of colon (~2010) Bile salt-induced diarrhea Family History Family History Father HTN (hypertension) Mother Colon cancer Sister Glaucoma Other Hx of colonoscopy Surgical History Surgical History History of back surgery Status post partial hysterectomy Hx laparoscopic cholecystectomy Hx of colonoscopy Social History Social History Household Members: None Housing: House Do you presently have visiting nurse or other home services: Yes Alcohol intake: current Alcohol intake frequency: holidays/special occasions only Comment: 1-2 assist oob to commode/ chair Patient Tobacco Use Status: Former Tobacco user Advance Directives Date on File: 06/14/20 service: No Meds Allergies Allergy/AdvReac Type Severity Reaction Status Date / Time NSAIDS (Non-Steroidal Allergy Intermediate RASH Verified 01/31/24 10:24 Anti-Inflamma [NSAIDS (NON-STEROIDAL ANTI-INFLAMMA] azithromycin Allergy Unknown may Verified 01/31/24 10:24 exacerbate MG Ceftin Allergy Unknown hives Verified 01/31/24 10:24 cefuroxime [From CEFTIN] Allergy Unknown PATIENT Verified 01/31/24 10:24 AWARE OF REACTION IT WAS SO LONG AGO ibuprofen [Advil] Allergy Unknown rash Verified 01/31/24 10:24 levofloxacin Allergy Unknown may Verified 01/31/24 10:24 exacerbate MG lisinopril Allergy Unknown unknown Verified 01/31/24 10:24 losartan Allergy Unknown unknown Verified 01/31/24 10:24 ciprofloxacin [CIPROFLOXACIN] AdvReac Unknown UNABLE TO Verified 01/31/24 10:24 TAKE R/T DX MYASTHENIA GRAVIS nitrofurantoin AdvReac Unknown stomatitis Verified 01/31/24 10:24 adhesive tape Allergy Unknown rash Uncoded 12/15/23 09:16 adhesives Allergy Unknown rash Uncoded 12/15/23 09:16 Advil PM Allergy Unknown rash Uncoded 12/15/23 09:16 Active Medications: Current Medications Amlodipine Besylate (Amlodipine Besylate 5 Mg Tablet) 5 mg PO DAILY [facility]; Protocol Last Admin: 02/01/24 11:28 Dose: Not Given Azathioprine (Azathioprine 50 Mg Tablet) 50 mg PO Q48H [facility] Last Admin: 02/01/24 11:29 Dose: Not Given Diazepam (Diazepam 10 Mg/2 Ml Cartridge) 2.5 mg IVPUSH Q8H PRN PRN Reason: anxiety/restlessness Last Admin: 02/01/24 13:23 Dose: 2.5 mg Diphenhydramine HCl (Diphenhydramine Hcl 50 Mg/Ml Vial) 25 mg IVPUSH Q24H AME Stop: 02/04/24 17:31 Last Admin: 01/31/24 17:57 Dose: 25 mg Enoxaparin Sodium (Enoxaparin Sodium 40 Mg/0.4 Ml Syringe) 40 mg SUBCUT Q24H [facility] Last Admin: 01/31/24 19:53 Dose: 40 mg Hydralazine HCl (Hydralazine Hcl 20 Mg/Ml Vial) 5 mg IVPUSH Q6H PRN; Protocol PRN Reason: SBP > 180 Immune Globulin (Gammagard 10%) 200 mls @ 24 mls/hr IV Q24H AME Stop: 02/05/24 02:19 Last Infusion: 02/01/24 02:28 Dose: Infused Sodium Chloride (Ns) 1,000 mls @ 80 mls/hr IVCONT .[id number] [facility] Last Infusion: 02/01/24 13:30 Dose: 80 mls/hr Nutrition (Parenteral) (Parenteral Nutrition) 720 mls @ 30 mls/hr IV .Q24H [facility]; Protocol Stop: 02/02/24 20:59 Methylprednisolone Sodium Succinate (Methylprednisolone Sod Succ 40 Mg/Ml Vial) 40 mg IVPUSH Q24H [facility] Stop: 02/04/24 17:31 Last Admin: 01/31/24 17:57 Dose: 40 mg Non-Formulary Medication (Timolol Maleate) 1 drop EYE-BOTH BEDTIME [facility] Non-Formulary Medication (Timolol Maleate) 1 drop EYE-RIGHT DAILY [facility] Nystatin (Nystatin Cream 15 Gm Tube) 1 appl TOPICAL BID [facility]E; Protocol Oxybutynin Chloride (Oxybutynin Chloride Er 5 Mg Tab.Er.24) 15 mg PO DAILY [facility] Last Admin: 02/01/24 11:29 Dose: Not Given Pharmacy Consult (Consult Rx Parenteral Nutrition Ordering) 1 each MISCELLANE DAILY PRN PRN Reason: Consult order Pyridostigmine [place] (Pyridostigmine [place] 60 Mg Tablet) 60 mg PO TID [facility] Last Admin: 02/01/24 11:30 Dose: Not Given Sodium Chloride (0.9 % Sodium Chloride Flush 3 Ml Syringe) [facility] Last Admin: 02/01/24 08:22 Dose: 3 ml Sodium Chloride (0.9 % Sodium Chloride Flush 10 Ml Syringe) 5 ml IVFLUSH TID [facility] Home Medications ?Medication ?Instructions ?Recorded ?Confirmed ?Last Taken ?Type azathioprine 50 mg tablet 50 mg PO Q OTHER DAY 07/04/20 02/01/24 01/31/24 History pyridostigmine bromide 60 mg 60 mg PO TID 07/04/20 02/01/24 01/31/24 History tablet (Mestinon) amlodipine 5 mg tablet 5 mg PO DAILY 08/21/22 02/01/24 01/31/24 History oxybutynin chloride 15 mg 15 mg PO DAILY 10/25/23 02/01/24 01/31/24 History tablet,extended release 24 hr timolol maleate 0.25 % eye drops 1 drp ophthalmic-Right DAILY 10/25/23 02/01/24 01/31/24 History prednisone 10 mg tablet 10 mg PO BID 12/15/23 02/01/24 01/31/24 History timolol maleate 0.25 % eye drops 1 drp ophthalmic (eye) BEDTIME 02/01/24 02/01/24 01/31/24 History Physical Exam Vital Signs: Vital Signs: Last Vital Signs Temp 98.6 F 02/01/24 07:23 Pulse 99 02/01/24 07:23 Resp 14 02/01/24 07:23 BP 140/90 H 02/01/24 11:28 Pulse Ox 97 02/01/24 07:23 O2 Del Method Room Air 02/01/24 07:23 BMI result Body Mass Index 21.2 Neuro: Other: She is alert and awake with normal spontaneity of speech fluency comprehension and affect. Face is symmetrical. Speech is okay. Generalized weakness is noted. There is no ptosis. Results Labs 02/01/24 05:53 02/01/24 05:53 Labs: Short CBC 02/01/24 Range/Units 05:53 WBC 7.8 (4.8-10.8) X10*3/uL Hgb 14.1 (12.0-16.0) g/dl Hct 42.2 (37.0-47.0) % Plt Count 238 (160-400) X10*3/uL BMP 02/01/24 05:53 Sodium 140 Potassium 3.6 Chloride 108 Carbon Dioxide 25 BUN 11 Creatinine 0.61 Calcium 8.6 D Liver Function 02/01/24 Range/Units 05:53 Albumin 3.8 (3.5-5.0) g/dL Assessment and Plan (1) Myasthenia gravis with exacerbation: Status: Acute 83 years old woman with severe intractable generalized myasthenia gravis treated with multiple immunomodulating agents. At this time I would recommend 5 days of IVIG, 0.4 gram/kg per day. I would also recommend hospice consultation because of her significant issues. She was living alone and required constant supervision and help and could benefit from hospice service. Procedures Date of Service Date of Service: 02/01/24
[2024-02-01] MEDS: 0.9 % Sodium Chloride Flush 10 ML SYRINGE 5 ML IVFLUSH ×2 (15:21→22:09)
[2024-02-01 15:31] VITALS: BP 177/90; PULSE 68; RESP 16; TEMP 36; O2SAT 97
[2024-02-01 15:49] LABS: Triglycerides 91 mg/dL (<150)
[2024-02-01] MEDS: methylPREDNISolone Sod Succ 40 MG/ML VIAL IVPUSH (17:31)
[2024-02-01] MEDS: diphenhydrAMINE HCL 50 MG/ML VIAL 25 MG IVPUSH (17:33)
[2024-02-01] MEDS: Immun Glob G(IgG)/Gly/IGA Ov50 200 ML IV (18:02)
--- NOTE | 2024-02-01 20:00 | PC.NURSE ---
This RN assumed care at 1900, Pt AOx4, Pt reporting no pain at this time. Respirations even an unlabored, diminished at bases. BSx4 no pain with palpation, Pt calm and cooperative, no apparent distress. Call quintero within reach.
[2024-02-01] MEDS: Enoxaparin Sodium 40 MG/0.4 ML SYRINGE SUBCUT (21:12)
[2024-02-01] MEDS: Parenteral Nutrition 720 ML 30 ML IV (22:08)
[2024-02-01] MEDS: Nystatin Cream 15 GM TUBE 1 APPL TOPICAL (22:15)
[2024-02-01 23:42] VITALS: BP 168/90; PULSE 67; RESP 16; TEMP 36; O2SAT 95
[2024-02-02 06:17] LABS: VBG Base Excess 1.6 mmol/L; VBG HCO3 25 mmol/L (22-26); VBG pCO2 37 mmHg; VBG pH 7.43 (7.32-7.43); VBG pO2 54 mmHg
[2024-02-02 06:25] LABS: Venous Blood Gas Refer to POC result
[2024-02-02 06:29] LABS: Albumin Level 3.9 g/dL (3.5-5.0); Anion Gap 11 (12-20); Blood Urea Nitrogen 16 mg/dL (9-16); Calcium 9.1 mg/dL (8.4-10.2); Carbon Dioxide 24 mmol/L (22-29); Chloride 107 mmol/L (96-108); Creatinine Clr Calc Pharmacy 43.8; Estimated Glomerular Filt Rate > 60; Glucose Random 117 mg/dL (60-115); Magnesium 2.2 mg/dL (1.6-2.6); Phosphorus 3.5 mg/dL (2.7-4.5); Potassium 3.9 mmol/L (3.3-5.1); Sodium 138 mmol/L (135-145)
[2024-02-02] MEDS: 0.9 % Sodium Chloride Flush 3 ML SYRINGE IVFLUSH ×3 (07:23→22:05)
[2024-02-02] MEDS: 0.9 % Sodium Chloride Flush 10 ML SYRINGE 5 ML IVFLUSH ×3 (07:25→22:06)
[2024-02-02 07:54] VITALS: BP 177/93; PULSE 84; RESP 17; TEMP 36.6; O2SAT 95
[2024-02-02] MEDS: Nystatin Cream 15 GM TUBE 1 APPL TOPICAL ×2 (09:23→22:05)
[2024-02-02] MEDS: PYRIDOSTIGMINE BROMIDE 2 MG IVPUSH ×3 (09:23→19:48)
--- NOTE | 2024-02-02 09:33 | HO.PM.IMPN ---
Subjective Subjective Date of Service: 02/02/24 Interval History: PICC placed c/o swallowing difficulties no dyspnea NIFs 20-25 Review of Systems Review of Systems: Yes all other systems are reviewed and are negative Physical Exam Vital Signs: Vital Signs: Last Vital Signs Temp 97.9 F 02/02/24 07:54 Pulse 84 02/02/24 07:54 Resp 17 02/02/24 07:54 BP 177/93 H 02/02/24 07:54 Pulse Ox 95 02/02/24 07:54 O2 Del Method Room Air 02/02/24 07:54 BMI result Body Mass Index 21.2 Gen: in no acute distress HEENT: sclera anicteric, moist mucus membranes, stable chronic L ptosis Neck: supple Lungs: clear to auscultation bilaterally Heart: regular rate and rhythm, no murmurs Abd: soft, non-tender, non-distended Ext: no edema, RUE PICC in place Skin: warm/well-perfused Neuro: alert and oriented x3, moving all extremities Psych: appropriate affect Objective Data Active Medications Amlodipine Besylate (Amlodipine Besylate 5 Mg Tablet) 5 mg PO DAILY [facility]; Protocol Last Admin: 02/01/24 11:28 Dose: Not Given Documented By: JAVY Non-Admin Reason: NPO Azathioprine (Azathioprine 50 Mg Tablet) 50 mg PO Q48H [facility] Last Admin: 02/01/24 11:29 Dose: Not Given Documented By: JAVY Non-Admin Reason: NPO Diazepam (Diazepam 10 Mg/2 Ml Cartridge) 2.5 mg IVPUSH Q8H PRN PRN Reason: anxiety/restlessness Last Admin: 02/01/24 21:08 Dose: 2.5 mg Documented By: PONCE Diphenhydramine HCl (Diphenhydramine Hcl 50 Mg/Ml Vial) 25 mg IVPUSH Q24H [facility]E Stop: 02/04/24 17:31 Last Admin: 02/01/24 17:33 Dose: 25 mg Documented By: JAVY Enoxaparin Sodium (Enoxaparin Sodium 40 Mg/0.4 Ml Syringe) 40 mg SUBCUT Q24H [facility] Last Admin: 02/01/24 21:12 Dose: 40 mg Documented By: PONCE Hydralazine HCl (Hydralazine Hcl 20 Mg/Ml Vial) 5 mg IVPUSH Q6H PRN; Protocol PRN Reason: SBP > 180 Immune Globulin (Gammagard 10%) 200 mls @ 24 mls/hr IV Q24H [facility]E Stop: 02/05/24 02:19 Last Infusion: 02/02/24 02:22 Dose: Infused Documented By: PONCE Nutrition (Parenteral) (Parenteral Nutrition) 720 mls @ 30 mls/hr IV .Q24H [facility]; Protocol Stop: 02/02/24 20:59 Last Admin: 02/01/24 22:08 Dose: 30 mls/hr Documented By: PONCE Nutrition (Parenteral) (Parenteral Nutrition) 1,200 mls @ 50 mls/hr IV .Q24H [facility]; Protocol Stop: 02/03/24 20:59 Methylprednisolone Sodium Succinate (Methylprednisolone Sod Succ 40 Mg/Ml Vial) 40 mg IVPUSH Q24H [facility]E Stop: 02/04/24 17:31 Last Admin: 02/01/24 17:31 Dose: 40 mg Documented By: JAVY Non-Formulary Medication (Timolol Maleate) 1 drop EYE-BOTH BEDTIME [facility] Non-Formulary Medication (Timolol Maleate) 1 drop EYE-RIGHT DAILY [facility] Nystatin (Nystatin Cream 15 Gm Tube) 1 appl TOPICAL BID [facility]; Protocol Last Admin: 02/02/24 09:23 Dose: 1 appl Documented By: JAVY Oxybutynin Chloride (Oxybutynin Chloride Er 5 Mg Tab.Er.24) 15 mg PO DAILY [facility] Last Admin: 02/01/24 11:29 Dose: Not Given Documented By: JAVY Non-Admin Reason: NPO Pharmacy Consult (Consult Rx Parenteral Nutrition Ordering) 1 each MISCELLANE DAILY PRN PRN Reason: Consult order Pyridostigmine [place] (Pyridostigmine [place] 60 Mg Tablet) 60 mg PO TID [facility] Last Admin: 02/01/24 22:24 Dose: Not Given Documented By: PONCE Non-Admin Reason: NPO Pyridostigmine [place] (Pyridostigmine [place] 10 Mg/2 Ml Ampul) 2 mg IVPUSH TID [facility] Last Admin: 02/02/24 09:23 Dose: 2 mg Documented By: JAVY Sodium Chloride (0.9 % Sodium Chloride Flush 3 Ml Syringe) 3 ml IVFLUSH QSHIFT [facility] Last Admin: 02/02/24 07:23 Dose: 3 ml Documented By: JAVY Sodium Chloride (0.9 % Sodium Chloride Flush 10 Ml Syringe) 5 ml IVFLUSH TID [facility] Last Admin: 02/02/24 07:25 Dose: 5 ml Documented By: JAVY Labs 02/01/24 05:53 02/02/24 06:00 Labs: Laboratory Results - last 24 hr 02/01/24 02/02/24 02/02/24 15:18 06:00 06:06 VBG pH 7.43 VBG pCO2 37 VBG pO2 54 VBG HCO3 25 VBG O2 Saturation 88.0 VBG Base Excess 1.6 Anion Gap 11 L Estim Creat Clear Calc 43.8 Estimated GFR > 60 Random Glucose 117 H Calcium 9.1 Phosphorus 3.5 Magnesium 2.2 Albumin 3.9 Triglycerides 91 Assessment and Plan (1) Myasthenia gravis: Status: Acute Plan d3 83yo F with MG with predominantly oropharyngeal symptoms admitted for flare MG flare - IVIg + methylprednisolone 01/30-02/04 - pyridostigmine- cannot take PO, will give IV (PO:IV 30:1 conversion) - PICC placed for TPN. Pt declined PEG tube. - hold azathioprine while NPO - PER DIEM RN following: NPO for now - Neurology consulted; recommend hospice evaluation - continue NIF q6h HTN - holding amlodipine VTE ppx - LMWH dispo - eventual home with VNA In my clinical judgment, the patient requires continued inpatient hospitalization for the following reasons: IVIg, NPO, TPN Total time managing care of this patient today: 40 minutes. Quality Stroke Does the patient have a stroke diagnosis?: No VTE Prior VTE?: No VTE Risk Level:: Medical - moderate - high VTE Device Contraindication: Treatment Not Indicated VTE Drug Contraindication: N/A - Med Ordered
--- NOTE | 2024-02-02 10:38 | MHC.CLN ---
F/U PICC LINE PLACED REVIEWED LABS RECOMMEND ADVANCE TO MAX GOAL RATE: TPN AT 50 ML PER HOUR WITH 57 G LIPIDS PROVIDES 1422TOTAL KCALS, 60 G PROTEIN (1.26 G/KG), 180 G DEXTROSE REPLETE LYTES NEEDED
[2024-02-02] MEDS: diazePAM 10 MG/2 ML CARTRIDGE 2.5 MG IVPUSH ×2 (14:08→22:01)
--- NOTE | 2024-02-02 14:53 | MHC.SLORD ---
Speech Language Pathology Order Status: Pt currently on hold pending her completion of her medical treatments.
[2024-02-02 15:22] VITALS: BP 147/90; PULSE 75; RESP 16; TEMP 36.4; O2SAT 96
[2024-02-02] MEDS: methylPREDNISolone Sod Succ 40 MG/ML VIAL IVPUSH (17:31)
[2024-02-02] MEDS: diphenhydrAMINE HCL 50 MG/ML VIAL 25 MG IVPUSH (17:32)
[2024-02-02] MEDS: Immun Glob G(IgG)/Gly/IGA Ov50 200 ML IV (18:02)
[2024-02-02 19:22] VITALS: BP 157/99; PULSE 71; RESP 18; TEMP 36.2; O2SAT 95
[2024-02-02] MEDS: Enoxaparin Sodium 40 MG/0.4 ML SYRINGE SUBCUT (19:48)
--- NOTE | 2024-02-02 19:53 | PC.NURSE ---
This RN assumed care at 1900, Pt alert and oriented, denies pain at this time. Respirations even an unlabored. BSx4 no pain with palpation. Pt calm cooperative with no apparent distress at this time. IV running per OCT. Call quintero within reach.
[2024-02-02] MEDS: Parenteral Nutrition 1,200 ML 50 ML IV (22:03)
--- NOTE | 2024-02-02 22:47 | PC.NURSE ---
This RN assumed care at 1900, Pt AOx3, occasionally forgetful. Denies pain eusebio. Respirations even and unlabored, BSx4, no pain with palpation. Meds given per MAR. Bruises to left foot, no edema noted, pain to touch. Foam dsg to upper back and buttock D/I. Pt is calm and cooperative no apparent distress.
[2024-02-03 03:57] VITALS: BP 143/80; PULSE 70; RESP 18; TEMP 36.1; O2SAT 96
[2024-02-03] MEDS: Albuterol Sulfate (0.083%) 2.5 MG/3 ML VIAL.NEB INHALE (04:57)
[2024-02-03 04:58] VITALS: PULSE 84; RESP 16; O2SAT 98
[2024-02-03 05:56] LABS: VBG Base Excess 2.7 mmol/L; VBG HCO3 24 mmol/L (22-26); VBG pCO2 30 mmHg; VBG pH 7.51 (7.32-7.43); VBG pO2 114 mmHg
[2024-02-03 05:57] LABS: Venous Blood Gas Refer to POC result
[2024-02-03 06:19] LABS: Albumin Level 3.6 g/dL (3.5-5.0); Anion Gap 10 (12-20); Blood Urea Nitrogen 23 mg/dL (9-16); Calcium 8.9 mg/dL (8.4-10.2); Carbon Dioxide 24 mmol/L (22-29); Chloride 107 mmol/L (96-108); Estimated Glomerular Filt Rate > 60; Glucose Random 143 mg/dL (60-115); Magnesium 2.1 mg/dL (1.6-2.6); Phosphorus 3.2 mg/dL (2.7-4.5); Sodium 137 mmol/L (135-145)
[2024-02-03 07:42] VITALS: BP 142/84; PULSE 80; RESP 12; TEMP 36.1; O2SAT 97
[2024-02-03] MEDS: Nystatin Cream 15 GM TUBE 1 APPL TOPICAL ×2 (08:46→22:02)
[2024-02-03] MEDS: PYRIDOSTIGMINE BROMIDE 2 MG IVPUSH ×3 (08:47→21:47)
[2024-02-03] MEDS: 0.9 % Sodium Chloride Flush 3 ML SYRINGE IVFLUSH ×3 (08:47→21:48)
[2024-02-03] MEDS: 0.9 % Sodium Chloride Flush 10 ML SYRINGE 5 ML IVFLUSH ×3 (08:48→22:05)
--- NOTE | 2024-02-03 10:03 | MHC.CLN ---
F/U CONTINUES NPO. HAS PICC LINE FOR TPN. REVIEWED LABS. COMMUNICATED WITH PHARMACY. RECOMMEND CONTINUE TPN AT MAX GOAL RATE: TPN AT 50 ML PER HOUR WITH 57 G LIPIDS. PROVIDES 1422 TOTAL KCALS (29.8 KCALS/KG), 60 G PROTEIN (1.26 G/KG), 180 G DEXTROSE. REPLETE LYTES NEEDED. FOLLOW FOR PLAN OF CARE, TPN TOLERANCE AND LABS.
--- NOTE | 2024-02-03 10:58 | HO.PM.IMPN ---
Subjective Subjective Date of Service: 02/03/24 Interval History: ongoing dysphagia no dyspnea NIFs around 20 now interested in getting PEG tube Review of Systems Review of Systems: Yes all other systems are reviewed and are negative Physical Exam Vital Signs: Vital Signs: Last Vital Signs Temp 97 F 02/03/24 07:42 Pulse 80 02/03/24 07:42 Resp 12 02/03/24 07:42 BP 142/84 H 02/03/24 07:42 Pulse Ox 97 02/03/24 07:42 O2 Del Method Room Air 02/03/24 07:42 BMI result Body Mass Index 21.2 Gen: in no acute distress HEENT: sclera anicteric, moist mucus membranes, stable chronic L ptosis Neck: supple Lungs: clear to auscultation bilaterally Heart: regular rate and rhythm, no murmurs Abd: soft, non-tender, non-distended Ext: no edema, RUE PICC in place Skin: warm/well-perfused Neuro: alert and oriented x3, moving all extremities Psych: appropriate affect Objective Data Active Medications Albuterol Sulfate (Albuterol Sulfate (0.083%) 2.5 Mg/3 Ml Vial.Neb) 2.5 mg INHALE Q2H PRN PRN Reason: Shortness of Breath/Wheezing Last Admin: 02/03/24 04:57 Dose: 2.5 mg Documented By: JIMENA Amlodipine Besylate (Amlodipine Besylate 5 Mg Tablet) 5 mg PO DAILY [facility]; Protocol Last Admin: 02/01/24 11:28 Dose: Not Given Documented By: JAVY Non-Admin Reason: NPO Azathioprine (Azathioprine 50 Mg Tablet) 50 mg PO Q48H [facility] Last Admin: 02/01/24 11:29 Dose: Not Given Documented By: JAVY Non-Admin Reason: NPO Diazepam (Diazepam 10 Mg/2 Ml Cartridge) 2.5 mg IVPUSH Q8H PRN PRN Reason: anxiety/restlessness Last Admin: 02/02/24 22:01 Dose: 2.5 mg Documented By: PONCE Diphenhydramine HCl (Diphenhydramine Hcl 50 Mg/Ml Vial) 25 mg IVPUSH Q24H [facility] Stop: 02/04/24 17:31 Last Admin: 02/02/24 17:32 Dose: 25 mg Documented By: HO.MOHAMER Enoxaparin Sodium (Enoxaparin Sodium 40 Mg/0.4 Ml Syringe) 40 mg SUBCUT Q24H [facility] Last Admin: 02/02/24 19:48 Dose: 40 mg Documented By: PONCE Hydralazine HCl (Hydralazine Hcl 20 Mg/Ml Vial) 5 mg IVPUSH Q6H PRN; Protocol PRN Reason: SBP > 180 Immune Globulin (Gammagard 10%) 200 mls @ 24 mls/hr IV Q24H [facility]E Stop: 02/05/24 02:19 Last Infusion: 02/03/24 02:15 Dose: Infused Documented By: PONCE Nutrition (Parenteral) (Parenteral Nutrition) 1,200 mls @ 50 mls/hr IV .Q24H [facility]; Protocol Stop: 02/03/24 20:59 Last Admin: 02/02/24 22:03 Dose: 50 mls/hr Documented By: PONCE Nutrition (Parenteral) (Parenteral Nutrition) 1,200 mls @ 50 mls/hr IV .Q24H [facility]; Protocol Stop: 02/04/24 20:59 Methylprednisolone Sodium Succinate (Methylprednisolone Sod Succ 40 Mg/Ml Vial) 40 mg IVPUSH Q24H [facility]E Stop: 02/04/24 17:31 Last Admin: 02/02/24 17:31 Dose: 40 mg Documented By: JAVY Non-Formulary Medication (Timolol Maleate) 1 drop EYE-BOTH BEDTIME [facility] Non-Formulary Medication (Timolol Maleate) 1 drop EYE-RIGHT DAILY [facility] Nystatin (Nystatin Cream 15 Gm Tube) 1 appl TOPICAL BID [facility]; Protocol Last Admin: 02/03/24 08:46 Dose: 1 appl Documented By: DEREJE Oxybutynin Chloride (Oxybutynin Chloride Er 5 Mg Tab.Er.24) 15 mg PO DAILY [facility] Last Admin: 02/01/24 11:29 Dose: Not Given Documented By: JAVY Non-Admin Reason: NPO Pharmacy Consult (Consult Rx Parenteral Nutrition Ordering) 1 each MISCELLANE DAILY PRN PRN Reason: Consult order Pyridostigmine [place] (Pyridostigmine [place] 60 Mg Tablet) 60 mg PO TID [facility] Last Admin: 02/01/24 22:24 Dose: Not Given Documented By: PONCE Non-Admin Reason: NPO Pyridostigmine [place] (Pyridostigmine [place] 10 Mg/2 Ml Ampul) 2 mg IVPUSH TID [facility] Last Admin: 02/03/24 08:47 Dose: 2 mg Documented By: DEREJE Sodium Chloride (0.9 % Sodium Chloride Flush 3 Ml Syringe) 3 ml IVFLUSH QSHIFT [facility] Last Admin: 02/03/24 08:47 Dose: 3 ml Documented By: DEREJE Sodium Chloride (0.9 % Sodium Chloride Flush 10 Ml Syringe) 5 ml IVFLUSH TID [facility] Last Admin: 02/03/24 08:48 Dose: 5 ml Documented By: DEREJE Labs 02/01/24 05:53 02/03/24 05:44 Labs: Laboratory Results - last 24 hr 02/03/24 02/03/24 05:44 05:50 Hold Purple Top SEE NOTE VBG pH 7.51 H VBG pCO2 30 VBG pO2 114 VBG HCO3 24 VBG O2 Saturation 99.0 VBG Base Excess 2.7 Anion Gap 10 L Estim Creat Clear Calc 40.0 Estimated GFR > 60 Random Glucose 143 H Calcium 8.9 Phosphorus 3.2 Magnesium 2.1 Albumin 3.6 Assessment and Plan (1) Myasthenia gravis: Status: Acute Plan d4 83yo F with MG with predominantly oropharyngeal symptoms admitted for flare MG flare - IVIg + methylprednisolone 01/30-02/04 - pyridostigmine- cannot take PO, will give IV (PO:IV 30:1 conversion) - PICC placed for TPN. 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 Quality Stroke Does the patient have a stroke diagnosis?: No VTE Prior VTE?: No VTE Risk Level:: Medical - moderate - high VTE Device Contraindication: Treatment Not Indicated VTE Drug Contraindication: N/A - Med Ordered
--- NOTE | 2024-02-03 13:41 | PM.CNGS ---
History of Present Illness Consult details Consult date: 02/03/24 <Tiesha Alvarado PA-C Last Filed: 02/03/24 13:51> Narrative: 83 year old female with history of myasthenia gravis with predominantly oropharyngeal symptoms, osteoporosis, bile salt induced diarrhea who initially presented to the ED with complaints of worsening dysphagia, impaired speech, generalized weakness. She was admitted to the medicine service for treatment of her myasthenia flare. She has had multiple recent admission for MG flares requiring IVIG, PPN due to persistent dysphagia. She had a modified barium swallow performed last admission with aspiration observed with honey thick barium and laryngeal penetration seen with puree or thick barium. She is currently NPO per speech recommendations. She refused PEG tube placement during the previous admission but is now in agreement. She has a history of open cholecystectomy and open resection of uterine fibroids. <MIGUEL Rosas Last Filed: 02/03/24 13:51> Review of Systems Constitutional: Constitutional: Denies chills and Denies fever(s) <MIGUEL Rosas Last Filed: 02/03/24 13:51> Cardiovascular: Cardiovascular: Denies chest pain <MIGUEL Rosas Last Filed: 02/03/24 13:51> Gastrointestinal: Gastrointestinal: Denies abdominal pain, Denies constipation, Denies diarrhea, Denies nausea and Denies vomiting <MIGUEL Rosas Last Filed: 02/03/24 13:51> Integumentary/Breasts: Skin/Breast: Denies rash and Denies jaundice <MIGUEL Rosas Last Filed: 02/03/24 13:51> [facility] Past Medical History Medical History: Medical History Osteoporosis Myasthenia gravis in remission Tubular adenoma of colon (~2010) Bile salt-induced diarrhea <MIGUEL Rosas Last Filed: 02/03/24 13:51> Family History Family History: Family History Father HTN (hypertension) Mother Colon cancer Sister Glaucoma Other Hx of colonoscopy <MIGUEL Rosas Last Filed: 02/03/24 13:51> Surgical History Surgical History: Surgical History History of back surgery Status post partial hysterectomy Hx laparoscopic cholecystectomy Hx of colonoscopy <Tiesha Alvarado PA-C - Last Filed: 02/03/24 13:51> Social History Social History: Social History Household Members: None Housing: House Do you presently have visiting nurse or other home services: Yes Alcohol intake: current Alcohol intake frequency: holidays/special occasions only Comment: 1-2 assist oob to commode/ chair Patient Tobacco Use Status: Former Tobacco user Advance Directives Date on File: 06/14/20 service: No <Tiesha Alvarado PA-C - Last Filed: 02/03/24 13:51> Meds Allergies/Adverse reactions: Allergies Allergy/AdvReac Type Severity Reaction Status Date / Time NSAIDS (Non-Steroidal Allergy Intermediate RASH Verified 01/31/24 10:24 Anti-Inflamma [NSAIDS (NON-STEROIDAL ANTI-INFLAMMA] azithromycin Allergy Unknown may Verified 01/31/24 10:24 exacerbate MG Ceftin Allergy Unknown hives Verified 01/31/24 10:24 cefuroxime [From CEFTIN] Allergy Unknown PATIENT Verified 01/31/24 10:24 AWARE OF REACTION IT WAS SO LONG AGO ibuprofen [Advil] Allergy Unknown rash Verified 01/31/24 10:24 levofloxacin Allergy Unknown may Verified 01/31/24 10:24 exacerbate MG lisinopril Allergy Unknown unknown Verified 01/31/24 10:24 losartan Allergy Unknown unknown Verified 01/31/24 10:24 ciprofloxacin [CIPROFLOXACIN] AdvReac Unknown UNABLE TO Verified 01/31/24 10:24 TAKE R/T DX MYASTHENIA GRAVIS nitrofurantoin AdvReac Unknown stomatitis Verified 01/31/24 10:24 adhesive tape Allergy Unknown rash Uncoded 12/15/23 09:16 adhesives Allergy Unknown rash Uncoded 12/15/23 09:16 Advil PM Allergy Unknown rash Uncoded 12/15/23 09:16 <Tiesha Alvarado PA-C - Last Filed: 02/03/24 13:51> Active Medications: Current Medications Albuterol Sulfate (Albuterol Sulfate (0.083%) 2.5 Mg/3 Ml Vial.Neb) 2.5 mg INHALE Q2H PRN PRN Reason: Shortness of Breath/Wheezing Last Admin: 02/03/24 04:57 Dose: 2.5 mg Amlodipine Besylate (Amlodipine Besylate 5 Mg Tablet) 5 mg PO DAILY AME; Protocol Last Admin: 02/01/24 11:28 Dose: Not Given Azathioprine (Azathioprine 50 Mg Tablet) 50 mg PO Q48H AME Last Admin: 02/01/24 11:29 Dose: Not Given Diazepam (Diazepam 10 Mg/2 Ml Cartridge) 2.5 mg IVPUSH Q8H PRN PRN Reason: anxiety/restlessness Last Admin: 02/02/24 22:01 Dose: 2.5 mg Diphenhydramine HCl (Diphenhydramine Hcl 50 Mg/Ml Vial) 25 mg IVPUSH Q24H AME Stop: 02/04/24 17:31 Last Admin: 02/02/24 17:32 Dose: 25 mg Enoxaparin Sodium (Enoxaparin Sodium 40 Mg/0.4 Ml Syringe) 40 mg SUBCUT Q24H AME Last Admin: 02/02/24 19:48 Dose: 40 mg Hydralazine HCl (Hydralazine Hcl 20 Mg/Ml Vial) 5 mg IVPUSH Q6H PRN; Protocol PRN Reason: SBP > 180 Immune Globulin (Gammagard 10%) 200 mls @ 24 mls/hr IV Q24H AME Stop: 02/05/24 02:19 Last Infusion: 02/03/24 02:15 Dose: Infused Nutrition (Parenteral) (Parenteral Nutrition) 1,200 mls @ 50 mls/hr IV .Q24H AME; Protocol Stop: 02/03/24 20:59 Last Admin: 02/02/24 22:03 Dose: 50 mls/hr Nutrition (Parenteral) (Parenteral Nutrition) 1,200 mls @ 50 mls/hr IV .Q24H AME; Protocol Stop: 02/04/24 20:59 Methylprednisolone Sodium Succinate (Methylprednisolone Sod Succ 40 Mg/Ml Vial) 40 mg IVPUSH Q24H AME Stop: 02/04/24 17:31 Last Admin: 02/02/24 17:31 Dose: 40 mg Non-Formulary Medication (Timolol Maleate) 1 drop EYE-BOTH BEDTIME [facility] Non-Formulary Medication (Timolol Maleate) 1 drop EYE-RIGHT DAILY [facility] Nystatin (Nystatin Cream 15 Gm Tube) 1 appl TOPICAL BID [facility]; Protocol Last Admin: 02/03/24 08:46 Dose: 1 appl Oxybutynin Chloride (Oxybutynin Chloride Er 5 Mg Tab.Er.24) 15 mg PO DAILY [facility] Last Admin: 02/01/24 11:29 Dose: Not Given Pharmacy Consult (Consult Rx Parenteral Nutrition Ordering) 1 each MISCELLANE DAILY PRN PRN Reason: Consult order Pyridostigmine [place] (Pyridostigmine [place] 60 Mg Tablet) 60 mg PO TID [facility] Last Admin: 02/01/24 22:24 Dose: Not Given Pyridostigmine [place] (Pyridostigmine [place] 10 Mg/2 Ml Ampul) 2 mg IVPUSH TID [facility] Last Admin: 02/03/24 08:47 Dose: 2 mg Sodium Chloride (0.9 % Sodium Chloride Flush 3 Ml Syringe) 3 ml IVFLUSH QSHIFT [facility] Last Admin: 02/03/24 08:47 Dose: 3 ml Sodium Chloride (0.9 % Sodium Chloride Flush 10 Ml Syringe) 5 ml IVFLUSH TID [facility] Last Admin: 02/03/24 08:48 Dose: 5 ml <Tiesha Alvarado PA-C - Last Filed: 02/03/24 13:51> Home medications: Home Medications ?Medication ?Instructions ?Recorded ?Confirmed ?Last Taken ?Type azathioprine 50 mg tablet 50 mg PO Q OTHER DAY 07/04/20 02/01/24 01/31/24 History pyridostigmine bromide 60 mg 60 mg PO TID 07/04/20 02/01/24 01/31/24 History tablet (Mestinon) amlodipine 5 mg tablet 5 mg PO DAILY 08/21/22 02/01/24 01/31/24 History oxybutynin chloride 15 mg 15 mg PO DAILY 10/25/23 02/01/24 01/31/24 History tablet,extended release 24 hr timolol maleate 0.25 % eye drops 1 drp ophthalmic-Right DAILY 10/25/23 02/01/24 01/31/24 History prednisone 10 mg tablet 10 mg PO BID 12/15/23 02/01/24 01/31/24 History timolol maleate 0.25 % eye drops 1 drp ophthalmic (eye) BEDTIME 02/01/24 02/01/24 01/31/24 History <Tiesha Alvarado PA-C Last Filed: 02/03/24 13:51> Physical Exam Vital Signs: Vital Signs: Last Vital Signs Temp 97 F 02/03/24 07:42 Pulse 80 02/03/24 07:42 Resp 12 02/03/24 07:42 BP 142/84 H 02/03/24 07:42 Pulse Ox 97 02/03/24 07:42 O2 Del Method Room Air 02/03/24 07:42 BMI result Body Mass Index 21.2 <Tiesha Alvarado PA-C Last Filed: 02/03/24 13:51> Const: General: comfortable, no acute distress and alert <Tiesha Alvarado PA-C Last Filed: 02/03/24 13:51> Nutritional Appearance: thin and underweight <Tiesha Alvarado PA-C Last Filed: 02/03/24 13:51> Orientation/consciousness: patient oriented x3 <Tiesha Alvarado PA-C Last Filed: 02/03/24 13:51> Resp: Effort & Inspection: normal respiratory effort <Tiesha Alvarado PA-C Last Filed: 02/03/24 13:51> GI: Inspection: No distended and Yes scar <Tiesha Alvarado PA-C Last Filed: 02/03/24 13:51> Palpation (GI): Soft to palpation, nontender and no guarding <Tiesha Alvarado PA-C Last Filed: 02/03/24 13:51> Abdomen image: 1. 2. <Tiesha Alvarado PA-C Last Filed: 02/03/24 13:51> Skin: General skin exam: no rashes or lesions noted <Tiesha Alvarado PA-C Last Filed: 02/03/24 13:51> Neuro: General: patient oriented x3 <Tiesha Alvarado PA-C [employer] Last Filed: 02/03/24 13:51> Results Labs Result diagrams: 02/01/24 05:53 02/03/24 05:44 <Tiesha Alvarado PA-C - Last Filed: 02/03/24 13:51> Labs: Abnormal lab results 02/03/24 02/03/24 Range/Units 05:44 05:50 VBG pH 7.51 H (7.32-7.43) Anion Gap 10 L (12-20) BUN 23 H (9-16) mg/dL Random Glucose 143 H (60-115) mg/dL BMP 02/03/24 05:44 Sodium 137 Potassium 4.0 Chloride 107 Carbon Dioxide 24 BUN 23 H Creatinine 0.70 Calcium 8.9 Liver Function 02/03/24 Range/Units 05:44 Albumin 3.6 (3.5-5.0) g/dL All other labs normal. <Tiesha Alvarado PA-C - Last Filed: 02/03/24 13:51> Assessment and Plan (1) Myasthenia gravis with exacerbation: Status: Acute <Tiesha Alvarado PA-C - Last Filed: 02/03/24 13:51> 83-year-old female with dysphagia secondary to myasthenia gravis Referred for PEG tube placement Abdomen soft CT done - note of good window for accessing the anterior wall of the stomach Seen and examined independently <Gallo Meyer MD - Last Filed: 02/03/24 16:14> (2) Swallowing problem: Status: Acute <Tiesha Alvarado PA-C - Last Filed: 02/03/24 13:51> 83 year old female with history of myasthenia gravis with predominantly oropharyngeal symptoms admitted with MG flare. She has progressively worsening dypshagia and malnutrition. PEG tube placement has been requested. She has a history of open cholecystectomy with a midline scar in her upper abdomen. No recent CT scans on file. Will obtain CT scan abd/pelvis to assess. Plan for PEG tube if amenable on Thursday. <Tiesha Alvarado PA-C - Last Filed: 02/03/24 13:51> Procedures Date of Service Date of Service: 02/03/24 <Tiesha Alvarado PA-C - Last Filed: 02/03/24 13:51> 02/03/24 <Gallo Meyer MD - Last Filed: 02/03/24 16:14>
[2024-02-03] MEDS: diazePAM 10 MG/2 ML CARTRIDGE 2.5 MG IVPUSH ×2 (13:50→21:59)
--- NOTE | 2024-02-03 15:13 | MHC.CM.PN ---
Per MD rounds Patient is planned for a PEG. She continue with IVIG infusion. Last dose is Thursday02/05/24. DP home with resumption of [facility]. CM will follow for discharge.
[2024-02-03 15:43] VITALS: BP 151/86; PULSE 68; RESP 18; TEMP 36.6; O2SAT 95
--- NOTE | 2024-02-03 16:28 | MHC.SLORD ---
Speech Language Pathology Order Status: [employer] C[employer]URIST APPRENTICE swallow eval on hold during IVIG infusion. Final day 5 is 02/04 w/ tentative plan for [employer] C[employer]URIST APPRENTICE to attempt eval on this date. Per EMR, plan is for patient to get PEG. Providing goal is to continue w/ PO, patient would still benefit from f/u clinical swallow evaluation to determine safest and least restrictive PO recommendations.
[2024-02-03] MEDS: Enoxaparin Sodium 40 MG/0.4 ML SYRINGE SUBCUT (18:27)
[2024-02-03] MEDS: methylPREDNISolone Sod Succ 40 MG/ML VIAL IVPUSH (18:27)
[2024-02-03] MEDS: diphenhydrAMINE HCL 50 MG/ML VIAL 25 MG IVPUSH (18:28)
[2024-02-03] MEDS: Immun Glob G(IgG)/Gly/IGA Ov50 200 ML IV (19:25)
[2024-02-03] MEDS: Parenteral Nutrition 1,200 ML 50 ML IV (21:48)
[2024-02-04] VITALS: BP 132/86; PULSE 77; RESP 18; TEMP 36.2; O2SAT 96
[2024-02-04 06:40] LABS: Venous Blood Gas Refer to POC result
[2024-02-04 06:41] LABS: VBG Base Excess 0.4 mmol/L; VBG HCO3 23 mmol/L (22-26); VBG pCO2 32 mmHg; VBG pH 7.46 (7.32-7.43); VBG pO2 84 mmHg
[2024-02-04 07:02] LABS: Albumin Level 3.2 g/dL (3.5-5.0); Anion Gap 7 (12-20); Blood Urea Nitrogen 22 mg/dL (9-16); Calcium 8.5 mg/dL (8.4-10.2); Carbon Dioxide 23 mmol/L (22-29); Chloride 109 mmol/L (96-108); Creatinine Clr Calc Pharmacy 45.2; Estimated Glomerular Filt Rate > 60; Glucose Random 134 mg/dL (60-115); Magnesium 2.1 mg/dL (1.6-2.6); Phosphorus 3.1 mg/dL (2.7-4.5); Potassium 4.2 mmol/L (3.3-5.1); Sodium 135 mmol/L (135-145)
[2024-02-04 08:00] VITALS: BP 165/103; PULSE 84; RESP 18; TEMP 36; O2SAT 97
[2024-02-04 08:49] VITALS: BP 158/90
--- NOTE | 2024-02-04 09:28 | MHC.CLN ---
F/U CONTINUES NPO PT GETTING PEG PLACED ON THURSDAY PER SX REVIEWED LABS DISCUSSED WITH PHARMACY RECOMMEND CONTINUE TPN AT MAX GOAL RATE 50 ML PER HOUR WITH 57 G LIPIDS PROVIDES 1422 TOTAL KCALS (29.8 KCALS/KG), 60 G PROTEIN (1.26 G/KG), 180 G DEXTROSE REPLETE LYTES NEEDED
[2024-02-04] MEDS: 0.9 % Sodium Chloride Flush 10 ML SYRINGE 5 ML IVFLUSH ×3 (09:42→21:31)
[2024-02-04] MEDS: PYRIDOSTIGMINE BROMIDE 2 MG IVPUSH ×3 (09:42→21:15)
[2024-02-04] MEDS: Nystatin Cream 15 GM TUBE 1 APPL TOPICAL ×2 (09:43→21:37)
--- NOTE | 2024-02-04 09:58 | P.PNIM_ITS ---
Subjective Subjective Date of Service: 02/04/24 Interval History: C/o dysphagia NIFs 14-18 Plan PEG tube tomorrow Review of Systems Review of Systems: Yes all other systems are reviewed and are negative Physical Exam 2 Vital Signs: Vital Signs: Last Vital Signs Temp 96.8 F 02/04/24 08:00 Pulse 84 02/04/24 08:00 Resp 18 02/04/24 08:00 BP 158/90 H 02/04/24 08:49 Pulse Ox 97 02/04/24 08:00 O2 Del Method Room Air 02/04/24 08:00 BMI result Body Mass Index 21.2 Gen: in no acute distress HEENT: sclera anicteric, moist mucus membranes, stable chronic L ptosis Neck: supple Lungs: clear to auscultation bilaterally Heart: regular rate and rhythm, no murmurs Abd: soft, non-tender, non-distended Ext: no edema, RUE PICC in place Skin: warm/well-perfused Neuro: alert and oriented x3, moving all extremities Psych: appropriate affect Objective Data Active Medications Albuterol Sulfate (Albuterol Sulfate (0.083%) 2.5 Mg/3 Ml Vial.Neb) 2.5 mg INHALE Q2H PRN PRN Reason: Shortness of Breath/Wheezing Last Admin: 02/03/24 04:57 Dose: 2.5 mg Documented By: JIMENA Amlodipine Besylate (Amlodipine Besylate 5 Mg Tablet) 5 mg PO DAILY AME; Protocol Last Admin: 02/01/24 11:28 Dose: Not Given Documented By: JAVY Non-Admin Reason: NPO Azathioprine (Azathioprine 50 Mg Tablet) 50 mg PO Q48H AME Last Admin: 02/01/24 11:29 Dose: Not Given Documented By: JAVY Non-Admin Reason: NPO Diazepam (Diazepam 10 Mg/2 Ml Cartridge) 2.5 mg IVPUSH Q8H PRN PRN Reason: anxiety/restlessness Last Admin: 02/03/24 21:59 Dose: 2.5 mg Documented By: SAHRA Diphenhydramine HCl (Diphenhydramine Hcl 50 Mg/Ml Vial) 25 mg IVPUSH Q24H AME Stop: 02/04/24 17:31 Last Admin: 02/03/24 18:28 Dose: 25 mg Documented By: DEREJE Enoxaparin Sodium (Enoxaparin Sodium 40 Mg/0.4 Ml Syringe) 40 mg SUBCUT Q24H [facility] Last Admin: 02/03/24 18:27 Dose: 40 mg Documented By: DEREJE Hydralazine HCl (Hydralazine Hcl 20 Mg/Ml Vial) 5 mg IVPUSH Q6H PRN; Protocol PRN Reason: SBP > 180 Immune Globulin (Gammagard 10%) 200 mls @ 24 mls/hr IV Q24H [facility] Stop: 02/05/24 02:19 Last Infusion: 02/04/24 03:48 Dose: Infused Documented By: SAHRA Nutrition (Parenteral) (Parenteral Nutrition) 1,200 mls @ 50 mls/hr IV .Q24H [facility]; Protocol Stop: 02/04/24 20:59 Last Admin: 02/03/24 21:48 Dose: 50 mls/hr Documented By: SAHRA Methylprednisolone Sodium Succinate (Methylprednisolone Sod Succ 40 Mg/Ml Vial) 40 mg IVPUSH Q24H AME Stop: 02/04/24 17:31 Last Admin: 02/03/24 18:27 Dose: 40 mg Documented By: DEREJE Non-Formulary Medication (Timolol Maleate) 1 drop EYE-BOTH BEDTIME [facility] Non-Formulary Medication (Timolol Maleate) 1 drop EYE-RIGHT DAILY [facility] Nystatin (Nystatin Cream 15 Gm Tube) 1 appl TOPICAL BID [facility]; Protocol Last Admin: 02/04/24 09:43 Dose: 1 appl Documented By: CHANCE Oxybutynin Chloride (Oxybutynin Chloride Er 5 Mg Tab.Er.24) 15 mg PO DAILY [facility] Last Admin: 02/01/24 11:29 Dose: Not Given Documented By: JAVY Non-Admin Reason: NPO Pharmacy Consult (Consult Rx Parenteral Nutrition Ordering) 1 each MISCELLANE DAILY PRN PRN Reason: Consult order Pyridostigmine [place] (Pyridostigmine [place] 60 Mg Tablet) 60 mg PO TID [facility] Last Admin: 02/01/24 22:24 Dose: Not Given Documented By: PONCE Non-Admin Reason: NPO Pyridostigmine [place] (Pyridostigmine [place] 10 Mg/2 Ml Ampul) 2 mg IVPUSH TID [facility] Last Admin: 02/04/24 09:42 Dose: 2 mg Documented By: CHANCE Sodium Chloride (0.9 % Sodium Chloride Flush 3 Ml Syringe) 3 ml IVFLUSH QSHIFT [facility] Last Admin: 02/04/24 09:43 Dose: Not Given Documented By: CHANCE Non-Admin Reason: IV running/5mL given in free lumen. Sodium Chloride (0.9 % Sodium Chloride Flush 10 Ml Syringe) 5 ml IVFLUSH TID [facility] Last Admin: 02/04/24 09:42 Dose: 5 ml Documented By: CHANCE Labs 02/01/24 05:53 02/04/24 06:31 Labs: Laboratory Results - last 24 hr 02/04/24 02/04/24 06:31 06:34 Hold Purple Top SEE NOTE VBG pH 7.46 H VBG pCO2 32 VBG pO2 84 VBG HCO3 23 VBG O2 Saturation 98.0 VBG Base Excess 0.4 Anion Gap 7 L Estim Creat Clear Calc 45.2 Estimated GFR > 60 Random Glucose 134 H Calcium 8.5 Phosphorus 3.1 Magnesium 2.1 Albumin 3.2 L Assessment and Plan (1) Myasthenia gravis: Status: Acute Plan d5 83yo F with MG with predominantly oropharyngeal symptoms admitted for flare MG flare - IVIg + methylprednisolone 01/30-02/04 - pyridostigmine- cannot take PO, will give IV (PO:IV 30:1 conversion) - PICC placed for TPN, continue daily lytes - pt now consents for PEG tube; plan tomorrow by Dr Meyer; Nutrition consult for TF recommendations; Anesthesia consult given myasthenia gravis - hold azathioprine while NPO - CPA TAX following: NPO for now - Neurology consulted; recommend hospice consultation [[facility] involved] - continue NIF q6h HTN - holding amlodipine VTE ppx - LMWH dispo - eventual home with VNA In my clinical judgment, the patient requires continued inpatient hospitalization for the following reasons: IVIg, NPO, TPN, PEG tube placement Total time managing care of this patient today: 40 minutes. Quality Stroke Does the patient have a stroke diagnosis?: No VTE Prior VTE?: No VTE Risk Level:: Medical - moderate - high VTE Device Contraindication: Treatment Not Indicated VTE Drug Contraindication: N/A - Med Ordered
--- NOTE | 2024-02-04 10:50 | MHC.CM.PN ---
Per MD rounds PEG placement planned for tomorrow. CM spoke with patient who does not want to go to a SNF. Prefers to return home w/ [facility]. Lives alone and feels confident she can manage the tube feed. Referral placed to [facility]. Patient is 100% covered for home enteral services. Goal is dc home this weekend with services. Christine BANKSA updated on plan. CM will continue to follow.
[2024-02-04] MEDS: diazePAM 10 MG/2 ML CARTRIDGE 2.5 MG IVPUSH ×2 (13:40→21:30)
--- NOTE | 2024-02-04 14:42 | P.PNGS_ITS ---
Subjective Subjective Date of Service: 02/06/24 Interval history: No new complaints Unable to swallow well Physical Exam 2 Vital Signs: Vital Signs: Last Vital Signs Temp 96.8 F 02/04/24 08:00 Pulse 84 02/04/24 08:00 Resp 18 02/04/24 08:00 BP 158/90 H 02/04/24 08:49 Pulse Ox 97 02/04/24 08:00 O2 Del Method Room Air 02/04/24 08:00 BMI result Body Mass Index 21.2 Const: General: comfortable and no acute distress O rientation/consciousness: patient oriented x3 Resp: Effort & Inspection: normal respiratory effort Cardio: Rate: regular rate GI: Palpation (GI): Soft to palpation and not firm Neuro: General: patient oriented x3 Objective Data Active Medications Albuterol Sulfate (Albuterol Sulfate (0.083%) 2.5 Mg/3 Ml Vial.Neb) 2.5 mg INHALE Q2H PRN PRN Reason: Shortness of Breath/Wheezing Last Admin: 02/03/24 04:57 Dose: 2.5 mg Documented By: JIMENA Amlodipine Besylate (Amlodipine Besylate 5 Mg Tablet) 5 mg PO DAILY [facility]; Protocol Last Admin: 02/01/24 11:28 Dose: Not Given Documented By: JAVY Non-Admin Reason: NPO Azathioprine (Azathioprine 50 Mg Tablet) 50 mg PO Q48H [facility] Last Admin: 02/01/24 11:29 Dose: Not Given Documented By: JAVY Non-Admin Reason: NPO Diazepam (Diazepam 10 Mg/2 Ml Cartridge) 2.5 mg IVPUSH Q8H PRN PRN Reason: anxiety/restlessness Last Admin: 02/04/24 13:40 Dose: 2.5 mg Documented By: CHANCE Diphenhydramine HCl (Diphenhydramine Hcl 50 Mg/Ml Vial) 25 mg IVPUSH Q24H AME Stop: 02/04/24 17:31 Last Admin: 02/03/24 18:28 Dose: 25 mg Documented By: DEREJE Enoxaparin Sodium (Enoxaparin Sodium 40 Mg/0.4 Ml Syringe) 40 mg SUBCUT Q24H [facility] Last Admin: 02/03/24 18:27 Dose: 40 mg Documented By: DEREJE Hydralazine HCl (Hydralazine Hcl 20 Mg/Ml Vial) 5 mg IVPUSH Q6H PRN; Protocol PRN Reason: SBP > 180 Immune Globulin (Gammagard 10%) 200 mls @ 24 mls/hr IV Q24H [facility] Stop: 02/05/24 02:19 Last Infusion: 02/04/24 03:48 Dose: Infused Documented By: SAHRA Nutrition (Parenteral) (Parenteral Nutrition) 1,200 mls @ 50 mls/hr IV .Q24H [facility]; Protocol Stop: 02/04/24 20:59 Last Admin: 02/03/24 21:48 Dose: 50 mls/hr Documented By: SAHRA Nutrition (Parenteral) (Parenteral Nutrition) 1,200 mls @ 50 mls/hr IV .Q24H [facility]; Protocol Stop: 02/05/24 20:59 Methylprednisolone Sodium Succinate (Methylprednisolone Sod Succ 40 Mg/Ml Vial) 40 mg IVPUSH Q24H AME Stop: 02/04/24 17:31 Last Admin: 02/03/24 18:27 Dose: 40 mg Documented By: DEREJE Non-Formulary Medication (Timolol Maleate) 1 drop EYE-BOTH BEDTIME [facility] Non-Formulary Medication (Timolol Maleate) 1 drop EYE-RIGHT DAILY [facility] Nystatin (Nystatin Cream 15 Gm Tube) 1 appl TOPICAL BID [facility]; Protocol Last Admin: 02/04/24 09:43 Dose: 1 appl Documented By: CHANCE Oxybutynin Chloride (Oxybutynin Chloride Er 5 Mg Tab.Er.24) 15 mg PO DAILY [facility] Last Admin: 02/01/24 11:29 Dose: Not Given Documented By: JAVY Non-Admin Reason: NPO Pharmacy Consult (Consult Rx Parenteral Nutrition Ordering) 1 each MISCELLANE DAILY PRN PRN Reason: Consult order Pyridostigmine [place] (Pyridostigmine [place] 60 Mg Tablet) 60 mg PO TID [facility] Last Admin: 02/01/24 22:24 Dose: Not Given Documented By: PONCE Non-Admin Reason: NPO Pyridostigmine [place] (Pyridostigmine [place] 10 Mg/2 Ml Ampul) 2 mg IVPUSH TID [facility] Last Admin: 02/04/24 09:42 Dose: 2 mg Documented By: CHANCE Sodium Chloride (0.9 % Sodium Chloride Flush 3 Ml Syringe) 3 ml IVFLUSH QSHIFT [facility] Last Admin: 02/04/24 09:43 Dose: Not Given Documented By: CHANCE Non-Admin Reason: IV running/5mL given in free lumen. Sodium Chloride (0.9 % Sodium Chloride Flush 10 Ml Syringe) 5 ml IVFLUSH TID [facility] Last Admin: 02/04/24 09:42 Dose: 5 ml Documented By: CHANCE Labs 02/01/24 05:53 02/06/24 06:19 Labs: Laboratory Results - last 24 hr 02/04/24 02/04/24 06:31 06:34 Hold Purple Top SEE NOTE VBG pH 7.46 H VBG pCO2 32 VBG pO2 84 VBG HCO3 23 VBG O2 Saturation 98.0 VBG Base Excess 0.4 Anion Gap 7 L Estim Creat Clear Calc 45.2 Estimated GFR > 60 Random Glucose 134 H Calcium 8.5 Phosphorus 3.1 Magnesium 2.1 Albumin 3.2 L Procedures Date of Service Date of Service: 02/06/24 Progress Note: A&P Assessment and plan (1) Myasthenia gravis: Status: Acute Assessment and Plan: With associated dysphagia. She was referred to me for PEG tube placement. I had a long discussion with the patient about the technique of the planned procedure as the as the risks including but not limited to bleeding, bowel injury, tube leak, infections, tube dislodgement, loss of airway She had concerns with anesthesia because of her myasthenia gravis I had assured her that the anesthesiologist will mindful of this and that there will be appropriate setting medications that will given during the procedure She is scheduled to have this tomorrow. Discussed with the hospitalist service Time Spent With Patient Time: Total time managing care of this patient today ____ minutes. Quality Stroke Does the patient have a stroke diagnosis?: No VTE Prior VTE?: No VTE Risk Level:: Medical - moderate - high VTE Device Contraindication: Treatment Not Indicated VTE Drug Contraindication: N/A - Med Ordered
--- NOTE | 2024-02-04 14:44 | HO.WOUND ---
Wound Consult: Initial 83yr old?female admitted to [facility] on 01/31/24 19:30 - See progress notes and H&P for detailed history.? Wound consult placed for right arm skin tear and redness to sacrum.? Patient agreeable to assessment and photo documentation.? Bilateral arms assessed for multiple bruising and old skin tears in varios stages of healing all stable scabs with exception to right forearm. The right forarm does have a lifting scab which will likely get caught on blas linen and cause trauma and bleeding. Recommend treating with xeroform and gauze wrap. Sacrum was assessed - foam dressing in palce, waffle chair cushion in place. Foam dressing removed for assessment - reveals pink intact slow to antonio tissue. Remains blanchable and intact but extremely thin skin and little to no musculature over bony sacral area. All preventative measure should be empolyed to prevent pressure injury development. Recommendations: 1. Turn and Reposition every 2 hours and as needed for patient comfort.? Use pillows or wedges to support off loading positions. 2. Off Load all bony prominences with use of pillows and heel boots if needed.? Apply Preventative foams where needed. ? 3. Monitor for incontinence and moisture control, use barrier creams when needed for prevention and treatment. 4. Nutrition is follow ing and patient has TPN running. 5. Continue low air loss mattress. 6. When applicable maintain blood glucose levels per Providers order. 7. Sacrum - Off Load Pressure - continue with waffle cushion when up to chair. Apply sacral foam dressing, peel back and assess Q shift and change every 3 days. 8. Right Forearm - Cleanse with normal saline, pat dry. ?Apply double layer Xeroform secure with Abd pads, gauze wrap and tape. ?Do not apply tape to patients skin.? Avoid Adhesive application to skin - when necessary, apply skin prep prior.? Re-consult wound care Nurse for wound deterioration or wound changes.
[2024-02-04 15:47] VITALS: BP 164/80; PULSE 62; RESP 18; TEMP 36.2; O2SAT 96
[2024-02-04] MEDS: methylPREDNISolone Sod Succ 40 MG/ML VIAL IVPUSH (17:48)
[2024-02-04] MEDS: diphenhydrAMINE HCL 50 MG/ML VIAL 25 MG IVPUSH (17:48)
[2024-02-04] MEDS: Immun Glob G(IgG)/Gly/IGA Ov50 200 ML IV (18:20)
[2024-02-04] MEDS: Enoxaparin Sodium 40 MG/0.4 ML SYRINGE SUBCUT (18:32)
[2024-02-04 19:24] VITALS: BP 161/92; PULSE 84; RESP 18; TEMP 36.2; O2SAT 96
[2024-02-04] MEDS: Parenteral Nutrition 1,200 ML 50 ML IV (21:15)
[2024-02-04] MEDS: 0.9 % Sodium Chloride Flush 3 ML SYRINGE IVFLUSH (21:15)
[2024-02-04 23:30] VITALS: BP 132/87; PULSE 84; RESP 16; TEMP 36.2; O2SAT 93
[2024-02-05] VITALS (9 sets, daily range): BP systolic 128–169; BP diastolic 82–102; PULSE 75–99; RESP 12–18; TEMP 36–37.1; O2SAT 95–100; BMI 21.2
[2024-02-05 06:15] LABS: Venous Blood Gas Refer to POC result
[2024-02-05 06:17] LABS: VBG Base Excess 1.7 mmol/L; VBG HCO3 23 mmol/L (22-26); VBG pCO2 28 mmHg; VBG pH 7.52 (7.32-7.43); VBG pO2 103 mmHg
[2024-02-05 06:40] LABS: Albumin Level 3.2 g/dL (3.5-5.0); Anion Gap 6 (12-20); Blood Urea Nitrogen 21 mg/dL (9-16); Calcium 8.8 mg/dL (8.4-10.2); Carbon Dioxide 24 mmol/L (22-29); Chloride 110 mmol/L (96-108); Creatinine Clr Calc Pharmacy 45.9; Estimated Glomerular Filt Rate > 60; Glucose Random 113 mg/dL (60-115); Magnesium 2.1 mg/dL (1.6-2.6); Phosphorus 3.2 mg/dL (2.7-4.5); Potassium 4.2 mmol/L (3.3-5.1); Sodium 136 mmol/L (135-145)
[2024-02-05] MEDS: PYRIDOSTIGMINE BROMIDE 2 MG IVPUSH ×3 (09:19→20:42)
[2024-02-05] MEDS: 0.9 % Sodium Chloride Flush 10 ML SYRINGE 5 ML IVFLUSH ×3 (09:19→21:57)
[2024-02-05] MEDS: Nystatin Cream 15 GM TUBE 1 APPL TOPICAL (09:20)
--- NOTE | 2024-02-05 09:26 | HO.PM.IMPN ---
Subjective Subjective Date of Service: 02/05/24 Interval History: NIFs 15-16 Ongoing dysphagia Completed 5d of IVIg/steroids Undergoing PEG today Review of Systems Review of Systems: Yes all other systems are reviewed and are negative Physical Exam Vital Signs: Vital Signs: Last Vital Signs Temp 96.8 F 02/05/24 07:55 Pulse 76 02/05/24 07:55 Resp 16 02/05/24 07:55 BP 165/102 H 02/05/24 07:55 Pulse Ox 98 02/05/24 07:55 O2 Del Method Room Air 02/05/24 07:55 BMI result Body Mass Index 21.2 Gen: in no acute distress HEENT: sclera anicteric, moist mucus membranes, stable chronic L ptosis Neck: supple Lungs: clear to auscultation bilaterally Heart: regular rate and rhythm, no murmurs Abd: soft, non-tender, non-distended Ext: no edema, RUE PICC in place Skin: warm/well-perfused Neuro: alert and oriented x3, moving all extremities Psych: appropriate affect Objective Data Active Medications Albuterol Sulfate (Albuterol Sulfate (0.083%) 2.5 Mg/3 Ml Vial.Neb) 2.5 mg INHALE Q2H PRN PRN Reason: Shortness of Breath/Wheezing Last Admin: 02/03/24 04:57 Dose: 2.5 mg Documented By: JIMENA Amlodipine Besylate (Amlodipine Besylate 5 Mg Tablet) 5 mg PO DAILY [facility]; Protocol Last Admin: 02/01/24 11:28 Dose: Not Given Documented By: JAVY Non-Admin Reason: NPO Azathioprine (Azathioprine 50 Mg Tablet) 50 mg PO Q48H [facility] Last Admin: 02/01/24 11:29 Dose: Not Given Documented By: JAVY Non-Admin Reason: NPO Diazepam (Diazepam 10 Mg/2 Ml Cartridge) 2.5 mg IVPUSH Q8H PRN PRN Reason: anxiety/restlessness Last Admin: 02/04/24 21:30 Dose: 2.5 mg Documented By: SOMMER Enoxaparin Sodium (Enoxaparin Sodium 40 Mg/0.4 Ml Syringe) 40 mg SUBCUT Q24H [facility] Last Admin: 02/04/24 18:32 Dose: 40 mg Documented By: CHANCE Hydralazine HCl (Hydralazine Hcl 20 Mg/Ml Vial) 5 mg IVPUSH Q6H PRN; Protocol PRN Reason: SBP > 180 Nutrition (Parenteral) (Parenteral Nutrition) 1,200 mls @ 50 mls/hr IV .Q24H AME; Protocol Stop: 02/05/24 20:59 Last Admin: 02/04/24 21:15 Dose: 50 mls/hr Documented By: SOMMER Non-Formulary Medication (Timolol Maleate) 1 drop EYE-BOTH BEDTIME AME Non-Formulary Medication (Timolol Maleate) 1 drop EYE-RIGHT DAILY AME Nystatin (Nystatin Cream 15 Gm Tube) 1 appl TOPICAL BID AME; Protocol Last Admin: 02/05/24 09:20 Dose: 1 appl Documented By: CHANCE Oxybutynin Chloride (Oxybutynin Chloride Er 5 Mg Tab.Er.24) 15 mg PO DAILY [facility] Last Admin: 02/01/24 11:29 Dose: Not Given Documented By: JAVY Non-Admin Reason: NPO Pharmacy Consult (Consult Rx Parenteral Nutrition Ordering) 1 each MISCELLANE DAILY PRN PRN Reason: Consult order Pyridostigmine [place] (Pyridostigmine [place] 60 Mg Tablet) 60 mg PO TID [facility] Last Admin: 02/01/24 22:24 Dose: Not Given Documented By: PONCE Non-Admin Reason: NPO Pyridostigmine [place] (Pyridostigmine [place] 10 Mg/2 Ml Ampul) 2 mg IVPUSH TID [facility] Last Admin: 02/05/24 09:19 Dose: 2 mg Documented By: CHANCE Sodium Chloride (0.9 % Sodium Chloride Flush 3 Ml Syringe) 3 ml IVFLUSH QSHIFT [facility] Last Admin: 02/05/24 09:20 Dose: Not Given Documented By: CHANCE Non-Admin Reason: IV running/5mL given in free lumen. Sodium Chloride (0.9 % Sodium Chloride Flush 10 Ml Syringe) 5 ml IVFLUSH TID [facility] Last Admin: 02/05/24 09:19 Dose: 5 ml Documented By: CHNACE Labs 02/01/24 05:53 02/05/24 06:05 Labs: Laboratory Results - last 24 hr 02/05/24 02/05/24 06:05 06:10 Hold Purple Top SEE NOTE VBG pH 7.52 H VBG pCO2 28 VBG pO2 103 VBG HCO3 23 VBG O2 Saturation 100.0 VBG Base Excess 1.7 Anion Gap 6 L Estim Creat Clear Calc 45.9 Estimated GFR > 60 Random Glucose 113 Calcium 8.8 Phosphorus 3.2 Magnesium 2.1 Albumin 3.2 L Assessment and Plan (1) Myasthenia gravis: Status: Acute Plan d6 83yo F with MG with predominantly oropharyngeal symptoms admitted for flare MG flare - IVIg + methylprednisolone 01/30-02/04; resume usual dosing steroids now (10 mg prednisone = 8 mg methylprednisolone] - pyridostigmine- cannot take PO, so giving IV (PO:IV 30:1 conversion) - PICC placed for TPN, continue daily lytes - pt now consents for PEG tube to be done today by Dr Meyer; Nutrition consult for TF recommendations; Anesthesia advised given pt's myasthenia gravis - hold azathioprine while NPO - MANAGER CONTINUOUS IMPROVEMENT following: NPO for now - Neurology consulted; recommend hospice consultation [[facility] involved]; also changing her immunomodulatory regimen as outpt - continue NIF monitoring HTN - holding amlodipine VTE ppx - LMWH dispo - eventual home with VNA In my clinical judgment, the patient requires continued inpatient hospitalization for the following reasons: NPO, TPN, PEG tube placement Total time managing care of this patient today: 40 minutes. Quality Stroke Does the patient have a stroke diagnosis?: No VTE Prior VTE?: No VTE Risk Level:: Medical - moderate - high VTE Device Contraindication: Treatment Not Indicated VTE Drug Contraindication: N/A - Med Ordered
--- NOTE | 2024-02-05 09:36 | MHC.SLORD ---
Addendum entered and electronically signed by Maral Hewitt MA, CCC-INFORMATION SERVICES TECH 02/08/24 15:15: Patient provided with oral care, mouth dry, but clear of any debris. Patient suctioning secretions on her own. She is able to swallow on command, but appears effortful and is not able to other times. Per RN, TFs to start today. Original Note: Speech Language Pathology Order Status: Per MD, patient is NPO for PEG procedure scheduled today. No PO trials given. INFORMATION SERVICES TECH will continue for dysphagia tx, assess for supplemental PO.
[2024-02-05] MEDS: methylPREDNISolone Sod Succ 40 MG/ML VIAL 8 MG IVPUSH ×2 (10:19→20:42)
--- NOTE | 2024-02-05 10:31 | MHC.CLN ---
RE: CONSULT PT SCHEDULED FOR PEG PLACEMENT TODAY CURRENTLY NPO WHEN TF NEEDED; RECOMMEND JEVITY 1.0 AT MAX GOAL RATE 55ML/HR WITH 120ML FREE WATER FLSUHES Q 8 HYRS TO PROVIDE 1399KCALS (29KCALS/KG), 58G PROTEIN (1.2G/KG), 1462ML TOTAL WATER FROM FORMULA AND FLUSHES (30.6ML/KG) START FORMULA AT 20ML/HR AND INCREASE BY 10ML Q 4 HRS UNTIL MAX GOAL IS ACHIEVED MONITOR TOLERANCE, RESIDUALS AND LYTES SEE ALSO FULL CLINICAL NUTRITION ASSESSMENT RD CAN BE REACHED DURING OFF HOURS VIA TIGER CONNECT IF NEEDED
--- NOTE | 2024-02-05 12:07 | MHC.CM.PN ---
EMR reviewed. Patient not medically cleared for dc. Planned PEG placement today. No change to dc plan. CM will continue to follow.
--- NOTE | 2024-02-05 12:11 | HO.ANESPROP2 ---
[facility] Active Problems Active Problems: All Active Problems (Updated 02/01/24 @ 15:04 by Niall Thomas MD) Myasthenia gravis with exacerbation (Acute) Myasthenia gravis (Acute) Swallowing problem (Acute) Osteoporosis (Acute) Tubular adenoma of colon (Acute ~2010) Bile salt-induced diarrhea (Acute) Myasthenia gravis in remission (Acute) Past Medical History Medical History Osteoporosis Myasthenia gravis in remission Tubular adenoma of colon (~2010) Bile salt-induced diarrhea Family History Family History Father HTN (hypertension) Mother Colon cancer Sister Glaucoma Other Hx of colonoscopy Family history of problems with anesthesia: No Surgical History Surgical History History of back surgery Status post partial hysterectomy Hx laparoscopic cholecystectomy Hx of colonoscopy History of Problems with Anesthesia: No Social History Social History Household Members: None Housing: House Do you presently have visiting nurse or other home services: Yes Alcohol intake: current Alcohol intake frequency: holidays/special occasions only Comment: 1-2 assist oob to commode/ chair Patient Tobacco Use Status: Former Tobacco user Advance Directives Date on File: 06/14/20 service: No Meds Allergies Allergy/AdvReac Type Severity Reaction Status Date / Time NSAIDS (Non-Steroidal Allergy Intermediate RASH Verified 01/31/24 10:24 Anti-Inflamma [NSAIDS (NON-STEROIDAL ANTI-INFLAMMA] azithromycin Allergy Unknown may Verified 01/31/24 10:24 exacerbate MG Ceftin Allergy Unknown hives Verified 01/31/24 10:24 cefuroxime [From CEFTIN] Allergy Unknown PATIENT Verified 01/31/24 10:24 AWARE OF REACTION IT WAS SO LONG AGO ibuprofen [Advil] Allergy Unknown rash Verified 01/31/24 10:24 levofloxacin Allergy Unknown may Verified 01/31/24 10:24 exacerbate MG lisinopril Allergy Unknown unknown Verified 01/31/24 10:24 losartan Allergy Unknown unknown Verified 01/31/24 10:24 ciprofloxacin [CIPROFLOXACIN] AdvReac Unknown UNABLE TO Verified 01/31/24 10:24 TAKE R/T DX MYASTHENIA GRAVIS nitrofurantoin AdvReac Unknown stomatitis Verified 01/31/24 10:24 adhesive tape Allergy Unknown rash Uncoded 12/15/23 09:16 adhesives Allergy Unknown rash Uncoded 12/15/23 09:16 Advil PM Allergy Unknown rash Uncoded 12/15/23 09:16 Active Medications: Current Medications Albuterol Sulfate (Albuterol Sulfate (0.083%) 2.5 Mg/3 Ml Vial.Neb) 2.5 mg INHALE Q2H PRN PRN Reason: Shortness of Breath/Wheezing Last Admin: 02/03/24 04:57 Dose: 2.5 mg Amlodipine Besylate (Amlodipine Besylate 5 Mg Tablet) 5 mg PO DAILY AME; Protocol Last Admin: 02/01/24 11:28 Dose: Not Given Azathioprine (Azathioprine 50 Mg Tablet) 50 mg PO Q48H AME Last Admin: 02/01/24 11:29 Dose: Not Given Diazepam (Diazepam 10 Mg/2 Ml Cartridge) 2.5 mg IVPUSH Q8H PRN PRN Reason: anxiety/restlessness Last Admin: 02/04/24 21:30 Dose: 2.5 mg Enoxaparin Sodium (Enoxaparin Sodium 40 Mg/0.4 Ml Syringe) 40 mg SUBCUT Q24H AME Last Admin: 02/04/24 18:32 Dose: 40 mg Hydralazine HCl (Hydralazine Hcl 20 Mg/Ml Vial) 5 mg IVPUSH Q6H PRN; Protocol PRN Reason: SBP > 180 Nutrition (Parenteral) (Parenteral Nutrition) 1,200 mls @ 50 mls/hr IV .Q24H AME; Protocol Stop: 02/05/24 20:59 Last Admin: 02/04/24 21:15 Dose: 50 mls/hr Methylprednisolone Sodium Succinate (Methylprednisolone Sod Succ 40 Mg/Ml Vial) 8 mg IVPUSH Q12H AME Last Admin: 02/05/24 10:19 Dose: 8 mg Non-Formulary Medication (Timolol Maleate) 1 drop EYE-BOTH BEDTIME AME Non-Formulary Medication (Timolol Maleate) 1 drop EYE-RIGHT DAILY AME Nystatin (Nystatin Cream 15 Gm Tube) 1 appl TOPICAL BID AME; Protocol Last Admin: 02/05/24 09:20 Dose: 1 appl Oxybutynin Chloride (Oxybutynin Chloride Er 5 Mg Tab.Er.24) 15 mg PO DAILY [facility] Last Admin: 02/01/24 11:29 Dose: Not Given Pharmacy Consult (Consult Rx Parenteral Nutrition Ordering) 1 each MISCELLANE DAILY PRN PRN Reason: Consult order Pyridostigmine Ambia (Pyridostigmine Ambia 60 Mg Tablet) 60 mg PO TID [facility] Last Admin: 02/01/24 22:24 Dose: Not Given Pyridostigmine Ambia (Pyridostigmine Ambia 10 Mg/2 Ml Ampul) 2 mg IVPUSH TID [facility] Last Admin: 02/05/24 09:19 Dose: 2 mg Sodium Chloride (0.9 % Sodium Chloride Flush 3 Ml Syringe) 3 ml IVFLUSH QSHIFT [facility] Last Admin: 02/05/24 09:20 Dose: Not Given Sodium Chloride (0.9 % Sodium Chloride Flush 10 Ml Syringe) 5 ml IVFLUSH TID [facility] Last Admin: 02/05/24 09:19 Dose: 5 ml Home Medications ?Medication ?Instructions ?Recorded ?Confirmed ?Last Taken ?Type azathioprine 50 mg tablet 50 mg PO Q OTHER DAY 07/04/20 02/01/24 01/31/24 History pyridostigmine bromide 60 mg 60 mg PO TID 07/04/20 02/01/24 01/31/24 History tablet (Mestinon) amlodipine 5 mg tablet 5 mg PO DAILY 08/21/22 02/01/24 01/31/24 History oxybutynin chloride 15 mg 15 mg PO DAILY 10/25/23 02/01/24 01/31/24 History tablet,extended release 24 hr timolol maleate 0.25 % eye drops 1 drp ophthalmic-Right DAILY 10/25/23 02/01/24 01/31/24 History prednisone 10 mg tablet 10 mg PO BID 12/15/23 02/01/24 01/31/24 History timolol maleate 0.25 % eye drops 1 drp ophthalmic (eye) BEDTIME 02/01/24 02/01/24 01/31/24 History Exam Height,Weight and Vital Signs: Height 4 ft 11 in Weight 47.7 kg Last Vital Signs Temp 96.8 F 02/05/24 07:55 Pulse 76 02/05/24 07:55 Resp 16 02/05/24 07:55 BP 165/102 H 02/05/24 07:55 Pulse Ox 98 02/05/24 07:55 O2 Del Method Room Air 02/05/24 07:55 Pertinent Lab Results Pertinent Lab Results: 'kLaboratory Tests 01/31/24 02/01/24 02/01/24 10:51 05:53 08:30 WBC 11.7 H 7.8 RBC 4.46 4.30 Hgb 14.8 14.1 Hct 43.9 42.2 MCV 98.4 H 98.1 H MCH 33.2 H 32.8 MCHC 33.7 33.4 RDW 13.3 13.4 Plt Count 252 D 238 MPV 8.1 L 8.4 L Immature Gran % (Auto) 0.6 H 0.5 H Neut % (Auto) 65.4 89.0 H Lymph % (Auto) 25.9 7.2 L Real % (Auto) 7.5 3.2 Eos % (Auto) 0.3 0.0 Baso % (Auto) 0.3 0.1 Lymph # (Auto) 3.0 0.6 L Real # (Auto) 0.9 0.3 Eos # (Auto) 0.0 0.0 Baso # (Auto) 0.0 0.0 Abs Immat Gran (auto) 0.07 H 0.04 H Absolute Neuts (auto) 7.7 6.9 Absolute Nucleated RBC 0.000 0.000 Nucleated RBC % (auto) 0.0 0.0 Hold Purple Top VBG pH 7.46 H VBG pCO2 35 VBG pO2 63 VBG HCO3 25 VBG O2 Saturation 94.0 VBG Base Excess 1.7 Sodium 141 140 Potassium 3.5 3.6 Chloride 107 108 Carbon Dioxide 27 25 Anion Gap 11 L 11 L BUN 15 11 Creatinine 0.70 0.61 Estim Creat Clear Calc 40.0 45.9 Estimated GFR > 60 > 60 Random Glucose 93 120 H Calcium 9.3 D 8.6 D Phosphorus 3.6 Magnesium 2.0 Total Bilirubin 1.0 AST 18 ALT 14 Alkaline Phosphatase 48 Total Protein 6.6 Albumin 4.3 3.8 Triglycerides 02/01/24 02/02/24 02/02/24 15:18 06:00 06:06 WBC RBC Hgb Hct MCV MCH MCHC RDW Plt Count MPV Immature Gran % (Auto) Neut % (Auto) Lymph % (Auto) Real % (Auto) Eos % (Auto) Baso % (Auto) Lymph # (Auto) Real # (Auto) Eos # (Auto) Baso # (Auto) Abs Immat Gran (auto) Absolute Neuts (auto) Absolute Nucleated RBC Nucleated RBC % (auto) Hold Purple Top VBG pH 7.43 VBG pCO2 37 VBG pO2 54 VBG HCO3 25 VBG O2 Saturation 88.0 VBG Base Excess 1.6 Sodium 138 Potassium 3.9 Chloride 107 Carbon Dioxide 24 Anion Gap 11 L BUN 16 Creatinine 0.64 Estim Creat Clear Calc 43.8 Estimated GFR > 60 Random Glucose 117 H Calcium 9.1 Phosphorus 3.5 Magnesium 2.2 Total Bilirubin AST ALT Alkaline Phosphatase Total Protein Albumin 3.9 Triglycerides 91 02/03/24 02/03/24 02/04/24 05:44 05:50 06:31 WBC RBC Hgb Hct MCV MCH MCHC RDW Plt Count MPV Immature Gran % (Auto) Neut % (Auto) Lymph % (Auto) Real % (Auto) Eos % (Auto) Baso % (Auto) Lymph # (Auto) Real # (Auto) Eos # (Auto) Baso # (Auto) Abs Immat Gran (auto) Absolute Neuts (auto) Absolute Nucleated RBC Nucleated RBC % (auto) Hold Purple Top SEE NOTE SEE NOTE VBG pH 7.51 H VBG pCO2 30 VBG pO2 114 VBG HCO3 24 VBG O2 Saturation 99.0 VBG Base Excess 2.7 Sodium 137 135 Potassium 4.0 4.2 Chloride 107 109 H Carbon Dioxide 24 23 Anion Gap 10 L 7 L BUN 23 H 22 H Creatinine 0.70 0.62 Estim Creat Clear Calc 40.0 45.2 Estimated GFR > 60 > 60 Random Glucose 143 H 134 H Calcium 8.9 8.5 Phosphorus 3.2 3.1 Magnesium 2.1 2.1 Total Bilirubin AST ALT Alkaline Phosphatase Total Protein Albumin 3.6 3.2 L Triglycerides 02/04/24 02/05/24 02/05/24 06:34 06:05 06:10 WBC RBC Hgb Hct MCV MCH MCHC RDW Plt Count MPV Immature Gran % (Auto) Neut % (Auto) Lymph % (Auto) Real % (Auto) Eos % (Auto) Baso % (Auto) Lymph # (Auto) Real # (Auto) Eos # (Auto) Baso # (Auto) Abs Immat Gran (auto) Absolute Neuts (auto) Absolute Nucleated RBC Nucleated RBC % (auto) Hold Purple Top SEE NOTE VBG pH 7.46 H 7.52 H VBG pCO2 32 28 VBG pO2 84 103 VBG HCO3 23 23 VBG O2 Saturation 98.0 100.0 VBG Base Excess 0.4 1.7 Sodium 136 Potassium 4.2 Chloride 110 H Carbon Dioxide 24 Anion Gap 6 L BUN 21 H Creatinine 0.61 Estim Creat Clear Calc 45.9 Estimated GFR > 60 Random Glucose 113 Calcium 8.8 Phosphorus 3.2 Magnesium 2.1 Total Bilirubin AST ALT Alkaline Phosphatase Total Protein Albumin 3.2 L Triglycerides Airway Mallampati Class: II TM Dist: >3cm Neck ROM: Limited Assessment and Plan Assessment Anesthesia Assessment: Anesthesia Plan Discussed and Chart Reviewed Final Anesthetic Review Family History of Problems with Anesthesia: No History of Problems with Anesthesia: No NPO: Yes ASA Class: III Final Preanesthetic Review: No Changes in Pt Med Stat, Meds/Allgs Chart Reviewed, Consent Obtained/Reviewed and Anes Risks/Benef Reviewed Patient Risk: Intermediate Procedure Risk: Low Anesthetic Plan Anesthetic Plan: MAC: Disposition: Standard PACU
--- NOTE | 2024-02-05 12:40 | PC.NURSE ---
Patient arrived to [facility]. Double lumen PICC line present in right upper arm. Site asymptomatic, dressing intact. TPN flowing into one lumen. Second lumen flushed and LR started, no issues.
--- NOTE | 2024-02-05 14:25 | W.PM.OPN ---
Operative Note Operative Note Date of Service: 02/05/24 Narrative: Preop diagnosis: Myasthenia gravis, dysphagia Postop diagnosis: The same Procedure: PEG tube placement Surgeon: Gallo Meyer MD 1st Advertising Project Manager: JERSEY Alvarado The patient is an 83 year old female with known myasthenia gravis, referred to me for PEG tube placement because of dysphagia. She understood the technique of PEG tube placement. I had a long discussion with the about risks including but not limited to bleeding, infections, injury to other organs including bowel, tube dislodgement, blood clots, tube leak, as well as the benefits and alternatives. She had given consent. She was brought to the operating room. She was placed in a little recommend position on the bed under monitored anesthesia care. A bite block was in position. A surgical time-out was done. The patient received cefazolin 2 g IV preoperatively I then proceeded to insert the scope through the bite block into the oropharynx. The vocal cords were visualized. The esophageal slit was seen posterior to this. The esophageal slit was intubated. The scope was gently advanced through the entire length of the esophagus into the stomach. The stomach was insufflated. Transillumination was noted on the left upper quadrant just under the ribcage. This area was prepped and draped. Lidocaine 1% was used for local anesthesia. A small stab incision was made. The needle for local anesthesia was seen in the lumen. The large bore needle with a catheter was inserted through this same area. Needle was removed. The guidewire was inserted. The guidewire was she had a snare and was pulled out through the mouth. The PEG tube was looped around this guidewire and the guidewire was pulled back out from the abdominal wall along with the PEG tube until this felt snug I reinserted the scope in the stomach lumen. However, we could not see the inner bolster of the PEG tube at all. It appears that this had gone through the anterior stomach wall and was just under the abdominal wall. We therefore pulled it out. We could not identify any opening/whole on the anterior gastric wall. I therefore planned to repeat insertion. I chose another area a little more medial epigastric area. Transillumination was clearly seen along with indentation with pressure with a finger on the abdominal wall. Again the area was infiltrated. A short incision was made. The large bore needle along with the cannula was inserted. The needle was removed. The guidewire was inserted through the cannula. The guidewire was grasped with a snare. The guidewire was pulled out through the mouth along scope. The guidewire was loop with the PEG tube. The guidewire was then pulled back out from the abdominal wall until this felt snug. I reinserted the scope. I visualized the lumen and this time, the inner bolster was seen. This was snug on the abdominal wall anterior wall of the stomach. The scope was then removed completely. The patient tolerated procedure well. There were no immediate complications. The patient was transferred to the recovery room with stable vital signs I will hold off on feeding this patient for about 48 hours.
[2024-02-05] MEDS: Morphine Sulfate 2 MG/ML CARTRIDGE IVPUSH ×2 (16:34→20:29)
--- NOTE | 2024-02-05 17:15 | PM.EVENT ---
Event Note Date of Service: 02/05/24 Event Note: Seen postop Seems to have good pain control Awake and alert Stable vital signs Abdomen soft Peg tube in place Would hold any feeds via the PEG tube for at least 48 hours as we had to redo the peg placement in the OR We will follow Continue parenteral nutrition Time Spent With Patient Time: Total time managing care of this patient today ____ minutes.
[2024-02-05] MEDS: Enoxaparin Sodium 40 MG/0.4 ML SYRINGE SUBCUT (20:41)
[2024-02-05] MEDS: 0.9 % Sodium Chloride Flush 3 ML SYRINGE IVFLUSH (20:46)
[2024-02-06 06:34] LABS: Venous Blood Gas Refer to POC result
[2024-02-06 06:37] LABS: VBG Base Excess 3.7 mmol/L; VBG HCO3 28 mmol/L (22-26); VBG pCO2 42 mmHg; VBG pH 7.43 (7.32-7.43); VBG pO2 52 mmHg
[2024-02-06 06:55] LABS: Albumin Level 3.3 g/dL (3.5-5.0); Anion Gap 8 (12-20); Blood Urea Nitrogen 19 mg/dL (9-16); Calcium 8.9 mg/dL (8.4-10.2); Carbon Dioxide 27 mmol/L (22-29); Chloride 108 mmol/L (96-108); Creatinine Clr Calc Pharmacy 47.5; Estimated Glomerular Filt Rate > 60; Glucose Random 109 mg/dL (60-115); Magnesium 1.9 mg/dL (1.6-2.6); Phosphorus 3.8 mg/dL (2.7-4.5); Potassium 4.3 mmol/L (3.3-5.1); Sodium 139 mmol/L (135-145)
[2024-02-06 07:10] VITALS: BP 114/73; PULSE 76; RESP 18; TEMP 36.4; O2SAT 96
--- NOTE | 2024-02-06 09:27 | PM.PNGS ---
Subjective Subjective Date of Service: 02/06/24 Interval history: States she feels well this morning Denies any abdominal pain Denies nausea or vomiting Physical Exam Vital Signs: Vital Signs: Last Vital Signs Temp 97.5 F 02/06/24 07:10 Pulse 76 02/06/24 07:10 Resp 18 02/06/24 07:10 BP 114/73 02/06/24 07:10 Pulse Ox 96 02/06/24 07:10 O2 Del Method Room Air 02/06/24 07:10 O2 Flow Rate 6 02/05/24 14:40 BMI result Body Mass Index 21.2 Const: General: comfortable and no acute distress Resp: Effort & Inspection: normal respiratory effort Cardio: Rate: regular rate GI: Inspection: No distended Palpation (GI): Soft to palpation, not firm, nontender and no guarding Objective Data Active Medications Albuterol Sulfate (Albuterol Sulfate (0.083%) 2.5 Mg/3 Ml Vial.Neb) 2.5 mg INHALE Q2H PRN PRN Reason: Shortness of Breath/Wheezing Last Admin: 02/03/24 04:57 Dose: 2.5 mg Documented By: JIMENA Amlodipine Besylate (Amlodipine Besylate 5 Mg Tablet) 5 mg PO DAILY AME; Protocol Last Admin: 02/01/24 11:28 Dose: Not Given Documented By: JAVY Non-Admin Reason: NPO Azathioprine (Azathioprine 50 Mg Tablet) 50 mg PO Q48H [facility] Last Admin: 02/01/24 11:29 Dose: Not Given Documented By: JAVY Non-Admin Reason: NPO Diazepam (Diazepam 10 Mg/2 Ml Cartridge) 2.5 mg IVPUSH Q8H PRN PRN Reason: anxiety/restlessness Last Admin: 02/04/24 21:30 Dose: 2.5 mg Documented By: SOMMER Enoxaparin Sodium (Enoxaparin Sodium 40 Mg/0.4 Ml Syringe) 40 mg SUBCUT Q24H [facility] Last Admin: 02/05/24 20:41 Dose: 40 mg Documented By: ASHOK Hydralazine HCl (Hydralazine Hcl 20 Mg/Ml Vial) 5 mg IVPUSH Q6H PRN; Protocol PRN Reason: SBP > 180 Methylprednisolone Sodium Succinate (Methylprednisolone Sod Succ 40 Mg/Ml Vial) 8 mg IVPUSH Q12H [facility] Last Admin: 02/05/24 20:42 Dose: 8 mg Documented By: ASHOK Morphine Sulfate (Morphine Sulfate 2 Mg/Ml Cartridge) 2 mg IVPUSH Q4H PRN; Protocol PRN Reason: Pain, Severe (Pain Scale 7-10) Last Admin: 02/05/24 16:34 Dose: 2 mg Documented By: CHANCE Non-Formulary Medication (Timolol Maleate) 1 drop EYE-BOTH BEDTIME AME Non-Formulary Medication (Timolol Maleate) 1 drop EYE-RIGHT DAILY [facility] Nystatin (Nystatin Cream 15 Gm Tube) 1 appl TOPICAL BID [facility]; Protocol Last Admin: 02/05/24 20:52 Dose: Not Given Documented By: ASHOK Non-Admin Reason: Patient Refused Oxybutynin Chloride (Oxybutynin Chloride Er 5 Mg Tab.Er.24) 15 mg PO DAILY [facility] Last Admin: 02/01/24 11:29 Dose: Not Given Documented By: JAVY Non-Admin Reason: NPO Pharmacy Consult (Consult Rx Parenteral Nutrition Ordering) 1 each MISCELLANE DAILY PRN PRN Reason: Consult order Pyridostigmine [place] (Pyridostigmine [place] 60 Mg Tablet) 60 mg PO TID [facility] Last Admin: 02/01/24 22:24 Dose: Not Given Documented By: PONCE Non-Admin Reason: NPO Pyridostigmine [place] (Pyridostigmine [place] 10 Mg/2 Ml Ampul) 2 mg IVPUSH TID [facility] Last Admin: 02/05/24 20:42 Dose: 2 mg Documented By: ASHOK Sodium Chloride (0.9 % Sodium Chloride Flush 3 Ml Syringe) 3 ml IVFLUSH QSHIFT [facility] Last Admin: 02/05/24 20:46 Dose: 3 ml Documented By: ASHOK Sodium Chloride (0.9 % Sodium Chloride Flush 10 Ml Syringe) 5 ml IVFLUSH TID [facility] Last Admin: 02/05/24 21:57 Dose: 5 ml Documented By: ASHOK Labs 02/01/24 05:53 02/06/24 06:19 Labs: Laboratory Results - last 24 hr 02/06/24 02/06/24 06:19 06:30 Hold Purple Top SEE NOTE VBG pH 7.43 VBG pCO2 42 VBG pO2 52 VBG HCO3 28 H VBG O2 Saturation 85.0 VBG Base Excess 3.7 Anion Gap 8 L Estim Creat Clear Calc 47.5 Estimated GFR > 60 Random Glucose 109 Calcium 8.9 Phosphorus 3.8 Magnesium 1.9 Albumin 3.3 L Procedures Date of Service Date of Service: 02/06/24 Progress Note: A&P Assessment and plan (1) Swallowing problem: Status: Acute Assessment and Plan: Status post PEG tube placement We will hold off on starting feeds for now - difficult PEG tube placement, had to be redone as inner bolster seemed to have pulled through the anterior stomach wall on initial insertion Continue parenteral nutrition Abdominal exam very benign Patient clinically looks well and comfortable We will continue to follow Time Spent With Patient Time: Total time managing care of this patient today ____ minutes. Quality Stroke Does the patient have a stroke diagnosis?: No VTE Prior VTE?: No VTE Risk Level:: Medical - moderate - high VTE Device Contraindication: Treatment Not Indicated VTE Drug Contraindication: N/A - Med Ordered
--- NOTE | 2024-02-06 09:49 | HO.PM.IMPN ---
Subjective Subjective Date of Service: 02/06/24 Interval History: POD1 PEG tube placement surprised at lack of abd pain ongoing dysphagia NIFs 16-30 Review of Systems Review of Systems: Yes all other systems are reviewed and are negative Physical Exam Vital Signs: Vital Signs: Last Vital Signs Temp 97.5 F 02/06/24 07:10 Pulse 76 02/06/24 07:10 Resp 18 02/06/24 07:10 BP 114/73 02/06/24 07:10 Pulse Ox 96 02/06/24 07:10 O2 Del Method Room Air 02/06/24 07:10 O2 Flow Rate 6 02/05/24 14:40 BMI result Body Mass Index 21.2 Gen: in no acute distress HEENT: sclera anicteric, moist mucus membranes, stable chronic L ptosis Neck: supple Lungs: clear to auscultation bilaterally Heart: regular rate and rhythm, no murmurs Abd: soft, non-tender, non-distended, PEG clean Ext: no edema, RUE PICC in place Skin: warm/well-perfused Neuro: alert and oriented x3, moving all extremities Psych: appropriate affect Objective Data Active Medications Albuterol Sulfate (Albuterol Sulfate (0.083%) 2.5 Mg/3 Ml Vial.Neb) 2.5 mg INHALE Q2H PRN PRN Reason: Shortness of Breath/Wheezing Last Admin: 02/03/24 04:57 Dose: 2.5 mg Documented By: JIMENA Amlodipine Besylate (Amlodipine Besylate 5 Mg Tablet) 5 mg PO DAILY [facility]; Protocol Last Admin: 02/01/24 11:28 Dose: Not Given Documented By: JAVY Non-Admin Reason: NPO Azathioprine (Azathioprine 50 Mg Tablet) 50 mg PO Q48H [facility] Last Admin: 02/01/24 11:29 Dose: Not Given Documented By: JAVY Non-Admin Reason: NPO Diazepam (Diazepam 10 Mg/2 Ml Cartridge) 2.5 mg IVPUSH Q8H PRN PRN Reason: anxiety/restlessness Last Admin: 02/04/24 21:30 Dose: 2.5 mg Documented By: SOMMER Enoxaparin Sodium (Enoxaparin Sodium 40 Mg/0.4 Ml Syringe) 40 mg SUBCUT Q24H [facility] Last Admin: 02/05/24 20:41 Dose: 40 mg Documented By: ASHOK Hydralazine HCl (Hydralazine Hcl 20 Mg/Ml Vial) 5 mg IVPUSH Q6H PRN; Protocol PRN Reason: SBP > 180 Methylprednisolone Sodium Succinate (Methylprednisolone Sod Succ 40 Mg/Ml Vial) 8 mg IVPUSH Q12H [facility] Last Admin: 02/05/24 20:42 Dose: 8 mg Documented By: ASHOK Morphine Sulfate (Morphine Sulfate 2 Mg/Ml Cartridge) 2 mg IVPUSH Q4H PRN; Protocol PRN Reason: Pain, Severe (Pain Scale 7-10) Last Admin: 02/05/24 16:34 Dose: 2 mg Documented By: CHANCE Non-Formulary Medication (Timolol Maleate) 1 drop EYE-BOTH BEDTIME [facility] Non-Formulary Medication (Timolol Maleate) 1 drop EYE-RIGHT DAILY [facility] Nystatin (Nystatin Cream 15 Gm Tube) 1 appl TOPICAL BID [facility]; Protocol Last Admin: 02/05/24 20:52 Dose: Not Given Documented By: ASHOK Non-Admin Reason: Patient Refused Oxybutynin Chloride (Oxybutynin Chloride Er 5 Mg Tab.Er.24) 15 mg PO DAILY [facility] Last Admin: 02/01/24 11:29 Dose: Not Given Documented By: JAVY Non-Admin Reason: NPO Pharmacy Consult (Consult Rx Parenteral Nutrition Ordering) 1 each MISCELLANE DAILY PRN PRN Reason: Consult order Pharmacy Consult (Consult Rx Parenteral Nutrition Ordering) 1 each MISCELLANE DAILY PRN PRN Reason: Consult order Pyridostigmine [place] (Pyridostigmine [place] 60 Mg Tablet) 60 mg PO TID [facility] Last Admin: 02/01/24 22:24 Dose: Not Given Documented By: PONCE Non-Admin Reason: NPO Pyridostigmine [place] (Pyridostigmine [place] 10 Mg/2 Ml Ampul) 2 mg IVPUSH TID [facility] Last Admin: 02/05/24 20:42 Dose: 2 mg Documented By: ASHOK Sodium Chloride (0.9 % Sodium Chloride Flush 3 Ml Syringe) 3 ml IVFLUSH QSHIFT [facility] Last Admin: 02/05/24 20:46 Dose: 3 ml Documented By: ASHOK Sodium Chloride (0.9 % Sodium Chloride Flush 10 Ml Syringe) 5 ml IVFLUSH TID [facility] Last Admin: 02/05/24 21:57 Dose: 5 ml Documented By: ASHOK Labs 02/01/24 05:53 02/06/24 06:19 Labs: Laboratory Results - last 24 hr 02/06/24 02/06/24 06:19 06:30 Hold Purple Top SEE NOTE VBG pH 7.43 VBG pCO2 42 VBG pO2 52 VBG HCO3 28 H VBG O2 Saturation 85.0 VBG Base Excess 3.7 Anion Gap 8 L Estim Creat Clear Calc 47.5 Estimated GFR > 60 Random Glucose 109 Calcium 8.9 Phosphorus 3.8 Magnesium 1.9 Albumin 3.3 L Assessment and Plan (1) Myasthenia gravis: Status: Acute Plan d7 83yo F with MG with predominantly oropharyngeal symptoms admitted for flare MG flare - IVIg + methylprednisolone 01/30-02/04; resume usual dosing steroids now (10 mg PO prednisone = 8 mg IV methylprednisolone] - pyridostigmine- cannot take PO, so giving IV (PO:IV 30:1 conversion) - PICC placed for TPN, continue TPN until at least 02/08/24, daily lytes - PEG placed 02/04; per Surgery, difficult PEG tube placement, had to be redone as inner bolster seemed to have pulled through the anterior stomach wall on initial insertion , and will hold on starting feeds - Nutrition consult: JEVITY 1.0 AT MAX GOAL RATE 55ML/HR WITH 120ML FREE WATER FLSUHES Q 8 HYRS TO PROVIDE 1399KCALS (29KCALS/KG), 58G PROTEIN (1.2G/KG), 1462ML TOTAL WATER FROM FORMULA AND FLUSHES (30.6ML/KG) START FORMULA AT 20ML/HR AND INCREASE BY 10ML Q 4 HRS UNTIL MAX GOAL IS ACHIEVED - hold azathioprine while NPO - [employer] following: NPO for now - Neurology consulted; recommend hospice consultation [[facility] involved]; also changing her immunomodulatory regimen as outpt - continue NIF monitoring HTN - holding amlodipine VTE ppx - LMWH dispo - eventual home with VNA In my clinical judgment, the patient requires continued inpatient hospitalization for the following reasons: NPO, TPN, PEG tube feeds Total time managing care of this patient today: 35 minutes. Quality Stroke Does the patient have a stroke diagnosis?: No VTE Prior VTE?: No VTE Risk Level:: Medical - moderate - high VTE Device Contraindication: Treatment Not Indicated VTE Drug Contraindication: N/A - Med Ordered
[2024-02-06] MEDS: methylPREDNISolone Sod Succ 40 MG/ML VIAL 8 MG IVPUSH ×2 (10:23→20:53)
[2024-02-06] MEDS: PYRIDOSTIGMINE BROMIDE 2 MG IVPUSH ×3 (10:23→20:54)
[2024-02-06] MEDS: Nystatin Cream 15 GM TUBE 1 APPL TOPICAL ×2 (10:24→21:02)
[2024-02-06] MEDS: 0.9 % Sodium Chloride Flush 10 ML SYRINGE 5 ML IVFLUSH ×3 (10:24→22:15)
[2024-02-06] MEDS: 0.9 % Sodium Chloride Flush 3 ML SYRINGE IVFLUSH ×2 (10:24→16:11)
[2024-02-06] MEDS: diazePAM 10 MG/2 ML CARTRIDGE 2.5 MG IVPUSH ×2 (13:03→22:23)
[2024-02-06 15:17] VITALS: BP 139/81; PULSE 82; RESP 18; TEMP 36.1; O2SAT 99
[2024-02-06] MEDS: Lactated Ringers 1,000 ML 100 ML IVCONT (16:01)
[2024-02-06] MEDS: Enoxaparin Sodium 40 MG/0.4 ML SYRINGE SUBCUT (20:56)
[2024-02-06] MEDS: Parenteral Nutrition 1,200 ML 50 ML IV (22:14)
[2024-02-06 22:57] VITALS: BP 141/83; PULSE 70; RESP 17; TEMP 36.1; O2SAT 97
[2024-02-07 06:15] LABS: VBG Base Excess 4.9 mmol/L; VBG HCO3 28 mmol/L (22-26); VBG pCO2 38 mmHg; VBG pH 7.47 (7.32-7.43); VBG pO2 58 mmHg
[2024-02-07 06:16] LABS: Venous Blood Gas Refer to POC result
[2024-02-07 06:26] LABS: Albumin Level 3.1 g/dL (3.5-5.0); Anion Gap 12 (12-20); Blood Urea Nitrogen 20 mg/dL (9-16); Calcium 8.5 mg/dL (8.4-10.2); Carbon Dioxide 25 mmol/L (22-29); Chloride 107 mmol/L (96-108); Creatinine Clr Calc Pharmacy 49.1; Estimated Glomerular Filt Rate > 60; Glucose Random 124 mg/dL (60-115); Magnesium 1.8 mg/dL (1.6-2.6); Phosphorus 3.4 mg/dL (2.7-4.5); Potassium 4.2 mmol/L (3.3-5.1); Sodium 140 mmol/L (135-145)
[2024-02-07 07:25] VITALS: BP 172/87; PULSE 71; RESP 16; TEMP 36.1; O2SAT 98
--- NOTE | 2024-02-07 09:27 | HO.PM.IMPN ---
Subjective Subjective Date of Service: 02/07/24 Interval History: some soreness at PEG site ongoing dysphagia no dyspnea NIFs 18-26 Review of Systems Review of Systems: Yes all other systems are reviewed and are negative Physical Exam Vital Signs: Vital Signs: Last Vital Signs Temp 96.9 F 02/07/24 07:25 Pulse 71 02/07/24 07:25 Resp 16 02/07/24 07:25 BP 172/87 H 02/07/24 07:25 Pulse Ox 98 02/07/24 07:25 O2 Del Method Room Air 02/07/24 07:25 O2 Flow Rate 6 02/05/24 14:40 BMI result Body Mass Index 21.2 Gen: in no acute distress HEENT: sclera anicteric, moist mucus membranes, stable chronic L ptosis Neck: supple Lungs: clear to auscultation bilaterally Heart: regular rate and rhythm, no murmurs Abd: soft, non-tender, non-distended, PEG clean Ext: no edema, RUE PICC in place Skin: warm/well-perfused Neuro: alert and oriented x3, moving all extremities Psych: appropriate affect Objective Data Active Medications Albuterol Sulfate (Albuterol Sulfate (0.083%) 2.5 Mg/3 Ml Vial.Neb) 2.5 mg INHALE Q2H PRN PRN Reason: Shortness of Breath/Wheezing Last Admin: 02/03/24 04:57 Dose: 2.5 mg Documented By: JIMENA Amlodipine Besylate (Amlodipine Besylate 5 Mg Tablet) 5 mg PO DAILY [facility]; Protocol Last Admin: 02/01/24 11:28 Dose: Not Given Documented By: JAVY Non-Admin Reason: NPO Azathioprine (Azathioprine 50 Mg Tablet) 50 mg PO Q48H [facility] Last Admin: 02/01/24 11:29 Dose: Not Given Documented By: JAVY Non-Admin Reason: NPO Diazepam (Diazepam 10 Mg/2 Ml Cartridge) 2.5 mg IVPUSH Q8H PRN PRN Reason: anxiety/restlessness Last Admin: 02/06/24 22:23 Dose: 2.5 mg Documented By: SOMMER Enoxaparin Sodium (Enoxaparin Sodium 40 Mg/0.4 Ml Syringe) 40 mg SUBCUT Q24H [facility] Last Admin: 02/06/24 20:56 Dose: 40 mg Documented By: MARIANA Hydralazine HCl (Hydralazine Hcl 20 Mg/Ml Vial) 5 mg IVPUSH Q6H PRN; Protocol PRN Reason: SBP > 180 Nutrition (Parenteral) (Parenteral Nutrition) 1,200 mls @ 50 mls/hr IV .Q24H [facility]; Protocol Stop: 02/07/24 20:59 Last Admin: 02/06/24 22:14 Dose: 50 mls/hr Documented By: SOMMER Lactated Ringer's (Lr) 1,000 mls @ 100 mls/hr IVCONT .Q10H [facility] Last Admin: 02/07/24 03:56 Dose: Not Given Documented By: MARIANA Non-Admin Reason: TPN Running Nutrition (Parenteral) (Parenteral Nutrition) 1,200 mls @ 50 mls/hr IV .Q24H [facility]; Protocol Stop: 02/08/24 20:59 Methylprednisolone Sodium Succinate (Methylprednisolone Sod Succ 40 Mg/Ml Vial) 8 mg IVPUSH Q12H [facility] Last Admin: 02/06/24 20:53 Dose: 8 mg Documented By: MARIANA Morphine Sulfate (Morphine Sulfate 2 Mg/Ml Cartridge) 2 mg IVPUSH Q4H PRN; Protocol PRN Reason: Pain, Severe (Pain Scale 7-10) Last Admin: 02/05/24 16:34 Dose: 2 mg Documented By: CHANCE Non-Formulary Medication (Timolol Maleate) 1 drop EYE-BOTH BEDTIME [facility] Non-Formulary Medication (Timolol Maleate) 1 drop EYE-RIGHT DAILY [facility] Nystatin (Nystatin Cream 15 Gm Tube) 1 appl TOPICAL BID [facility]; Protocol Last Admin: 02/06/24 21:02 Dose: 1 appl Documented By: MARIANA Oxybutynin Chloride (Oxybutynin Chloride Er 5 Mg Tab.Er.24) 15 mg PO DAILY [facility] Last Admin: 02/01/24 11:29 Dose: Not Given Documented By: JAVY Non-Admin Reason: NPO Pharmacy Consult (Consult Rx Parenteral Nutrition Ordering) 1 each MISCELLANE DAILY PRN PRN Reason: Consult order Pyridostigmine [place] (Pyridostigmine [place] 60 Mg Tablet) 60 mg PO TID [facility] Last Admin: 02/01/24 22:24 Dose: Not Given Documented By: PONCE Non-Admin Reason: NPO Pyridostigmine [place] (Pyridostigmine [place] 10 Mg/2 Ml Ampul) 2 mg IVPUSH TID [facility] Last Admin: 02/06/24 20:54 Dose: 2 mg Documented By: MARIANA Sodium Chloride (0.9 % Sodium Chloride Flush 3 Ml Syringe) 3 ml IVFLUSH QSHIFT [facility] Last Admin: 02/06/24 20:57 Dose: 3 ml Documented By: MARIANA Sodium Chloride (0.9 % Sodium Chloride Flush 10 Ml Syringe) 5 ml IVFLUSH TID [facility] Last Admin: 02/06/24 22:15 Dose: 5 ml Documented By: LYNETTEQC Labs 02/01/24 05:53 02/07/24 06:00 Labs: Laboratory Results - last 24 hr 02/07/24 02/07/24 06:00 06:05 Hold Purple Top SEE NOTE VBG pH 7.47 H VBG pCO2 38 VBG pO2 58 VBG HCO3 28 H VBG O2 Saturation 92.0 VBG Base Excess 4.9 Anion Gap 12 Estim Creat Clear Calc 49.1 Estimated GFR > 60 Random Glucose 124 H Calcium 8.5 Phosphorus 3.4 Magnesium 1.8 Albumin 3.1 L Assessment and Plan (1) Myasthenia gravis: Status: Acute Plan d7 83yo F with MG with predominantly oropharyngeal symptoms admitted for flare MG flare - completed IVIg + methylprednisolone 01/30-02/04; resumed usual dosing of steroids but IV (10 mg PO prednisone = 8 mg IV methylprednisolone] - continue pyridostigmine- cannot take PO, so giving IV (PO:IV = 30:1 conversion) - PICC placed for TPN, continue TPN until TFs at goal, check daily lytes - PEG placed 02/04; per Surgery, difficult PEG tube placement, had to be redone as inner bolster seemed to have pulled through the anterior stomach wall on initial insertion , and will hold on starting feeds until at least 02/07; touch base with Dr Meyer tomorrow - Nutrition consult: JEVITY 1.0 AT MAX GOAL RATE 55ML/HR WITH 120ML FREE WATER FLSUHES Q 8 HYRS TO PROVIDE 1399KCALS (29KCALS/KG), 58G PROTEIN (1.2G/KG), 1462ML TOTAL WATER FROM FORMULA AND FLUSHES (30.6ML/KG), START FORMULA AT 20ML/HR AND INCREASE BY 10ML Q 4 HRS UNTIL MAX GOAL IS ACHIEVED ; given PEG tube issues above, will probably start 10 mL/hr and increase by 10 mL q6h to goal 55 mL/hr - hold azathioprine while NPO - [employer]CHNICIAN following: NPO for now. To follow up 02/07. - Neurology consulted; recommend hospice consultation [[facility] involved]; also changing her immunomodulatory regimen as outpt - continue NIF monitoring HTN - holding amlodipine VTE ppx - LMWH dispo - eventual home with VNA In my clinical judgment, the patient requires continued inpatient hospitalization for the following reasons: NPO, TPN, PEG tube feeds Total time managing care of this patient today: 35 minutes. Quality Stroke Does the patient have a stroke diagnosis?: No VTE Prior VTE?: No VTE Risk Level:: Medical - moderate - high VTE Device Contraindication: Treatment Not Indicated VTE Drug Contraindication: N/A - Med Ordered
--- NOTE | 2024-02-07 09:47 | P.PNGS_ITS ---
Subjective Subjective Date of Service: 02/07/24 Interval history: Feels well Denies abdominal pain Has been ambulating Physical Exam 2 Vital Signs: Vital Signs: Last Vital Signs Temp 96.9 F 02/07/24 07:25 Pulse 71 02/07/24 07:25 Resp 16 02/07/24 07:25 BP 172/87 H 02/07/24 07:25 Pulse Ox 98 02/07/24 07:25 O2 Del Method Room Air 02/07/24 07:25 O2 Flow Rate 6 02/05/24 14:40 BMI result Body Mass Index 21.2 Const: Other: Looks well General: comfortable and no acute distress Resp: Effort & Inspection: normal respiratory effort Cardio: Rate: regular rate GI: Other: Peg tube in place Palpation (GI): Soft to palpation, not firm, nontender and no guarding Objective Data Active Medications Albuterol Sulfate (Albuterol Sulfate (0.083%) 2.5 Mg/3 Ml Vial.Neb) 2.5 mg INHALE Q2H PRN PRN Reason: Shortness of Breath/Wheezing Last Admin: 02/03/24 04:57 Dose: 2.5 mg Documented By: JIMENA Amlodipine Besylate (Amlodipine Besylate 5 Mg Tablet) 5 mg PO DAILY [facility]; Protocol Last Admin: 02/01/24 11:28 Dose: Not Given Documented By: JAVY Non-Admin Reason: NPO Azathioprine (Azathioprine 50 Mg Tablet) 50 mg PO Q48H [facility] Last Admin: 02/01/24 11:29 Dose: Not Given Documented By: JAVY Non-Admin Reason: NPO Diazepam (Diazepam 10 Mg/2 Ml Cartridge) 2.5 mg IVPUSH Q8H PRN PRN Reason: anxiety/restlessness Last Admin: 02/06/24 22:23 Dose: 2.5 mg Documented By: SOMMER Enoxaparin Sodium (Enoxaparin Sodium 40 Mg/0.4 Ml Syringe) 40 mg SUBCUT Q24H [facility] Last Admin: 02/06/24 20:56 Dose: 40 mg Documented By: MARIANA Hydralazine HCl (Hydralazine Hcl 20 Mg/Ml Vial) 5 mg IVPUSH Q6H PRN; Protocol PRN Reason: SBP > 180 Nutrition (Parenteral) (Parenteral Nutrition) 1,200 mls @ 50 mls/hr IV .Q24H [facility]; Protocol Stop: 02/07/24 20:59 Last Admin: 02/06/24 22:14 Dose: 50 mls/hr Documented By: SOMMER Lactated Ringer's (Lr) 1,000 mls @ 100 mls/hr IVCONT .Q10H [facility] Last Admin: 02/07/24 03:56 Dose: Not Given Documented By: MARIANA Non-Admin Reason: TPN Running Nutrition (Parenteral) (Parenteral Nutrition) 1,200 mls @ 50 mls/hr IV .Q24H [facility]; Protocol Stop: 02/08/24 20:59 Methylprednisolone Sodium Succinate (Methylprednisolone Sod Succ 40 Mg/Ml Vial) 8 mg IVPUSH Q12H [facility] Last Admin: 02/06/24 20:53 Dose: 8 mg Documented By: MARIANA Morphine Sulfate (Morphine Sulfate 2 Mg/Ml Cartridge) 2 mg IVPUSH Q4H PRN; Protocol PRN Reason: Pain, Severe (Pain Scale 7-10) Last Admin: 02/05/24 16:34 Dose: 2 mg Documented By: CHANCE Non-Formulary Medication (Timolol Maleate) 1 drop EYE-BOTH BEDTIME [facility] Non-Formulary Medication (Timolol Maleate) 1 drop EYE-RIGHT DAILY [facility] Nystatin (Nystatin Cream 15 Gm Tube) 1 appl TOPICAL BID [facility]; Protocol Last Admin: 02/06/24 21:02 Dose: 1 appl Documented By: MARIANA Oxybutynin Chloride (Oxybutynin Chloride Er 5 Mg Tab.Er.24) 15 mg PO DAILY [facility] Last Admin: 02/01/24 11:29 Dose: Not Given Documented By: JAVY Non-Admin Reason: NPO Pharmacy Consult (Consult Rx Parenteral Nutrition Ordering) 1 each MISCELLANE DAILY PRN PRN Reason: Consult order Pyridostigmine [place] (Pyridostigmine [place] 60 Mg Tablet) 60 mg PO TID [facility] Last Admin: 02/01/24 22:24 Dose: Not Given Documented By: PONCE Non-Admin Reason: NPO Pyridostigmine [place] (Pyridostigmine [place] 10 Mg/2 Ml Ampul) 2 mg IVPUSH TID [facility] Last Admin: 02/06/24 20:54 Dose: 2 mg Documented By: MARIANA Sodium Chloride (0.9 % Sodium Chloride Flush 3 Ml Syringe) 3 ml IVFLUSH QSHIFT [facility] Last Admin: 02/06/24 20:57 Dose: 3 ml Documented By: MARIANA Sodium Chloride (0.9 % Sodium Chloride Flush 10 Ml Syringe) 5 ml IVFLUSH TID [facility] Last Admin: 02/06/24 22:15 Dose: 5 ml Documented By: LYNETTEQC Labs 02/01/24 05:53 02/07/24 06:00 Labs: Laboratory Results - last 24 hr 02/07/24 02/07/24 06:00 06:05 Hold Purple Top SEE NOTE VBG pH 7.47 H VBG pCO2 38 VBG pO2 58 VBG HCO3 28 H VBG O2 Saturation 92.0 VBG Base Excess 4.9 Anion Gap 12 Estim Creat Clear Calc 49.1 Estimated GFR > 60 Random Glucose 124 H Calcium 8.5 Phosphorus 3.4 Magnesium 1.8 Albumin 3.1 L Procedures Date of Service Date of Service: 02/07/24 Progress Note: A&P Assessment and plan (1) Swallowing problem: Status: Acute Assessment and Plan: Status post PEG tube placement Would hold off on starting feeds today in view of difficult placement Looks well otherwise Abdomen soft and benign without any guarding, tenderness Peg tube care Discussed with hospitalist service Time Spent With Patient Time: Total time managing care of this patient today ____ minutes. Quality Stroke Does the patient have a stroke diagnosis?: No VTE Prior VTE?: No VTE Risk Level:: Medical - moderate - high VTE Device Contraindication: Treatment Not Indicated VTE Drug Contraindication: N/A - Med Ordered
[2024-02-07] MEDS: 0.9 % Sodium Chloride Flush 3 ML SYRINGE IVFLUSH ×2 (09:55→22:23)
[2024-02-07] MEDS: 0.9 % Sodium Chloride Flush 10 ML SYRINGE 5 ML IVFLUSH ×3 (09:55→22:24)
[2024-02-07] MEDS: methylPREDNISolone Sod Succ 40 MG/ML VIAL 8 MG IVPUSH ×2 (09:56→20:30)
[2024-02-07] MEDS: PYRIDOSTIGMINE BROMIDE 2 MG IVPUSH ×3 (09:56→20:31)
[2024-02-07] MEDS: Nystatin Cream 15 GM TUBE 1 APPL TOPICAL ×2 (10:11→22:25)
[2024-02-07 12:34] VITALS: BP 168/83; PULSE 72
[2024-02-07 15:42] VITALS: BP 185/88; PULSE 75; RESP 20; TEMP 36.4; O2SAT 96
[2024-02-07] MEDS: Enoxaparin Sodium 40 MG/0.4 ML SYRINGE SUBCUT (18:11)
[2024-02-07] MEDS: diazePAM 10 MG/2 ML CARTRIDGE 2.5 MG IVPUSH (20:31)
[2024-02-07] MEDS: Parenteral Nutrition 1,200 ML 50 ML IV (22:22)
[2024-02-08] VITALS: BP 168/88; PULSE 74; RESP 20; TEMP 36.3; O2SAT 94
[2024-02-08 05:39] LABS: Venous Blood Gas Refer to POC result
[2024-02-08 05:43] LABS: VBG Base Excess 4.7 mmol/L; VBG HCO3 27 mmol/L (22-26); VBG pCO2 35 mmHg; VBG pH 7.49 (7.32-7.43); VBG pO2 94 mmHg
[2024-02-08 05:57] LABS: Albumin Level 3.1 g/dL (3.5-5.0); Anion Gap 10 (12-20); Blood Urea Nitrogen 17 mg/dL (9-16); Calcium 8.8 mg/dL (8.4-10.2); Carbon Dioxide 26 mmol/L (22-29); Chloride 107 mmol/L (96-108); Creatinine Clr Calc Pharmacy 48.3; Estimated Glomerular Filt Rate > 60; Glucose Random 146 mg/dL (60-115); Magnesium 1.9 mg/dL (1.6-2.6); Phosphorus 3.1 mg/dL (2.7-4.5); Potassium 4.1 mmol/L (3.3-5.1); Sodium 139 mmol/L (135-145); Triglycerides 115 mg/dL (<150)
[2024-02-08 07:06] VITALS: BP 160/100; PULSE 80; RESP 14; TEMP 36.1; O2SAT 97
[2024-02-08] MEDS: methylPREDNISolone Sod Succ 40 MG/ML VIAL 8 MG IVPUSH ×2 (09:15→20:56)
[2024-02-08] MEDS: PYRIDOSTIGMINE BROMIDE 2 MG IVPUSH ×3 (09:15→20:56)
[2024-02-08] MEDS: Nystatin Cream 15 GM TUBE 1 APPL TOPICAL (09:16)
[2024-02-08] MEDS: 0.9 % Sodium Chloride Flush 10 ML SYRINGE 5 ML IVFLUSH ×2 (09:16→20:57)
--- NOTE | 2024-02-08 09:36 | MHC.CLN ---
Addendum entered by Anahi Mathur RD 02/08/24 09:41: PER SURGERY, MAX GOAL RATE TODAY 20 ML PER HOUR. Original Note: F/U PEG PLACED 614. PER SURGERY, DO NOT START FEEDING FOR 48 HOURS. TPN TO BE DISCONTINUED. START TUBE FEEDING TODAY. RECOMMEND JEVITY 1.0 AT MAX GOAL RATE 55ML/HR WITH 120ML FREE WATER FLUSHES Q 8 HOURS TO PROVIDE 1399KCALS (29KCALS/KG), 58G PROTEIN (1.2G/KG), 1462ML TOTAL WATER FROM FORMULA AND FLUSHES (30.6ML/KG) START FORMULA AT 10ML/HR AND INCREASE BY 10ML Q 4 HRS UNTIL MAX GOAL IS ACHIEVED MONITOR TOLERANCE, RESIDUALS AND LYTES.
--- NOTE | 2024-02-08 09:58 | MHC.CLN ---
Addendum entered by Anahi Mathur RD 02/08/24 10:37: TUBE FEEDING JEVITY 1.0 AT 20 ML PER HOUR PROVIDES: 509 KCALS, 21 G PROTEIN, 401 ML FREE WATER FROM FORMULA PLUS 360 ML FROM FLUSHES (761 ML). RECOMMEND DECREASE TPN TO 40 ML PER HOUR, 24 G LIPIDS, 48 G PROTEIN, 144 G DEXTROSE, 922 TOTAL KCALS. TUBE FEEDING PLUS TPN PROVIDES 1431 KCALS (30 KCALS/KG), 69 G PROTEIN (1.45 G/KG), 761 ML FREE WATER FROM FORULA AND FLUSH. Original Note: F/U PEG PLACED 02/04. PER SURGERY, DO NOT START TF FOR 48 HOURS. TUBE FEED TO START THIS MORNING, JEVITY 1.0 AT MAX GOAL RATE 20 ML PER HOUR PER MD. CONTINUES WITH TPN. WHEN ABLE, RECOMMEND JEVITY 1.0 AT MAX GOAL RATE 55 ML/HR WITH 120 ML FREE WATER FLUSHES Q 8 HOURS TO PROVIDE 1399 KCALS (29 KCALS/KG), 58 G PROTEIN (1.2 G/KG), 1462 ML TOTAL WATER FROM FORMULA AND FLUSHES (30.6ML/KG). MONITOR TOLERANCE, RESIDUALS AND LYTES.
--- NOTE | 2024-02-08 10:32 | HO.PM.IMPN ---
Subjective Subjective Date of Service: 02/08/24 Interval History: less weak than yesterday Physical Exam Vital Signs: Vital Signs: Last Vital Signs Temp 97 F 02/08/24 07:06 Pulse 80 02/08/24 07:06 Resp 14 02/08/24 07:06 BP 160/100 H 02/08/24 07:06 Pulse Ox 97 02/08/24 07:06 O2 Del Method Room Air 02/08/24 07:06 O2 Flow Rate 6 02/05/24 14:40 BMI result Body Mass Index 21.2 Const: Other: Looks well General: comfortable and no acute distress Resp: Effort & Inspection: normal respiratory effort Cardio: Rate: regular rate GI: Other: Peg tube in place Palpation (GI): Soft to palpation, not firm, nontender and no guarding Objective Data Active Medications Albuterol Sulfate (Albuterol Sulfate (0.083%) 2.5 Mg/3 Ml Vial.Neb) 2.5 mg INHALE Q2H PRN PRN Reason: Shortness of Breath/Wheezing Last Admin: 02/03/24 04:57 Dose: 2.5 mg Documented By: JIMENA Amlodipine Besylate (Amlodipine Besylate 5 Mg Tablet) 5 mg PO DAILY [facility]; Protocol Last Admin: 02/01/24 11:28 Dose: Not Given Documented By: JAVY Non-Admin Reason: NPO Azathioprine (Azathioprine 50 Mg Tablet) 50 mg PO Q48H [facility] Last Admin: 02/01/24 11:29 Dose: Not Given Documented By: JAVY Non-Admin Reason: NPO Diazepam (Diazepam 10 Mg/2 Ml Cartridge) 2.5 mg IVPUSH Q8H PRN PRN Reason: anxiety/restlessness Last Admin: 02/07/24 20:31 Dose: 2.5 mg Documented By: PHILL Enoxaparin Sodium (Enoxaparin Sodium 40 Mg/0.4 Ml Syringe) 40 mg SUBCUT Q24H [facility] Last Admin: 02/07/24 18:11 Dose: 40 mg Documented By: EMEKA Hydralazine HCl (Hydralazine Hcl 20 Mg/Ml Vial) 5 mg IVPUSH Q6H PRN; Protocol PRN Reason: SBP > 180 Nutrition (Parenteral) (Parenteral Nutrition) 1,200 mls @ 50 mls/hr IV .Q24H [facility]; Protocol Stop: 02/08/24 20:59 Last Infusion: 02/07/24 22:28 Dose: 50 mls/hr Documented By: PHILL Methylprednisolone Sodium Succinate (Methylprednisolone Sod Succ 40 Mg/Ml Vial) 8 mg IVPUSH Q12H [facility] Last Admin: 02/08/24 09:15 Dose: 8 mg Documented By: ZAC Morphine Sulfate (Morphine Sulfate 2 Mg/Ml Cartridge) 2 mg IVPUSH Q4H PRN; Protocol PRN Reason: Pain, Severe (Pain Scale 7-10) Last Admin: 02/05/24 16:34 Dose: 2 mg Documented By: CHANCE Non-Formulary Medication (Timolol Maleate) 1 drop EYE-BOTH BEDTIME [facility] Non-Formulary Medication (Timolol Maleate) 1 drop EYE-RIGHT DAILY [facility] Nystatin (Nystatin Cream 15 Gm Tube) 1 appl TOPICAL BID [facility]; Protocol Last Admin: 02/08/24 09:16 Dose: 1 appl Documented By: ZAC Oxybutynin Chloride (Oxybutynin Chloride Er 5 Mg Tab.Er.24) 15 mg PO DAILY [facility] Last Admin: 02/01/24 11:29 Dose: Not Given Documented By: JAVY Non-Admin Reason: NPO Pharmacy Consult (Consult Rx Parenteral Nutrition Ordering) 1 each MISCELLANE DAILY PRN PRN Reason: Consult order Pyridostigmine [place] (Pyridostigmine [place] 60 Mg Tablet) 60 mg PO TID [facility] Last Admin: 02/01/24 22:24 Dose: Not Given Documented By: PONCE Non-Admin Reason: NPO Pyridostigmine [place] (Pyridostigmine [place] 10 Mg/2 Ml Ampul) 2 mg IVPUSH TID [facility] Last Admin: 02/08/24 09:15 Dose: 2 mg Documented By: ZAC Sodium Chloride (0.9 % Sodium Chloride Flush 3 Ml Syringe) 3 ml IVFLUSH QSHIFT [facility] Last Admin: 02/08/24 07:41 Dose: Not Given Documented By: ZAC Non-Admin Reason: Duplicate Order Sodium Chloride (0.9 % Sodium Chloride Flush 10 Ml Syringe) 5 ml IVFLUSH TID [facility] Last Admin: 02/08/24 09:16 Dose: 5 ml Documented By: ZAC Labs 02/01/24 05:53 02/08/24 05:34 Labs: Laboratory Results - last 24 hr 02/08/24 02/08/24 05:34 05:35 Hold Purple Top SEE NOTE VBG pH 7.49 H VBG pCO2 35 VBG pO2 94 VBG HCO3 27 H VBG O2 Saturation 100.0 VBG Base Excess 4.7 Anion Gap 10 L Estim Creat Clear Calc 48.3 Estimated GFR > 60 Random Glucose 146 H Calcium 8.8 Phosphorus 3.1 Magnesium 1.9 Albumin 3.1 L Triglycerides 115 Assessment and Plan (1) Myasthenia gravis: Status: Acute Plan d8 83yo F with MG with predominantly oropharyngeal symptoms admitted for flare MG flare completed IVIg + methylprednisolone 01/30-02/04; resumed usual dosing of steroids but IV (10 mg PO prednisone = 8 mg IV methylprednisolone] continue pyridostigmine- cannot take PO, so giving IV (PO:IV = 30:1 conversion) PICC placed for TPN, continue TPN until TFs at goal, check daily lytes PEG placed 02/04; per Surgery, difficult PEG tube placement, had to be redone as inner bolster seemed to have pulled through the anterior stomach wall on initial insertion , will start trial of feeds today 20cc/hr Nutrition consult: JEVITY 1.0 AT MAX GOAL RATE 55ML/HR WITH 120ML FREE WATER FLSUHES Q 8 HYRS TO PROVIDE 1399KCALS (29KCALS/KG), 58G PROTEIN (1.2G/KG), 1462ML TOTAL WATER FROM FORMULA AND FLUSHES (30.6ML/KG), START FORMULA AT 20ML/HR AND INCREASE BY 10ML Q 4 HRS UNTIL MAX GOAL IS ACHIEVED ; given PEG tube issues above, will probably start 10 mL/hr and increase by 10 mL q6h to goal 55 mL/hr hold azathioprine while NPO DIRECTOR SAFETY following: NPO for now. To follow up 02/07. Neurology consulted; recommend hospice consultation [[facility] involved]; also changing her immunomodulatory regimen as outpt continue NIF monitoring HTN holding amlodipine VTE ppx LMWH dispo eventual home with VNA reason for continued hospitalization:advancing feeds Total time managing care of this patient today: 35 minutes. Quality Stroke Does the patient have a stroke diagnosis?: No VTE Prior VTE?: No VTE Risk Level:: Medical - moderate - high VTE Device Contraindication: Treatment Not Indicated VTE Drug Contraindication: N/A - Med Ordered
--- NOTE | 2024-02-08 10:53 | MHC.CM.PN ---
EMR REVIEWED. PATIENT NOT MEDICALLY CLEARED FOR DC AT THIS TIME. PLAN TO START TUBE FEED TODAY. [facility] TO PROVIDE TEACH TOMORROW. CM WILL CONTINUE TO FOLLOW.
--- NOTE | 2024-02-08 12:38 | PM.PNGS ---
Subjective Subjective Date of Service: 02/08/24 Interval history: Denies abdominal pain Says she feels well No nausea or vomiting No GI complaints Physical Exam Vital Signs: Vital Signs: Last Vital Signs Temp 97 F 02/08/24 07:06 Pulse 80 02/08/24 07:06 Resp 14 02/08/24 07:06 BP 160/100 H 02/08/24 07:06 Pulse Ox 97 02/08/24 07:06 O2 Del Method Room Air 02/08/24 07:06 O2 Flow Rate 6 02/05/24 14:40 BMI result Body Mass Index 21.2 Const: General: comfortable and no acute distress Resp: Effort & Inspection: normal respiratory effort Cardio: Rate: regular rate GI: Other: Peg tube in place, clean Inspection: No distended Palpation (GI): Soft to palpation, not firm, nontender and no guarding Objective Data Active Medications Albuterol Sulfate (Albuterol Sulfate (0.083%) 2.5 Mg/3 Ml Vial.Neb) 2.5 mg INHALE Q2H PRN PRN Reason: Shortness of Breath/Wheezing Last Admin: 02/03/24 04:57 Dose: 2.5 mg Documented By: JIMENA Amlodipine Besylate (Amlodipine Besylate 5 Mg Tablet) 5 mg PO DAILY [facility]; Protocol Last Admin: 02/01/24 11:28 Dose: Not Given Documented By: JAVY Non-Admin Reason: NPO Azathioprine (Azathioprine 50 Mg Tablet) 50 mg PO Q48H [facility] Last Admin: 02/01/24 11:29 Dose: Not Given Documented By: JAVY Non-Admin Reason: NPO Diazepam (Diazepam 10 Mg/2 Ml Cartridge) 2.5 mg IVPUSH Q8H PRN PRN Reason: anxiety/restlessness Last Admin: 02/07/24 20:31 Dose: 2.5 mg Documented By: PHILL Enoxaparin Sodium (Enoxaparin Sodium 40 Mg/0.4 Ml Syringe) 40 mg SUBCUT Q24H [facility] Last Admin: 02/07/24 18:11 Dose: 40 mg Documented By: EMEKA Hydralazine HCl (Hydralazine Hcl 20 Mg/Ml Vial) 5 mg IVPUSH Q6H PRN; Protocol PRN Reason: SBP > 180 Nutrition (Parenteral) (Parenteral Nutrition) 1,200 mls @ 50 mls/hr IV .Q24H [facility]; Protocol Stop: 02/08/24 20:59 Last Infusion: 02/07/24 22:28 Dose: 50 mls/hr Documented By: PHILL Nutrition (Parenteral) (Parenteral Nutrition) 960 mls @ 40 mls/hr IV .Q24H [facility]; Protocol Stop: 02/09/24 20:59 Methylprednisolone Sodium Succinate (Methylprednisolone Sod Succ 40 Mg/Ml Vial) 8 mg IVPUSH Q12H [facility] Last Admin: 02/08/24 09:15 Dose: 8 mg Documented By: ZAC Morphine Sulfate (Morphine Sulfate 2 Mg/Ml Cartridge) 2 mg IVPUSH Q4H PRN; Protocol PRN Reason: Pain, Severe (Pain Scale 7-10) Last Admin: 02/05/24 16:34 Dose: 2 mg Documented By: CHANCE Non-Formulary Medication (Timolol Maleate) 1 drop EYE-BOTH BEDTIME [facility] Non-Formulary Medication (Timolol Maleate) 1 drop EYE-RIGHT DAILY [facility] Nystatin (Nystatin Cream 15 Gm Tube) 1 appl TOPICAL BID [facility]; Protocol Last Admin: 02/08/24 09:16 Dose: 1 appl Documented By: ZAC Oxybutynin Chloride (Oxybutynin Chloride Er 5 Mg Tab.Er.24) 15 mg PO DAILY [facility] Last Admin: 02/01/24 11:29 Dose: Not Given Documented By: JAVY Non-Admin Reason: NPO Pharmacy Consult (Consult Rx Parenteral Nutrition Ordering) 1 each MISCELLANE DAILY PRN PRN Reason: Consult order Pyridostigmine [place] (Pyridostigmine [place] 60 Mg Tablet) 60 mg PO TID [facility] Last Admin: 02/01/24 22:24 Dose: Not Given Documented By: PONCE Non-Admin Reason: NPO Pyridostigmine [place] (Pyridostigmine [place] 10 Mg/2 Ml Ampul) 2 mg IVPUSH TID [facility] Last Admin: 02/08/24 09:15 Dose: 2 mg Documented By: ZAC Sodium Chloride (0.9 % Sodium Chloride Flush 3 Ml Syringe) 3 ml IVFLUSH QSHIFT [facility] Last Admin: 02/08/24 07:41 Dose: Not Given Documented By: ZAC Non-Admin Reason: Duplicate Order Sodium Chloride (0.9 % Sodium Chloride Flush 10 Ml Syringe) 5 ml IVFLUSH TID [facility] Last Admin: 02/08/24 09:16 Dose: 5 ml Documented By: ZAC Labs 02/01/24 05:53 02/08/24 05:34 Labs: Laboratory Results - last 24 hr 02/08/24 02/08/24 05:34 05:35 Hold Purple Top SEE NOTE VBG pH 7.49 H VBG pCO2 35 VBG pO2 94 VBG HCO3 27 H VBG O2 Saturation 100.0 VBG Base Excess 4.7 Anion Gap 10 L Estim Creat Clear Calc 48.3 Estimated GFR > 60 Random Glucose 146 H Calcium 8.8 Phosphorus 3.1 Magnesium 1.9 Albumin 3.1 L Triglycerides 115 Procedures Date of Service Date of Service: 02/08/24 Progress Note: A&P Assessment and plan (1) Swallowing problem: Status: Acute Assessment and Plan: Status post PEG tube placement, difficult PEG tube placement Okay to try 20 cc of tube feeds today Abdomen remained soft and benign She looks well overall We will re-evaluate tomorrow prior to advancing rate Time Spent With Patient Time: Total time managing care of this patient today ____ minutes. Quality Stroke Does the patient have a stroke diagnosis?: No VTE Prior VTE?: No VTE Risk Level:: Medical - moderate - high VTE Device Contraindication: Treatment Not Indicated VTE Drug Contraindication: N/A - Med Ordered
[2024-02-08] MEDS: 0.9 % Sodium Chloride Flush 3 ML SYRINGE IVFLUSH (14:44)
[2024-02-08 16:00] VITALS: BP 139/82; PULSE 89; RESP 15; TEMP 36.1; O2SAT 96
--- NOTE | 2024-02-08 17:43 | PC.NURSE ---
Tube feed increased by 10, currently at 20ml/hr. Zero residual. Pt tolerating well.
[2024-02-08 19:22] VITALS: BP 166/91; PULSE 90; RESP 18; TEMP 36.1; O2SAT 97
[2024-02-08] MEDS: Enoxaparin Sodium 40 MG/0.4 ML SYRINGE SUBCUT (19:26)
[2024-02-08] MEDS: Parenteral Nutrition 960 ML 40 ML IV (20:51)
[2024-02-08] MEDS: diazePAM 10 MG/2 ML CARTRIDGE 2.5 MG IVPUSH (20:56)
[2024-02-08 22:59] VITALS: BP 105/73; PULSE 85; RESP 18; TEMP 36.2; O2SAT 97
[2024-02-09 06:18] LABS: Venous Blood Gas Refer to POC result
[2024-02-09 06:20] LABS: Hematocrit 40.7 % (37.0-47.0); Hemoglobin 13.8 g/dl (12.0-16.0); Mean Corpuscular HGB Conc 33.9 g/dl (31.0-35.0); Mean Corpuscular Hemoglobin 32.6 pg (27.0-33.0); Mean Corpuscular Volume 96.2 fL (80.0-98.0); Mean Platelet Volume 9.2 fL (9.4-12.3); Platelet Count 162 X10*3/uL (160-400); Red Blood Count 4.23 X10*6/uL (4.20-5.50); Red Cell Distribution Width 14.1 % (11.0-16.0); White Blood Count 12.5 X10*3/uL (4.8-10.8)
[2024-02-09 06:24] LABS: VBG Base Excess 3.3 mmol/L; VBG HCO3 27 mmol/L (22-26); VBG pCO2 37 mmHg; VBG pH 7.46 (7.32-7.43); VBG pO2 80 mmHg
[2024-02-09 06:44] LABS: Alanine Aminotransferase 23 U/L (0-31); Albumin Level 3.1 g/dL (3.5-5.0); Alkaline Phosphatase 54 U/L (39-117); Anion Gap 9 (12-20); Aspartate Amino Transferase 20 U/L (5-31); Bilirubin Direct 0.3 mg/dL (0.0-0.5); Bilirubin Total 1.1 mg/dL (0.0-1.0); Blood Urea Nitrogen 22 mg/dL (9-16); Carbon Dioxide 24 mmol/L (22-29); Chloride 108 mmol/L (96-108); Estimated Glomerular Filt Rate > 60; Glucose Fasting 109 mg/dL (60-99); Phosphorus 3.4 mg/dL (2.7-4.5); Potassium 4.4 mmol/L (3.3-5.1); Sodium 137 mmol/L (135-145); Total Protein 7.4 g/dL (6.5-8.0)
[2024-02-09 07:19] VITALS: BP 150/82; PULSE 80; RESP 14; TEMP 36.1; O2SAT 96
[2024-02-09 08:00] VITALS: BP 150/82; PULSE 80; RESP 13; TEMP 36.1; O2SAT 96
[2024-02-09] MEDS: 0.9 % Sodium Chloride Flush 3 ML SYRINGE IVFLUSH ×2 (08:14→15:01)
[2024-02-09] MEDS: PYRIDOSTIGMINE BROMIDE 2 MG IVPUSH ×3 (08:15→21:06)
[2024-02-09] MEDS: Nystatin Cream 15 GM TUBE 1 APPL TOPICAL (08:15)
[2024-02-09] MEDS: methylPREDNISolone Sod Succ 40 MG/ML VIAL 8 MG IVPUSH ×2 (08:15→21:06)
--- NOTE | 2024-02-09 09:56 | P.PNIM_ITS ---
Subjective Subjective Date of Service: 02/09/24 Interval History: tolerating feeds at 20/hr Physical Exam 2 Vital Signs: Vital Signs: Last Vital Signs Temp 97 F 02/09/24 08:00 Pulse 80 02/09/24 08:00 Resp 13 02/09/24 08:00 BP 150/82 H 02/09/24 08:00 Pulse Ox 96 02/09/24 08:00 O2 Del Method Room Air 02/09/24 08:00 O2 Flow Rate 6 02/05/24 14:40 BMI result Body Mass Index 21.2 Const: General: comfortable and no acute distress Resp: Effort & Inspection: normal respiratory effort Cardio: Rate: regular rate GI: Other: Peg tube in place, clean Inspection: No distended Palpation (GI): Soft to palpation, not firm, nontender and no guarding Objective Data Active Medications Albuterol Sulfate (Albuterol Sulfate (0.083%) 2.5 Mg/3 Ml Vial.Neb) 2.5 mg INHALE Q2H PRN PRN Reason: Shortness of Breath/Wheezing Last Admin: 02/03/24 04:57 Dose: 2.5 mg Documented By: JIMENA Amlodipine Besylate (Amlodipine Besylate 5 Mg Tablet) 5 mg PO DAILY [facility]; Protocol Last Admin: 02/01/24 11:28 Dose: Not Given Documented By: JAVY Non-Admin Reason: NPO Azathioprine (Azathioprine 50 Mg Tablet) 50 mg PO Q48H [facility] Last Admin: 02/01/24 11:29 Dose: Not Given Documented By: JAVY Non-Admin Reason: NPO Diazepam (Diazepam 10 Mg/2 Ml Cartridge) 2.5 mg IVPUSH Q8H PRN PRN Reason: anxiety/restlessness Last Admin: 02/08/24 20:56 Dose: 2.5 mg Documented By: SAHRA Enoxaparin Sodium (Enoxaparin Sodium 40 Mg/0.4 Ml Syringe) 40 mg SUBCUT Q24H [facility] Last Admin: 02/08/24 19:26 Dose: 40 mg Documented By: SAHRA Hydralazine HCl (Hydralazine Hcl 20 Mg/Ml Vial) 5 mg IVPUSH Q6H PRN; Protocol PRN Reason: SBP > 180 Nutrition (Parenteral) (Parenteral Nutrition) 960 mls @ 40 mls/hr IV .Q24H [facility]; Protocol Stop: 02/09/24 20:59 Last Admin: 02/08/24 20:51 Dose: 40 mls/hr Documented By: SAHRA Methylprednisolone Sodium Succinate (Methylprednisolone Sod Succ 40 Mg/Ml Vial) 8 mg IVPUSH Q12H [facility] Last Admin: 02/09/24 08:15 Dose: 8 mg Documented By: AMINAH Morphine Sulfate (Morphine Sulfate 2 Mg/Ml Cartridge) 2 mg IVPUSH Q4H [facility]N; Protocol PRN Reason: Pain, Severe (Pain Scale 7-10) Last Admin: 02/05/24 16:34 Dose: 2 mg Documented By: CHANCE Non-Formulary Medication (Timolol Maleate) 1 drop EYE-BOTH BEDTIME [facility] Non-Formulary Medication (Timolol Maleate) 1 drop EYE-RIGHT DAILY [facility] Nystatin (Nystatin Cream 15 Gm Tube) 1 appl TOPICAL BID [facility]; Protocol Last Admin: 02/09/24 08:15 Dose: 1 appl Documented By: AMINAH Oxybutynin Chloride (Oxybutynin Chloride Er 5 Mg Tab.Er.24) 15 mg PO DAILY [facility] Last Admin: 02/01/24 11:29 Dose: Not Given Documented By: JAVY Non-Admin Reason: NPO Pharmacy Consult (Consult Rx Parenteral Nutrition Ordering) 1 each MISCELLANE DAILY PRN PRN Reason: Consult order Pyridostigmine [place] (Pyridostigmine [place] 60 Mg Tablet) 60 mg PO TID [facility] Last Admin: 02/01/24 22:24 Dose: Not Given Documented By: PONCE Non-Admin Reason: NPO Pyridostigmine [place] (Pyridostigmine [place] 10 Mg/2 Ml Ampul) 2 mg IVPUSH TID [facility] Last Admin: 02/09/24 08:15 Dose: 2 mg Documented By: AMINAH Sodium Chloride (0.9 % Sodium Chloride Flush 3 Ml Syringe) 3 ml IVFLUSH QSHIFT [facility] Last Admin: 02/09/24 08:14 Dose: 3 ml Documented By: AMINAH Sodium Chloride (0.9 % Sodium Chloride Flush 10 Ml Syringe) 5 ml IVFLUSH TID [facility] Last Admin: 02/08/24 20:57 Dose: 5 ml Documented By: SAHRA Labs 02/09/24 06:10 02/09/24 06:10 Labs: Laboratory Results - last 24 hr 02/09/24 02/09/24 06:10 06:14 MCV 96.2 MCH 32.6 MCHC 33.9 RDW 14.1 Plt Count 162 D MPV 9.2 L Absolute Nucleated RBC 0.000 Nucleated RBC % (auto) 0.0 VBG pH 7.46 H VBG pCO2 37 VBG pO2 80 VBG HCO3 27 H VBG O2 Saturation 98.0 VBG Base Excess 3.3 Anion Gap 9 L Estim Creat Clear Calc 51.0 Estimated GFR > 60 Fasting Glucose 109 H Calcium 9.0 Phosphorus 3.4 Magnesium 2.0 Total Bilirubin 1.1 H Direct Bilirubin 0.3 AST 20 ALT 23 Alkaline Phosphatase 54 Total Protein 7.4 Albumin 3.1 L Assessment and Plan (1) Myasthenia gravis: Status: Acute Plan d8 83yo F with MG with predominantly oropharyngeal symptoms admitted for flare MG flare completed IVIg + methylprednisolone 01/30-02/04; resumed usual dosing of steroids but IV (10 mg PO prednisone = 8 mg IV methylprednisolone] continue pyridostigmine- cannot take PO, so giving IV (PO:IV = 30:1 conversion) PICC placed for TPN, continue TPN until TFs at goal, check daily lytes PEG placed 02/04; per Surgery, difficult PEG tube placement, had to be redone as inner bolster seemed to have pulled through the anterior stomach wall on initial insertion , tolerated 20cc/hr 02/07, will increase to 60cc/hr today Nutrition consult: JEVITY 1.0 AT MAX GOAL RATE 55ML/HR WITH 120ML FREE WATER FLSUHES Q 8 HYRS TO PROVIDE 1399KCALS (29KCALS/KG), 58G PROTEIN (1.2G/KG), 1462ML TOTAL WATER FROM FORMULA AND FLUSHES (30.6ML/KG), START FORMULA AT 20ML/HR AND INCREASE BY 10ML Q 4 HRS UNTIL MAX GOAL IS ACHIEVED ; given PEG tube issues above, will probably start 10 mL/hr and increase by 10 mL q6h to goal 55 mL/hr hold azathioprine while NPO [employer] following: NPO for now. To follow up 02/07. Neurology consulted; recommend hospice consultation [[facility] involved]; also changing her immunomodulatory regimen as outpt continue NIF monitoring HTN holding amlodipine VTE ppx LMWH dispo eventual home with VNA reason for continued hospitalization:advancing feeds Total time managing care of this patient today: 35 minutes. Quality Stroke Does the patient have a stroke diagnosis?: No VTE Prior VTE?: No VTE Risk Level:: Medical - moderate - high VTE Device Contraindication: Treatment Not Indicated VTE Drug Contraindication: N/A - Med Ordered
--- NOTE | 2024-02-09 09:57 | MHC.CLN ---
F/U OK TO TITRATE TUBE FEEDING PER DR LEA D/C TPN TODAY PT CURRENTLY RECEIVING TUBE FEEDING JEVITY 1.0 AT 20 ML PER HOUR PROVIDES: 509 KCALS, 21 G PROTEIN, 761 TOTAL ML FREE WATER FROM FORMULA AND FLUSHES RECOMMEND TO SLOWLY TITRATE UP JEVITY 1.0 AT MAX GOAL RATE 55 ML/HR WITH 120 ML FREE WATER FLUSHES Q 8 HOURS TO PROVIDE 1399 KCALS (29 KCALS/KG), 58 G PROTEIN (1.2 G/KG), 1462 ML TOTAL WATER FROM FORMULA AND FLUSHES (30.6ML/KG) MONITOR TOLERANCE, RESIDUALS AND LYTES
--- NOTE | 2024-02-09 14:44 | PM.EVENT ---
Event Note Date of Service: 02/09/24 Event Note: Looks comfortable Denies any pain Tolerating PEG tube feeds at a low rate Abdomen soft and benign Okay to slowly advanced PEG tube to meet caloric requirements If tolerating this, okay to try his feeds tomorrow to see how she does Looks well overall Time Spent With Patient Time: Total time managing care of this patient today ____ minutes.
--- NOTE | 2024-02-09 15:03 | MHC.SPEECHCO ---
Per CM, Pt anticipating D/C home tomorrow after meeting with [facility] vendor. Recommend Pt continue to follow-up with [facility] via [facility] services.
[2024-02-09 16:00] VITALS: BP 116/69; PULSE 81; RESP 14; TEMP 36.4; O2SAT 95
[2024-02-09] MEDS: Enoxaparin Sodium 40 MG/0.4 ML SYRINGE SUBCUT (21:07)
[2024-02-09] MEDS: diazePAM 10 MG/2 ML CARTRIDGE 2.5 MG IVPUSH (21:07)
[2024-02-09] MEDS: 0.9 % Sodium Chloride Flush 10 ML SYRINGE 5 ML IVFLUSH (21:07)
[2024-02-09 22:59] VITALS: BP 112/73; PULSE 84; RESP 17; TEMP 36.4; O2SAT 97
[2024-02-10 06:14] LABS: Venous Blood Gas Refer to POC result
[2024-02-10 06:15] LABS: VBG Base Excess 4.6 mmol/L; VBG HCO3 29 mmol/L (22-26); VBG pCO2 42 mmHg; VBG pH 7.44 (7.32-7.43); VBG pO2 48 mmHg
[2024-02-10 06:30] LABS: Albumin Level 3.1 g/dL (3.5-5.0); Anion Gap 10 (12-20); Blood Urea Nitrogen 23 mg/dL (9-16); Calcium 8.8 mg/dL (8.4-10.2); Carbon Dioxide 26 mmol/L (22-29); Chloride 106 mmol/L (96-108); Creatinine Clr Calc Pharmacy 48.3; Estimated Glomerular Filt Rate > 60; Glucose Random 131 mg/dL (60-115); Magnesium 1.7 mg/dL (1.6-2.6); Phosphorus 3.9 mg/dL (2.7-4.5); Potassium 3.9 mmol/L (3.3-5.1); Sodium 138 mmol/L (135-145)
[2024-02-10 07:06] VITALS: BP 121/74; PULSE 80; RESP 18; TEMP 36.4; O2SAT 96
[2024-02-10] MEDS: PYRIDOSTIGMINE BROMIDE 2 MG IVPUSH ×3 (08:47→19:47)
[2024-02-10] MEDS: methylPREDNISolone Sod Succ 40 MG/ML VIAL 8 MG IVPUSH ×2 (08:47→19:47)
[2024-02-10] MEDS: 0.9 % Sodium Chloride Flush 10 ML SYRINGE 5 ML IVFLUSH ×2 (08:47→15:27)
[2024-02-10] MEDS: 0.9 % Sodium Chloride Flush 3 ML SYRINGE IVFLUSH ×2 (08:47→20:04)
[2024-02-10] MEDS: Nystatin Cream 15 GM TUBE 1 APPL TOPICAL (08:48)
--- NOTE | 2024-02-10 09:09 | HO.PM.IMPN ---
Subjective Subjective Date of Service: 02/10/24 Interval History: tolerating feeds at 55/hr Physical Exam Vital Signs: Vital Signs: Last Vital Signs Temp 97.6 F 02/10/24 07:06 Pulse 80 02/10/24 07:06 Resp 18 02/10/24 07:06 BP 121/74 02/10/24 07:06 Pulse Ox 96 02/10/24 07:06 O2 Del Method Room Air 02/10/24 07:06 O2 Flow Rate 6 02/05/24 14:40 BMI result Body Mass Index 21.2 Const: General: comfortable and no acute distress Resp: Effort & Inspection: normal respiratory effort Cardio: Rate: regular rate GI: Other: Peg tube in place, clean Inspection: No distended Palpation (GI): Soft to palpation, not firm, nontender and no guarding Objective Data Active Medications Amlodipine Besylate (Amlodipine Besylate 5 Mg Tablet) 5 mg PO DAILY [facility]; Protocol Last Admin: 02/01/24 11:28 Dose: Not Given Documented By: AJVY Non-Admin Reason: NPO Azathioprine (Azathioprine 50 Mg Tablet) 50 mg PO Q48H [facility] Last Admin: 02/01/24 11:29 Dose: Not Given Documented By: JAVY Non-Admin Reason: NPO Diazepam (Diazepam 10 Mg/2 Ml Cartridge) 2.5 mg IVPUSH Q8H PRN PRN Reason: anxiety/restlessness Last Admin: 02/09/24 21:07 Dose: 2.5 mg Documented By: SAHRA Enoxaparin Sodium (Enoxaparin Sodium 40 Mg/0.4 Ml Syringe) 40 mg SUBCUT Q24H [facility] Last Admin: 02/09/24 21:07 Dose: 40 mg Documented By: SAHRA Hydralazine HCl (Hydralazine Hcl 20 Mg/Ml Vial) 5 mg IVPUSH Q6H [facility]; Protocol PRN Reason: SBP > 180 Methylprednisolone Sodium Succinate (Methylprednisolone Sod Succ 40 Mg/Ml Vial) 8 mg IVPUSH Q12H [facility] Last Admin: 02/10/24 08:47 Dose: 8 mg Documented By: AMINAH Morphine Sulfate (Morphine Sulfate 2 Mg/Ml Cartridge) 2 mg IVPUSH Q4H [facility]; Protocol PRN Reason: Pain, Severe (Pain Scale 7-10) Last Admin: 02/05/24 20:29 Dose: 2 mg Documented By: ASHOK Comments: per [facility] [employer], not able to scan at this time. Non-Formulary Medication (Timolol Maleate) 1 drop EYE-BOTH BEDTIME [facility] Non-Formulary Medication (Timolol Maleate) 1 drop EYE-RIGHT DAILY [facility] Nystatin (Nystatin Cream 15 Gm Tube) 1 appl TOPICAL BID [facility]; Protocol Last Admin: 02/10/24 08:48 Dose: 1 appl Documented By: AMINAH Oxybutynin Chloride (Oxybutynin Chloride Er 5 Mg Tab.Er.24) 15 mg PO DAILY [facility] Last Admin: 02/01/24 11:29 Dose: Not Given Documented By: JAVY Non-Admin Reason: NPO Pharmacy Consult (Consult Rx Parenteral Nutrition Ordering) 1 each MISCELLANE DAILY PRN PRN Reason: Consult order Pyridostigmine [place] (Pyridostigmine [place] 60 Mg Tablet) 60 mg PO TID [facility] Last Admin: 02/01/24 22:24 Dose: Not Given Documented By: PONCE Non-Admin Reason: NPO Pyridostigmine [place] (Pyridostigmine [place] 10 Mg/2 Ml Ampul) 2 mg IVPUSH TID [facility] Last Admin: 02/10/24 08:47 Dose: 2 mg Documented By: AMINAH Sodium Chloride (0.9 % Sodium Chloride Flush 3 Ml Syringe) 3 ml IVFLUSH QSHIFT [facility] Last Admin: 02/10/24 08:47 Dose: 3 ml Documented By: AMINAH Sodium Chloride (0.9 % Sodium Chloride Flush 10 Ml Syringe) 5 ml IVFLUSH TID [facility] Last Admin: 02/10/24 08:47 Dose: 5 ml Documented By: AMINAH Labs 02/09/24 06:10 02/10/24 06:03 Labs: Laboratory Results - last 24 hr 02/10/24 02/10/24 06:03 06:07 Hold Purple Top SEE NOTE VBG pH 7.44 H VBG pCO2 42 VBG pO2 48 VBG HCO3 29 H VBG O2 Saturation 81.0 VBG Base Excess 4.6 Anion Gap 10 L Estim Creat Clear Calc 48.3 Estimated GFR > 60 Random Glucose 131 H Calcium 8.8 Phosphorus 3.9 Magnesium 1.7 Albumin 3.1 L Assessment and Plan (1) Myasthenia gravis: Status: Acute Plan d8 83yo F with MG with predominantly oropharyngeal symptoms admitted for flare MG flare completed IVIg + methylprednisolone 01/30-02/04; resumed usual dosing of steroids but IV (10 mg PO prednisone = 8 mg IV methylprednisolone] continue pyridostigmine- cannot take PO, so giving IV (PO:IV = 30:1 conversion) PICC placed for TPN, continue TPN until TFs at goal, check daily lytes PEG placed 02/04; per Surgery, difficult PEG tube placement, had to be redone as inner bolster seemed to have pulled through the anterior stomach wall on initial insertion , tolerated 55cc/hr 02/08, will change to bolus feeds today if tolerates bolus can plan for discharge Neurology consulted; recommend hospice consultation [[facility] involved]; also changing her immunomodulatory regimen as outpt continue NIF monitoring HTN holding amlodipine VTE ppx LMWH dispo eventual home with VNA reason for continued hospitalization:advancing feeds Total time managing care of this patient today: 35 minutes. Quality Stroke Does the patient have a stroke diagnosis?: No VTE Prior VTE?: No VTE Risk Level:: Medical - moderate - high VTE Device Contraindication: Treatment Not Indicated VTE Drug Contraindication: N/A - Med Ordered
--- NOTE | 2024-02-10 10:39 | MHC.CLN ---
F/U PATIENT TO CHANGE TO BOLUS FEEDING TODAY PER MD. RECOMMEND BOLUS FEED VITAL 1.5 FOUR CARTONS (CARTON SIZE 237 ML) DAILY PLUS FREE WATER FLUSHES 120 ML Q 4 HOURS. PROVIDES: 1420 KCALS (29.8 KCALS/KG); 64 G PROTEIN (1.34 G/KG); 1444 ML FREE WATER FROM FORMULA AND FLUSH (30.3 ML/KG). JEVITY 1.5 AVAILABLE THROUGH HOME CARE PROVIDER. OK TO CHANGE FORMULA TO JEVITY 1.5 OR COMPARABLE FORMULA UPON DISCHARGE. BOLUS FEED JEVITY 1.5 FOUR CARTONS DAILY PLUS FREE WATER FLUSHES 120 ML Q 4 HOURS PROVIDES: 1420 KCALS (29.8 KCALS/KG); 60 G PROTEIN (1.3 G/KG); 1440 ML FREE WATER FROM FORMULA AND FLUSH (30.2 ML/KG). MONITOR FOR TUBE FEED TOLERANCE.
--- NOTE | 2024-02-10 10:55 | MHC.CM.PN ---
EMR reviewed. Per MD rounds patient not medically cleared for dc. Will transition to bolus feeds today, and if tolerating may dc tomorrow. [facility] to provide teach today at 2pm. CM will continue to follow.
--- NOTE | 2024-02-10 13:55 | MHC.SLORD ---
Speech Language Pathology Order Status: Per MD, feeding goals moving forward are for pt to meet nutritional needs via tube feeds and PO for comfort/pleasure. Pt seen this afternoon by COMPUTER VIDEO GAME DESIGNER, w/ family at bedside, prior to tube feed training/education to provide education on options regarding comfort/pleasure feeds. Pt declined oral care by COMPUTER VIDEO GAME DESIGNER. Pt fixated on upcoming TF education, reporting she didn't want to think about comfort/pleasure feeds until after. Pt reported that she will see COMPUTER VIDEO GAME DESIGNER for tx at home following d/c. Recommend COMPUTER VIDEO GAME DESIGNER f/u tomorrow to offer education.
--- NOTE | 2024-02-10 14:00 | MHC.SLORD ---
Speech Language Pathology Order Status: Per MD, feeding goals moving forward are for pt to meet nutritional needs via tube feeds and PO for comfort/pleasure. Pt seen this afternoon by TRAVELING NURSE, w/ family at bedside, prior to tube feed training/education. TRAVELING NURSE w/ goal to provide oral care and to provide education on options regarding comfort/pleasure feeds. Pt declined oral care by TRAVELING NURSE. Pt fixated on upcoming TF education, reporting she didn't want to think about comfort/pleasure feeds until after. Pt reported that she will see TRAVELING NURSE for tx at home following d/c. Recommend TRAVELING NURSE f/u tomorrow to offer education.
[2024-02-10 15:11] VITALS: BP 119/71; PULSE 90; RESP 18; TEMP 36.2; O2SAT 95
[2024-02-10 19:18] VITALS: BP 132/83; PULSE 89; RESP 16; TEMP 36.7; O2SAT 96
[2024-02-10] MEDS: diazePAM 10 MG/2 ML CARTRIDGE 2.5 MG IVPUSH (19:46)
[2024-02-10] MEDS: Enoxaparin Sodium 40 MG/0.4 ML SYRINGE SUBCUT (19:47)
[2024-02-11 06:36] LABS: Hematocrit 37.4 % (37.0-47.0); Hemoglobin 12.9 g/dl (12.0-16.0); Mean Corpuscular HGB Conc 34.5 g/dl (31.0-35.0); Mean Corpuscular Hemoglobin 33.2 pg (27.0-33.0); Mean Corpuscular Volume 96.4 fL (80.0-98.0); Mean Platelet Volume 9.7 fL (9.4-12.3); Platelet Count 179 X10*3/uL (160-400); Red Blood Count 3.88 X10*6/uL (4.20-5.50); Red Cell Distribution Width 14.3 % (11.0-16.0); White Blood Count 14.6 X10*3/uL (4.8-10.8)
[2024-02-11 07:00] LABS: Anion Gap 9 (12-20); Blood Urea Nitrogen 23 mg/dL (9-16); Calcium 8.8 mg/dL (8.4-10.2); Carbon Dioxide 30 mmol/L (22-29); Chloride 104 mmol/L (96-108); Creatinine Clr Calc Pharmacy 52.9; Estimated Glomerular Filt Rate > 60; Glucose Fasting 76 mg/dL (60-99); Glucose Random 75 mg/dL (60-115); Potassium 4.2 mmol/L (3.3-5.1); Sodium 139 mmol/L (135-145)
[2024-02-11 08:00] VITALS: BP 126/79; PULSE 77; RESP 16; TEMP 36; O2SAT 97
[2024-02-11] MEDS: PYRIDOSTIGMINE BROMIDE 2 MG IVPUSH (08:38)
[2024-02-11] MEDS: 0.9 % Sodium Chloride Flush 3 ML SYRINGE IVFLUSH (08:38)
[2024-02-11] MEDS: methylPREDNISolone Sod Succ 40 MG/ML VIAL 8 MG IVPUSH (08:38)
[2024-02-11] MEDS: Nystatin Cream 15 GM TUBE 1 APPL TOPICAL (08:55)
[2024-02-11] MEDS: 0.9 % Sodium Chloride Flush 10 ML SYRINGE 5 ML IVFLUSH ×3 (08:55→21:03)
--- NOTE | 2024-02-11 10:40 | HO.PM.IMPN ---
Subjective Subjective Date of Service: 02/11/24 Interval History: Seen and evaluated this morning tolerating tube feeds moving her bowels Review of Systems Review of Systems: Yes all other systems are reviewed and are negative Physical Exam Vital Signs: Vital Signs: Last Vital Signs Temp 96.8 F 02/11/24 08:00 Pulse 77 02/11/24 08:00 Resp 16 02/11/24 08:00 BP 126/79 02/11/24 08:00 Pulse Ox 97 02/11/24 08:00 O2 Del Method Room Air 02/11/24 08:00 O2 Flow Rate 6 02/05/24 14:40 BMI result Body Mass Index 21.2 Const: Other: Constitutional : interactive, not in distress Cardiovascular : no JVP, no lower extremity edema Respiratory : bilateral chest movement, not in resp distress Gastrointestinal: soft, lax, Non tender, G-tube in place with no surrounding erythema Skin : Warm, Dry Neurological : Alert & oriented , No focal deficit Objective Data Active Medications Amlodipine Besylate (Amlodipine Besylate 5 Mg Tablet) 5 mg PO DAILY AME; Protocol Last Admin: 02/01/24 11:28 Dose: Not Given Documented By: JAVY Non-Admin Reason: NPO Azathioprine (Azathioprine 50 Mg Tablet) 50 mg PO Q48H [facility] Last Admin: 02/01/24 11:29 Dose: Not Given Documented By: JAVY Non-Admin Reason: NPO Diazepam (Diazepam 10 Mg/2 Ml Cartridge) 2.5 mg IVPUSH Q8H PRN PRN Reason: anxiety/restlessness Last Admin: 02/10/24 19:46 Dose: 2.5 mg Documented By: ASHOK Enoxaparin Sodium (Enoxaparin Sodium 40 Mg/0.4 Ml Syringe) 40 mg SUBCUT Q24H AME Last Admin: 02/10/24 19:47 Dose: 40 mg Documented By: ASHOK Hydralazine HCl (Hydralazine Hcl 20 Mg/Ml Vial) 5 mg IVPUSH Q6H PRN; Protocol PRN Reason: SBP > 180 Methylprednisolone Sodium Succinate (Methylprednisolone Sod Succ 40 Mg/Ml Vial) 8 mg IVPUSH Q12H [facility] Last Admin: 02/11/24 08:38 Dose: 8 mg Documented By: ISELA Nystatin (Nystatin Cream 15 Gm Tube) 1 appl TOPICAL BID AME; Protocol Last Admin: 02/11/24 08:55 Dose: 1 appl Documented By: ISELA Oxybutynin Chloride (Oxybutynin Chloride Er 5 Mg Tab.Er.24) 15 mg PO DAILY [facility] Last Admin: 02/01/24 11:29 Dose: Not Given Documented By: JAVY Non-Admin Reason: NPO Pharmacy Consult (Consult Rx Parenteral Nutrition Ordering) 1 each MISCELLANE DAILY PRN PRN Reason: Consult order Pyridostigmine Celeste (Pyridostigmine Celeste 60 Mg Tablet) 60 mg PO TID [facility] Last Admin: 02/01/24 22:24 Dose: Not Given Documented By: PONCE Non-Admin Reason: NPO Pyridostigmine Celeste (Pyridostigmine Celeste 10 Mg/2 Ml Ampul) 2 mg IVPUSH TID [facility] Last Admin: 02/11/24 08:38 Dose: 2 mg Documented By: ISELA Sodium Chloride (0.9 % Sodium Chloride Flush 3 Ml Syringe) 3 ml IVFLUSH QSHIFT [facility] Last Admin: 02/11/24 08:38 Dose: 3 ml Documented By: ISELA Sodium Chloride (0.9 % Sodium Chloride Flush 10 Ml Syringe) 5 ml IVFLUSH TID [facility] Last Admin: 02/11/24 08:55 Dose: 5 ml Documented By: ISELA Labs 02/11/24 05:44 02/11/24 05:44 Labs: Laboratory Results - last 24 hr 02/11/24 05:44 MCV 96.4 MCH 33.2 H MCHC 34.5 RDW 14.3 Plt Count 179 MPV 9.7 Absolute Nucleated RBC 0.000 Nucleated RBC % (auto) 0.0 Anion Gap 9 L Estim Creat Clear Calc 52.9 Estimated GFR > 60 Random Glucose 75 Fasting Glucose 76 Calcium 8.8 Phosphorus 4.0 Magnesium 2.0 Albumin 3.0 L Assessment and Plan (1) Myasthenia gravis with exacerbation: Status: Acute (2) Swallowing problem: Status: Acute Plan d8 83yo F with MG with predominantly oropharyngeal symptoms admitted for flare MG flare complicated with swallowing problem completed IVIg + methylprednisolone 01/30-02/04 BID 10 mg PO prednisone by G-tube continue pyridostigmine through G-tube 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 following PICC to DC PEG placed 02/04; per Surgery, difficult PEG tube placement, had to be redone as inner bolster seemed to have pulled through the anterior stomach wall on initial insertion if tolerates bolus can plan for discharge Neurology consulted; recommend hospice consultation [[facility] involved]; also changing her immunomodulatory regimen as outpt continue NIF monitoring HTN holding amlodipine VTE ppx LMWH dispo eventual home with VNA reason for continued hospitalization:advancing feeds Quality Stroke Does the patient have a stroke diagnosis?: No VTE Prior VTE?: No VTE Risk Level:: Medical - moderate - high VTE Device Contraindication: Treatment Not Indicated VTE Drug Contraindication: N/A - Med Ordered
--- NOTE | 2024-02-11 14:22 | MHC.SLORD ---
Speech Language Pathology Order Status: Patient seen for education re: swallow exercises, safety related to any po. Patient reports that she is taking ice chips for comfort at this time, allowing them to dissolve to moisten mouth. Patient further reported exercises given yesterday and her regular periodic practice. Patient expressed satisfaction with decision to have PEG placed. Plan is for D/C tomorrow, patient has [facility] in place for continued WET PROCESS MILLER HEAD ASSISTANT services in home.
[2024-02-11 15:37] VITALS: BP 112/69; PULSE 94; RESP 16; TEMP 36.6; O2SAT 95
[2024-02-11 15:43] VITALS: BP 112/69; PULSE 94; RESP 16; TEMP 36.7; O2SAT 96
--- NOTE | 2024-02-11 15:56 | PM.EVENT ---
Event Note Date of Service: 02/11/24 Event Note: Seen ambulating without difficulty Tolerating tube feeds well Denies significant pain Abdomen soft, benign, no guarding, rebound Peg tube care Rest of care as per the hospitalist service Doing well overall Time Spent With Patient Time: Total time managing care of this patient today ____ minutes.
[2024-02-11] MEDS: pyRIDostigmine bromide 60 MG TABLET G-TUBE ×2 (16:12→21:04)
[2024-02-11] MEDS: Enoxaparin Sodium 40 MG/0.4 ML SYRINGE SUBCUT (21:03)
[2024-02-11] MEDS: diazePAM 10 MG/2 ML CARTRIDGE 2.5 MG IVPUSH (21:03)
[2024-02-11] MEDS: predniSONE 10 MG TABLET G-TUBE (21:04)
[2024-02-11 23:21] VITALS: BP 119/72; PULSE 95; RESP 18; TEMP 36.2; O2SAT 96
[2024-02-12 07:05] LABS: Hematocrit 37.1 % (37.0-47.0); Hemoglobin 12.7 g/dl (12.0-16.0); Mean Corpuscular HGB Conc 34.2 g/dl (31.0-35.0); Mean Corpuscular Hemoglobin 33.3 pg (27.0-33.0); Mean Corpuscular Volume 97.4 fL (80.0-98.0); Mean Platelet Volume 9.7 fL (9.4-12.3); Platelet Count 154 X10*3/uL (160-400); Red Blood Count 3.81 X10*6/uL (4.20-5.50); Red Cell Distribution Width 14.3 % (11.0-16.0); White Blood Count 13.5 X10*3/uL (4.8-10.8)
[2024-02-12 07:18] LABS: Anion Gap 10 (12-20); Blood Urea Nitrogen 22 mg/dL (9-16); Calcium 8.4 mg/dL (8.4-10.2); Carbon Dioxide 30 mmol/L (22-29); Chloride 104 mmol/L (96-108); Estimated Glomerular Filt Rate > 60; Glucose Random 77 mg/dL (60-115); Sodium 140 mmol/L (135-145)
[2024-02-12 07:20] VITALS: BP 140/79; PULSE 86; RESP 14; TEMP 36.6; O2SAT 95
[2024-02-12] MEDS: pyRIDostigmine bromide 60 MG TABLET G-TUBE (08:18)
[2024-02-12] MEDS: predniSONE 10 MG TABLET G-TUBE (08:18)
[2024-02-12] MEDS: 0.9 % Sodium Chloride Flush 10 ML SYRINGE 5 ML IVFLUSH (08:19)
--- NOTE | 2024-02-12 09:12 | PM.EVENT ---
Event Note Date of Service: 02/12/24 Event Note: Looks well Ambulating without difficulty Tolerating PEG tube feeds well Abdomen soft and benign Does have some skin breakdown around the PEG tube with burning pain on the skin Recommend applying barrier protectant cream Keep area dry with thin gauze Time Spent With Patient Time: Total time managing care of this patient today ____ minutes.
[2024-02-12 10:21] VITALS: BP 140/79; PULSE 86; O2SAT 95
--- NOTE | 2024-02-12 11:19 | MHC.CM.PN ---
Per MD rounds patient medically cleared for dc home w/ services. [facility] will provide PT, OT, WELDER and SN. [facility] will deliver all supplies and tube feeds. Patient's sister will provide transport home ~2pm. , RN, and agencies aware.
--- NOTE | 2024-02-12 12:08 | P.DS_ITS ---
DS: Providers Provider Date of Service: 02/12/24 Date of admission: 01/31/24 19:30 Primary care physician: Aria Sherwood NP Consults: 01/31/24 19:40 Consult to Neurology Routine Consulting Provider: [facility] Reason for consultation: MG flare 02/03/24 10:14 Consult to General Surgery Routine Consulting Provider: [facility] Reason for consultation: PEG tube for recurrent myasthenic crises with dysphagia 02/04/24 09:58 Consult to Anesthesiology Routine Consulting Provider: Anesthesiologist Reason for consultation: Myasthenia gravis patient undergoing PEG tube placement 02/04/24 10:21 Consult to Wound Care Routine Reason for consultation: Skin tear to right forearm. DS: Diagnosis Discharge Diagnosis (1) Myasthenia gravis with exacerbation: Status: Acute (2) Swallowing problem: Status: Acute (3) G tube feedings: Status: Acute DS: Summary Hospital Course Hospital Course: Admission note HPI 83 year old female with history of myasthenia gravis predominantly oropharyngeal symptoms, osteoporosis, bile salt induced diarrhea presented to the ED earlier today for evaluation of dysphagia, impaired speech, generalized weakness ongoing for about 3 days. She reports it is consistent with a myasthenia gravis flare which she is experienced in the past. Was admitted 10/24- and again 12/14-12/24 for MG flare requiring iVIG and also required PPN due to persistent dysphagia though diet was eventually advanced to NDD1 with thin liquids, was followed by VOLUNTEER SERVICES MANAGER. She did not require ICU admission for airway protection. She did have modified barium swallow performed last admission with aspiration observed with honey thick barium and laryngeal penetration seen with puree or thick barium. She does report recent fall several days ago without head strike. States she tripped and hit the left ankle on the door frame. She has been able to ambulate. X-ray of the left ankle shows a tiny ossific density adjacent to the lateral malleolus possibly representing an avulsion fragment or small accessory ossification center however there is no significant soft tissue swelling to s uggest this is acute. Head CT negative for any acute intracranial abnormality. In the ED, vital signs stable. She has a mild leukocytosis of 11.7. Renal function electrolyte levels are normal. In the ED, has been started on IV IG, 40 mg IV methylprednisolone, and Benadryl. Hospital course The patient was admitted for treatment of Myasthenia gravis flare complicated with swallowing problem. she was evaluated by neurology team and started on IVIg + methylprednisolone for 5 days duration 01/30-02/04. Evaluated by speech team for swallowing difficulties and failed to safely eat. a PICC line was placed and she was started on TPN nutrition as she was evaluated by surgery team who placed PEG on 02/04; per Surgery, difficult PEG tube placement, had to be redone as inner bolster seemed to have pulled through the anterior stomach wall on initial insertion . She was able to tolerate bolus diet and learnt how to take it herself. Will continue BID 10 mg PO prednisone by G-tube, pyridostigmine through G-tube and she will be followed as outpatient by VOLUNTEER SERVICES MANAGER team. PICC line removed prior to discharge. Neurology recommended hospice consultation [[facility] involved and will follow as outpatient]; also changing her immunomodulatory regimen as outpt. To follow with neurology as outpatient. The area around PEG mildly irritated, seen by surgery who recommended local care and follow up as outpatient. Discharge plan Local wound care at site of G-tube Nystatin cream for rash Continue Tube feeds Follow up with PCP and neurology as scheduled Time Attestation Discharge Coordination Time (in mins): 43 Quality: Safe Use of Opioids Does Pt have an Active Cancer Diagnosis on the Problem List?: No Quality: Stroke Does the patient have a stroke diagnosis?: No Physical Exam 2 Vital Signs: Vital Signs: Last Vital Signs Temp 97.8 F 02/12/24 07:20 Pulse 86 02/12/24 10:21 Resp 14 02/12/24 07:20 BP 140/79 H 02/12/24 10:21 Pulse Ox 95 02/12/24 10:21 O2 Del Method Room Air 02/12/24 07:20 O2 Flow Rate 6 02/05/24 14:40 BMI result Body Mass Index 21.2 Const: Other: Constitutional : interactive, not in distress Cardiovascular : no JVP, no lower extremity edema Respiratory : bilateral chest movement, not in resp distress Gastrointestinal: soft, lax, Non tender, G-tube in place with mild surrounding erythema covered with dressing Skin : Warm, Dry Neurological : Alert & oriented , No focal deficit DS: Data Data Completed and Pending Completed studies during hospitalization [Text1]: Procedures Insertion of Feeding Device into Stomach, Via Natural or Artificial Opening (10/25/23) Insertion of Infusion Device into Superior Vena Cava, Percutaneous Approach (12/15/23) Transfusion of Nonautologous Globulin into Peripheral Vein, Percutaneous Approach (12/15/23) Ultrasonography of Superior Vena Cava, Guidance (12/15/23) Labs on day of discharge: Laboratory Results - last 24 hr 02/12/24 05:41 WBC 13.5 H RBC 3.81 L Hgb 12.7 Hct 37.1 MCV 97.4 MCH 33.3 H MCHC 34.2 RDW 14.3 Plt Count 154 L MPV 9.7 Absolute Nucleated RBC 0.000 Nucleated RBC % (auto) 0.0 Sodium 140 Potassium 4.0 Chloride 104 Carbon Dioxide 30 H Anion Gap 10 L BUN 22 H Creatinine 0.51 Estim Creat Clear Calc 55.0 Estimated GFR > 60 Random Glucose 77 Calcium 8.4 Imaging Chest x-ray: Radiologist's impression: ITS Impressions Ankle X-Ray 01/31/24 18:23 IMPRESSION: 1. Adjacent to the lateral malleolus, there is a tiny ossific density, which may represent an avulsion fragment or small accessory ossification center. There is no significant adjacent soft tissue swelling to suggest this is acute. Clinical correlation is recommended. 2. No dislocation or joint effusion is seen. 2. There is a large plantar calcaneal spur. Head CT 01/31/24 18:54 IMPRESSION: No acute intracranial pathology. Abdomen/Pelvis CT 02/03/24 14:43 IMPRESSION: Gastric anatomy appears favorable for gastrostomy tube. Fleischner guidelines were followed. Discharge Plan Discharge Anticipated Discharge Date/Time: 02/12/24 11:58 Patient Disposition: Home Health Service Discharge Diagnosis: Myasthenia gravis exacerbation Swallowing problem Referrals: [facility] [Other] - 1 Week (Resume current services, with additional jail services. Christine [facility]CKAY will call you to schedule.) [facility] [Other] - 1 Week ([facility] will provide your tube feeds and supplies) Niall Thomas MD [Physician] - 2 Weeks Aria Sherwood NP [Primary Care Provider] - 1 Week Discharge Medications: New nystatin 100,000 unit/gram Cream 1 appl topical BID Qty: 30 0RF Protocol: Apply to: Apply to: under breasts bilaterally Continued oxybutynin chloride 15 mg tablet extended release 24hr 15 mg PO DAILY timolol maleate 0.25 % drops 1 drp ophthalmic-Right DAILY timolol maleate 0.25 % drops 1 drp ophthalmic (eye) BEDTIME Rx Instructions: Both eyes at night prednisone 10 mg tablet 10 mg PO BID azathioprine 50 mg tablet 50 mg PO Q OTHER DAY amlodipine 5 mg tablet 5 mg PO DAILY Changed pyridostigmine bromide [Mestinon] 60 mg tablet 60 mg feeding tube TID Qty: 180 0RF Discharge Orders: Discharge Order (Routine); Ordered 02/12/24 Ordered By: Sonia Lynch Diet: Tube feed Activity on Discharge: As tolerated Stand Alone Forms: Patient Portal Discharge page Print Language: Wolof Care Plan Goals: Local wound care at site of G-tube Nystatin cream for rash Continue Tube feeds Follow up with PCP and neurology as scheduled Health Concerns: Read below Plan of Treatment: Read below Assessment: Read below
--- NOTE | 2024-02-12 12:21 | HO.REMOVAL ---
Removal of PICC/Midline Removal of PICC/Midline: Removal of PICC : 1. Date: 02/12/24 2. Reason removed: No longer needed 3. Inserted length: 36 cm 4. Removed length: 36 cm 5. A dressing was placed over the site upon removal. No edema or bleeding at the site. No hematoma noted.
--- NOTE | 2024-02-12 13:03 | P.F2F_ITS ---
Service Date Service Date: 02/12/24 Encounter Date of encounter: 02/12/24 Encounter: Myasthenia gravis exacerbation Swallowing problem Reasons for Services Signs and symptoms assessed: New PEG Swallowing problem physical deconditioning Reason for group home: wound care and teach disease management Reason for physical therapy: home safety and mobility and therapeutic exercises Reason for occupational therapy: home safety and mobility and therapeutic exercises Reason for speech therapy: swallowing impairment Homebound: Leaving the home is medically contraindicated at this time without the asist of a device and/or another person due th the listed conditions above and below. Reason homebound: unsteady gait / fall risk Certification: Based on the above findings, I certify that this patient is confined to the home and needs intermittent group home care, physical therapy and/or speech therapy, or continues to need occupational therapy. The patient is under my care, and I have initiated the establishment of the plan of care. The patient will be followed by a physician who will periodically review the plan of care. Time Spent With Patient Time: Total time managing care of this patient today ____ minutes.
== END 2024-02-12 14:28 | disposition home health service (06) | DRG 42 ==
LOC: HO.ED 19:59 → HO.EDOVER 20:00 → HO.S3 02-01 02:07
PROVIDERS: Family Medicine; Internal Medicine; Surgery; Admitting Provider Physician Assistant; Emergency Provider Internal Medicine; PCP Nurse Practitioner Family; Visit Provider Student in an Organized Health Care Education/Training Program
PROC: 0DH63UZ Insertion of Feeding Device into Stomach, Percutaneous Approach (ICD-10-PCS; CPT 43246; principal; 2024-02-05 13:40)
DX: G70.01 Myasthenia gravis with (acute) exacerbation (principal); R13.12 Dysphagia, oropharyngeal phase; I10 Essential (primary) hypertension; Z79.52 Long term (current) use of systemic steroids; Z79.899 Other long term (current) drug therapy
CPT/HCPCS: 36415; 36573; 70450; 73610; 74176; 80048; 80053; 80076; 82040; 82803; 83735; 84100; 84478; 85025; 85027; 94010; 94640; 97116; 97162; 99285; C1751; J0690; J1200; J1569; J1650; J2270; J2704; J2919; J3010; J3360; J7120

== ENCOUNTER → 2024-01-31 19:30 | Outpatient (BNV) | payer OTHER, SELFPAY | PROVIDERS: Admitting Provider Physician Assistant; Emergency Provider Internal Medicine; PCP Nurse Practitioner Family; Visit Provider Physician Assistant | DX: G70.00 Myasthenia gravis without (acute) exacerbation (principal) | CPT/HCPCS: 99223; 99232; 99239; G0180 ==

== ENCOUNTER → 2024-01-31 19:30 | Outpatient (BNV) | payer OTHER, SELFPAY | PROVIDERS: Admitting Provider Physician Assistant; Emergency Provider Internal Medicine; PCP Nurse Practitioner Family; Visit Provider Psychiatry & Neurology Neurology | DX: G70.01 Myasthenia gravis with (acute) exacerbation (principal) | CPT/HCPCS: 99223 ==

== ENCOUNTER → 2024-01-31 19:30 | Outpatient (BNV) | payer OTHER, SELFPAY | PROVIDERS: Admitting Provider Physician Assistant; Emergency Provider Internal Medicine; PCP Nurse Practitioner Family; Visit Provider Physician Assistant Surgical | DX: R13.10 Dysphagia, unspecified (principal) | CPT/HCPCS: 43246; 99222; 99232; 99499 ==

== ENCOUNTER 2024-02-13 13:15 | Emergency (ER) | payer OTHER, SELFPAY ==
[2024-02-13 13:17] VITALS: BP 109/67; PULSE 125; RESP 19; TEMP 36.6; O2SAT 97; BMI 20.2
--- NOTE | 2024-02-13 13:18 | ED.GENADULT ---
HPI - General Adult General Chief complaint: General Medical Stated complaint: wound check Time Seen by Provider: 02/13/24 16:10 Source: patient and family Mode of arrival: ambulatory History of Present Illness ED Provider: Dr Martinez HPI narrative: 83-year-old female sent in by her visiting nurse for possible infection of the PEG site. Patient reports she is currently on steroids for her underlying myasthenia gravis Related Data Home Medications ?Medication ?Instructions ?Recorded ?Confirmed azathioprine 50 mg tablet 50 mg PO Q OTHER DAY 07/04/20 02/01/24 amlodipine 5 mg tablet 5 mg PO DAILY 08/21/22 02/01/24 oxybutynin chloride 15 mg 15 mg PO DAILY 10/25/23 02/01/24 tablet,extended release 24 hr timolol maleate 0.25 % eye drops 1 drp ophthalmic-Right DAILY 10/25/23 02/01/24 prednisone 10 mg tablet 10 mg PO BID 12/15/23 02/01/24 timolol maleate 0.25 % eye drops 1 drp ophthalmic (eye) BEDTIME 02/01/24 02/01/24 Previous Rx's ?Medication ?Instructions ?Recorded nystatin 100,000 unit/gram topical 1 appl topical BID #30 grams 02/12/24 cream pyridostigmine bromide 60 mg 60 mg feeding tube TID #180 tabs 02/12/24 tablet (Mestinon) Allergies Allergy/AdvReac Type Severity Reaction Status Date / Time NSAIDS (Non-Steroidal Allergy Intermediate RASH Verified 02/13/24 13:20 Anti-Inflamma [NSAIDS (NON-STEROIDAL ANTI-INFLAMMA] azithromycin Allergy Unknown may Verified 02/13/24 13:20 exacerbate MG Ceftin Allergy Unknown hives Verified 02/13/24 13:20 cefuroxime [From CEFTIN] Allergy Unknown PATIENT Verified 02/13/24 13:20 AWARE OF REACTION IT WAS SO LONG AGO ibuprofen [Advil] Allergy Unknown rash Verified 02/13/24 13:20 levofloxacin Allergy Unknown may Verified 02/13/24 13:20 exacerbate MG lisinopril Allergy Unknown unknown Verified 02/13/24 13:20 losartan Allergy Unknown unknown Verified 02/13/24 13:20 ciprofloxacin [CIPROFLOXACIN] AdvReac Unknown UNABLE TO Verified 02/13/24 13:20 TAKE R/T DX MYASTHENIA GRAVIS nitrofurantoin AdvReac Unknown stomatitis Verified 02/13/24 13:20 adhesive tape Allergy Unknown rash Uncoded 02/13/24 13:20 adhesives Allergy Unknown rash Uncoded 02/13/24 13:20 Advil PM Allergy Unknown rash Uncoded 02/13/24 13:20 Review of Systems Review of Systems: Pertinent positives and negatives as stated in [facility] Past Medical History Source: nursing notes reviewed Medical History Osteoporosis Myasthenia gravis in remission Tubular adenoma of colon (~2010) Bile salt-induced diarrhea Surgical History History of hip replacement Hx of tonsillectomy History of bunionectomy History of back surgery Status post partial hysterectomy Hx laparoscopic cholecystectomy Hx of colonoscopy Family History Family History Father HTN (hypertension) Mother Colon cancer Sister Glaucoma Other Hx of colonoscopy Social History Social History Household Members: None Housing: House Do you presently have visiting nurse or other home services: Yes Alcohol intake: current Alcohol intake frequency: does not drink Comment: 1-2 assist oob to commode/ chair Patient Tobacco Use Status: Former Tobacco user Tobacco use type: Cigarette Smoked in Last 30 Days: No Use of substances other than those prescribed or required for medical reasons: No Advance Directives: Yes Advance Directives on File: Yes Advance Directives Date on File: 06/14/20 Do you have a plan to hurt others: No Plan service: No Physical Exam ED Vital Signs: Vital Signs - 24 hr 02/13/24 13:17 02/13/24 16:47 Temperature 98 F 98.0 F Pulse Rate 125 H 102 H Respiratory Rate 19 18 Blood Pressure 109/67 110/68 Pulse Oximetry 97 98 Oxygen Delivery Method Room Air BMI result Body Mass Index 20.2 VITAL SIGNS: Reviewed. GENERAL: Well developed, well nourished, in no acute distress. HEAD: Normocephalic/atraumatic EYES: PERRLA, EOMI i LUNGS: Normal breath sounds. No adventitious sounds or accessory muscle use. SpO2<98> CARDIOVASCULAR: Regular rate and rhythm without noted murmurs ABDOMEN: Soft, non-tender, non-distended with bowel sounds. Peg site with significant excoriation of the skin I do not appreciate any evidence of infection MUSCULOSKELETAL: No tenderness, deformities, or effusions noted on gross inspection. EXTREMITIES: No cyanosis, clubbing or edema. SKIN: Inspection of the skin reveals no rashes NEUROLOGIC: Alert and oriented x 4. Strength and sensation to light touch were grossly intact x 4. Course Course Course Narrative: This is a rapid medical exam performed by Anabell Leiva NP: Additional HPI, ROS, PE not included below will be deferred to primary provider. Patient is an 83-year-old female with history of myasthenia gravis discharged from hospital yesterday presenting with concern for infection around new G tube. Visiting nurse came today and told patient it appeared infected. Patient complains of pain to the area. Plan: blood cultures, labs, UA Medical Decision Making Medical Decision Making [facility] Narrative: 83-year-old female with history and clinical presentation consistent with skin excoriation likely multifactorial due to combination of location/tightness of the flange, and patient currently being on steroids. Area was cleared off, moisture barrier cream was applied and nonadherent gauze was placed between the flange in the skin after adjusting the flange to the point that it did not apply as much pressure. 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 Chemistry indices do not demonstrate KIM or electrolyte/liver enzyme derangements. Urinalysis negative for UTI. Patient given appropriate supplies and is otherwise discharged and recommended to follow-up with Dr. Meyer as scheduled. Differential Diagnosis Differential Diagnoses: The differential diagnosis associated with the presentation includes Please see the discussion above Admission/Observation Consideration of admission/observation: Escalation of care including admission/observation considered Please see the discussion above Lab Data [facility] Lab Attestation statement: I reviewed the patient's lab results. Please see the discussion above 02/13/24 13:20 02/13/24 13:20 Labs: Lab Results 02/13/24 02/13/24 Range/Units 13:20 14:26 WBC 14.1 H (4.8-10.8) X10*3/uL RBC 4.20 (4.20-5.50) X10*6/uL Hgb 13.8 (12.0-16.0) g/dl Hct 40.1 (37.0-47.0) % MCV 95.5 (80.0-98.0) fL MCH 32.9 (27.0-33.0) pg MCHC 34.4 (31.0-35.0) g/dl RDW 14.1 (11.0-16.0) % Plt Count 184 (160-400) X10*3/uL MPV 9.3 L (9.4-12.3) fL Immature Gran % (Auto) 1.3 H (0.0-0.4) % Neut % (Auto) 83.2 H (45-73) % Lymph % (Auto) 8.2 L (20-40) % Miller % (Auto) 6.8 (2-11) % Eos % (Auto) 0.1 (0-4) % Baso % (Auto) 0.4 (0-2) % Lymph # (Auto) 1.2 (1.2-4.9) X10*3/uL Miller # (Auto) 1.0 (0.1-1.2) X10*3/uL Eos # (Auto) 0.0 (0.0-0.4) X10*3/uL Baso # (Auto) 0.1 (0.0-0.2) X10*3/uL Abs Immat Gran (auto) 0.19 H (0.00-0.03) X10*3/uL Absolute Neuts (auto) 11.8 H (2.0-8.3) x10*3/uL Absolute Nucleated RBC 0.000 (0.0-0.012) X10*3/uL Nucleated RBC % (auto) 0.0 (0.0-0.2) /100WBC Sodium 138 (135-145) mmol/L Potassium 4.3 (3.3-5.1) mmol/L Chloride 104 (96-108) mmol/L Carbon Dioxide 27 (22-29) mmol/L Anion Gap 11 L (12-20) BUN 26 H (9-16) mg/dL Creatinine 0.65 (0.5-1.4) mg/dL Estim Creat Clear Calc 43.1 Estimated GFR > 60 Random Glucose 128 H (60-115) mg/dL Lactic Acid 1.5 (0.5-2.0) mmol/L Calcium 8.9 (8.4-10.2) mg/dL Total Bilirubin 0.9 (0.0-1.0) mg/dL AST 23 (5-31) U/L ALT 24 (0-31) U/L Alkaline Phosphatase 68 (39-117) U/L Total Protein 7.3 (6.5-8.0) g/dL Albumin 3.3 L (3.5-5.0) g/dL Urine Color Yellow Urine Appearance Clear Urine pH 5.5 (5.0-9.0) Ur Specific [place] 1.010 (1.005-1.025) Urine Protein Negative (Neg-Trace) mg/dL Urine Glucose (UA) Negative (Negative) mg/dL Urine Ketones Negative (Negative) mg/dL Urine Blood Small (1+) H (Negative) Urine Nitrite Negative (Negative) Ur Leukocyte Esterase Negative (Negative) Urine RBC 3-5 H (0-2) /HPF Urine WBC 0-5 (0-5) /HPF Ur Squamous Epith Cells 0-2 (0-2) /HPF Urine Bacteria None Seen (None Seen) Hyaline Casts 0-2 (0-2) /LPF External Record Review External record reviewed: Inpatient record, Outpatient record and Prior outpatient labs Chronic Conditions Patient?s care impacted by: Other Myasthenia gravis Critical Care Time Critical Care Time Critical Care Time: Yes Total Critical Care Time: 45 Attestation: I personally attest to this time spent taking care of the patient. Discharge Plan Discharge Clinical Impression: Visit for wound check, Skin excoriation Patient Disposition: Home, Self-Care Additional Instructions: Gently remove the moisture barrier cream with warm water, reapply and then place a nonstick gauze pad between the disc and your skin to prevent further skin breakdown. Return to the ER for any worsening symptoms. Prescriptions: No Action oxybutynin chloride 15 mg tablet extended release 24hr 15 mg PO DAILY timolol maleate 0.25 % drops 1 drp ophthalmic-Right DAILY timolol maleate 0.25 % drops 1 drp ophthalmic (eye) BEDTIME Rx Instructions: Both eyes at night nystatin 100,000 unit/gram Cream 1 appl topical BID Qty: 30 0RF Protocol: Apply to: Apply to: under breasts bilaterally pyridostigmine bromide [Mestinon] 60 mg tablet 60 mg feeding tube TID Qty: 180 0RF prednisone 10 mg tablet 10 mg PO BID azathioprine 50 mg tablet 50 mg PO Q OTHER DAY amlodipine 5 mg tablet 5 mg PO DAILY Referrals: Aria Sherwood NP [Primary Care Provider] - Gallo Meyer MD [Physician] - Print Language: Greek
--- NOTE | 2024-02-13 13:21 | ECG_ITS ---
Test Reason : TACHYCARDIC Blood Pressure : / mmHG Vent. Rate : 106 BPM Atrial Rate : 106 BPM P-R Int : 230 ms QRS Dur : 074 ms QT Int : 296 ms P-R-T Axes : 013 -46 004 degrees QTc Int : 393 ms Sinus tachycardia with 1st degree A-V block Left axis deviation Minimal voltage criteria for LVH, may be normal variant ( R in aVL ) Inferior infarct (cited on or before 28-JUL-2016) Anterolateral infarct (cited on or before 28-JUL-2016) Abnormal ECG When compared with ECG of 25-OCT-2023 15:25, Questionable change in initial forces of Lateral leads QT has shortened Referred By: Adelaide Leiva Electronically Signed By:Barrett Murry
[2024-02-13 14:23] LABS: MANUAL DIFF FLAG NO
[2024-02-13 14:24] LABS: Basophils Absolute Auto 0.1 X10*3/uL (0.0-0.2); Basophils Percent Auto 0.4 % (0-2); Eosinophils Percent Auto 0.1 % (0-4); Hematocrit 40.1 % (37.0-47.0); Hemoglobin 13.8 g/dl (12.0-16.0); Imm Gran Abs Auto 0.19 X10*3/uL (0.00-0.03); Imm Gran Pct Auto 1.3 % (0.0-0.4); Lymphocytes Absolute Auto 1.2 X10*3/uL (1.2-4.9); Lymphocytes Percent Auto 8.2 % (20-40); Mean Corpuscular HGB Conc 34.4 g/dl (31.0-35.0); Mean Corpuscular Hemoglobin 32.9 pg (27.0-33.0); Mean Corpuscular Volume 95.5 fL (80.0-98.0); Mean Platelet Volume 9.3 fL (9.4-12.3); Monocytes Percent Auto 6.8 % (2-11); Neutrophils Absolute Auto 11.8 x10*3/uL (2.0-8.3); Neutrophils Percent Auto 83.2 % (45-73); Platelet Count 184 X10*3/uL (160-400); Red Cell Distribution Width 14.1 % (11.0-16.0); White Blood Count 14.1 X10*3/uL (4.8-10.8)
[2024-02-13 14:39] LABS: Lactic Acid 1.5 mmol/L (0.5-2.0)
[2024-02-13 14:43] LABS: Appearance Urine Clear; Color Urine Yellow; Glucose Urine UA Negative (Negative); Leukocyte Esterase Urine Negative (Negative); Nitrite Urine Negative (Negative); PH 5.5 (5.0-9.0); UMIC TRIGGER UACC YES; Urine Blood Small (1+) (Negative); Urine Ketones Negative (Negative); Urine Protein Negative (Neg-Trace)
[2024-02-13 14:44] LABS: Alanine Aminotransferase 24 U/L (0-31); Albumin Level 3.3 g/dL (3.5-5.0); Alkaline Phosphatase 68 U/L (39-117); Anion Gap 11 (12-20); Aspartate Amino Transferase 23 U/L (5-31); Bilirubin Total 0.9 mg/dL (0.0-1.0); Blood Urea Nitrogen 26 mg/dL (9-16); Calcium 8.9 mg/dL (8.4-10.2); Carbon Dioxide 27 mmol/L (22-29); Chloride 104 mmol/L (96-108); Creatinine Clr Calc Pharmacy 43.1; Estimated Glomerular Filt Rate > 60; Glucose Random 128 mg/dL (60-115); Potassium 4.3 mmol/L (3.3-5.1); Sodium 138 mmol/L (135-145); Total Protein 7.3 g/dL (6.5-8.0)
[2024-02-13 14:49] LABS: Bacteria Urine None Seen (None Seen); Hyaline Casts Urine 0-2 /LPF (0-2); Squamous Epithelial Cell Urine 0-2 /HPF (0-2); WBC Urine 0-5 /HPF (0-5)
[2024-02-13 16:47] VITALS: BP 110/68; PULSE 102; RESP 18; TEMP 36.7; O2SAT 98
[2024-02-13 17:08] VITALS: BP 115/67; PULSE 100; RESP 18; TEMP 36.6; O2SAT 98
== END 2024-02-13 17:09 | disposition home or self-care (01) ==
PROVIDERS: Registered Nurse Emergency; Emergency Provider Student in an Organized Health Care Education/Training Program; PCP Nurse Practitioner Family
DX: Z48.00 Encounter for change or removal of nonsurgical wound dressing (principal); S30.811A Abrasion of abdominal wall, initial encounter; X58.XXXA Exposure to other specified factors, initial encounter; Z87.891 Personal history of nicotine dependence; Y93.9 Activity, unspecified; Y92.9 Unspecified place or not applicable; Y99.9 Unspecified external cause status; Z93.1 Gastrostomy status
CPT/HCPCS: 36415; 80053; 81001; 83605; 85025; 87040; 93005; 99283; 99284

== ENCOUNTER → 2024-02-13 13:21 | Outpatient (BNV) | payer OTHER, SELFPAY | PROVIDERS: Emergency Provider Student in an Organized Health Care Education/Training Program; PCP Nurse Practitioner Family; Visit Provider Internal Medicine Cardiovascular Disease | DX: R94.31 Abnormal electrocardiogram [ECG] [EKG] (principal) | CPT/HCPCS: 93010 ==

== ENCOUNTER 2024-02-14 07:11 | Emergency (ER) | payer OTHER, SELFPAY ==
--- NOTE | ~2024-02-14 | XR_ITS ---
EXAMINATION: XR ABDOMEN KUB CLINICAL INDICATION: Status post PEG placement COMPARISON: CT abdomen from 02/03/2024 TECHNIQUE: AP view of the abdomen. FINDINGS: Percutaneous gastrostomy catheter with balloon within the stomach. Enteric contrast fills the stomach and duodenum. No dilated loops of bowel visualized. Osteopenia with thoracolumbar multilevel vertebral augmentation. Dextrocurvature of the thoracolumbar spine. Partially visualized right hip arthroplasty. Visualized portion the lower chest are unremarkable. Soft tissues are unremarkable. XR/XR abdomen 1V IMPRESSION: 1. Percutaneous gastrostomy catheter with balloon within the stomach. 2. Enteric contrast fills the stomach and duodenum. 3. No dilated loops of bowel visualized. 4. Osteopenia with thoracolumbar multilevel vertebral augmentation. 5. Dextrocurvature of the thoracolumbar spine. 6. Partially visualized right hip arthroplasty.
[2024-02-14 07:26] VITALS: BP 112/74; BP 116/80; PULSE 87; PULSE 876; RESP 18; TEMP 36.6; O2SAT 98; BMI 22.2
[2024-02-14 07:37] VITALS: PULSE 80; RESP 18; O2SAT 97
--- NOTE | 2024-02-14 07:44 | ED_ITS ---
HPI - General Adult General Chief complaint: General Medical Stated complaint: DISLODGED FEEDING TUBE PER EMS Time Seen by Provider: 02/14/24 07:30 Source: patient and EMS Mode of arrival: EMS Limitations: no limitations History of Present Illness ED Provider: DR. Ware HPI narrative: 83-year-old female with known history of PEG feeding tube due to underlying myasthenia gravis and difficulty swallowing with risk of aspiration. The surgical placement was 3 weeks ago, patient was seen yesterday in the ER for irritation of the skin around the PEG tube, patient returned today after noticed that the tube was dislodged. Related Data Home Medications ?Medication ?Instructions ?Recorded ?Confirmed azathioprine 50 mg tablet 50 mg PO Q OTHER DAY 07/04/20 02/01/24 amlodipine 5 mg tablet 5 mg PO DAILY 08/21/22 02/01/24 oxybutynin chloride 15 mg 15 mg PO DAILY 10/25/23 02/01/24 tablet,extended release 24 hr timolol maleate 0.25 % eye drops 1 drp ophthalmic-Right DAILY 10/25/23 02/01/24 prednisone 10 mg tablet 10 mg PO BID 12/15/23 02/01/24 timolol maleate 0.25 % eye drops 1 drp ophthalmic (eye) BEDTIME 02/01/24 02/01/24 Previous Rx's ?Medication ?Instructions ?Recorded nystatin 100,000 unit/gram topical 1 appl topical BID #30 grams 02/12/24 cream pyridostigmine bromide 60 mg 60 mg feeding tube TID #180 tabs 02/12/24 tablet (Mestinon) Allergies Allergy/AdvReac Type Severity Reaction Status Date / Time NSAIDS (Non-Steroidal Allergy Intermediate RASH Verified 02/14/24 07:29 Anti-Inflamma [NSAIDS (NON-STEROIDAL ANTI-INFLAMMA] azithromycin Allergy Unknown may Verified 02/13/24 13:20 exacerbate MG Ceftin Allergy Unknown hives Verified 02/13/24 13:20 cefuroxime [From CEFTIN] Allergy Unknown PATIENT Verified 02/13/24 13:20 AWARE OF REACTION IT WAS SO LONG AGO ibuprofen [Advil] Allergy Unknown rash Verified 02/13/24 13:20 levofloxacin Allergy Unknown may Verified 02/13/24 13:20 exacerbate MG lisinopril Allergy Unknown unknown Verified 02/13/24 13:20 losartan Allergy Unknown unknown Verified 02/13/24 13:20 ciprofloxacin [CIPROFLOXACIN] AdvReac Unknown UNABLE TO Verified 02/13/24 13:20 TAKE R/T DX MYASTHENIA GRAVIS nitrofurantoin AdvReac Unknown stomatitis Verified 02/13/24 13:20 adhesive tape Allergy Unknown rash Uncoded 02/13/24 13:20 adhesives Allergy Unknown rash Uncoded 02/13/24 13:20 Advil PM Allergy Unknown rash Uncoded 02/13/24 13:20 Review of Systems Review of Systems: All other systems are reviewed and are negative Constitutional: Reports as per HPI and Reports no additional constitutional complaints Eyes: Reports as per HPI and Reports no additional eye complaints Reports system reviewed and no additional complaints, except as documented Cardiovascular: Reports as per HPI and Reports no additional cardiovascular complaints Respiratory: Reports as per HPI and Reports no additional respiratory complaints Gastrointestinal: Reports as per HPI and Reports no additional gastrointestinal complaints Genitourinary: Reports no additional female genitourinary complaints Musculoskeletal: Reports no additional musculoskeletal complaints Skin/Breast: Reports system reviewed and no additional complaints, except as docu Psychiatric: Reports no additional psychiatric complaints Endocrine: Reports no additional endocrine complaints Hematologic/Lymphatic: Reports no additional hematologic/lymphatic complaints Allergic/Immunologic: Reports no additional allergic/immunologic complaints Reports system reviewed and no additional complaints, except as documented and Reports Abnormal speech present [facility] Past Medical History Medical History Osteoporosis Myasthenia gravis in remission Tubular adenoma of colon (~2010) Bile salt-induced diarrhea Surgical History History of hip replacement Hx of tonsillectomy History of bunionectomy History of back surgery Status post partial hysterectomy Hx laparoscopic cholecystectomy Hx of colonoscopy Family History Family History Father HTN (hypertension) Mother Colon cancer Sister Glaucoma Other Hx of colonoscopy Social History Social History Household Members: None Housing: House Do you presently have visiting nurse or other home services: Yes Alcohol intake: current Alcohol intake frequency: does not drink Comment: 1-2 assist oob to commode/ chair Patient Tobacco Use Status: Former Tobacco user Tobacco use type: Cigarette Smoked in Last 30 Days: No Use of substances other than those prescribed or required for medical reasons: No Advance Directives: Yes Advance Directives on File: Yes Advance Directives Date on File: 06/14/20 service: No Physical Exam ED Vital Signs: Vital Signs - 24 hr 02/14/24 07:26 02/14/24 07:37 02/14/24 08:26 Temperature 97.8 F 97.6 F Pulse Rate 87 80 74 Respiratory Rate 18 18 14 Blood Pressure 112/74 115/74 Pulse Oximetry 98 97 96 Oxygen Delivery Method Room Air Room Air Room Air BMI result Body Mass Index 22.2 Vital signs have been reviewed and appear to be correct. Blood pressure elev ated. Heart rate normal. Respiratory rate normal. Temperature normal. Oxygen saturation normal. Appearance: Alert. Oriented X3. No acute distress. Head: Normal external exam. Normocephalic. Atraumatic. No Kamara signs noted. No raccoon eyes noted Eyes: PERRLA. EOMI. Conjunctiva and sclera normal. Eyelids normal. ENT: TM's Normal. Pharynx normal. Uvula midline. Moist mucous membranes. No trismus noted. No drooling noted. No muffled voice noted. Neck: Normal inspection. Neck supple. FROM. No adenopathy. Thyroid Normal. No meningeal signs. No neck mass noted. CVS: Normal heart rate and rhythm. Heart sound normal. No murmurs noted. Pulses normal throughout. Respiratory: No respiratory distress. Painless inspiration. Breath sounds normal. No wheezes/rales/rhonchi noted. Chest nontender. No accessory muscle usage noted or decreased air movement noted. Abdomen: Soft and nontender. Peg site with significant excoriation of the skin, and sensitive to touch, no drainage. Bowel sounds normal in all 4 quadrants. No distention noted. No organomegaly noted. No visible injury noted. Back: No CVA tenderness. Full range of motion noted. Skin: Skin warm and dry. Normal skin color. Normal skin turgor. No rashes/lesions/lacerations noted. Extremities: No lower extremity edema. Extremities exhibit normal range of motion. Extremities nontender. Neuro: Oriented X 3. Cranial nerve exam: II-XII are grossly intact No motor deficit. No sensory deficit. Reflexes normal. Course Reevaluation(s) Reevaluation #1: S/p PEG tube placement in the ED after was dislodged at home today, post placement x-ray showing satisfactory placement with no extravasation, patient was instructed to apply a barrier protectant cream to prevent a contact irritation from the PEG tube to the abdominal wall. Time: 09:05 Medications Administered Discontinued Medications Generic Name Dose Route Start Last Admin Trade Name Dea PRN Reason Stop Dose Admin Diatrizoate Meglum/Diatrizoate Sod 30 ml 02/14/24 08:11 02/14/24 08:13 Diatrizoate Meglumine, Sodium 30 Ml Solution PO 02/14/24 08:12 30 ml ONCE ONE Administration Medical Decision Making Differential Diagnosis Differential Diagnoses: The differential diagnosis associated with the presentation includes (Cellulitis at the insertion site, excoriation of the skin at the insertion site, PEG tube leakage, peg tube placement.) Admission/Observation Consideration of admission/observation: Escalation of care including admission/observation considered Independent Interpretation I performed an independent interpretation of an: Plain X-Ray (Abdomen and pelvis: 1. Percutaneous gastrostomy catheter with balloon within the stomach. 2. Enteric contrast fills the stomach and duodenum. 3. No dilated loops of bowel visualized. 4. Osteopenia with thoracolumbar multilevel vertebral augmentation. 5. Dextrocurvature of the thoracolumbar spin) Radiology Impression Discussion of test interpretation with radiology: I have reviewed the radiologist's reading. Discharge Plan Discharge Clinical Impression: S/P percutaneous endoscopic gastrostomy (PEG) tube placement Patient Disposition: Home, Self-Care Instructions: How to Use and Care for Your PEG Tube (ED) Additional Instructions: Apply a barrier protecting cream between the PEG tube and the skin to prevent further irritation. Prescriptions: No Action oxybutynin chloride 15 mg tablet extended release 24hr 15 mg PO DAILY timolol maleate 0.25 % drops 1 drp ophthalmic-Right DAILY timolol maleate 0.25 % drops 1 drp ophthalmic (eye) BEDTIME Rx Instructions: Both eyes at night nystatin 100,000 unit/gram Cream 1 appl topical BID Qty: 30 0RF Protocol: Apply to: Apply to: under breasts bilaterally pyridostigmine bromide [Mestinon] 60 mg tablet 60 mg feeding tube TID Qty: 180 0RF prednisone 10 mg tablet 10 mg PO BID azathioprine 50 mg tablet 50 mg PO Q OTHER DAY amlodipine 5 mg tablet 5 mg PO DAILY Referrals: Bryant Tom DO [Primary Care Provider] - Print Language: Japanese
[2024-02-14] MEDS: Diatrizoate Meglumine, Sodium 30 ML SOLUTION PO (08:13)
[2024-02-14 08:26] VITALS: BP 115/74; PULSE 74; RESP 14; TEMP 36.4; O2SAT 96
[2024-02-14 09:25] VITALS: BP 124/70; PULSE 77; RESP 17; TEMP 36.6; O2SAT 96
== END 2024-02-14 09:29 | disposition home or self-care (01) ==
PROVIDERS: Emergency Provider Emergency Medicine; PCP Family Medicine
DX: Z43.1 Encounter for attention to gastrostomy (principal); G70.00 Myasthenia gravis without (acute) exacerbation
CPT/HCPCS: 74018; 99283; 99284

== ENCOUNTER 2024-02-15 04:49 | Emergency (ER) | payer OTHER, SELFPAY ==
--- NOTE | ~2024-02-15 | IR_ITS ---
GASTROSTOMY TUBE CHANGE USING FLUOROSCOPIC GUIDANCE History: The patient's recently placed gastrostomy tube has become dislodged. Procedure: The gastrostomy tube site was cannulated with a KMP catheter. Contrast was injected to verify position within the stomach. An Amplatz wire was placed through the KMP catheter and coiled into the stomach. The catheter was removed over the wire. A new 18 K[place] gastrostomy tube was inserted over the wire and into the stomach. The wire was removed. The balloon was inflated. A permanent abdominal fluoroscopic image was saved demonstrating the tube in the stomach. The patient tolerated the procedure well. Total fluoroscopy time 3.3 minutes This procedure was performed by Dilan Brasher PA-C and supervised by Dr. Verdin.
[2024-02-15 05:00] VITALS: BP 132/93; PULSE 92; RESP 20; TEMP 36.6; O2SAT 97; BMI 20.9
--- NOTE | 2024-02-15 07:09 | PC.NURSE ---
Provider at bedside, attempting to place new G tube access. Access presents with erythema and Pt expresses discomfort with attempted placement. Pt follow commands well and is cooperative.
--- NOTE | 2024-02-15 07:16 | PC.NURSE ---
7:16a: unsuccessful tube replacement. Awaiting surgical consult.
--- NOTE | 2024-02-15 07:24 | ED_ITS ---
HPI - General Adult General Chief complaint: General Medical Stated complaint: feeding tube fell out Time Seen by Provider: 02/15/24 07:00 Source: patient and old records reviewed Mode of arrival: ambulatory Limitations: no limitations History of Present Illness ED Provider: BOWEN HOLM narrative: 83 yo female with PMH of MG, diarrhea, osteoporosis, s/p PEG tube on 02/04 here yesterday s/p replacement in the ED with xray confirmation now back again after standing up and noticing her G tube had fallen out. She has no complaints. She notes irritation around the PEG tube site. No bleeding. She is not sure what happened. I did attempt to place 20F to keep hole open before I consulted surgery. MD complaint: PEG tube fell out Onset (ago): unknown Location: abdomen Radiation: non-radiation Severity: mild Quality: aching Pain Consistency: constant Relieving factors: none Exacerbating factors: none Associated symptoms: denies other symptoms Treatments prior to arrival: none Related Data Home Medications ?Medication ?Instructions ?Recorded ?Confirmed azathioprine 50 mg tablet 50 mg PO Q OTHER DAY 07/04/20 02/01/24 amlodipine 5 mg tablet 5 mg PO DAILY 08/21/22 02/01/24 oxybutynin chloride 15 mg 15 mg PO DAILY 10/25/23 02/01/24 tablet,extended release 24 hr timolol maleate 0.25 % eye drops 1 drp ophthalmic-Right DAILY 10/25/23 02/01/24 prednisone 10 mg tablet 10 mg PO BID 12/15/23 02/01/24 timolol maleate 0.25 % eye drops 1 drp ophthalmic (eye) BEDTIME 02/01/24 02/01/24 Previous Rx's ?Medication ?Instructions ?Recorded nystatin 100,000 unit/gram topical 1 appl topical BID #30 grams 02/12/24 cream pyridostigmine bromide 60 mg 60 mg feeding tube TID #180 tabs 02/12/24 tablet (Mestinon) Allergies Allergy/AdvReac Type Severity Reaction Status Date / Time NSAIDS (Non-Steroidal Allergy Intermediate RASH Verified 02/15/24 05:00 Anti-Inflamma [NSAIDS (NON-STEROIDAL ANTI-INFLAMMA] azithromycin Allergy Unknown may Verified 02/15/24 05:00 exacerbate MG Ceftin Allergy Unknown hives Verified 02/15/24 05:00 cefuroxime [From CEFTIN] Allergy Unknown PATIENT Verified 02/15/24 05:00 AWARE OF REACTION IT WAS SO LONG AGO ibuprofen [Advil] Allergy Unknown rash Verified 02/15/24 05:00 levofloxacin Allergy Unknown may Verified 02/15/24 05:00 exacerbate MG lisinopril Allergy Unknown unknown Verified 02/15/24 05:00 losartan Allergy Unknown unknown Verified 02/15/24 05:00 ciprofloxacin [CIPROFLOXACIN] AdvReac Unknown UNABLE TO Verified 02/15/24 05:00 TAKE R/T DX MYASTHENIA GRAVIS nitrofurantoin AdvReac Unknown stomatitis Verified 02/15/24 05:00 adhesive tape Allergy Unknown rash Uncoded 02/15/24 05:00 adhesives Allergy Unknown rash Uncoded 02/15/24 05:00 Advil PM Allergy Unknown rash Uncoded 02/15/24 05:00 Review of Systems 2 Review of Systems: Constitutional : No Fever, No Chills, No Fatigue ENT/Mouth : No sore throat, No Rhinorrhea Eyes: No Eye Pain, No Swelling, No Redness Cardiovascular : No Chest Pain, No SOB, No Dyspnea on Exertion Respiratory : No Cough, No Sputum Gastrointestinal : No Nausea, No Vomiting, No Diarrhea, No abdominal Pain Genitourinary : No Dysuria, No Urinary Frequency, No Hematuria, Musculoskeletal : No joint pain, No Myalgias, No Joint Swelling Skin : No Skin Lesions, No rash Neuro : No Weakness, No Numbness, No Dizziness, no Headache Psych : No Anxiety/Panic, No Depression All other systems reviewed and are negative PMFSH Past Medical History Attestation statement: The following information was validated with the patient. Source: old records reviewed Medical History Osteoporosis Myasthenia gravis in remission Tubular adenoma of colon (~2010) Bile salt-induced diarrhea Surgical History History of hip replacement Hx of tonsillectomy History of bunionectomy History of back surgery Status post partial hysterectomy Hx laparoscopic cholecystectomy Hx of colonoscopy Family History Family History Father HTN (hypertension) Mother Colon cancer Sister Glaucoma Other Hx of colonoscopy Social History Social History Household Members: None Housing: House Do you presently have visiting nurse or other home services: Yes Alcohol intake: former Comment: 1-2 assist oob to commode/ chair Patient Tobacco Use Status: Former Tobacco user Tobacco use type: Cigarette Smoked in Last 30 Days: No Use of substances other than those prescribed or required for medical reasons: No Advance Directives: Yes Advance Directives on File: Yes Advance Directives Date on File: 06/14/20 service: No Physical Exam ED Vital Signs: Vital Signs - 24 hr 02/15/24 05:00 02/15/24 08:00 02/15/24 09:53 Temperature 97.9 F 97.7 F Pulse Rate 92 70 75 Respiratory Rate 20 14 Blood Pressure 132/93 H 117/74 128/73 Pulse Oximetry 97 97 99 Oxygen Delivery Method Room Air Room Air Room Air BMI result Body Mass Index 20.9 Appearance: Alert. Oriented X3. No acute distress. Frail Eyes: Pupils equal, round and reactive to light. ENT: Pharynx normal. Neck: Normal inspection. Neck supple. CVS: Normal heart rate and rhythm. Pulses normal. Respiratory: No respiratory distress. Breath sounds normal. Abdomen: Soft and non-tender. G tube site is excoriated and inflammed but no signs of abscess or cellulitis Skin: Skin warm and dry. Normal skin color. Normal skin turgor. Extremities: No lower extremity edema. Neuro: Oriented X 3. No motor deficit. No sensory deficit. Medical Decision Making Medical Decision Making [facility] Narrative: 83 yo female with PMH of MG, diarrhea, osteoporosis, s/p PEG tube on 02/04 here with c/o loss of feeding tube that was replaced yesterday in our ED at this time after site was confirmed 10 days old I did place 20F in opening to keep it open but Dr. Rosales is requesting IR to perform replacement. She has no other complaints will ask IR to place the tube it is not mature enough for ED to replace at this time. 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 Rosales requesting IR place PEG tube Lab Data [facility] Lab Attestation statement: I reviewed the patient's lab results. 02/15/24 07:40 02/15/24 07:40 Labs: Lab Results 02/15/24 Range/Units 07:40 WBC 10.8 (4.8-10.8) X10*3/uL RBC 3.76 L (4.20-5.50) X10*6/uL Hgb 12.4 (12.0-16.0) g/dl Hct 35.6 L (37.0-47.0) % MCV 94.7 (80.0-98.0) fL MCH 33.0 (27.0-33.0) pg MCHC 34.8 (31.0-35.0) g/dl RDW 14.0 (11.0-16.0) % Plt Count 208 (160-400) X10*3/uL MPV 8.9 L (9.4-12.3) fL Immature Gran % (Auto) 1.1 H (0.0-0.4) % Neut % (Auto) 70.3 (45-73) % Lymph % (Auto) 20.5 (20-40) % Bullitt % (Auto) 7.6 (2-11) % Eos % (Auto) 0.3 (0-4) % Baso % (Auto) 0.2 (0-2) % Lymph # (Auto) 2.2 (1.2-4.9) X10*3/uL Bullitt # (Auto) 0.8 (0.1-1.2) X10*3/uL Eos # (Auto) 0.0 (0.0-0.4) X10*3/uL Baso # (Auto) 0.0 (0.0-0.2) X10*3/uL Abs Immat Gran (auto) 0.12 H (0.00-0.03) X10*3/uL Absolute Neuts (auto) 7.6 (2.0-8.3) x10*3/uL Absolute Nucleated RBC 0.000 (0.0-0.012) X10*3/uL Nucleated RBC % (auto) 0.0 (0.0-0.2) /100WBC PT 12.0 (11.1-13.3) SEC INR 1.0 (0.9-1.1) Sodium 139 (135-145) mmol/L Potassium 3.9 (3.3-5.1) mmol/L Chloride 103 (96-108) mmol/L Carbon Dioxide 29 (22-29) mmol/L Anion Gap 11 L (12-20) BUN 24 H (9-16) mg/dL Creatinine 0.57 (0.5-1.4) mg/dL Estim Creat Clear Calc 49.1 Estimated GFR > 60 Random Glucose 79 (60-115) mg/dL Calcium 8.6 (8.4-10.2) mg/dL External Record Review External record reviewed: Inpatient record Discharge Plan Discharge Clinical Impression: S/P percutaneous endoscopic gastrostomy (PEG) tube placement Patient Disposition: Home, Self-Care Instructions: How to Use and Care for Your PEG Tube (ED) Additional Instructions: return for worsening symptoms or concerns follow up with your doctors monitor tube site for spreading redness please use barrier cream Prescriptions: No Action oxybutynin chloride 15 mg tablet extended release 24hr 15 mg PO DAILY timolol maleate 0.25 % drops 1 drp ophthalmic-Right DAILY timolol maleate 0.25 % drops 1 drp ophthalmic (eye) BEDTIME Rx Instructions: Both eyes at night nystatin 100,000 unit/gram Cream 1 appl topical BID Qty: 30 0RF Protocol: Apply to: Apply to: under breasts bilaterally pyridostigmine bromide [Mestinon] 60 mg tablet 60 mg feeding tube TID Qty: 180 0RF prednisone 10 mg tablet 10 mg PO BID azathioprine 50 mg tablet 50 mg PO Q OTHER DAY amlodipine 5 mg tablet 5 mg PO DAILY Print Language: Maltese
[2024-02-15 07:44] LABS: MANUAL DIFF FLAG NO
[2024-02-15 07:46] LABS: Basophils Percent Auto 0.2 % (0-2); Eosinophils Percent Auto 0.3 % (0-4); Hematocrit 35.6 % (37.0-47.0); Hemoglobin 12.4 g/dl (12.0-16.0); Imm Gran Abs Auto 0.12 X10*3/uL (0.00-0.03); Imm Gran Pct Auto 1.1 % (0.0-0.4); Lymphocytes Absolute Auto 2.2 X10*3/uL (1.2-4.9); Lymphocytes Percent Auto 20.5 % (20-40); Mean Corpuscular HGB Conc 34.8 g/dl (31.0-35.0); Mean Corpuscular Volume 94.7 fL (80.0-98.0); Mean Platelet Volume 8.9 fL (9.4-12.3); Monocytes Absolute Auto 0.8 X10*3/uL (0.1-1.2); Monocytes Percent Auto 7.6 % (2-11); Neutrophils Absolute Auto 7.6 x10*3/uL (2.0-8.3); Neutrophils Percent Auto 70.3 % (45-73); Platelet Count 208 X10*3/uL (160-400); Red Blood Count 3.76 X10*6/uL (4.20-5.50); White Blood Count 10.8 X10*3/uL (4.8-10.8)
[2024-02-15 08:00] VITALS: BP 117/74; PULSE 70; TEMP 36.5; O2SAT 97
[2024-02-15 08:00] LABS: Anion Gap 11 (12-20); Blood Urea Nitrogen 24 mg/dL (9-16); Calcium 8.6 mg/dL (8.4-10.2); Carbon Dioxide 29 mmol/L (22-29); Chloride 103 mmol/L (96-108); Creatinine Clr Calc Pharmacy 49.1; Estimated Glomerular Filt Rate > 60; Glucose Random 79 mg/dL (60-115); Potassium 3.9 mmol/L (3.3-5.1); Sodium 139 mmol/L (135-145)
--- NOTE | 2024-02-15 08:18 | PC.NURSE ---
Pt to IR by transport
--- NOTE | 2024-02-15 09:36 | PM.PROC ---
Brief Operative Note Date of procedure: 02/15/24 Pre-op diagnosis: dislodged g tube Post-op diagnosis: same Procedure: Fl G tube replacement 18 fr g tube replaced under fluoroscopy. Ok for use.
[2024-02-15 09:53] VITALS: BP 128/73; PULSE 75; RESP 14; O2SAT 99
--- NOTE | 2024-02-15 09:54 | PC.NURSE ---
Gtube placed by IR, denies pain. Dressing intact to stoma. VSS
[2024-02-15 10:24] VITALS: BP 119/71; PULSE 69; TEMP 36.6; O2SAT 98
--- NOTE | 2024-02-15 10:37 | MHC.CM.ED ---
Received telephone call from Missy of [facility]. Missy was curious if patient was ready to sign onto their hospice service. Per Nia NEVILLE, patient drove herself here and will drive herself home. Patient had G-tube reinserted by IR. Does not appear hospice appropriate at this time.
[2024-02-15 10:52] VITALS: BP 119/71; PULSE 69; RESP 16; TEMP 36.6; O2SAT 98
== END 2024-02-15 12:19 | disposition home or self-care (01) ==
PROVIDERS: Physician Assistant Surgical; Emergency Provider Emergency Medicine
PROC: (CPT 43762; principal; 2024-02-15 09:00)
DX: K94.23 Gastrostomy malfunction (principal); Z79.899 Other long term (current) drug therapy; Z87.891 Personal history of nicotine dependence; Z51.81 Encounter for therapeutic drug level monitoring
CPT/HCPCS: 36415; 49450; 80048; 85025; 85610; 99284; 99285; C1769

== ENCOUNTER → 2024-02-15 05:06 | Outpatient (BNV) | payer OTHER, SELFPAY | PROVIDERS: Emergency Provider Emergency Medicine; Visit Provider Physician Assistant Surgical | DX: Z43.1 Encounter for attention to gastrostomy (principal) | CPT/HCPCS: 49450 ==

== ENCOUNTER 2024-02-18 11:19 | Outpatient (AMB) | payer OTHER, SELFPAY ==
--- NOTE | 2024-02-18 11:13 | MHC.OFFVIS ---
Intake Visit Reasons: PEG-J tube dislodged * pt Intake Note: Patient is seen in office for dislodged Peg-J. Pt c/o: here to have to evaluated might be need to replace Allergies NSAIDS (Non-Steroidal Anti-Inflamma [NSAIDS (NON-STEROIDAL ANTI-INFLAMMA] Allergy (Intermediate, Verified 02/15/24 05:00) RASH azithromycin Allergy (Unknown, Verified 02/15/24 05:00) may exacerbate MG Ceftin Allergy (Unknown, Verified 02/15/24 05:00) hives cefuroxime [From CEFTIN] Allergy (Unknown, Verified 02/15/24 05:00) PATIENT AWARE OF REACTION IT WAS SO LONG AGO ibuprofen [Advil] Allergy (Unknown, Verified 02/15/24 05:00) rash levofloxacin Allergy (Unknown, Verified 02/15/24 05:00) may exacerbate MG lisinopril Allergy (Unknown, Verified 02/15/24 05:00) unknown losartan Allergy (Unknown, Verified 02/15/24 05:00) unknown ciprofloxacin [CIPROFLOXACIN] Adverse Reaction (Unknown, Verified 02/15/24 05:00) UNABLE TO TAKE R/T DX MYASTHENIA GRAVIS nitrofurantoin Adverse Reaction (Unknown, Verified 02/15/24 05:00) stomatitis adhesive tape Allergy (Unknown, Uncoded 02/15/24 05:00) rash adhesives Allergy (Unknown, Uncoded 02/15/24 05:00) rash Advil PM Allergy (Unknown, Uncoded 02/15/24 05:00) rash HPI Comments Details: 83-year-old female patient status post PEG placement, returning for postop visit. The original tube fell out however this was subsequently replaced in the emergency department. The tube is currently working well. [facility] Medical History Osteoporosis Myasthenia gravis in remission Tubular adenoma of colon (~2010) Bile salt-induced diarrhea Surgical History History of hip replacement Hx of tonsillectomy History of bunionectomy History of back surgery Status post partial hysterectomy Hx laparoscopic cholecystectomy Hx of colonoscopy Family History Father HTN (hypertension) Mother Colon cancer Sister Glaucoma Other Hx of colonoscopy Social History Household Members: None Housing: House Do you presently have visiting nurse or other home services: Yes Alcohol intake: former Comment: 1-2 assist oob to commode/ chair Patient Tobacco Use Status: Former Tobacco user Tobacco use type: Cigarette Advance Directives Date on File: 06/14/20 service: No Physical Exam Const General: comfortable Nutritional Appearance: well nourished Orientation/consciousness: patient oriented x3 Resp Effort & Inspection: normal respiratory effort GI Other: PEG tube in place, dressings changed. Abdomen soft and nondistended. Neuro General: patient oriented x3 Assessment & Plan Assessment & Plan (1) S/P percutaneous endoscopic gastrostomy (PEG) tube placement: Code(s): Z93.1 - Gastrostomy status Category: Surgical Plan 83-year-old female patient with myasthenia gravis, recently required PEG tube placement and replacement. She was currently functioning well. He will return in 2 months for possible to replacement with Dr. Meyer. Coding Level of Care Code Global (35087) Diagnoses S/P percutaneous endoscopic gastrostomy (PEG) tube placement Z93.1
== END 2024-02-18 11:39 | disposition home or self-care (01) ==
PROVIDERS: Visit Provider Surgery
DX: Z43.1 Encounter for attention to gastrostomy (principal)
CPT/HCPCS: 99212

== ENCOUNTER → 2024-02-18 11:19 | Outpatient (BNVA) | payer OTHER, SELFPAY | PROVIDERS: Visit Provider Surgery ==